=== PATIENT | female | born 1945 | race Caucasian/White ===

== ENCOUNTER 2017-03-13 10:55 | Inpatient (IN) | payer OTHER ==
[~2017-03-13] VITALS: Ht 170.2 cm; Wt 108.5 kg
[2017-03-13] VITALS (16 sets, daily range): BP systolic 90–118; BP diastolic 43–73; PULSE 80–89; TEMP 36.7–37.7; O2SAT 91–98; BMI 40.1
[~2017-03-13 10:55] MED LIST: ALLO300T2 PO; B-COCAP2 PO; EFFSR75 PO; FERR-24 PO; LORA-741 PO; OXYC-57 PO; SENN-65 PO; SIMV20TA2 PO; ZOLP10TA PO
[2017-03-13] MEDS ORDERED: MORP15TA PO (11:25)
[2017-03-13] MEDS ORDERED: TRAZ100T29 PO (11:25)
[2017-03-13] MEDS ORDERED: ATOR-24 PO (11:26)
[2017-03-13] MEDS ORDERED: GABA-113 PO (11:26)
[2017-03-13] MEDS ORDERED: LISI-461 PO (11:26)
[2017-03-13] MEDS ORDERED: GLIP5TAB3 PO (11:26)
[2017-03-13] MEDS ORDERED: GLC/500 PO (11:26)
[2017-03-13] MEDS ORDERED: SODIUM CHLORIDE 0.9% 1000ML 1,000 ML IV STA (12:18)
--- NOTE | 2017-03-13 12:56 | DIAGNOSTIC IMAGING REPORT ---
CHEST ONE VIEW PORTABLE CLINICAL HISTORY: Altered mental status. Weakness. COMPARISON STUDY: Chest radiograph May 13, 2011. FINDINGS: Lung volumes are at the lower limits of normal. This is unchanged. No pneumothorax or pleural effusion is present. Mild cardiomegaly is noted. There is no evidence of pulmonary edema. No consolidation is evident. IMPRESSION: No acute cardiopulmonary findings. Electronically signed by: Jose Manuel Schrader M.D. 03/13/2017 12:55 PM Dictated Date/Time: 03/13/2017 12:54 PM
[2017-03-13 14:02] LABS: BASO % 0.2 %; BASO ABS # 0.02 K/uL (0-0.2); EOS % 0.4 %; EOS ABS # 0.05 K/uL (0-0.5); HEMATOCRIT 28.6 % (37-47); HEMOGLOBIN 9.4 g/dL (12.0-16.0); IG# 0.05 K/uL (0.00-0.02); LYMPH % 17.2 %; LYMPH ABS # 1.93 K/uL (1.2-3.4); MEAN CELL VOLUME 91.7 fL (80-100); MEAN CORPUSCULAR HEMOGLOBIN 30.1 pg (25-34); MEAN CORPUSCULAR HGB CONC 32.9 g/dl (32-36); MEAN PLATELET VOLUME 9.1 fL (7.4-10.4); MONO % 7.8 %; MONO ABS # 0.87 K/uL (0.11-0.59); NEUT ABS # 8.29 K/uL (1.4-6.5); PLATELET COUNT 214 K/uL (130-400); RED CELL DISTRIBUTION WIDTH CV 13.3 % (11.5-14.5); RED CELL DISTRIBUTION WIDTH SD 44.3 fL (36.4-46.3); WHITE BLOOD COUNT 11.21 K/uL (4.8-10.8)
[2017-03-13 14:35] LABS: ALBUMIN 3.1 gm/dl (3.4-5.0); ALKALINE PHOSPHATASE 89 U/L (45-117); ALT/SGPT 19 U/L (12-78); AST/SGOT 22 U/L (15-37); BLOOD UREA NITROGEN 43 mg/dl (7-18); CALCIUM 7.8 mg/dl (8.5-10.1); CARBON DIOXIDE 25 mmol/L (21-32); CKMB 9.7 ng/ml (0.5-3.6); CREATININE 5.91 mg/dl (0.60-1.20); GLUCOSE 119 mg/dl (70-99); LIPASE 42 U/L (73-393); POTASSIUM 5.5 mmol/L (3.5-5.1); SODIUM 136 mmol/L (136-145); TOTAL PROTEIN 6.3 gm/dl (6.4-8.2)
[2017-03-13 14:36] LABS: PTT PATIENT 23.9 SECONDS (21.0-31.0)
[2017-03-13] MEDS ORDERED: CEFTRIAXONE SOD INJ 1 GM ADDVIAL IV STA (14:42)
--- NOTE | 2017-03-13 14:53 | EMERGENCY ROOM VISIT NOTE ---
History Report prepared by Corrine: Munir Guerrero Under the Supervision of: Dr. Irvin Coello D.O. First contact with patient: 12:11 Chief Complaint: VOMITING Stated Complaint: VOMIT/WEAKNESS Nursing Triage Summary: Vomiting yesterday with falling this a.m. Patient states "I have the shakes". No vomiting today and no nausea. History of Present Illness The patient is a 71 year old female who presents to the Emergency Room with complaints of generalized weakness that began earlier today. She has a past medical history of kidney failure that occurred 6 years ago. She states that her symptom yesterday and today were the same symptoms that she had during this episode many years ago. Yesterday, the patient was severely nauseated and experienced about 6 episodes of vomiting. Her later episodes of vomiting were very dark in color. Today, her nausea and vomiting have resolved, but were replaced with her generalized weakness. Secondary to her weakness, she accidentally fell multiple times today. She did not hit her head or lose consciousness. Her daughter notes that she is having involuntary muscle jerks intermittently. She denies any fevers, chest pain, shortness of breath, diarrhea , hematochezia, or melena. She notes that she had a cough yesterday that resolved today. Source of History: patient Onset: earlier today Position: other (Global) Symptom Intensity: moderate Quality: other (Weakness) Timing: constant Associated Symptoms: No LOC, No fevers, No cough, No chest pain, No SOB, No nausea, No vomiting Note: She fell multiple times today but did not hit her head. She is experiencing involuntary muscle jerks. Review of Systems See HPI for pertinent positives & negatives. A total of 10 systems reviewed and were otherwise negative. Past Medical & Surgical Medical Problems: (1) Acute renal insufficiency (2) Fall (3) Urosepsis Family History Omitted secondary to the patient's age. Social History Smoking Status: Never Smoker Alcohol Use: none Drug Use: none Occupation Status: retired Current/Historical Medications Scheduled Atorvastatin (Lipitor), 40 MG PO QPM Gabapentin (Neurontin), 300 MG PO BID Glipizide (Glucotrol), 5 MG PO BID Lisinopril (Lisinopril), 10 MG PO DAILY Metformin Hcl (Glucophage), 1,000 MG PO BID Morphine Sulfate Ir (Morphine Sulfate Ir), 30 MG PO QAM Trazodone Hcl (Trazodone), 100 MG PO HS Allergies Coded Allergies: No Known Allergies (Unverified , 03/13/17) Physical Exam Vital Signs Date Time Temp Pulse Resp B/P (MAP) Pulse Ox O2 Delivery O2 Flow Rate FiO2 03/13/17 14:35 80 18 120/41 98 Nasal Cannula 2.0 03/13/17 14:01 108/53 03/13/17 12:47 87 27 109/52 97 Nasal Cannula 2.0 03/13/17 12:05 88 16 96/56 96 Nasal Cannula 2.0 03/13/17 11:12 98 Nasal Cannula 2.0 03/13/17 11:09 95 Nasal Cannula 2.0 03/13/17 11:05 36.8 96 14 113/51 86 Room Air 03/13/17 11:05 101 Physical Exam CONSTITUTIONAL/VITAL SIGNS: Reviewed / noted above. GENERAL: Non-toxic in appearance. Pale in color. INTEGUMENTARY: Warm, dry, and Bear. HEAD: Normocephalic. EYES: without scleral icterus or trauma. ENT/OROPHARYNX: clear and moist. LYMPHADENOPATHY/NECK: Is supple without lymphadenopathy or meningismus. RESPIRATORY: Lungs clear and equal. CARDIOVASCULAR: Regular rate and rhythm. GI/ABDOMEN: Soft and nontender. No organomegaly or pulsatile mass. No rebound or guarding. Normal bowel sounds. EXTREMITIES: Warm and well perfused. Small amount of abrasions to the bilateral lower extremities. BACK: No CVA tenderness. NEUROLOGICAL: Intact without focal deficits. PSYCHIATRIC: normal affect. MUSCULOSKELETAL: Normally developed with good muscle tone. Medical Decision & Procedures ER Provider Diagnostic Interpretation: Radiology results as stated below per my review and radiologist interpretation: CHEST ONE VIEW PORTABLE CLINICAL HISTORY: Altered mental status. Weakness. COMPARISON STUDY: Chest radiograph May 13, 2011. FINDINGS: Lung volumes are at the lower limits of normal. This is unchanged. No pneumothorax or pleural effusion is present. Mild cardiomegaly is noted. There is no evidence of pulmonary edema. No consolidation is evident. IMPRESSION: No acute cardiopulmonary findings. Electronically signed by: Jose Manuel Schrader M.D. 03/13/2017 12:55 PM Dictated Date/Time: 03/13/2017 12:54 PM Laboratory Results 03/13/17 13:35 Red Blood Count 3.12, Mean Corpuscular Volume 91.7, Mean Corpuscular Hemoglobin 30.1, Mean Corpuscular Hemoglobin Concent 32.9, Mean Platelet Volume 9.1, Neutrophils (%) (Auto) 74.0, Lymphocytes (%) (Auto) 17.2, Monocytes (%) (Auto) 7.8, Eosinophils (%) (Auto) 0.4, Basophils (%) (Auto) 0.2, Neutrophils # (Auto) 8.29, Lymphocytes # (Auto) 1.93, Monocytes # (Auto) 0.87, Eosinophils # (Auto) 0.05, Basophils # (Auto) 0.02 03/13/17 13:35 Test 03/13/17 13:10 03/13/17 13:35 Urine Color YELLOW Urine Appearance CLOUDY (CLEAR) Urine pH 5.0 (4.5-7.5) Urine Specific [place] 1.020 (1.000-1.030) Urine Protein 1+ (NEG) Urine Glucose (UA) 1+ (NEG) Urine Ketones NEG (NEG) Urine Occult Blood NEG (NEG) Urine Nitrite NEG (NEG) Urine Bilirubin NEG (NEG) Urine Urobilinogen NEG (NEG) Urine Leukocyte Esterase LARGE (NEG) Urine WBC (Auto) >30 /hpf (0-5) Urine RBC (Auto) 0-4 /hpf (0-4) Urine Hyaline Casts (Auto) 1-5 /lpf (0-5) Urine Epithelial Cells (Auto) 5-10 /lpf (0-5) Urine Bacteria (Auto) NEG (NEG) Urine Yeast (Auto) (NONE PRSENT) White Blood Count 11.21 K/uL (4.8-10.8) Red Blood Count 3.12 M/uL (4.2-5.4) Hemoglobin 9.4 g/dL (12.0-16.0) Hematocrit 28.6 % (37-47) Mean Corpuscular Volume 91.7 fL (80-100) Mean Corpuscular Hemoglobin 30.1 pg (25-34) Mean Corpuscular Hemoglobin Concent 32.9 g/dl (32-36) Platelet Count 214 K/uL (130-400) Mean Platelet Volume 9.1 fL (7.4-10.4) Neutrophils (%) (Auto) 74.0 % Lymphocytes (%) (Auto) 17.2 % Monocytes (%) (Auto) 7.8 % Eosinophils (%) (Auto) 0.4 % Basophils (%) (Auto) 0.2 % Neutrophils # (Auto) 8.29 K/uL (1.4-6.5) Lymphocytes # (Auto) 1.93 K/uL (1.2-3.4) Monocytes # (Auto) 0.87 K/uL (0.11-0.59) Eosinophils # (Auto) 0.05 K/uL (0-0.5) Basophils # (Auto) 0.02 K/uL (0-0.2) RDW Standard Deviation 44.3 fL (36.4-46.3) RDW Coefficient of Variation 13.3 % (11.5-14.5) Immature Granulocyte % (Auto) 0.4 % Immature Granulocyte # (Auto) 0.05 K/uL (0.00-0.02) Prothrombin Time 10.0 SECONDS (9.0-12.0) Prothromb Time International Ratio 1.0 (0.9-1.1) Activated Partial Thromboplast Time 23.9 SECONDS (21.0-31.0) Partial Thromboplastin Ratio 0.9 Anion Gap 8.0 mmol/L (3-11) Est Creatinine Clear Calc Drug Dose 11.5 ml/min Estimated GFR () 7.7 Estimated GFR (Non- 6.6 BUN/Creatinine Ratio 7.3 (10-20) Calcium Level 7.8 mg/dl (8.5-10.1) Magnesium Level 2.0 mg/dl (1.8-2.4) Total Bilirubin 0.3 mg/dl (0.2-1) Direct Bilirubin < 0.1 mg/dl (0-0.2) Aspartate Amino Transf (AST/SGOT) 22 U/L (15-37) Alanine Aminotransferase (ALT/SGPT) 19 U/L (12-78) Alkaline Phosphatase 89 U/L (45-117) Total Creatine Kinase 365 U/L (26-192) Creatine Kinase MB 9.7 ng/ml (0.5-3.6) Creatine Kinase MB Ratio 2.7 (0-3.0) Troponin I < 0.015 ng/ml (0-0.045) Total Protein 6.3 gm/dl (6.4-8.2) Albumin 3.1 gm/dl (3.4-5.0) Lipase 42 U/L (73-393) Thyroid Stimulating Hormone (TSH) 0.643 uIu/ml (0.300-4.500) Laboratory results as stated above per my review. Medications Administered Medications (Trade) Dose Ordered Sig/Shayan Route Start Time Stop Time Status Last Admin Dose Admin Sodium Chloride 1,000 ml @ 999 mls/hr Q1H1M STAT IV 03/13/17 12:18 03/13/17 13:18 DC 03/13/17 12:18 999 MLS/HR Ceftriaxone Sodium (Rocephin Inj) 1 gm NOW STAT IV 03/13/17 14:42 03/13/17 14:43 DC 03/13/17 14:54 1 GM ECG Indication: vomiting, weakness Rate (beats per minute): 95 Rhythm: normal sinus Findings: no acute ischemic change, no ectopy ED Course 1211: Previous medical records were reviewed. The patient was evaluated in room C10. A complete history and physical examination was performed. 1218: Ordered Sodium Chloride 1000 ml @ 999 mls/hr IV 1442: Ordered Rocephin Inj 1 gm IV 1450: On reevaluation, the patient is resting. I discussed the results and findings with her. She verbalized agreement of the treatment plan. I spoke with Dr. Key Pete of the [facility] Hospitalist Service. The patient will be evaluated for further management and care. Medical Decision Differentials include: Acute coronary syndrome, myocardial infarction, CVA, TIA , anemia, infection, pneumonia, UTI, pyelonephritis, poor nutrition, dehydration , electrolyte disturbance, and hypoglycemia. This is a 71-year-old female who presents to the ED with a chief complaint of weakness and falling. The patient has been vomiting all day yesterday. She has vomited about 6 times. Today she was so weak that she was unable to bear weight and she fell numerous times. She did not hurt herself and did not strike her head. She did have some abrasions to her lower extremities. The patient's physical exam revealed some paleness to the skin but otherwise was unremarkable. She denied vomiting any blood or bloody bowel movements. Her chest x-ray did not show acute disease. Hemoglobin is 9.4. Urine is concerning for infection. White blood cell count was 11.2. Potassium was 5.5. Creatinine is 5.9. BUN is 43. Baseline creatinine is 1.2. The patient was hydrated with IV fluids. She was also given IV Rocephin. She will be seen by the hospitalist for further evaluation and care. Medication Reconcilliation Current Medication List: was personally reviewed by me Blood Pressure Screening Patient's blood pressure: Low blood pressure Consults Time Called: 144 Consulting Physician: Dr. Key Pete - [facility] Returned Call: [phone] Discussed the patient's case. The patient will be evaluated for further treatment and disposition. Impression Primary Impression: ARF (acute renal failure) Additional Impressions: Dehydration Weakness UTI (urinary tract infection) Scribe Attestation The scribe's documentation has been prepared under my direction and personally reviewed by me in its entirety. I confirm that the note above accurately reflects all work, treatment, procedures, and medical decision making performed by me. Departure Information Dispostion Being Evaluated By Hospitalist Referrals Juan R Shah M.D. (PCP) Patient Instructions [facility] Problem Qualifiers
[2017-03-13] MEDS ORDERED: GLUCAGON FOR INJ 1 MG VIAL SQ PRN (15:45)
[2017-03-13] MEDS ORDERED: GLUCOSE 10 TABS/TUBE PO PRN (15:45)
[2017-03-13] MEDS ORDERED: ONDANSETRON INJ 2 MG/ML 2 ML VIAL IV PRN (15:45)
[2017-03-13] MEDS ORDERED: ALUMINUM/MAGNESIUM/SIMETH (MAALOX MAX) 30 ML UDC PO PRN (15:45)
[2017-03-13] MEDS ORDERED: MAGNESIUM HYDROXIDE SUSP 30 ML UDC PO PRN (15:45)
[2017-03-13] MEDS ORDERED: POLYETHYLENE (MIRALAX) 17 GM PACK PO PRN (15:45)
[2017-03-13] MEDS ORDERED: GLUCOSE 40% GEL 15 GM TUBE PO PRN (15:45)
[2017-03-13] MEDS ORDERED: SODIUM CHLORIDE 0.9% 1000ML 1,000 ML IV ONE (16:00)
--- NOTE | 2017-03-13 16:26 | History and Physical ---
History & Physical Date & Time of Service: Mar 13, 2017 at 16:17 Chief Complaint: Vomit/Weakness Primary Care Physician: Ac Lopez M.D. History of Present Illness Source: patient, family Ms. Gresham is a 71 y/o female with PMHx of T2DM with Peripheral Neuropathy, HTN , Previous VISHAL (Required Temporary Hemodialysis) who presents to the ED c/o generalized weakness starting this AM. Patient reports yesterday waking up her normal self. She states she had sudden onset of emesis 6 reporting the emesis being black in color. She states the vomiting came on suddenly but denies precipitating nausea. She states all emesis was black in color. She denies abdominal pain. She states she used Pepto-Bismol approx. a week ago but nothing recent. She denies frequent NSAIDs or iron supplementation. She denies melena/ hematochezia. Emesis resolved yesterday but she states she felt extremely weak this AM. She reports fall x 6 times but only complains of small abrasions to feet and R hip pain. She denies LOC or hitting her head. She states she feels generally weak and denies focal deficits. She noticed the onset of muscle twitching that has been going on since today. The twitching is mostly of her upper extremities. Family notes she starts to say things but then forgets what she is saying but denies slurred speech. She reports approx. 6 years ago after her R BEBE she developed anemia and VISHAL. Previous admission reviewed, due to her Cr and electrolyte abnormalities she required temporary hemodialysis but reports complete resolution of her VISHAL. It was thought that her muscle jerking may have been related to gabapentin. Patient states this was recently changed in January from BID to TID dosing but was also talking about possibly Glipizide being TID now too? Patient and family at bedside state she appears exactly how she did 6 years ago. In the ED, patient was afebrile and with a mild leukocytosis of only 11.2. Her hemoglobin is 9.4 which is lower than previous labs however most labs are from several years ago. Her electrolytes are stable except for mild elevation of K at 5.5. No presence of an anion gap. EKG is NSR without ischemic findings or peaked T waves. Patient is intermittently hypotensive and will continue fluid bolus. Will transfuse 2 units and obtain renal U/S. Past Medical/Surgical History 1. T2DM 2. Diabetic Peripheral Neuropathy 3. HTN 4. Chronic Pain 5. H/O VISHAL - Required temporary dialysis x 6 years ago 6. S/P R BEBE Family History Lung Cancer Social History Smoking Status: Never Smoker Smokeless Tobacco Use: No Alcohol Use: none Drug Use: none Occupational Status: retired Immunizations History of Influenza Vaccine: Unknown History of Tetanus Vaccine?: Unknown History of Pneumococcal: Unknown History of Hepatitis B Vaccine: Unknown Multi-Drug Resistant Organisms History of MDRO: No Allergies Coded Allergies: No Known Allergies (Unverified , 03/13/17) Home Medications Scheduled Atorvastatin (Lipitor), 40 MG PO QPM Gabapentin (Neurontin), 300 MG PO BID Glipizide (Glucotrol), 5 MG PO BID Lisinopril (Lisinopril), 10 MG PO DAILY Metformin Hcl (Glucophage), 1,000 MG PO BID Morphine Sulfate Ir (Morphine Sulfate Ir), 30 MG PO QAM Trazodone Hcl (Trazodone), 100 MG PO HS Review of Systems Constitutional: + weakness (generalized), + fatigue, No fever, No chills ENT: No nasal symptoms, No sore throat, No trouble swallowing Respiratory: No cough, No shortness of breath Abdomen: + vomiting (x 6 epidosed yesterday - reporting black colored), + GI bleeding (possible black emesis - denies melena/hematochezia), No pain, No nausea, No diarrhea, No constipation Genitourinary - Female: No dysuria, No urinary frequency Hematologic / Lymphatic: No abnormal bleeding/bruising Integumentary: No rash Physical Exam Vital Signs Date Time Temp Pulse Resp B/P (MAP) Pulse Ox O2 Delivery O2 Flow Rate FiO2 03/13/17 15:07 74 03/13/17 14:35 80 18 120/41 98 Nasal Cannula 2.0 03/13/17 14:01 108/53 03/13/17 12:47 87 27 109/52 97 Nasal Cannula 2.0 03/13/17 12:05 88 16 96/56 96 Nasal Cannula 2.0 03/13/17 11:12 98 Nasal Cannula 2.0 03/13/17 11:09 95 Nasal Cannula 2.0 03/13/17 11:05 36.8 96 14 113/51 86 Room Air 03/13/17 11:05 101 General Appearance: WD/WN, no apparent distress, + obese Head: normocephalic, atraumatic Eyes: PERRL, EOMI, sclerae normal ENT: hearing grossly normal, pharynx normal, + pertinent finding (minimally dry oral mucosa) Neck: supple, no JVD, trachea midline Respiratory/Chest: lungs clear, normal breath sounds, no respiratory distress, no accessory muscle use Cardiovascular: regular rate, rhythm, no gallop, no murmur Abdomen/GI: normal bowel sounds, non tender (to light and deep palpation), soft Extremities/Musculoskelatal: no calf tenderness, no pedal edema Neurologic/Psych: no motor/sensory deficits, alert, oriented x 3, + pertinent finding (intermittently lethargic; 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, arm flexion/ extension, dorsiflexion/plantarflexion, and hip flexion b/l; Romberg negative; facial features symmetrical and movement equal) Skin: normal color, warm/dry, + pallor, + pertinent finding (multiple superficial skin tears to lower extremities) Diagnostics Laboratory Results Results Past 24 Hours Test 03/13/17 13:10 03/13/17 13:35 03/13/17 15:35 03/13/17 15:36 Range/Units Urine Color YELLOW Urine Appearance CLOUDY CLEAR Urine pH 5.0 4.5-7.5 Urine Specific [place] 1.020 1.000-1.030 Urine Protein 1+ NEG Urine Glucose (UA) 1+ NEG Urine Ketones NEG NEG Urine Occult Blood NEG NEG Urine Nitrite NEG NEG Urine Bilirubin NEG NEG Urine Urobilinogen NEG NEG Urine Leukocyte Esterase LARGE NEG Urine WBC (Auto) >30 0-5 /hpf Urine RBC (Auto) 0-4 0-4 /hpf Urine Hyaline Casts (Auto) 1-5 0-5 /lpf Urine Epithelial Cells (Auto) 5-10 0-5 /lpf Urine Bacteria (Auto) NEG NEG Urine Yeast (Auto) NONE PRSENT White Blood Count 11.21 4.8-10.8 K/uL Red Blood Count 3.12 4.2-5.4 M/uL Hemoglobin 9.4 12.0-16.0 g/dL Hematocrit 28.6 37-47 % Mean Corpuscular Volume 91.7 80-100 fL Mean Corpuscular Hemoglobin 30.1 25-34 pg Mean Corpuscular Hemoglobin Concent 32.9 32-36 g/dl Platelet Count 214 130-400 K/uL Mean Platelet Volume 9.1 7.4-10.4 fL Neutrophils (%) (Auto) 74.0 % Lymphocytes (%) (Auto) 17.2 % Monocytes (%) (Auto) 7.8 % Eosinophils (%) (Auto) 0.4 % Basophils (%) (Auto) 0.2 % Neutrophils # (Auto) 8.29 1.4-6.5 K/uL Lymphocytes # (Auto) 1.93 1.2-3.4 K/uL Monocytes # (Auto) 0.87 0.11-0.59 K/uL Eosinophils # (Auto) 0.05 0-0.5 K/uL Basophils # (Auto) 0.02 0-0.2 K/uL RDW Standard Deviation 44.3 36.4-46.3 fL RDW Coefficient of Variation 13.3 11.5-14.5 % Immature Granulocyte % (Auto) 0.4 % Immature Granulocyte # (Auto) 0.05 0.00-0.02 K/uL Prothrombin Time 10.0 9.0-12.0 SECONDS Prothromb Time International Ratio 1.0 0.9-1.1 Activated Partial Thromboplast Time 23.9 21.0-31.0 SECONDS Partial Thromboplastin Ratio 0.9 Sodium Level 136 136-145 mmol/L Potassium Level 5.5 3.5-5.1 mmol/L Chloride Level 103 98-107 mmol/L Carbon Dioxide Level 25 21-32 mmol/L Anion Gap 8.0 3-11 mmol/L Blood Urea Nitrogen 43 7-18 mg/dl Creatinine 5.91 0.60-1.20 mg/dl Est Creatinine Clear Calc Drug Dose 11.5 ml/min Estimated GFR () 7.7 Estimated GFR (Non- 6.6 BUN/Creatinine Ratio 7.3 10-20 Random Glucose 119 70-99 mg/dl Calcium Level 7.8 8.5-10.1 mg/dl Magnesium Level 2.0 1.8-2.4 mg/dl Total Bilirubin 0.3 0.2-1 mg/dl Direct Bilirubin < 0.1 0-0.2 mg/dl Aspartate Amino Transf (AST/SGOT) 22 15-37 U/L Alanine Aminotransferase (ALT/SGPT) 19 12-78 U/L Alkaline Phosphatase 89 45-117 U/L Total Creatine Kinase 365 26-192 U/L Creatine Kinase MB 9.7 0.5-3.6 ng/ml Creatine Kinase MB Ratio 2.7 0-3.0 Troponin I < 0.015 0-0.045 ng/ml Total Protein 6.3 6.4-8.2 gm/dl Albumin 3.1 3.4-5.0 gm/dl Lipase 42 73-393 U/L Thyroid Stimulating Hormone (TSH) 0.643 0.300-4.500 uIu/ml Microbiology Results 03/13/17 Urine Culture, Received Pending Diagnostic Radiology CHEST ONE VIEW PORTABLE FINDINGS: Lung volumes are at the lower limits of normal. This is unchanged. No pneumothorax or pleural effusion is present. Mild cardiomegaly is noted. There is no evidence of pulmonary edema. No consolidation is evident. IMPRESSION: No acute cardiopulmonary findings. EKG Normal sinus rhythm Normal ECG When compared with ECG of 14-MAY-2011 07:36, No significant change was found Confirmed by ENMANUEL BRONSON ([id number]) on 03/13/2017 1:26:16 PM Impression Assessment and Plan Ms. Gresham is a 71 y/o female with PMHx of T2DM with Peripheral Neuropathy, HTN , Previous VISHAL (Required Temporary Hemodialysis) who presents to the ED c/o generalized weakness starting this AM. Patient reports yesterday waking up her normal self. She states she had sudden onset of emesis 6 reporting the emesis being black in color. Acute Metabolic Encephalopathy: Renal vs Infectious vs Anemia vs Hypotension - She is alert and oriented x 3 but is lethargic - No evidence of anion gap but will draw an ABG for further evaluation - mildly lowered albumin but correction would not significantly change lab reported anion gap - Obtain lactic acid Acute Kidney Injury: - Unsure if VISHAL caused vomiting or vomiting caused an VISHAL - patient has H/O of similar issues in the past but required hemodialysis temporarily due to anion gap with electrolyte abnormalities - 2 L NSS bolus in ED total and will continue run NSS at 100 mL/hr - Continue to monitor kidney function and electrolytes - Hold Gabapentin, Lisinopril, and Metformin - Obtain renal U/S for further evaluation - Transfuse 2 units PRBC - hemoglobin at mid-9s but given mentation and possible hypotensive induced VISHAL will transfuse - Consult nephrology - appreciate assistance - did require dialysis when this occurred x 6 years ago with Cr going into 8s Possible Acute Anemia: Black Emesis - Trend Hgb - will transfuse due to concern of renal compromise limited recent labs but last hgb on record was in 11s and last records from when she had VISHAL x 6 years ago with Hgb around 8-9 Possible UTI: - Cx pending - will cover with Rocephin 1 g IV daily - no urinary symptoms reported Generalized Weakness and Falls x 6: - Possibly related to VISHAL vs anemia Muscle Twitching: - Send Gabapentin reference lab - may be electrolyte related vs Gabapentin induced T2DM with Peripheral Neuropathy: - Hold oral agents and cover with SSI HTN: - Currently hypotensive DVT Prophylaxis: SCDs Code Status: FULL RESUSCITATION Disposition: PT/OT Evaluations 71-year-old female presented to the hospital with acute onset vomiting and epigastric abdominal pain and dehydration. She was found to have acute kidney failure I personally interviewed and examined the patient. I agree with history of present illness and physical exam mentioned above, I also performed my own history taking and examination. Past medical history and review of system has been obtained by myself I reviewed all pertinent labs and studies Reviewed current medications I discussed and formulated of the assessment and plan mentioned above as per discussion with Miss Nion [place] Please refer to the Summary mentioned below. General Appearance: Moderate acute distress Eyes: normal Sclerae, extraocular muscle intact ENT: hearing grossly normal Neck: supple Respiratory/Chest: normal air entry especially bilateral ,no respiratory distress, no accessory muscle use Cardiovascular: regular rate, rhythm, + systolic murmur Abdomen: Mild tender, soft, no masses Extremities: no edema Neurologic/Psychiatric: Awake alert oriented times place and person moves all extremities sensation intact cranial nerves II-12 appear to be intact Skin: normal color, warm/dry, no rash, appears dehydrated Mark Pete MD, [facility] hospitalist group Level of Care Telemetry Resuscitation Status FULL RESUSCITATION VTE Prophylaxis VTE Risk Assessment Done? Y/N: Yes Risk Level: Moderate Given or contraindicated: SCD's
--- NOTE | 2017-03-13 17:05 | DIAGNOSTIC IMAGING REPORT ---
PELVIS/BILATERAL HIP 2 VIEWS CLINICAL HISTORY: Fall x 6 - R Hip Pain with Previous Hip Replacement trauma. Pain. COMPARISON STUDY: None FINDINGS: Findings consistent with a total right hip arthroplasty. Good contact between prosthetic and underlying bone. No evidence for acetabular protrusion. Mild degenerative change left hip. No evidence for acetabular protrusion. Sacral foramina are symmetric. IMPRESSION: 1. Pre-existing total right hip arthroplasty. 2. No acute process of the pelvis or hips. The above report was generated using voice recognition software. It may contain grammatical, syntax or spelling errors. Electronically signed by: Ac Chapin M.D. 03/13/2017 5:04 PM Dictated Date/Time: 03/13/2017 5:03 PM
[2017-03-13] MEDS: SODIUM CHLORIDE 0.9% 1000ML 1,000 ML IV SCH ×3 (17:51→23:00)
[2017-03-13 17:55] LABS: HEMATOCRIT 28.5 % (37-47); HEMOGLOBIN 9.5 g/dL (12.0-16.0)
[2017-03-13 18:37] LABS: ALBUMIN 3.1 gm/dl (3.4-5.0); CALCIUM 7.7 mg/dl (8.5-10.1); CREATININE 6.17 mg/dl (0.60-1.20); POTASSIUM 5.4 mmol/L (3.5-5.1); TOTAL PROTEIN 6.5 gm/dl (6.4-8.2)
[2017-03-13] MEDS: INSULIN ASPART 100 UNITS/ML 3 ML PEN SC SCH (21:00)
--- NOTE | 2017-03-13 21:17 | DIAGNOSTIC IMAGING REPORT ---
(RENAL)RETROPERITON COMP HISTORY: 71 years-old Female Elevated creatinine, Acute renal failure COMPARISON: Renal ultrasound 07/07/2011 TECHNIQUE: Multiple real-time sonographic images of the kidneys and urinary bladder were obtained assessing grayscale appearance and color flow FINDINGS: The right kidney measures 11.0 cm in length and is unremarkable without hydronephrosis, renal calculi or focal mass. Cortical medullary differentiation is preserved. The left kidney measures 11.2 cm in length and is also unremarkable without hydronephrosis, renal calculi or focal mass. Cortical medullary differentiation is preserved. Urinary bladder is decompressed with George catheter noted. IMPRESSION: 1. Unremarkable sonographic appearance of the bilateral kidneys without renal calculi or hydronephrosis. 2. Decompressed urinary bladder with Georeg catheter. The above report was generated using voice recognition software. It may contain grammatical, syntax or spelling errors. Electronically signed by: Carloz Cartagena M.D. 03/13/2017 9:15 PM Dictated Date/Time: 03/13/2017 9:13 PM
[2017-03-13] MEDS ORDERED: PNEUMOCOCCAL POLYSACCHARIDES 25 MCG/0.5 ML VIAL/SYR IM. ONE (21:30)
[2017-03-13] MEDS ORDERED: PNEUMOCOCCAL ADMINISTRATION CHARGE ONE (21:30)
[2017-03-13] MEDS ORDERED: INFLUENZA VIRUS QUAD VACCINE 0.5 ML SYR IM. ONE (21:30)
[2017-03-13] MEDS ORDERED: INFLUENZA ADMINISTRATION CHARGE ONE (21:30)
--- NOTE | 2017-03-13 22:10 | Progress Note ---
Progress Note Date of Service Mar 13, 2017. Progress Note Patient was reevaluated due to BP laboratories revealing worsening kidney function. Upon arrival to patient room, nurse was at bedside reporting worsening AMS. Patient would open her eyes and intermittently respond to questions but was also saying irrelevant things and was no longer oriented. Patient is mostly lethargic laying in bed with her eyes closed. With fluid resuscitation and 1 unit PRBC patient does appear to be mildly fluid overloaded. BP did somewhat improve but intermittently dropping into the 90s systolically. ABG revealed what is likely an uncompensated respiratory acidosis with an underlying metabolic acidosis with a normal anion gap. Discussed the case with Dr. Camargo and Vonda Tolentino PA-C and patient will be transferred to the ICU for further monitoring and intervention. patient slowly deteriorated on the floor and required ICU transfer repeat labs sowed no need for urgent dialysis, but supervisor ride assembly was informed with the case
--- NOTE | 2017-03-13 23:01 | Critical Care Consultation ---
Critical Care Consultation Date of Consultation: Mar 13, 2017. Attending Physician: Mark Pham MD Reason for Consultation: Altered Mental Status secondary to Renal Failure History of Present Illness Steffany Gresham is a 71-year-old female who presented to the emergency room today with complaints of vomiting and generalized weakness that began earlier that day. She complained of "I have the shakes." She did explain to the emergency room physician that this resembles an episode she had approximately 6 years ago that required emergent dialysis for renal failure. She described upwards of half dozen episodes of vomiting some with dark colored vomitus. When this resolved today she felt overall weakness that did cause her to fall multiple times. She denied head trauma or loss of consciousness. She is having involuntary muscle jerks intermittently since that time. Patient did receive 1 g of Rocephin and a 1 L fluid bolus of normal saline. Patient's potassium was 5.5 and a creatinine of 5.9, BUNs of 43. It is believed that her baseline creatinine is around 1.2. Patient did deny vomiting blood or experiencing bloody diarrhea. Hemoglobin was 9.4 in the emergency room. Patient's urine in the emergency room was nitrate and bacteria negative with large amounts of leukocytes Estrace. Patient was admitted to the second floor where she received 1 unit of packed red blood cells. Renal ultrasound was performed that was essentially unremarkable. The hospitalist team contacted myself and Dr. Camargo after the patient experienced acute changes. She became more altered and was requiring additional oxygen. A second unit of packed red blood cells was sent back to blood bank as patient was beginning to appear fluid overloaded. Patient was no longer alert and oriented as she had been prior and was transferred to the ICU for further monitoring and the possible need of emergent dialysis. Review of systems could not be obtained at this time secondary to patient's mental status. Past Medical/Surgical History Medical Problems: Acute renal insufficiency Fall Urosepsis Diabetes Type 2 Peripheral neuropathy Hypertension Chronic pain History of acute renal failure Surgical history: Right total hip arthroplasty Family History Lung Cancer Social History Smoking Status: Never Smoker Smokeless Tobacco Use: No Alcohol Use: none Drug Use: none Occupation Status: retired Allergies Coded Allergies: No Known Allergies (Unverified , 03/13/17) Home Medications Scheduled Atorvastatin (Lipitor), 40 MG PO QPM Gabapentin (Neurontin), 300 MG PO BID Glipizide (Glucotrol), 5 MG PO BID Lisinopril (Lisinopril), 10 MG PO DAILY Metformin Hcl (Glucophage), 1,000 MG PO BID Morphine Sulfate Ir (Morphine Sulfate Ir), 30 MG PO QAM Trazodone Hcl (Trazodone), 100 MG PO HS Current Inpatient Medications Current Inpatient Medications Medications (Trade) Dose Ordered Sig/Shayan Route Start Time Stop Time Status Last Admin Dose Admin Sodium Chloride 1,000 ml @ 100 mls/hr Q10H IV 03/13/17 17:45 04/12/17 17:44 03/13/17 21:03 100 MLS/HR Acetaminophen (Tylenol Tab) 650 mg Q4H PRN PO 03/13/17 15:45 04/12/17 15:44 Al Hydrox/Mg Hydrox/Simethicone (Maalox Max Susp) 15 ml Q4H PRN PO 03/13/17 15:45 04/12/17 15:44 Magnesium Hydroxide (Milk Of Magnesia Susp) 30 ml Q12H PRN PO 03/13/17 15:45 04/12/17 15:44 Ondansetron HCl (Zofran Inj) 4 mg Q6H PRN IV 03/13/17 15:45 04/12/17 15:44 Polyethylene (Miralax Powder Packet) 17 gm DAILY PRN PO 03/13/17 15:45 04/12/17 15:44 Insulin Aspart (novoLOG ASPART) SLIDING SCALE If C... ACHS SC 03/13/17 21:00 04/12/17 20:59 Glucose (Glucose 40% Gel) 15-30 GRAMS 15 GRAMS... UD PRN PO 03/13/17 15:45 04/12/17 15:44 Glucose (Glucose Chew Tab) 4-8 Tablets 4 Tabl... UD PRN PO 03/13/17 15:45 04/12/17 15:44 Dextrose (Dextrose 50% 50ML Syringe) 25-50ML OF 50% DW IV FOR... UD PRN IV 03/13/17 15:45 04/12/17 15:44 Glucagon (Glucagon Inj) 1 mg UD PRN SQ 03/13/17 15:45 04/12/17 15:44 Ceftriaxone Sodium 1 gm/ Dextrose 50 ml @ 100 mls/hr Q24H IV 03/14/17 14:00 03/18/17 13:59 Review of Systems Review of systems could not be obtained at this time secondary to patient's altered mental status. Physical Exam Date Time Temp Pulse Resp B/P (MAP) Pulse Ox O2 Delivery O2 Flow Rate FiO2 03/13/17 21:58 36.9 81 18 115/50 (71) 91 Nasal Cannula 3.0 03/13/17 20:57 37.7 86 12 96/53 94 03/13/17 20:00 92 Nasal Cannula 2.0 03/13/17 19:55 37.2 84 10 97/56 92 03/13/17 19:25 37.2 84 20 112/62 92 03/13/17 19:05 37.0 87 90/47 95 03/13/17 18:44 37.7 80 18 108/57 94 2.0 03/13/17 17:42 36.7 87 20 112/58 94 Nasal Cannula 2.0 03/13/17 16:20 73 18 98/60 93 Room Air 03/13/17 15:07 74 03/13/17 14:35 80 18 120/41 98 Nasal Cannula 2.0 03/13/17 14:01 108/53 03/13/17 12:47 87 27 109/52 97 Nasal Cannula 2.0 03/13/17 12:05 88 16 96/56 96 Nasal Cannula 2.0 03/13/17 11:12 98 Nasal Cannula 2.0 03/13/17 11:09 95 Nasal Cannula 2.0 03/13/17 11:05 36.8 96 14 113/51 86 Room Air 03/13/17 11:05 101 Vital Signs - as noted Laboratory Data - as noted Physical Exam: General - Pt altered, attempts to answer questions but stops mid sentence or answers inappropriately. Intermittent jerking movement noted. Eyes - PERRL, No icterus, gaze conjugate ENT - Mucosa moist, no lesions or candidiasis Neck - Supple, trachea midline, no masses or lymphadenopathy, no JVD or bruits Lungs - No paradoxical chest wall movement, Coarse to auscultation bilaterally, no wheezes, rales, or rhonchi Heart - Reg rate and rhythm, No murmur, rubs, clicks, or gallops appreciated Abdomen - BS present, no bruits noted, tympanic to percussion, soft, nontender, obese abdomen, no organomegaly Extremities - No edema, pedal pulses intact Neuro - Otterbein Coma Score: 10 Strength moves all extremities Reflexes: normal and equal CN:PERRL, no facial asymmetry, uvula/tongue midline Laboratory Results Last 24 Hours Test 03/13/17 13:10 03/13/17 13:35 03/13/17 17:42 03/13/17 20:12 Urine Color YELLOW Urine Appearance CLOUDY Urine pH 5.0 Urine Specific Bronson 1.020 Urine Protein 1+ Urine Glucose (UA) 1+ Urine Ketones NEG Urine Occult Blood NEG Urine Nitrite NEG Urine Bilirubin NEG Urine Urobilinogen NEG Urine Leukocyte Esterase LARGE Urine WBC (Auto) >30 /hpf Urine RBC (Auto) 0-4 /hpf Urine Hyaline Casts (Auto) 1-5 /lpf Urine Epithelial Cells (Auto) 5-10 /lpf Urine Bacteria (Auto) NEG Urine Yeast (Auto) White Blood Count 11.21 K/uL Red Blood Count 3.12 M/uL Hemoglobin 9.4 g/dL 9.5 g/dL Hematocrit 28.6 % 28.5 % Mean Corpuscular Volume 91.7 fL Mean Corpuscular Hemoglobin 30.1 pg Mean Corpuscular Hemoglobin Concent 32.9 g/dl Platelet Count 214 K/uL Mean Platelet Volume 9.1 fL Neutrophils (%) (Auto) 74.0 % Lymphocytes (%) (Auto) 17.2 % Monocytes (%) (Auto) 7.8 % Eosinophils (%) (Auto) 0.4 % Basophils (%) (Auto) 0.2 % Neutrophils # (Auto) 8.29 K/uL Lymphocytes # (Auto) 1.93 K/uL Monocytes # (Auto) 0.87 K/uL Eosinophils # (Auto) 0.05 K/uL Basophils # (Auto) 0.02 K/uL RDW Standard Deviation 44.3 fL RDW Coefficient of Variation 13.3 % Immature Granulocyte % (Auto) 0.4 % Immature Granulocyte # (Auto) 0.05 K/uL Prothrombin Time 10.0 SECONDS Prothromb Time International Ratio 1.0 Activated Partial Thromboplast Time 23.9 SECONDS Partial Thromboplastin Ratio 0.9 Sodium Level 136 mmol/L 135 mmol/L Potassium Level 5.5 mmol/L 5.4 mmol/L Chloride Level 103 mmol/L 103 mmol/L Carbon Dioxide Level 25 mmol/L 25 mmol/L Anion Gap 8.0 mmol/L 7.0 mmol/L Blood Urea Nitrogen 43 mg/dl 44 mg/dl Creatinine 5.91 mg/dl 6.17 mg/dl Est Creatinine Clear Calc Drug Dose 11.5 ml/min 11.0 ml/min Estimated GFR () 7.7 7.3 Estimated GFR (Non- 6.6 6.3 BUN/Creatinine Ratio 7.3 7.2 Random Glucose 119 mg/dl 86 mg/dl Calcium Level 7.8 mg/dl 7.7 mg/dl Phosphorus Level 7.1 mg/dl Magnesium Level 2.0 mg/dl Total Bilirubin 0.3 mg/dl 0.4 mg/dl Direct Bilirubin < 0.1 mg/dl Aspartate Amino Transf (AST/SGOT) 22 U/L 22 U/L Alanine Aminotransferase (ALT/SGPT) 19 U/L 19 U/L Alkaline Phosphatase 89 U/L 93 U/L Total Creatine Kinase 365 U/L Creatine Kinase MB 9.7 ng/ml Creatine Kinase MB Ratio 2.7 Troponin I < 0.015 ng/ml Total Protein 6.3 gm/dl 6.5 gm/dl Albumin 3.1 gm/dl 3.1 gm/dl Lipase 42 U/L Thyroid Stimulating Hormone (TSH) 0.643 uIu/ml Globulin 3.4 gm/dl Albumin/Globulin Ratio 0.9 Bedside Glucose 79 mg/dl Test 03/13/17 20:54 03/13/17 22:11 03/13/17 22:15 03/13/17 22:53 Blood Gas Sample Site R Radial Bedside Blood Gas pH (LAB) 7.22 Bedside Blood Gas pCO2 (LAB) 49 mmHg Bedside Blood Gas pO2 (LAB) 106 mmHg Bedside Blood Gas HCO3 (LAB) 20 meq/L Bedside Blood Gas Total CO2 22 mEq/l Bedside Blood Gas Base Excess (LAB) -8.0 meq/L Bedside Blood Gas O2 Saturation 97.0 % Sukhdev Test Pass Oxygen Delivery Device Cannula Test 03/13/17 23:00 Diagnostic Results CHEST ONE VIEW PORTABLE CLINICAL HISTORY: Altered mental status. Weakness. COMPARISON STUDY: Chest radiograph May 13, 2011. FINDINGS: Lung volumes are at the lower limits of normal. This is unchanged. No pneumothorax or pleural effusion is present. Mild cardiomegaly is noted. There is no evidence of pulmonary edema. No consolidation is evident. IMPRESSION: No acute cardiopulmonary findings. Electronically signed by: Jose Manuel Schrader M.D. 03/13/2017 12:55 PM Dictated Date/Time: 03/13/2017 12:54 PM PELVIS/BILATERAL HIP 2 VIEWS CLINICAL HISTORY: Fall x 6 - R Hip Pain with Previous Hip Replacement trauma. Pain. COMPARISON STUDY: None FINDINGS: Findings consistent with a total right hip arthroplasty. Good contact between prosthetic and underlying bone. No evidence for acetabular protrusion. Mild degenerative change left hip. No evidence for acetabular protrusion. Sacral foramina are symmetric. IMPRESSION: 1. Pre-existing total right hip arthroplasty. 2. No acute process of the pelvis or hips. The above report was generated using voice recognition software. It may contain grammatical, syntax or spelling errors. Electronically signed by: Ac Chapin M.D. 03/13/2017 5:04 PM Dictated Date/Time: 03/13/2017 5:03 PM (RENAL)RETROPERITON COMP HISTORY: 71 years-old Female Elevated creatinine, Acute renal failure COMPARISON: Renal ultrasound 07/07/2011 TECHNIQUE: Multiple real-time sonographic images of the kidneys and urinary bladder were obtained assessing grayscale appearance and color flow FINDINGS: The right kidney measures 11.0 cm in length and is unremarkable without hydronephrosis, renal calculi or focal mass. Cortical medullary differentiation is preserved. The left kidney measures 11.2 cm in length and is also unremarkable without hydronephrosis, renal calculi or focal mass. Cortical medullary differentiation is preserved. Urinary bladder is decompressed with George catheter noted. IMPRESSION: 1. Unremarkable sonographic appearance of the bilateral kidneys without renal calculi or hydronephrosis. 2. Decompressed urinary bladder with George catheter. The above report was generated using voice recognition software. It may contain grammatical, syntax or spelling errors. Electronically signed by: Carloz Cartagena M.D. 03/13/2017 9:15 PM Dictated Date/Time: 03/13/2017 9:13 PM Assessment & Plan (1) Acute urinary tract infection (2) Dehydration (3) Diabetes mellitus type 2 (4) Hypoglycemia (5) Urosepsis (6) Weakness (7) ARF (acute renal failure) PLAN: Fluids/Renal: * Acute Renal Failure * Temporary Dialysis Catheter inserted for possible emergent dialysis on 03/13/17 * Cr baseline 1.2, now 6.46 * Anuric * Dr. Gutierrez consulted, per Conversation with Dr. Norman plan is to hold dialysis tonight if fluid status allows * Fluids currently at 100mL/hr, discontinue if pt begins to desaturate or require increased oxygen demands. * Trend PRP q 6h * Renal U/S unremarkable * UTI * Continue Rocephin * Culture pending * George to gravity Neuro: * Altered Mental Status secondary to uremia * Continue to monitor * Myoclonic movements noted intermittently; unlikely seizure as seen prior to altered mental status during conversation with pt Resp: * Pulmonary edema noted on CXR * B lines on bedside ultrasound * pt initially on 4L Nasal Cannula, titrate as indicated * ABG with continued desaturations * Monitor on telemetry CV: * Troponin negative * Dyslipidemia: Home Atorvastatin held * EKG q6h, Monitor closely for electrolyte imbalances * Monitor on telemetry ID: * Poss UTI. continue Rocephin. First day of administration 03/13/17 * Culture Pending * Afebrile * WBC: 11.21, Lactic Acid 1.1 GI/Nutrition: * NPO * LFTs WNL Heme: * 1uPRBCs received * H&H: 9.12/09; plts: 214 * Coags WNL * Endocrine: * Pt hypoglycemic, rcv'd 1/2amp D50 * Accu-Checks per protocol, started insulin infusion for 2 blood sugars greater than 180 CCT: 55 Minutes; This time is exclusive of all separately billable procedures. Thank you for involving us in the care of this patient. Please refer to Dr. August Camargo's addendum for further recommendations. Patient at risk for volume overload. Upgraded to ICU for worsening mental status and new oxygen requirement. Patient had progressively worsening shortness of breath and increasing oxygen requirements to the point that she required noninvasive ventilation. There was no urine output despite gentle hydration. I discussed the case with Dr. Gutierrez for emergent dialysis for volume control
--- NOTE | 2017-03-13 23:05 | Procedure Note ---
Procedure Note Procedure Date Mar 13, 2017. (Vonda Tolentino PA-C) I was present and assisted during the entire procedure. (August Camargo, D.O.) Central Line Procedure time out: side/site verified, patient ID confirmed, sterile procedure used Consent obtained: written (Daughter Consented) Time of procedure: 22:30 Performed by: physician forensic analyst Indications: poor venous access, central drug admin., other (Dialysis Treatment ) Prep: chlorhexadine prep, sterile drape, sterile procedures used Anesthesia: lidocaine 1% without epi Volume anesthetic (ml's): 10 Central line lumen: triple Central line location: internal jugular (R) Additional details: percutaneous placement, ultrasound guidance, Selinger technique used, line sutured, good blood return CXR: appropriate position, no pneumothorax Complications: none Patient tolerated procedure: well Post-procedure vital signs: reviewed and stable Comments: Critical Care Medicine Point of Care Bedside Ultrasound Procedure: Procedural Ultrasound Procedure Date: 03/13/2017 Indication: Renal Failure Attending: Opal Camargo DO Resident/Physician Assembly Line Supervisor: Vonda Tolentino PA-C If for central venous access Artery AND Vein visualized: Y Compressible Vein: Y Guidewire or Short Catheter seen in vein prior to dilation: Y Line confirmed in Vein with ultrasound: Y If no lung sliding or not obtained has CXR been ordered: Y Impression: Renal Failure Plan: Consult Nephrology for possible need for emergent dialysis Images obtained are saved for permanent record (Vonda Tolentino PA-C)
[2017-03-13 23:10] LABS: HEMOGLOBIN 9.9 g/dL (12.0-16.0)
[2017-03-13 23:19] LABS: INFLUENZA A PCR Neg for Influ A (NEG); INFLUENZA B PCR Neg for Influ B (NEG)
[2017-03-13 23:39] LABS: ALKALINE PHOSPHATASE 87 U/L (45-117); ALT/SGPT 17 U/L (12-78); AST/SGOT 21 U/L (15-37); BLOOD UREA NITROGEN 44 mg/dl (7-18); CALCIUM 7.5 mg/dl (8.5-10.1); CARBON DIOXIDE 24 mmol/L (21-32); CREATININE 6.46 mg/dl (0.60-1.20); GLUCOSE 63 mg/dl (70-99); POTASSIUM 5.7 mmol/L (3.5-5.1); SODIUM 135 mmol/L (136-145); TOTAL PROTEIN 6.4 gm/dl (6.4-8.2)
[2017-03-13] MEDS: DEXTROSE 50% 50 ML SYR IV PRN (23:44)
[2017-03-14] VITALS (43 sets, daily range): BP systolic 85–129; BP diastolic 35–76; PULSE 62–97; TEMP 36.1–37.4; O2SAT 90–100
--- NOTE | 2017-03-14 04:59 | Nephrology Consultation ---
Nephrology Consultation Date & Providers Date of Consultation: Mar 14, 2017. Primary Care Provider: Ac Lopez M.D. Referring Provider: Reason for Consultation VISHAL History of Present Illness Mrs. Gresham is a 71 year old white female who is seen at the request of Dr. Camargo for evaluation of VISHAL and to provide emergency HD. Mrs. Gresham is being seen & evaluated in the ICU this morning. Her daughter Ruben is at bedside and provides permission to perform HD if necessary. The ICU team has already placed a R IJ temporary dialysis catheter. 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 Her degree of glycemic control is unknown but the patient suffers from peripheral neuropathy and requires Gabapentin therapy. Mrs. Gresham medical history is also significant for HTN managed w/ Lisinopril therapy. Mrs. Gresham daughter reports that she had previously been well without fever or recent ill contact. There had been no significant change to her diet. On Mrs. Gresham had sudden onset of recurrent emesis / hematemesis. She was still able to take her oral medications but became weak and suffered several falls. ED evaluation revealed VISHAL. Mrs. Gresham was clinically volume contracted. She had mild hyperkalemia but ECG did not reveal bradycardia, NC / QRS prolongation or peaked T-waves. Serum bicarbonate was normal. CXR was clear and patient was saturating 95% on 2 L O2 NC. Discussion was held w/ the hospitalist team. It was recommended that ANJELICA inhibitor, Gabapentin and Metformin be discontinued, Urine for urinalysis w/ microscopy and renal US were ordered. 0.9 NS for hydration was provided and patient was transfused 1 unit PRBC due to relative anemia and recent hematemesis. Over night Mrs. Gresham has remained essentially anuric. Her respiratory status has quickly deteriorated. She required transfer to the ICU for NIPPV. CXR shows progressive pulmonary edema and laboratory studies show worsening hyperkalemia. Dialysis has been requested for ultrafiltration and correction of electrolyte and acid/base balance. Past Medical/Surgical History Medical: # VISHAL 2011 following [facility]. Patient required one dialysis treatment and subsequently recovered. She has not maintained outpatient Nephrology follow up (last visit 2012) # AODM # HTN # Peripheral neuropathy # Hyperlipidemia Surgical: # [facility] Allergies Coded Allergies: No Known Allergies (Unverified , 03/13/17) Inpatient Medications Current Inpatient Medications Medications (Trade) Dose Ordered Sig/Shayan Route Start Time Stop Time Status Last Admin Dose Admin Sodium Chloride 1,000 ml @ 100 mls/hr Q10H IV 03/13/17 17:45 04/12/17 17:44 03/13/17 23:00 100 MLS/HR Acetaminophen (Tylenol Tab) 650 mg Q4H PRN PO 03/13/17 15:45 04/12/17 15:44 Al Hydrox/Mg Hydrox/Simethicone (Maalox Max Susp) 15 ml Q4H PRN PO 03/13/17 15:45 04/12/17 15:44 Magnesium Hydroxide (Milk Of Magnesia Susp) 30 ml Q12H PRN PO 03/13/17 15:45 04/12/17 15:44 Ondansetron HCl (Zofran Inj) 4 mg Q6H PRN IV 03/13/17 15:45 04/12/17 15:44 Polyethylene (Miralax Powder Packet) 17 gm DAILY PRN PO 03/13/17 15:45 04/12/17 15:44 Insulin Aspart (novoLOG ASPART) SLIDING SCALE If C... ACHS SC 03/13/17 21:00 04/12/17 20:59 Glucose (Glucose 40% Gel) 15-30 GRAMS 15 GRAMS... UD PRN PO 03/13/17 15:45 04/12/17 15:44 Glucose (Glucose Chew Tab) 4-8 Tablets 4 Tabl... UD PRN PO 03/13/17 15:45 04/12/17 15:44 Dextrose (Dextrose 50% 50ML Syringe) 25-50ML OF 50% DW IV FOR... UD PRN IV 03/13/17 15:45 04/12/17 15:44 03/13/17 23:44 25 ML Glucagon (Glucagon Inj) 1 mg UD PRN SQ 03/13/17 15:45 04/12/17 15:44 Ceftriaxone Sodium 1 gm/ Dextrose 50 ml @ 100 mls/hr Q24H IV 03/14/17 14:00 03/18/17 13:59 Family History Lung Cancer Negative for CKD / ESRD Social History Smoking Status: Never Smoker Smokeless Tobacco Use: No Alcohol Use: none Drug Use: none Occupation: retired , retired, never a smoker. Review of Systems Patient unable to cooperate - on NIPPV Physical Exam Date Time Temp Pulse Resp B/P (MAP) Pulse Ox O2 Delivery O2 Flow Rate FiO2 03/14/17 03:15 93 20 91 03/14/17 03:01 94 23 113/60 (83) 91 03/14/17 02:55 95 90 15.0 03/14/17 02:45 92 16 92 03/14/17 02:30 84 18 91 03/14/17 02:15 90 20 90 03/14/17 02:01 84 22 98/45 (49) 93 03/14/17 01:45 82 13 94 03/14/17 01:30 83 16 95 03/14/17 01:15 82 18 93 03/14/17 01:01 85 16 106/41 (69) 95 03/14/17 00:45 82 18 97 03/14/17 00:30 82 18 95 03/14/17 00:15 85 22 96 03/14/17 00:05 37.4 85 16 98/46 (60) 96 03/13/17 23:59 Nasal Cannula 4.0 03/13/17 23:30 85 23 96 03/13/17 23:15 89 13 96 03/13/17 23:01 89 19 106/73 (78) 96 03/13/17 22:46 89 16 90/43 (81) 98 03/13/17 22:31 86 14 118/44 (68) 96 03/13/17 22:16 82 26 106/53 (80) 93 03/13/17 22:01 81 21 115/50 (69) 93 03/13/17 22:00 36.7 80 19 92 03/13/17 21:58 36.9 81 18 115/50 (71) 91 Nasal Cannula 3.0 03/13/17 20:57 37.7 86 12 96/53 94 03/13/17 20:00 92 Nasal Cannula 2.0 03/13/17 19:55 37.2 84 10 97/56 92 03/13/17 19:25 37.2 84 20 112/62 92 03/13/17 19:05 37.0 87 90/47 95 03/13/17 18:44 37.7 80 18 108/57 94 2.0 03/13/17 17:42 36.7 87 20 112/58 94 Nasal Cannula 2.0 03/13/17 16:20 73 18 98/60 93 Room Air 03/13/17 15:07 74 03/13/17 14:35 80 18 120/41 98 Nasal Cannula 2.0 03/13/17 14:01 108/53 03/13/17 12:47 87 27 109/52 97 Nasal Cannula 2.0 03/13/17 12:05 88 16 96/56 96 Nasal Cannula 2.0 03/13/17 11:12 98 Nasal Cannula 2.0 03/13/17 11:09 95 Nasal Cannula 2.0 03/13/17 11:05 36.8 96 14 113/51 86 Room Air 03/13/17 11:05 101 Head: normocephalic, atraumatic Eyes: PERRL Respiratory/Chest: + pertinent finding (bilateral rales anteriorly) Cardiovascular: regular rate, rhythm Abdomen/GI: normal bowel sounds, non tender, soft Extremities/Musculoskelatal: no pedal edema Neurologic/Psych: + pertinent finding (lethargic, + myoclonic jerking) Skin: warm/dry Laboratory Results Last 24 Hours Test 03/13/17 13:10 03/13/17 13:35 03/13/17 17:42 03/13/17 20:12 Urine Color YELLOW Urine Appearance CLOUDY Urine pH 5.0 Urine Specific [place] 1.020 Urine Protein 1+ Urine Glucose (UA) 1+ Urine Ketones NEG Urine Occult Blood NEG Urine Nitrite NEG Urine Bilirubin NEG Urine Urobilinogen NEG Urine Leukocyte Esterase LARGE Urine WBC (Auto) >30 /hpf Urine RBC (Auto) 0-4 /hpf Urine Hyaline Casts (Auto) 1-5 /lpf Urine Epithelial Cells (Auto) 5-10 /lpf Urine Bacteria (Auto) NEG Urine Yeast (Auto) White Blood Count 11.21 K/uL Red Blood Count 3.12 M/uL Hemoglobin 9.4 g/dL 9.5 g/dL Hematocrit 28.6 % 28.5 % Mean Corpuscular Volume 91.7 fL Mean Corpuscular Hemoglobin 30.1 pg Mean Corpuscular Hemoglobin Concent 32.9 g/dl Platelet Count 214 K/uL Mean Platelet Volume 9.1 fL Neutrophils (%) (Auto) 74.0 % Lymphocytes (%) (Auto) 17.2 % Monocytes (%) (Auto) 7.8 % Eosinophils (%) (Auto) 0.4 % Basophils (%) (Auto) 0.2 % Neutrophils # (Auto) 8.29 K/uL Lymphocytes # (Auto) 1.93 K/uL Monocytes # (Auto) 0.87 K/uL Eosinophils # (Auto) 0.05 K/uL Basophils # (Auto) 0.02 K/uL RDW Standard Deviation 44.3 fL RDW Coefficient of Variation 13.3 % Immature Granulocyte % (Auto) 0.4 % Immature Granulocyte # (Auto) 0.05 K/uL Prothrombin Time 10.0 SECONDS Prothromb Time International Ratio 1.0 Activated Partial Thromboplast Time 23.9 SECONDS Partial Thromboplastin Ratio 0.9 Sodium Level 136 mmol/L 135 mmol/L Potassium Level 5.5 mmol/L 5.4 mmol/L Chloride Level 103 mmol/L 103 mmol/L Carbon Dioxide Level 25 mmol/L 25 mmol/L Anion Gap 8.0 mmol/L 7.0 mmol/L Blood Urea Nitrogen 43 mg/dl 44 mg/dl Creatinine 5.91 mg/dl 6.17 mg/dl Est Creatinine Clear Calc Drug Dose 11.5 ml/min 11.0 ml/min Estimated GFR () 7.7 7.3 Estimated GFR (Non- 6.6 6.3 BUN/Creatinine Ratio 7.3 7.2 Random Glucose 119 mg/dl 86 mg/dl Calcium Level 7.8 mg/dl 7.7 mg/dl Phosphorus Level 7.1 mg/dl Magnesium Level 2.0 mg/dl Total Bilirubin 0.3 mg/dl 0.4 mg/dl Direct Bilirubin < 0.1 mg/dl Aspartate Amino Transf (AST/SGOT) 22 U/L 22 U/L Alanine Aminotransferase (ALT/SGPT) 19 U/L 19 U/L Alkaline Phosphatase 89 U/L 93 U/L Total Creatine Kinase 365 U/L Creatine Kinase MB 9.7 ng/ml Creatine Kinase MB Ratio 2.7 Troponin I < 0.015 ng/ml Total Protein 6.3 gm/dl 6.5 gm/dl Albumin 3.1 gm/dl 3.1 gm/dl Lipase 42 U/L Thyroid Stimulating Hormone (TSH) 0.643 uIu/ml Globulin 3.4 gm/dl Albumin/Globulin Ratio 0.9 Bedside Glucose 79 mg/dl Test 03/13/17 22:11 03/13/17 22:15 03/13/17 23:00 03/13/17 23:40 Blood Gas Sample Site R Radial Bedside Blood Gas pH (LAB) 7.22 Bedside Blood Gas pCO2 (LAB) 49 mmHg Bedside Blood Gas pO2 (LAB) 106 mmHg Bedside Blood Gas HCO3 (LAB) 20 meq/L Bedside Blood Gas Total CO2 22 mEq/l Bedside Blood Gas Base Excess (LAB) -8.0 meq/L Bedside Blood Gas O2 Saturation 97.0 % Sukhdev Test Pass Oxygen Delivery Device Cannula Influenza Type A (RT-PCR) Neg for Influ A Influenza Type B (RT-PCR) Neg for Influ B Hemoglobin 9.9 g/dL Hematocrit 30.0 % Sodium Level 135 mmol/L Potassium Level 5.7 mmol/L Chloride Level 104 mmol/L Carbon Dioxide Level 24 mmol/L Anion Gap 7.0 mmol/L Blood Urea Nitrogen 44 mg/dl Creatinine 6.46 mg/dl Est Creatinine Clear Calc Drug Dose 10.5 ml/min Estimated GFR () 6.9 Estimated GFR (Non- 5.9 BUN/Creatinine Ratio 6.9 Random Glucose 63 mg/dl Lactic Acid Level 1.1 mmol/L Calcium Level 7.5 mg/dl Total Bilirubin 0.3 mg/dl Aspartate Amino Transf (AST/SGOT) 21 U/L Alanine Aminotransferase (ALT/SGPT) 17 U/L Alkaline Phosphatase 87 U/L Troponin I < 0.015 ng/ml Total Protein 6.4 gm/dl Albumin 3.0 gm/dl Globulin 3.4 gm/dl Albumin/Globulin Ratio 0.9 Random Cortisol 18.50 mcg/dl Bedside Glucose 65 mg/dl Test 03/13/17 23:59 03/14/17 02:55 Bedside Glucose 106 mg/dl Blood Gas Sample Site R Radial Bedside Blood Gas pH (LAB) 7.13 Bedside Blood Gas pCO2 (LAB) 63 mmHg Bedside Blood Gas pO2 (LAB) 79 mmHg Bedside Blood Gas HCO3 (LAB) 21 meq/L Bedside Blood Gas Total CO2 22 mEq/l Bedside Blood Gas Base Excess (LAB) -9.0 meq/L Bedside Blood Gas O2 Saturation 89.0 % Sukhdev Test Pass Oxygen Delivery Device Other Bedside FiO2 0 % Impression (1) Acute renal insufficiency (2) Dehydration (3) Diabetes mellitus type 2 (4) Peripheral neuropathy Recommendations ACUTE KIDNEY INJURY: -- Stop Lisinopril, Gabapentin and Metformin -- Hold IVF at this time as patient is developing pulmonary edema -- Renal US report reviewed this am: No calculi, mass or hydronephrosis -- Urinalysis w/ 1+ protein, 1+ glucose. Urine microscopy w/ hyaline casts and pyuria. George catheter has been placed and urine for culture obtained -- CXR film reviewed this am: pulmonary edema present. R IJ HD catheter w/ tip near the caval-atrial junction. No pneumothorax -- Case discussed w/ Dr. Camargo. Will provide emergency HD this am for ultrafiltration and correction of electrolytes/acid-base balance. HD orders entered into EMR and HD RN donor services technician notified by telephone -- Will postpone AM labs until after HD completed ANEMIA: -- Patient transfused one unit PRBC since admission -- No active bleeding at this time. Patient has not required NGT placement -- Given h/o hematemesis, anemia and need for ICU care recommend PPI therapy. Will order Protonix 40 mg IV daily -- Monitor serial H&H ID: -- Patient has pyuria. Agree w/ empiric Ceftriaxone therapy. Await urine culture results 90 minutes critical care time provided to the patient today. This was necessary to review her medical records, perform physical exam, review imaging studies, discuss case w/ ICU team and coordinate care with donor services technician HD RN.
--- NOTE | 2017-03-14 05:37 | Dialysis Progress Note ---
Hemodialysis Note Date of Service Mar 14, 2017. Chief Complaint VISHAL Subjective ACUTE INPATIENT HEMODIALYSIS NOTE Vital Signs Last 8 Hrs Date Time Temp Pulse Resp B/P (MAP) Pulse Ox O2 Delivery O2 Flow Rate FiO2 03/14/17 04:00 37.2 97 16 117/59 (78) 95 BiPAP 15.0 03/14/17 04:00 95 BiPAP 15.0 03/14/17 03:15 93 20 91 03/14/17 03:01 94 23 113/60 (83) 91 03/14/17 02:55 95 90 15.0 03/14/17 02:45 92 16 92 03/14/17 02:30 84 18 91 03/14/17 02:15 90 20 90 03/14/17 02:01 84 22 98/45 (49) 93 03/14/17 01:45 82 13 94 03/14/17 01:30 83 16 95 03/14/17 01:15 82 18 93 03/14/17 01:01 85 16 106/41 (69) 95 03/14/17 00:45 82 18 97 03/14/17 00:30 82 18 95 03/14/17 00:15 85 22 96 03/14/17 00:05 37.4 85 16 98/46 (60) 96 03/13/17 23:59 Nasal Cannula 4.0 03/13/17 23:30 85 23 96 03/13/17 23:15 89 13 96 03/13/17 23:01 89 19 106/73 (78) 96 03/13/17 22:46 89 16 90/43 (81) 98 03/13/17 22:31 86 14 118/44 (68) 96 03/13/17 22:16 82 26 106/53 (80) 93 03/13/17 22:01 81 21 115/50 (69) 93 03/13/17 22:00 36.7 80 19 92 03/13/17 21:58 36.9 81 18 115/50 (71) 91 Nasal Cannula 3.0 Last Recorded Weight Weight (Kilograms): 116.000 Family History Negative for CKD / ESRD Social History Smoking Status: Unknown if ever smoked Smokeless Tobacco Use: No Alcohol Use: none Drug Use: none Occupation: retired , retired, never a smoker. Laboratory Results Past 24 Hours 03/13/17 13:35 Red Blood Count 3.12, Mean Corpuscular Volume 91.7, Mean Corpuscular Hemoglobin 30.1, Mean Corpuscular Hemoglobin Concent 32.9, Mean Platelet Volume 9.1, Neutrophils (%) (Auto) 74.0, Lymphocytes (%) (Auto) 17.2, Monocytes (%) (Auto) 7.8, Eosinophils (%) (Auto) 0.4, Basophils (%) (Auto) 0.2, Neutrophils # (Auto) 8.29, Lymphocytes # (Auto) 1.93, Monocytes # (Auto) 0.87, Eosinophils # (Auto) 0.05, Basophils # (Auto) 0.02 03/13/17 17:42 03/13/17 23:00 03/13/17 13:35 03/13/17 17:42 03/13/17 23:00 Test 03/13/17 13:10 03/13/17 13:35 03/13/17 17:42 03/13/17 20:12 Urine Color YELLOW Urine Appearance CLOUDY (CLEAR) Urine pH 5.0 (4.5-7.5) Urine Specific [place] 1.020 (1.000-1.030) Urine Protein 1+ (NEG) Urine Glucose (UA) 1+ (NEG) Urine Ketones NEG (NEG) Urine Occult Blood NEG (NEG) Urine Nitrite NEG (NEG) Urine Bilirubin NEG (NEG) Urine Urobilinogen NEG (NEG) Urine Leukocyte Esterase LARGE (NEG) Urine WBC (Auto) >30 /hpf (0-5) Urine RBC (Auto) 0-4 /hpf (0-4) Urine Hyaline Casts (Auto) 1-5 /lpf (0-5) Urine Epithelial Cells (Auto) 5-10 /lpf (0-5) Urine Bacteria (Auto) NEG (NEG) Urine Yeast (Auto) (NONE PRSENT) White Blood Count 11.21 K/uL (4.8-10.8) Red Blood Count 3.12 M/uL (4.2-5.4) Hemoglobin 9.4 g/dL (12.0-16.0) Hematocrit 28.6 % (37-47) Mean Corpuscular Volume 91.7 fL (80-100) Mean Corpuscular Hemoglobin 30.1 pg (25-34) Mean Corpuscular Hemoglobin Concent 32.9 g/dl (32-36) Platelet Count 214 K/uL (130-400) Mean Platelet Volume 9.1 fL (7.4-10.4) Neutrophils (%) (Auto) 74.0 % Lymphocytes (%) (Auto) 17.2 % Monocytes (%) (Auto) 7.8 % Eosinophils (%) (Auto) 0.4 % Basophils (%) (Auto) 0.2 % Neutrophils # (Auto) 8.29 K/uL (1.4-6.5) Lymphocytes # (Auto) 1.93 K/uL (1.2-3.4) Monocytes # (Auto) 0.87 K/uL (0.11-0.59) Eosinophils # (Auto) 0.05 K/uL (0-0.5) Basophils # (Auto) 0.02 K/uL (0-0.2) RDW Standard Deviation 44.3 fL (36.4-46.3) RDW Coefficient of Variation 13.3 % (11.5-14.5) Immature Granulocyte % (Auto) 0.4 % Immature Granulocyte # (Auto) 0.05 K/uL (0.00-0.02) Prothrombin Time 10.0 SECONDS (9.0-12.0) Prothromb Time International Ratio 1.0 (0.9-1.1) Activated Partial Thromboplast Time 23.9 SECONDS (21.0-31.0) Partial Thromboplastin Ratio 0.9 Anion Gap 8.0 mmol/L (3-11) 7.0 mmol/L (3-11) Est Creatinine Clear Calc Drug Dose 11.5 ml/min 11.0 ml/min Estimated GFR () 7.7 7.3 Estimated GFR (Non- 6.6 6.3 BUN/Creatinine Ratio 7.3 (10-20) 7.2 (10-20) Calcium Level 7.8 mg/dl (8.5-10.1) 7.7 mg/dl (8.5-10.1) Phosphorus Level 7.1 mg/dl (2.5-4.9) Magnesium Level 2.0 mg/dl (1.8-2.4) Total Bilirubin 0.3 mg/dl (0.2-1) 0.4 mg/dl (0.2-1) Direct Bilirubin < 0.1 mg/dl (0-0.2) Aspartate Amino Transf (AST/SGOT) 22 U/L (15-37) 22 U/L (15-37) Alanine Aminotransferase (ALT/SGPT) 19 U/L (12-78) 19 U/L (12-78) Alkaline Phosphatase 89 U/L (45-117) 93 U/L (45-117) Total Creatine Kinase 365 U/L (26-192) Creatine Kinase MB 9.7 ng/ml (0.5-3.6) Creatine Kinase MB Ratio 2.7 (0-3.0) Troponin I < 0.015 ng/ml (0-0.045) Total Protein 6.3 gm/dl (6.4-8.2) 6.5 gm/dl (6.4-8.2) Albumin 3.1 gm/dl (3.4-5.0) 3.1 gm/dl (3.4-5.0) Lipase 42 U/L (73-393) Thyroid Stimulating Hormone (TSH) 0.643 uIu/ml (0.300-4.500) Globulin 3.4 gm/dl (2.5-4.0) Albumin/Globulin Ratio 0.9 (0.9-2) Bedside Glucose 79 mg/dl (70-90) Test 03/13/17 22:11 03/13/17 22:15 03/13/17 23:00 03/13/17 23:40 Blood Gas Sample Site R Radial Bedside Blood Gas pH (LAB) 7.22 (7.35-7.45) Bedside Blood Gas pCO2 (LAB) 49 mmHg (35-46) Bedside Blood Gas pO2 (LAB) 106 mmHg (80-95) Bedside Blood Gas HCO3 (LAB) 20 meq/L (19-24) Bedside Blood Gas Total CO2 22 mEq/l (24-31) Bedside Blood Gas Base Excess (LAB) -8.0 meq/L (-9-1.8) Bedside Blood Gas O2 Saturation 97.0 % (90-95) Sukhdev Test Pass Oxygen Delivery Device Cannula Influenza Type A (RT-PCR) Neg for Influ A (NEG) Influenza Type B (RT-PCR) Neg for Influ B (NEG) Anion Gap 7.0 mmol/L (3-11) Est Creatinine Clear Calc Drug Dose 10.5 ml/min Estimated GFR () 6.9 Estimated GFR (Non- 5.9 BUN/Creatinine Ratio 6.9 (10-20) Lactic Acid Level 1.1 mmol/L (0.4-2.0) Calcium Level 7.5 mg/dl (8.5-10.1) Total Bilirubin 0.3 mg/dl (0.2-1) Aspartate Amino Transf (AST/SGOT) 21 U/L (15-37) Alanine Aminotransferase (ALT/SGPT) 17 U/L (12-78) Alkaline Phosphatase 87 U/L (45-117) Troponin I < 0.015 ng/ml (0-0.045) Total Protein 6.4 gm/dl (6.4-8.2) Albumin 3.0 gm/dl (3.4-5.0) Globulin 3.4 gm/dl (2.5-4.0) Albumin/Globulin Ratio 0.9 (0.9-2) Random Cortisol 18.50 mcg/dl Bedside Glucose 65 mg/dl (70-90) Test 03/13/17 23:59 03/14/17 02:55 03/14/17 04:22 03/14/17 04:48 Bedside Glucose 106 mg/dl (70-90) 83 mg/dl (70-90) Blood Gas Sample Site R Radial Bedside Blood Gas pH (LAB) 7.13 (7.35-7.45) Bedside Blood Gas pCO2 (LAB) 63 mmHg (35-46) Bedside Blood Gas pO2 (LAB) 79 mmHg (80-95) Bedside Blood Gas HCO3 (LAB) 21 meq/L (19-24) Bedside Blood Gas Total CO2 22 mEq/l (24-31) Bedside Blood Gas Base Excess (LAB) -9.0 meq/L (-9-1.8) Bedside Blood Gas O2 Saturation 89.0 % (90-95) Sukhdev Test Pass Oxygen Delivery Device Other Bedside FiO2 0 % Date/Time Source Procedure Growth Status 03/13/17 22:15 Nasal MRSA DNA Surveillance Screen - Final Specimen Negative for MRSA by DNA Probe Complete Allergies Coded Allergies: No Known Allergies (Unverified , 03/13/17) Medications Current Inpatient Medications Medications (Trade) Dose Ordered Sig/Shayan Route Start Time Stop Time Status Last Admin Dose Admin Sodium Chloride 1,000 ml @ 100 mls/hr Q10H IV 03/13/17 17:45 04/12/17 17:44 03/13/17 23:00 100 MLS/HR Acetaminophen (Tylenol Tab) 650 mg Q4H PRN PO 03/13/17 15:45 04/12/17 15:44 Al Hydrox/Mg Hydrox/Simethicone (Maalox Max Susp) 15 ml Q4H PRN PO 03/13/17 15:45 04/12/17 15:44 Magnesium Hydroxide (Milk Of Magnesia Susp) 30 ml Q12H PRN PO 03/13/17 15:45 04/12/17 15:44 Ondansetron HCl (Zofran Inj) 4 mg Q6H PRN IV 03/13/17 15:45 04/12/17 15:44 Polyethylene (Miralax Powder Packet) 17 gm DAILY PRN PO 03/13/17 15:45 04/12/17 15:44 Insulin Aspart (novoLOG ASPART) SLIDING SCALE If C... ACHS SC 03/13/17 21:00 04/12/17 20:59 Glucose (Glucose 40% Gel) 15-30 GRAMS 15 GRAMS... UD PRN PO 03/13/17 15:45 04/12/17 15:44 Glucose (Glucose Chew Tab) 4-8 Tablets 4 Tabl... UD PRN PO 03/13/17 15:45 04/12/17 15:44 Dextrose (Dextrose 50% 50ML Syringe) 25-50ML OF 50% DW IV FOR... UD PRN IV 03/13/17 15:45 04/12/17 15:44 03/13/17 23:44 25 ML Glucagon (Glucagon Inj) 1 mg UD PRN SQ 03/13/17 15:45 04/12/17 15:44 Ceftriaxone Sodium 1 gm/ Dextrose 50 ml @ 100 mls/hr Q24H IV 03/14/17 14:00 03/18/17 13:59 Impression (1) Acute renal insufficiency (2) Dehydration (3) Diabetes mellitus type 2 (4) Peripheral neuropathy Recommendations Patient was seen & examined while on HD this am. R IJ THC is positional. Catheter is being run A --> V and Qb reduced to 250 cc/min due to frequent low pressure arterial alarms. 2K 2Ca bath w/ F-180 dialyzer utilized. Patient remains hemodynamically stable on NIPPV at this time.
[2017-03-14] MEDS: INSULIN ASPART 100 UNITS/ML 3 ML PEN SC SCH ×3 (06:20→18:00)
[2017-03-14 06:27] LABS: PHOSPHORUS 8.4 mg/dl (2.5-4.9)
--- NOTE | 2017-03-14 06:37 | DIAGNOSTIC IMAGING REPORT ---
CHEST ONE VIEW PORTABLE CLINICAL HISTORY: Right Temp Dialysis Catheter tube position COMPARISON STUDY: 03/13/2017 FINDINGS: Right Central catheter placement in the superior vena cava. No evidence pneumothorax. Prominent pulmonary vasculature combine with diminished inspiratory volumes. IMPRESSION: Central catheter placed in the superior vena cava. No evidence for pneumothorax. The above report was generated using voice recognition software. It may contain grammatical, syntax or spelling errors. Electronically signed by: Ac Chapin M.D. 03/14/2017 6:35 AM Dictated Date/Time: 03/14/2017 6:35 AM
[2017-03-14] MEDS ORDERED: NURSING VERBAL MED ORDER ONE (07:45)
--- NOTE | 2017-03-14 08:51 | Medical Student: [facility] ---
Med Student Progress Note Date of Service Mar 14, 2017. Subjective Pt evaluation today including: conversation w/ family, physical exam Voiding: resendiz catheter in place (no urine output via resendiz) 71 y/o female with hx of previous VISHAL requiring temporary hemodialysis 6 years ago presented to the ED c/o generalized weakness. Found to be anemic with a hemoglobin of 9 following black emesis. Hx of DM, HTN, anemia 6 years ago during VISHAL with hgb between 8-9. Per daughter, patient ambulates and has normal mental status at baseline. Patient became unresponsive at 2AM this morning and began twitching. At 8:30AM twitching increased 3 hours into her 4 hour dialysis treatment, and ICU nurse made aware. Overnight her oxygen needs increased and she has been on bipap which has stabilized her sats. No urine output from resendiz since 6PM yesterday. Unable to perform ROS secondary to patient being unresponsive. Objective Vital Signs Date Time Temp Pulse Resp B/P (MAP) Pulse Ox O2 Delivery O2 Flow Rate FiO2 03/14/17 06:00 90 20 122/50 (74) 94 BiPAP 15.0 03/14/17 05:20 95 92 15.0 03/14/17 04:00 37.2 97 16 117/59 (78) 95 BiPAP 15.0 03/14/17 04:00 95 BiPAP 15.0 03/14/17 03:15 93 20 91 03/14/17 03:01 94 23 113/60 (83) 91 03/14/17 02:55 95 90 15.0 03/14/17 02:45 92 16 92 03/14/17 02:30 84 18 91 03/14/17 02:15 90 20 90 03/14/17 02:01 84 22 98/45 (49) 93 03/14/17 01:45 82 13 94 03/14/17 01:30 83 16 95 03/14/17 01:15 82 18 93 03/14/17 01:01 85 16 106/41 (69) 95 03/14/17 00:45 82 18 97 03/14/17 00:30 82 18 95 03/14/17 00:15 85 22 96 03/14/17 00:05 37.4 85 16 98/46 (60) 96 03/13/17 23:59 Nasal Cannula 4.0 03/13/17 23:30 85 23 96 1/2/18 23:15 89 13 96 03/13/17 23:01 89 19 106/73 (78) 96 03/13/17 22:46 89 16 90/43 (81) 98 03/13/17 22:31 86 14 118/44 (68) 96 03/13/17 22:16 82 26 106/53 (80) 93 03/13/17 22:01 81 21 115/50 (69) 93 03/13/17 22:00 36.7 80 19 92 03/13/17 21:58 36.9 81 18 115/50 (71) 91 Nasal Cannula 3.0 03/13/17 20:57 37.7 86 12 96/53 94 03/13/17 20:00 92 Nasal Cannula 2.0 03/13/17 19:55 37.2 84 10 97/56 92 03/13/17 19:25 37.2 84 20 112/62 92 03/13/17 19:05 37.0 87 90/47 95 03/13/17 18:44 37.7 80 18 108/57 94 2.0 03/13/17 17:42 36.7 87 20 112/58 94 Nasal Cannula 2.0 03/13/17 16:20 73 18 98/60 93 Room Air 03/13/17 15:07 74 03/13/17 14:35 80 18 120/41 98 Nasal Cannula 2.0 03/13/17 14:01 108/53 03/13/17 12:47 87 27 109/52 97 Nasal Cannula 2.0 03/13/17 12:05 88 16 96/56 96 Nasal Cannula 2.0 03/13/17 11:12 98 Nasal Cannula 2.0 03/13/17 11:09 95 Nasal Cannula 2.0 03/13/17 11:05 36.8 96 14 113/51 86 Room Air 03/13/17 11:05 101 Physical Exam General Appearance: + pertinent finding (unresponsive, twitching, blinking randomly) Eyes: bilateral eyes pertinent finding (1mm and fixed) Neck: supple, no adenopathy Respiratory/Chest: + crackles, + pertinent finding (bipap ) Cardiovascular: regular rate, rhythm Abdomen: normal bowel sounds Extremities: no pedal edema Neurologic/Psychiatric: + pertinent finding (unresponsive, does not response to painful stimuli ) Skin: warm/dry, no rash Lymphatic: no adenopathy Comments: GCS (eye opening, verbal response, motor response) - 6 Laboratory Results Last 24 Hours Test 03/13/17 13:10 03/13/17 13:35 03/13/17 17:42 03/13/17 20:12 Urine Color YELLOW Urine Appearance CLOUDY Urine pH 5.0 Urine Specific [place] 1.020 Urine Protein 1+ Urine Glucose (UA) 1+ Urine Ketones NEG Urine Occult Blood NEG Urine Nitrite NEG Urine Bilirubin NEG Urine Urobilinogen NEG Urine Leukocyte Esterase LARGE Urine WBC (Auto) >30 /hpf Urine RBC (Auto) 0-4 /hpf Urine Hyaline Casts (Auto) 1-5 /lpf Urine Epithelial Cells (Auto) 5-10 /lpf Urine Bacteria (Auto) NEG Urine Yeast (Auto) White Blood Count 11.21 K/uL Red Blood Count 3.12 M/uL Hemoglobin 9.4 g/dL 9.5 g/dL Hematocrit 28.6 % 28.5 % Mean Corpuscular Volume 91.7 fL Mean Corpuscular Hemoglobin 30.1 pg Mean Corpuscular Hemoglobin Concent 32.9 g/dl Platelet Count 214 K/uL Mean Platelet Volume 9.1 fL Neutrophils (%) (Auto) 74.0 % Lymphocytes (%) (Auto) 17.2 % Monocytes (%) (Auto) 7.8 % Eosinophils (%) (Auto) 0.4 % Basophils (%) (Auto) 0.2 % Neutrophils # (Auto) 8.29 K/uL Lymphocytes # (Auto) 1.93 K/uL Monocytes # (Auto) 0.87 K/uL Eosinophils # (Auto) 0.05 K/uL Basophils # (Auto) 0.02 K/uL RDW Standard Deviation 44.3 fL RDW Coefficient of Variation 13.3 % Immature Granulocyte % (Auto) 0.4 % Immature Granulocyte # (Auto) 0.05 K/uL Prothrombin Time 10.0 SECONDS Prothromb Time International Ratio 1.0 Activated Partial Thromboplast Time 23.9 SECONDS Partial Thromboplastin Ratio 0.9 Sodium Level 136 mmol/L 135 mmol/L Potassium Level 5.5 mmol/L 5.4 mmol/L Chloride Level 103 mmol/L 103 mmol/L Carbon Dioxide Level 25 mmol/L 25 mmol/L Anion Gap 8.0 mmol/L 7.0 mmol/L Blood Urea Nitrogen 43 mg/dl 44 mg/dl Creatinine 5.91 mg/dl 6.17 mg/dl Est Creatinine Clear Calc Drug Dose 11.5 ml/min 11.0 ml/min Estimated GFR () 7.7 7.3 Estimated GFR (Non- 6.6 6.3 BUN/Creatinine Ratio 7.3 7.2 Random Glucose 119 mg/dl 86 mg/dl Calcium Level 7.8 mg/dl 7.7 mg/dl Phosphorus Level 7.1 mg/dl Magnesium Level 2.0 mg/dl Total Bilirubin 0.3 mg/dl 0.4 mg/dl Direct Bilirubin < 0.1 mg/dl Aspartate Amino Transf (AST/SGOT) 22 U/L 22 U/L Alanine Aminotransferase (ALT/SGPT) 19 U/L 19 U/L Alkaline Phosphatase 89 U/L 93 U/L Total Creatine Kinase 365 U/L Creatine Kinase MB 9.7 ng/ml Creatine Kinase MB Ratio 2.7 Troponin I < 0.015 ng/ml Total Protein 6.3 gm/dl 6.5 gm/dl Albumin 3.1 gm/dl 3.1 gm/dl Lipase 42 U/L Thyroid Stimulating Hormone (TSH) 0.643 uIu/ml Globulin 3.4 gm/dl Albumin/Globulin Ratio 0.9 Bedside Glucose 79 mg/dl Test 03/13/17 22:11 03/13/17 22:15 03/13/17 23:00 03/13/17 23:40 Blood Gas Sample Site R Radial Bedside Blood Gas pH (LAB) 7.22 Bedside Blood Gas pCO2 (LAB) 49 mmHg Bedside Blood Gas pO2 (LAB) 106 mmHg Bedside Blood Gas HCO3 (LAB) 20 meq/L Bedside Blood Gas Total CO2 22 mEq/l Bedside Blood Gas Base Excess (LAB) -8.0 meq/L Bedside Blood Gas O2 Saturation 97.0 % Sukhdev Test Pass Oxygen Delivery Device Cannula Influenza Type A (RT-PCR) Neg for Influ A Influenza Type B (RT-PCR) Neg for Influ B Hemoglobin 9.9 g/dL Hematocrit 30.0 % Sodium Level 135 mmol/L Potassium Level 5.7 mmol/L Chloride Level 104 mmol/L Carbon Dioxide Level 24 mmol/L Anion Gap 7.0 mmol/L Blood Urea Nitrogen 44 mg/dl Creatinine 6.46 mg/dl Est Creatinine Clear Calc Drug Dose 10.5 ml/min Estimated GFR () 6.9 Estimated GFR (Non- 5.9 BUN/Creatinine Ratio 6.9 Random Glucose 63 mg/dl Lactic Acid Level 1.1 mmol/L Calcium Level 7.5 mg/dl Total Bilirubin 0.3 mg/dl Aspartate Amino Transf (AST/SGOT) 21 U/L Alanine Aminotransferase (ALT/SGPT) 17 U/L Alkaline Phosphatase 87 U/L Troponin I < 0.015 ng/ml Total Protein 6.4 gm/dl Albumin 3.0 gm/dl Globulin 3.4 gm/dl Albumin/Globulin Ratio 0.9 Random Cortisol 18.50 mcg/dl Bedside Glucose 65 mg/dl Test 03/13/17 23:59 03/14/17 02:55 03/14/17 04:22 03/14/17 04:48 Bedside Glucose 106 mg/dl 83 mg/dl Blood Gas Sample Site R Radial Bedside Blood Gas pH (LAB) 7.13 Bedside Blood Gas pCO2 (LAB) 63 mmHg Bedside Blood Gas pO2 (LAB) 79 mmHg Bedside Blood Gas HCO3 (LAB) 21 meq/L Bedside Blood Gas Total CO2 22 mEq/l Bedside Blood Gas Base Excess (LAB) -9.0 meq/L Bedside Blood Gas O2 Saturation 89.0 % Sukhdev Test Pass Oxygen Delivery Device Other Bedside FiO2 0 % Phosphorus Level 8.4 mg/dl Magnesium Level 2.0 mg/dl Hepatitis B Surface Antigen NEG Hepatitis B Surface Antibody NEG Test 03/14/17 08:22 Assessment and Plan Assessment and Plan: 71 y/o female with VISHAL following 6 episodes of black emesis, now unresponsive: 1. VISHAL -Possibly pre-renal due to dehydration/emesis -IVFs -Dialyze due to hyperkalemia, met acidosis, possible encephalopathy hemodialysis -See nephrology consult for periodicity 2. Incidental bacturia -May be contributing to mental status changes -Maintain abx ceftriaxone for possible UTI 3. Pain management -Diabetic peripheral neuropathy pain managed with morphine at home -Withdrawal may be contributing to mental status changes -Check status of RX from PCP and give morphine 3. Diabetes -Continue insulin 4. DVT ppx -heparin 5. Code status is currently full resuscitation. Ask daughter/POA and relatives to clarify code status.
--- NOTE | 2017-03-14 09:02 | Family Medicine Progress Note ---
Progress Note Date of Service Mar 14, 2017. Subjective Pt evaluation today including: conversation w/ patient, physical exam, chart review, lab review Pain: Pt unresponse PO Intake: NPO Voiding: resendiz catheter in place This AM pt was unresponsive and unable to communicate. Daughter reported pt had decreased urinary frequency but did not complain of any cp, sob, EDGAR/dizziness. Per daughter legs and arms gave away and pt had multiple falls and multiple episodes of dark emesis. Constitutional: No fever, No chills Respiratory: No shortness of breath Cardiovascular: No chest pain Abdomen: No pain Female : + problem reported (decreased urinary frequency), No dysuria Neurologic: + weakness (arms and legs) Medications Current Inpatient Medications Medications (Trade) Dose Ordered Sig/Shayan Route Start Time Stop Time Status Last Admin Dose Admin Acetaminophen (Tylenol Tab) 650 mg Q4H PRN PO 03/13/17 15:45 04/12/17 15:44 Al Hydrox/Mg Hydrox/Simethicone (Maalox Max Susp) 15 ml Q4H PRN PO 03/13/17 15:45 04/12/17 15:44 Magnesium Hydroxide (Milk Of Magnesia Susp) 30 ml Q12H PRN PO 03/13/17 15:45 04/12/17 15:44 Ondansetron HCl (Zofran Inj) 4 mg Q6H PRN IV 03/13/17 15:45 04/12/17 15:44 Polyethylene (Miralax Powder Packet) 17 gm DAILY PRN PO 03/13/17 15:45 04/12/17 15:44 Glucose (Glucose 40% Gel) 15-30 GRAMS 15 GRAMS... UD PRN PO 03/13/17 15:45 04/12/17 15:44 Glucose (Glucose Chew Tab) 4-8 Tablets 4 Tabl... UD PRN PO 03/13/17 15:45 04/12/17 15:44 Dextrose (Dextrose 50% 50ML Syringe) 25-50ML OF 50% DW IV FOR... UD PRN IV 03/13/17 15:45 04/12/17 15:44 03/13/17 23:44 25 ML Glucagon (Glucagon Inj) 1 mg UD PRN SQ 03/13/17 15:45 04/12/17 15:44 Ceftriaxone Sodium 1 gm/ Dextrose 50 ml @ 100 mls/hr Q24H IV 03/14/17 14:00 03/18/17 13:59 Insulin Aspart (novoLOG ASPART) SLIDING SCALE If C... Q6 SC 03/14/17 12:00 04/13/17 11:59 Objective Vital Signs Date Time Temp Pulse Resp B/P (MAP) Pulse Ox O2 Delivery O2 Flow Rate FiO2 03/14/17 06:00 90 20 122/50 (74) 94 BiPAP 15.0 03/14/17 05:20 95 92 15.0 03/14/17 04:00 37.2 97 16 117/59 (78) 95 BiPAP 15.0 03/14/17 04:00 95 BiPAP 15.0 03/14/17 03:15 93 20 91 03/14/17 03:01 94 23 113/60 (83) 91 03/14/17 02:55 95 90 15.0 03/14/17 02:45 92 16 92 03/14/17 02:30 84 18 91 03/14/17 02:15 90 20 90 03/14/17 02:01 84 22 98/45 (49) 93 03/14/17 01:45 82 13 94 03/14/17 01:30 83 16 95 03/14/17 01:15 82 18 93 03/14/17 01:01 85 16 106/41 (69) 95 03/14/17 00:45 82 18 97 03/14/17 00:30 82 18 95 03/14/17 00:15 85 22 96 03/14/17 00:05 37.4 85 16 98/46 (60) 96 03/13/17 23:59 Nasal Cannula 4.0 03/13/17 23:30 85 23 96 03/13/17 23:15 89 13 96 03/13/17 23:01 89 19 106/73 (78) 96 03/13/17 22:46 89 16 90/43 (81) 98 03/13/17 22:31 86 14 118/44 (68) 96 03/13/17 22:16 82 26 106/53 (80) 93 03/13/17 22:01 81 21 115/50 (69) 93 03/13/17 22:00 36.7 80 19 92 03/13/17 21:58 36.9 81 18 115/50 (71) 91 Nasal Cannula 3.0 03/13/17 20:57 37.7 86 12 96/53 94 03/13/17 20:00 92 Nasal Cannula 2.0 03/13/17 19:55 37.2 84 10 97/56 92 03/13/17 19:25 37.2 84 20 112/62 92 03/13/17 19:05 37.0 87 90/47 95 03/13/17 18:44 37.7 80 18 108/57 94 2.0 03/13/17 17:42 36.7 87 20 112/58 94 Nasal Cannula 2.0 03/13/17 16:20 73 18 98/60 93 Room Air 03/13/17 15:07 74 03/13/17 14:35 80 18 120/41 98 Nasal Cannula 2.0 03/13/17 14:01 108/53 03/13/17 12:47 87 27 109/52 97 Nasal Cannula 2.0 03/13/17 12:05 88 16 96/56 96 Nasal Cannula 2.0 03/13/17 11:12 98 Nasal Cannula 2.0 03/13/17 11:09 95 Nasal Cannula 2.0 03/13/17 11:05 36.8 96 14 113/51 86 Room Air 03/13/17 11:05 101 Physical Exam General Appearance: + pertinent finding (twiching of body and face noted) Eyes: + pertinent finding (unable to visualize) Respiratory/Chest: lungs clear, normal breath sounds, + pertinent finding ( only listened to anterior lung pablo) Cardiovascular: regular rate, rhythm, no murmur Abdomen: normal bowel sounds, soft Extremities: no pedal edema Neurologic/Psychiatric: + pertinent finding (unarousable via vocal and tactile stimulus) Laboratory Results Test 03/13/17 13:10 03/13/17 13:35 03/13/17 17:42 03/13/17 22:15 Urine Color YELLOW Urine Appearance CLOUDY (CLEAR) Urine pH 5.0 (4.5-7.5) Urine Specific [place] 1.020 (1.000-1.030) Urine Protein 1+ (NEG) Urine Glucose (UA) 1+ (NEG) Urine Ketones NEG (NEG) Urine Occult Blood NEG (NEG) Urine Nitrite NEG (NEG) Urine Bilirubin NEG (NEG) Urine Urobilinogen NEG (NEG) Urine Leukocyte Esterase LARGE (NEG) Urine WBC (Auto) >30 /hpf (0-5) Urine RBC (Auto) 0-4 /hpf (0-4) Urine Hyaline Casts (Auto) 1-5 /lpf (0-5) Urine Epithelial Cells (Auto) 5-10 /lpf (0-5) Urine Bacteria (Auto) NEG (NEG) Urine Yeast (Auto) (NONE PRSENT) RDW Standard Deviation 44.3 fL (36.4-46.3) RDW Coefficient of Variation 13.3 % (11.5-14.5) White Blood Count 11.21 K/uL (4.8-10.8) Red Blood Count 3.12 M/uL (4.2-5.4) Hemoglobin 9.4 g/dL (12.0-16.0) Hematocrit 28.6 % (37-47) Mean Corpuscular Volume 91.7 fL (80-100) Mean Corpuscular Hemoglobin 30.1 pg (25-34) Mean Corpuscular Hemoglobin Concent 32.9 g/dl (32-36) Platelet Count 214 K/uL (130-400) Mean Platelet Volume 9.1 fL (7.4-10.4) Neutrophils (%) (Auto) 74.0 % Lymphocytes (%) (Auto) 17.2 % Monocytes (%) (Auto) 7.8 % Eosinophils (%) (Auto) 0.4 % Basophils (%) (Auto) 0.2 % Neutrophils # (Auto) 8.29 K/uL (1.4-6.5) Lymphocytes # (Auto) 1.93 K/uL (1.2-3.4) Monocytes # (Auto) 0.87 K/uL (0.11-0.59) Eosinophils # (Auto) 0.05 K/uL (0-0.5) Basophils # (Auto) 0.02 K/uL (0-0.2) Immature Granulocyte % (Auto) 0.4 % Immature Granulocyte # (Auto) 0.05 K/uL (0.00-0.02) Prothrombin Time 10.0 SECONDS (9.0-12.0) Prothromb Time International Ratio 1.0 (0.9-1.1) Activated Partial Thromboplast Time 23.9 SECONDS (21.0-31.0) Partial Thromboplastin Ratio 0.9 Direct Bilirubin < 0.1 mg/dl (0-0.2) Total Creatine Kinase 365 U/L (26-192) Creatine Kinase MB 9.7 ng/ml (0.5-3.6) Creatine Kinase MB Ratio 2.7 (0-3.0) Lipase 42 U/L (73-393) Thyroid Stimulating Hormone (TSH) 0.643 uIu/ml (0.300-4.500) Influenza Type A (RT-PCR) Neg for Influ A (NEG) Influenza Type B (RT-PCR) Neg for Influ B (NEG) Test 03/13/17 23:00 03/14/17 02:55 03/14/17 04:48 03/14/17 08:27 Est Creatinine Clear Calc Drug Dose 10.5 ml/min Lactic Acid Level 1.1 mmol/L (0.4-2.0) Total Bilirubin 0.3 mg/dl (0.2-1) Aspartate Amino Transf (AST/SGOT) 21 U/L (15-37) Alanine Aminotransferase (ALT/SGPT) 17 U/L (12-78) Alkaline Phosphatase 87 U/L (45-117) Troponin I < 0.015 ng/ml (0-0.045) Total Protein 6.4 gm/dl (6.4-8.2) Albumin 3.0 gm/dl (3.4-5.0) Globulin 3.4 gm/dl (2.5-4.0) Albumin/Globulin Ratio 0.9 (0.9-2) Random Cortisol 18.50 mcg/dl Blood Gas Sample Site R Radial Bedside Blood Gas pH (LAB) 7.13 (7.35-7.45) Bedside Blood Gas pCO2 (LAB) 63 mmHg (35-46) Bedside Blood Gas pO2 (LAB) 79 mmHg (80-95) Bedside Blood Gas HCO3 (LAB) 21 meq/L (19-24) Bedside Blood Gas Total CO2 22 mEq/l (24-31) Bedside Blood Gas Base Excess (LAB) -9.0 meq/L (-9-1.8) Bedside Blood Gas O2 Saturation 89.0 % (90-95) Sukhdev Test Pass Oxygen Delivery Device Other Bedside FiO2 0 % Phosphorus Level 8.4 mg/dl (2.5-4.9) Magnesium Level 2.0 mg/dl (1.8-2.4) Hepatitis B Surface Antigen NEG (NEG) Hepatitis B Surface Antibody NEG Bedside Glucose 85 mg/dl (70-90) Test 03/14/17 08:54 Date/Time Source Procedure Growth Status 03/13/17 22:15 Nasal MRSA DNA Surveillance Screen - Final Specimen Negative for MRSA by DNA Probe Complete Assessment and Plan Ms. Gresham is a 71 y/o female with PMHx of T2DM with Peripheral Neuropathy, HTN , Previous VISHAL (Required Temporary Hemodialysis) who presents to the ED c/o generalized weakness yesterday, sudden onset of emesis 6 (black in color). Patient reported waking up her normal self the day before. Acute Metabolic Encephalopathy: Renal vs Infectious vs Anemia vs Hypotension - She is unarousable today - Anion gap 8 - ABG - PH 7.13; PCO2 63; PO2 79 - Lactic acid nl 1.1 - Ammonia pending Acute Kidney Injury - Unsure if VISHAL caused vomiting or vomiting caused an VISHAL - patient has H/O of similar issues in the past but required hemodialysis temporarily due to anion gap with electrolyte abnormalities - 2 L NSS bolus in ED and NSS at 100 mL/hr - Held due to pulmonary edema development - Continue to monitor kidney function and electrolytes - Hold Gabapentin, Lisinopril, and Metformin per nephro - renal U/S - No calculi, mass or hydronephrosis - Transfuse 2 units PRBC - hemoglobin at mid-9s but given mentation and possible hypotensive induced VISHAL transfused - Consult nephrology - HD this AM: for ultrafiltration and correction of electrolytes/acid-base balance Possible Acute Anemia: Black Emesis - Trend Hgb - last Hgb reported around 11 - transfused due to concern of renal compromise - No active bleeding at this time. Not required NGT placement - PPI - Protonix 40 mg IV daily Possible UTI - UA - leuk esterase and >30 WBC - Cx pending - Rocephin 1 g IV daily Generalized Weakness and Falls x 6 - Possibly related to VISHAL vs anemia Muscle Twitching - electrolyte related vs Gabapentin induced - Gabapentin level pending T2DM with Peripheral Neuropathy - Hold oral agents and cover with SSI HTN - Currently improving hypotension DVT Prophylaxis: SCDs Code Status: FULL RESUSCITATION Disposition: PT/OT Evaluations - Resident Involvement: Resident Care Provided Care Provided: Adult Hospital Medicine History Resident Physician Supervision Note: I was present with Dr. Dueñas during the history and exam. I discussed the case with the resident and agree with the findings and plan as documented in the note. Any exceptions or clarifications are listed here. Pt is more oriented and responsive than on earlier examination, but still AAOx1 (self), POA at bedside reports improved but still not at baseline. Reports no pain at present. Persistent muscle twitching throughout which is not concerning to patient or discomfeiting during interview. General Appearance: no apparent distress, obese Eye Exam: bilateral eye PERRL, bilateral eye EOMI Respiratory: chest non-tender, lungs clear, normal breath sounds, no respiratory distress Cardiovascular: normal peripheral pulses, regular rate, rhythm, no murmur Gastrointestinal: normal bowel sounds, non tender, soft, no organomegaly Neurologic/Psychiatric: no motor/sensory deficits, alert, normal mood/affect Assessment/Plan 71 y/o female h/o DMII w/ peripheral neuropathy, HTN p/w generalized weakness Acute metabolic encephalopathy - uremia v. UTI v. other organic process - improving s/p HD Acute renal failure - renal US unremarkable - on HD, nephrology recommendations appreciated - monitor I/O, trend BMP Anemia in the setting of ?coffee ground emesis (resolved) - s/p 1 uPRBC - monitor CBC Urinary tract infection - continue Rocephin, f/u cultures Pulmonary edema - s/p transfusion - HD GI PPX - on famotidine BID
[2017-03-14 09:05] LABS: HEMATOCRIT 31.1 % (37-47); HEMOGLOBIN 10.2 g/dL (12.0-16.0); MEAN CELL VOLUME 93.1 fL (80-100); MEAN CORPUSCULAR HEMOGLOBIN 30.5 pg (25-34); MEAN CORPUSCULAR HGB CONC 32.8 g/dl (32-36); MEAN PLATELET VOLUME 9.3 fL (7.4-10.4); PLATELET COUNT 161 K/uL (130-400); RED CELL DISTRIBUTION WIDTH CV 13.5 % (11.5-14.5); RED CELL DISTRIBUTION WIDTH SD 45.7 fL (36.4-46.3); WHITE BLOOD COUNT 9.31 K/uL (4.8-10.8)
[2017-03-14 09:54] LABS: CALCIUM 7.4 mg/dl (8.5-10.1); CREATININE 4.78 mg/dl (0.60-1.20); POTASSIUM 4.7 mmol/L (3.5-5.1)
--- NOTE | 2017-03-14 09:54 | Dialysis Progress Note ---
Hemodialysis Note Date of Service Mar 14, 2017. Chief Complaint Hemodialysis Subjective Steffany was seen and evaluated during hemodialysis. The patient's daughter was at the bedside. Stfefany was minimall responsive. Opens eyes to voice and touch. No purposeful movement. Myoclonic movements of arms and legs noted. BP soft but MAP >65. Poor Qb via RIJ catheter (~220). HD filter with clot. Patient completed ~3.5 hours of treatment with low blood flow. Net UF ~2.5 L. Review of Systems A complete review of systems was performed. Pertinent positives are noted above. All other systems are negative. Vital Signs Last 8 Hrs Date Time Temp Pulse Resp B/P (MAP) Pulse Ox O2 Delivery O2 Flow Rate FiO2 03/14/17 06:00 90 20 122/50 (74) 94 BiPAP 15.0 03/14/17 05:20 95 92 15.0 03/14/17 04:00 37.2 97 16 117/59 (78) 95 BiPAP 15.0 03/14/17 04:00 95 BiPAP 15.0 03/14/17 03:15 93 20 91 03/14/17 03:01 94 23 113/60 (83) 91 03/14/17 02:55 95 90 15.0 03/14/17 02:45 92 16 92 03/14/17 02:30 84 18 91 03/14/17 02:15 90 20 90 03/14/17 02:01 84 22 98/45 (49) 93 Last Recorded Weight Weight (Kilograms): 117.700 Physical Exam General Appearance: + obese, + pertinent finding (obtunded) Head: normocephalic, atraumatic Eyes: normal inspection, sclerae normal ENT: + pertinent finding (NIPPV) Neck: + pertinent finding (Thick, supple, unable to appreciate JVP) Respiratory/Chest: + decreased breath sounds Cardiovascular: regular rate, rhythm Abdomen/GI: soft, + distended Genitourinary - Female: + pertinent finding (George with minimal UOP) Neurologic/Psych: + pertinent finding (minimally responsive, myoclonic movements of arms and legs) Family History Negative for CKD / ESRD Social History Smoking Status: Unknown if ever smoked Smokeless Tobacco Use: No Alcohol Use: none Drug Use: none Occupation: retired , retired, never a smoker. Laboratory Results Past 24 Hours 03/13/17 13:35 Red Blood Count 3.12, Mean Corpuscular Volume 91.7, Mean Corpuscular Hemoglobin 30.1, Mean Corpuscular Hemoglobin Concent 32.9, Mean Platelet Volume 9.1, Neutrophils (%) (Auto) 74.0, Lymphocytes (%) (Auto) 17.2, Monocytes (%) (Auto) 7.8, Eosinophils (%) (Auto) 0.4, Basophils (%) (Auto) 0.2, Neutrophils # (Auto) 8.29, Lymphocytes # (Auto) 1.93, Monocytes # (Auto) 0.87, Eosinophils # (Auto) 0.05, Basophils # (Auto) 0.02 03/13/17 17:42 03/13/17 23:00 03/14/17 08:54 03/13/17 13:35 03/13/17 17:42 03/13/17 23:00 Test 03/13/17 13:10 03/13/17 13:35 03/13/17 17:42 03/13/17 20:12 Urine Color YELLOW Urine Appearance CLOUDY (CLEAR) Urine pH 5.0 (4.5-7.5) Urine Specific [place] 1.020 (1.000-1.030) Urine Protein 1+ (NEG) Urine Glucose (UA) 1+ (NEG) Urine Ketones NEG (NEG) Urine Occult Blood NEG (NEG) Urine Nitrite NEG (NEG) Urine Bilirubin NEG (NEG) Urine Urobilinogen NEG (NEG) Urine Leukocyte Esterase LARGE (NEG) Urine WBC (Auto) >30 /hpf (0-5) Urine RBC (Auto) 0-4 /hpf (0-4) Urine Hyaline Casts (Auto) 1-5 /lpf (0-5) Urine Epithelial Cells (Auto) 5-10 /lpf (0-5) Urine Bacteria (Auto) NEG (NEG) Urine Yeast (Auto) (NONE PRSENT) White Blood Count 11.21 K/uL (4.8-10.8) Red Blood Count 3.12 M/uL (4.2-5.4) Hemoglobin 9.4 g/dL (12.0-16.0) Hematocrit 28.6 % (37-47) Mean Corpuscular Volume 91.7 fL (80-100) Mean Corpuscular Hemoglobin 30.1 pg (25-34) Mean Corpuscular Hemoglobin Concent 32.9 g/dl (32-36) Platelet Count 214 K/uL (130-400) Mean Platelet Volume 9.1 fL (7.4-10.4) Neutrophils (%) (Auto) 74.0 % Lymphocytes (%) (Auto) 17.2 % Monocytes (%) (Auto) 7.8 % Eosinophils (%) (Auto) 0.4 % Basophils (%) (Auto) 0.2 % Neutrophils # (Auto) 8.29 K/uL (1.4-6.5) Lymphocytes # (Auto) 1.93 K/uL (1.2-3.4) Monocytes # (Auto) 0.87 K/uL (0.11-0.59) Eosinophils # (Auto) 0.05 K/uL (0-0.5) Basophils # (Auto) 0.02 K/uL (0-0.2) RDW Standard Deviation 44.3 fL (36.4-46.3) RDW Coefficient of Variation 13.3 % (11.5-14.5) Immature Granulocyte % (Auto) 0.4 % Immature Granulocyte # (Auto) 0.05 K/uL (0.00-0.02) Prothrombin Time 10.0 SECONDS (9.0-12.0) Prothromb Time International Ratio 1.0 (0.9-1.1) Activated Partial Thromboplast Time 23.9 SECONDS (21.0-31.0) Partial Thromboplastin Ratio 0.9 Anion Gap 8.0 mmol/L (3-11) 7.0 mmol/L (3-11) Est Creatinine Clear Calc Drug Dose 11.5 ml/min 11.0 ml/min Estimated GFR () 7.7 7.3 Estimated GFR (Non- 6.6 6.3 BUN/Creatinine Ratio 7.3 (10-20) 7.2 (10-20) Calcium Level 7.8 mg/dl (8.5-10.1) 7.7 mg/dl (8.5-10.1) Phosphorus Level 7.1 mg/dl (2.5-4.9) Magnesium Level 2.0 mg/dl (1.8-2.4) Total Bilirubin 0.3 mg/dl (0.2-1) 0.4 mg/dl (0.2-1) Direct Bilirubin < 0.1 mg/dl (0-0.2) Aspartate Amino Transf (AST/SGOT) 22 U/L (15-37) 22 U/L (15-37) Alanine Aminotransferase (ALT/SGPT) 19 U/L (12-78) 19 U/L (12-78) Alkaline Phosphatase 89 U/L (45-117) 93 U/L (45-117) Total Creatine Kinase 365 U/L (26-192) Creatine Kinase MB 9.7 ng/ml (0.5-3.6) Creatine Kinase MB Ratio 2.7 (0-3.0) Troponin I < 0.015 ng/ml (0-0.045) Total Protein 6.3 gm/dl (6.4-8.2) 6.5 gm/dl (6.4-8.2) Albumin 3.1 gm/dl (3.4-5.0) 3.1 gm/dl (3.4-5.0) Lipase 42 U/L (73-393) Thyroid Stimulating Hormone (TSH) 0.643 uIu/ml (0.300-4.500) Globulin 3.4 gm/dl (2.5-4.0) Albumin/Globulin Ratio 0.9 (0.9-2) Bedside Glucose 79 mg/dl (70-90) Test 03/13/17 22:11 03/13/17 22:15 03/13/17 23:00 03/13/17 23:40 Blood Gas Sample Site R Radial Bedside Blood Gas pH (LAB) 7.22 (7.35-7.45) Bedside Blood Gas pCO2 (LAB) 49 mmHg (35-46) Bedside Blood Gas pO2 (LAB) 106 mmHg (80-95) Bedside Blood Gas HCO3 (LAB) 20 meq/L (19-24) Bedside Blood Gas Total CO2 22 mEq/l (24-31) Bedside Blood Gas Base Excess (LAB) -8.0 meq/L (-9-1.8) Bedside Blood Gas O2 Saturation 97.0 % (90-95) Sukhdev Test Pass Oxygen Delivery Device Cannula Influenza Type A (RT-PCR) Neg for Influ A (NEG) Influenza Type B (RT-PCR) Neg for Influ B (NEG) Anion Gap 7.0 mmol/L (3-11) Est Creatinine Clear Calc Drug Dose 10.5 ml/min Estimated GFR () 6.9 Estimated GFR (Non- 5.9 BUN/Creatinine Ratio 6.9 (10-20) Lactic Acid Level 1.1 mmol/L (0.4-2.0) Calcium Level 7.5 mg/dl (8.5-10.1) Total Bilirubin 0.3 mg/dl (0.2-1) Aspartate Amino Transf (AST/SGOT) 21 U/L (15-37) Alanine Aminotransferase (ALT/SGPT) 17 U/L (12-78) Alkaline Phosphatase 87 U/L (45-117) Troponin I < 0.015 ng/ml (0-0.045) Total Protein 6.4 gm/dl (6.4-8.2) Albumin 3.0 gm/dl (3.4-5.0) Globulin 3.4 gm/dl (2.5-4.0) Albumin/Globulin Ratio 0.9 (0.9-2) Random Cortisol 18.50 mcg/dl Bedside Glucose 65 mg/dl (70-90) Test 03/13/17 23:59 03/14/17 02:55 03/14/17 04:22 03/14/17 04:48 Bedside Glucose 106 mg/dl (70-90) 83 mg/dl (70-90) Blood Gas Sample Site R Radial Bedside Blood Gas pH (LAB) 7.13 (7.35-7.45) Bedside Blood Gas pCO2 (LAB) 63 mmHg (35-46) Bedside Blood Gas pO2 (LAB) 79 mmHg (80-95) Bedside Blood Gas HCO3 (LAB) 21 meq/L (19-24) Bedside Blood Gas Total CO2 22 mEq/l (24-31) Bedside Blood Gas Base Excess (LAB) -9.0 meq/L (-9-1.8) Bedside Blood Gas O2 Saturation 89.0 % (90-95) Sukhdev Test Pass Oxygen Delivery Device Other Bedside FiO2 0 % Phosphorus Level 8.4 mg/dl (2.5-4.9) Magnesium Level 2.0 mg/dl (1.8-2.4) Hepatitis B Surface Antigen NEG (NEG) Hepatitis B Surface Antibody NEG Test 03/14/17 08:27 03/14/17 08:54 03/14/17 09:07 03/14/17 09:44 Bedside Glucose 85 mg/dl (70-90) Red Blood Count 3.34 M/uL (4.2-5.4) Mean Corpuscular Volume 93.1 fL (80-100) Mean Corpuscular Hemoglobin 30.5 pg (25-34) Mean Corpuscular Hemoglobin Concent 32.8 g/dl (32-36) RDW Standard Deviation 45.7 fL (36.4-46.3) RDW Coefficient of Variation 13.5 % (11.5-14.5) Mean Platelet Volume 9.3 fL (7.4-10.4) Ammonia 17.0 umol/L (11-32) Date/Time Source Procedure Growth Status 03/13/17 22:15 Nasal MRSA DNA Surveillance Screen - Final Specimen Negative for MRSA by DNA Probe Complete Allergies Coded Allergies: No Known Allergies (Unverified , 03/13/17) Medications Current Inpatient Medications Medications (Trade) Dose Ordered Sig/Shayan Route Start Time Stop Time Status Last Admin Dose Admin Acetaminophen (Tylenol Tab) 650 mg Q4H PRN PO 03/13/17 15:45 04/12/17 15:44 Al Hydrox/Mg Hydrox/Simethicone (Maalox Max Susp) 15 ml Q4H PRN PO 03/13/17 15:45 04/12/17 15:44 Magnesium Hydroxide (Milk Of Magnesia Susp) 30 ml Q12H PRN PO 03/13/17 15:45 04/12/17 15:44 Ondansetron HCl (Zofran Inj) 4 mg Q6H PRN IV 03/13/17 15:45 04/12/17 15:44 Polyethylene (Miralax Powder Packet) 17 gm DAILY PRN PO 03/13/17 15:45 04/12/17 15:44 Glucose (Glucose 40% Gel) 15-30 GRAMS 15 GRAMS... UD PRN PO 03/13/17 15:45 04/12/17 15:44 Glucose (Glucose Chew Tab) 4-8 Tablets 4 Tabl... UD PRN PO 03/13/17 15:45 04/12/17 15:44 Dextrose (Dextrose 50% 50ML Syringe) 25-50ML OF 50% DW IV FOR... UD PRN IV 03/13/17 15:45 04/12/17 15:44 03/13/17 23:44 25 ML Glucagon (Glucagon Inj) 1 mg UD PRN SQ 03/13/17 15:45 04/12/17 15:44 Ceftriaxone Sodium 1 gm/ Dextrose 50 ml @ 100 mls/hr Q24H IV 03/14/17 14:00 03/18/17 13:59 Insulin Aspart (novoLOG ASPART) SLIDING SCALE If C... Q6 SC 03/14/17 12:00 04/13/17 11:59 Heparin Sodium (Porcine) (Heparin Sq 5000 Unit/0.5ml) 5,000 unit Q8 SC 03/14/17 14:00 04/13/17 13:59 Impression (1) Acute renal insufficiency (2) Dehydration (3) Diabetes mellitus type 2 (4) Peripheral neuropathy Recommendations Patient was seen & examined while on HD this am. R IJ THC is positional. Clooting and low Qb. Catheter run A --> V and Qb reduced to 250 cc/min due to frequent low pressure arterial alarms. 2K 2Ca bath w/ F-180 dialyzer utilized.
[2017-03-14] MEDS ORDERED: FAMOTIDINE IV INJ 20 MG in DEXTROSE 5% 100ML 100 ML IV SCH (10:00)
[2017-03-14] MEDS ORDERED: FAMOTIDINE IV INJ 20 MG in SYRINGE 3 ML IV SCH (10:00)
--- NOTE | 2017-03-14 10:06 | DIAGNOSTIC IMAGING REPORT ---
CT HEAD WITHOUT CONTRAST (CT) CLINICAL HISTORY: Acute change in mental status COMPARISON STUDY: May 12, 2011 TECHNIQUE: Axial CT of the brain is performed from the vertex to the skull base. IV contrast was not administered for this examination. A dose lowering technique was utilized adhering to the principles of ALARA. CT DOSE: 788.63 mGycm FINDINGS: No intra or extra-axial mass lesions are visualized. There is no CT evidence of acute cortical infarction. There is no evidence of midline shift. There is no acute hemorrhage. No calvarial fractures are visualized. Small parafalcine lipomas remain stable. There is no evidence of pathologic ventricular dilatation. There is no evidence of acute sinusitis IMPRESSION: No acute intracranial findings Electronically signed by: Damon Ramos M.D. 03/14/2017 10:05 AM Dictated Date/Time: 03/14/2017 10:03 AM
--- NOTE | 2017-03-14 10:31 | DIAGNOSTIC IMAGING REPORT ---
CHEST ONE VIEW PORTABLE CLINICAL HISTORY: SOB, hypotension COMPARISON STUDY: March 13, 2017 FINDINGS: The cardiac and mediastinal contours remain stable. A right internal jugular central venous catheter is again visualized. There is resolving pulmonary vascular congestion. There is no focal pulmonary consolidation.[ No pleural effusions are visualized. IMPRESSION: 1. Resolving pulmonary vascular congestion 2. No evidence of focal pulmonary consolidation Electronically signed by: Damon Ramos M.D. 03/14/2017 10:30 AM Dictated Date/Time: 03/14/2017 10:29 AM
--- NOTE | 2017-03-14 10:55 | Clinical Documentation Query ---
QUERY 1 OF [address] WINN, In your clinical opinion is this patient being managed for: ( x ) Acute pulmonary edema ( ) Not Agree ( ) Other explanation of clinical findings (Please Explain) ( ) Unable to determine (Please Define) ( ) Need to Discuss The medical record reflects the following clinical findings, treatment, and risk factors. Clinical Indicators: Documentation in the clinical record indicates pt with pulmonary edema development Treatment: discontinue IV fluids, transfer to ICU, HD planned, nephrology consult Risk Factors: IV fluids with boluses, worsening VISHAL Multiple codes exist for pulmonary edema. Coders cannot assume that "developing pulmonary edema" is acute pulmonary edema. QUERY 2 OF 2 In your clinical opinion is this patient being managed for: ( ) Acute kidney failure with acute tubular necrosis ( ) Not Agree ( ) Other explanation of clinical findings (Please Explain) ( ) Unable to determine (Please Define) ( ) Need to Discuss The medical record reflects the following clinical findings, treatment, and risk factors. Clinical Indicators: Pt noted to have a baseline Cr of 1.2. Presented with Cr 5.91 which has trended up to 6.46 despite treatment Treatment: IV fluid boluses, HD catheter placement and HD Risk Factors: VISHAL, hx of VISHAL necessitating dialysis tx, DM, UTI ATN: What is it? ATN is a condition which results from the of the tubular cells within the kidney What are the risk factors? blood transfusion reactions, exposure to nephrotoxins (contrast media), rhabdomyolysis, conditions which result in extended (usually 30 minutes or more) hypotension such as septic shock What are the clinical indicators? Some or all of the following: nausea/vomiting, lethargy, delirium, coma, decreased urine output or oliguria (does not always occur), generalized edema How is it diagnosed? The gold standard is a poor response to a fluid repletion within 24-72 hours. Diagnosis may be made by FeNA (fractional excretion of sodium) >2-3 and the presence of muddy brown granular and epithelial casts in the urinalysis. Urine sodium may be high (>250 meq/l/day). How is it treated? In many patients, ATN is reversible. The goal of treatment is supportive and to prevent life threatening complications Treatment may include: *identification and treatment of the underlying cause, *restricting fluid intake to a volume equal to the volume of urine produced *restricting substances normally filtered by the kidneys (protein, sodium, potassium), *dialysis in severe cases Please clarify and document your clinical opinion in the progress notes and discharge summary. Terms such as "probable", "suspected", "likely", "questionable", "possible", or "still to be ruled out" are acceptable. IF IN AGREEMENT, YOU MUST DOCUMENT ABOVE DIAGNOSTIC STATEMENT IN DAILY PROGRESS NOTES AND DISCHARGE SUMMARY. This document is not part of the patient's record. Thank You, Zarina Kaye RN [phone]
--- NOTE | 2017-03-14 10:57 | Clinical Documentation Query ---
QUERY 1 OF [address] SLAUGHTER, In your clinical opinion is this patient being managed for: ( X ) Acute pulmonary edema ( ) Not Agree ( ) Other explanation of clinical findings (Please Explain) ( ) Unable to determine (Please Define) ( ) Need to Discuss The medical record reflects the following clinical findings, treatment, and risk factors. Clinical Indicators: Documentation in the clinical record indicates pt with pulmonary edema development Treatment: discontinue IV fluids, transfer to ICU, HD planned, nephrology consult Risk Factors: IV fluids with boluses, worsening VISHAL Multiple codes exist for pulmonary edema. Coders cannot assume that "developing pulmonary edema" is acute pulmonary edema. QUERY 2 OF 2 In your clinical opinion is this patient being managed for: ( ) Acute kidney failure with acute tubular necrosis ( ) Not Agree ( ) Other explanation of clinical findings (Please Explain) (X ) Unable to determine (Please Define) - working on diagnosis at present. ( ) Need to Discuss The medical record reflects the following clinical findings, treatment, and risk factors. Clinical Indicators: Pt noted to have a baseline Cr of 1.2. Presented with Cr 5.91 which has trended up to 6.46 despite treatment Treatment: IV fluid boluses, HD catheter placement and HD Risk Factors: VISHAL, hx of VISHAL necessitating dialysis tx, DM, UTI ATN: What is it? ATN is a condition which results from the of the tubular cells within the kidney What are the risk factors? blood transfusion reactions, exposure to nephrotoxins (contrast media), rhabdomyolysis, conditions which result in extended (usually 30 minutes or more) hypotension such as septic shock What are the clinical indicators? Some or all of the following: nausea/vomiting, lethargy, delirium, coma, decreased urine output or oliguria (does not always occur), generalized edema How is it diagnosed? The gold standard is a poor response to a fluid repletion within 24-72 hours. Diagnosis may be made by FeNA (fractional excretion of sodium) >2-3 and the presence of muddy brown granular and epithelial casts in the urinalysis. Urine sodium may be high (>250 meq/l/day). How is it treated? In many patients, ATN is reversible. The goal of treatment is supportive and to prevent life threatening complications Treatment may include: *identification and treatment of the underlying cause, *restricting fluid intake to a volume equal to the volume of urine produced *restricting substances normally filtered by the kidneys (protein, sodium, potassium), *dialysis in severe cases Please clarify and document your clinical opinion in the progress notes and discharge summary. Terms such as "probable", "suspected", "likely", "questionable", "possible", or "still to be ruled out" are acceptable. IF IN AGREEMENT, YOU MUST DOCUMENT ABOVE DIAGNOSTIC STATEMENT IN DAILY PROGRESS NOTES AND DISCHARGE SUMMARY. This document is not part of the patient's record. Thank You, Zarina Kaye RN [phone]
--- NOTE | 2017-03-14 12:48 | Critical Care Progress Note ---
Critical Care Progress Note Date of Service Mar 14, 2017. ICU Day ICU Day Number: [address] Mary Jo Pérez This is a 71-year-old female that was admitted yesterday for generalized weakness and twitching. The patient was admitted to telemetry. Throughout the course of the day the daughter reports that she had waxing and waning mental status which seemed to worsen as the day went on. The patient was anemic and was given packed red blood cells but after the first unit became fluid overloaded in the setting of's help. Patient did have intermittent periods of hypotension with spontaneous resolution without fluid boluses. Last evening at about 2 AM the patient became completely unresponsive and was brought to the intensive care unit where a temporary dialysis catheter was placed in the right IJ. Patient received dialysis this morning and upon completion began to have improved mental status. 2.7 L of fluid was taken and hemodialysis was completed about 30 minutes early secondary to hypotensive pressure of 60 with an IBP. Patient then spontaneously improved to an SBP of 99 without any intervention. The patient is awake and alert at this time and denies any chest pain, shortness of breath, fever. She is not have any recollection of events between 2 AM and 10 AM. Her daughter is present and states that she is much improved from yesterday but continues with the twitching consistent with her previous episode of AK I requiring dialysis. The daughter reports that on her last occasion mental status completely resolved and twitching completely stopped after second dialysis treatment. Objective GENERAL : No acute distress. Still with flat affect and generalized twitching EYES: No icterus, gaze conjugate. Pupils are 2 mm and sluggish. NOSE: No evidence of epistaxis. MOUTH: No lesions or candidiasis. Tongue is midline. There is no facial droop NECK: Supple. No stridor or carotid bruits. Triple-lumen Muharkar dialysis line in right IJ with no blood on dressing LUNGS: CTA B/L, no wheezes, rales or rhonchi. Minimal effort by patient HEART: Regular, rate controlled. No appreciation of murmurs gallops or rubs ABDOMEN: Soft, NT, ND, BS Present. No guarding or rebound tenderness with deep palpation EXTREMITIES: No LE edema, pedal pulses intact NEURO: Awake and alert but is unable to give me her date of and is unclear where she is. Generalized twitching. Patient follows simple commands Current SOFA Score SOFA Score Response (Comments) Value Platelets (x10) > 150 0 Bilirubin (mg/dL) < 1.2 0 [place] Coma Score 10 - 12 2 Level of Hypotension No Hypotension 0 Creatinine (mg/dL) 3.5 - 4.9 3 Total 5 Assessment & Plan (1) Sepsis due to urinary tract infection (2) ARF (acute renal failure) (3) Acute urinary tract infection (4) Dehydration (5) Diabetes mellitus type 2 (6) Hypoglycemia (7) Weakness Fluids/Renal: * Acute Renal Failure * Hemo Dialysis this morning with 2.7 liters removed. * Cr baseline 1.2, now 4.78 down from 6.46 * Continues with low urine volume. Continue strict I&Os * Dr. Gutierrez consulted - appreciate his input. Patient seen by Dr. Barreto this morning * Discontinue IVFs * Follow serial labs * Renal U/S unremarkable * UTI * Day # 2 Rocephin * Cultures pending * Continue George to gravity per nursing protocol for strict I&os Neuro: * Altered Mental Status secondary to uremia * Improved significantly status post hemodialysis * Continues with Myoclonic -like activity; doubt seizures as patient is responsive * Check CT head. If no improvement in CT head negative and consider neurology consult with EEG * NH3 is 17 Resp: * Pulmonary edema noted on CXR with fluid overload status post first unit of packed red blood cells * 2.7 L removed with hemodialysis this morning * Titrate supplemental O2 to maintain SaO2 greater than 90% * No cough or phlegm/sputum * No complaints of acute shortness of breath per patient CV: * Troponin negative * Dyslipidemia: Home Atorvastatin held * EKG with PACs and tachycardic with a rate of 92 bpm * QTc 437 * No complaints of chest pain ID: * History of UTI. * Continue Rocephin pending culture. Day #2 * Afebrile * WBC: 9.31 * Lactic Acid 1.1 GI/Nutrition: * NPO secondary to change of mental status * Start famotidine twice a day Heme: * 1uPRBCs received - second unit held secondary to pulmonary edema/fluid overload * H&H: 10..1 * Plts: 161 down from 214 on admission Endocrine: * History of diabetes mellitus type 2 * Home glipizide and metformin held * Hypoglycemic overnight and this morning * Check a hemoglobin A1c * Accu-Checks per protocol * No history of hypothyroidism * TSH 0.643 DVT prophylaxis: * Heparin 5000 units q8h SC * TEDs/SCDs CCT: 40 Minutes; This time is exclusive of all separately billable procedures. Thank you for involving us in the care of this patient. Please refer to Dr. Camargo's addendum for further recommendations. I have personally evaluated and examined this patient. I agree with assessment and plan of Moon Gay PA-C. CT results reviewed. Patient A/O x 3, suspect that acute encephalopathy was acute uremia. Will send peripheral smear to exclude micro-angiopathic vasculitis/HUS, no evidence of DIC fibrinogen level high at 416; doubt hemolytic anemia. Consults & Procedures Consultants: Nephrology - Appreciate Dr. Gutierrez and Dr. Barreto input Procedures: Right IJ temporary dialysis catheter Infusion of IV antibiotics and IV fluid Emergent Hemodialysis Data Medications: Current Inpatient Medications Medications (Trade) Dose Ordered Sig/Shayan Route Start Time Stop Time Status Last Admin Dose Admin Acetaminophen (Tylenol Tab) 650 mg Q4H PRN PO 03/13/17 15:45 04/12/17 15:44 Al Hydrox/Mg Hydrox/Simethicone (Maalox Max Susp) 15 ml Q4H PRN PO 03/13/17 15:45 04/12/17 15:44 Magnesium Hydroxide (Milk Of Magnesia Susp) 30 ml Q12H PRN PO 03/13/17 15:45 04/12/17 15:44 Ondansetron HCl (Zofran Inj) 4 mg Q6H PRN IV 03/13/17 15:45 04/12/17 15:44 Polyethylene (Miralax Powder Packet) 17 gm DAILY PRN PO 03/13/17 15:45 04/12/17 15:44 Glucose (Glucose 40% Gel) 15-30 GRAMS 15 GRAMS... UD PRN PO 03/13/17 15:45 04/12/17 15:44 Glucose (Glucose Chew Tab) 4-8 Tablets 4 Tabl... UD PRN PO 03/13/17 15:45 04/12/17 15:44 Dextrose (Dextrose 50% 50ML Syringe) 25-50ML OF 50% DW IV FOR... UD PRN IV 03/13/17 15:45 04/12/17 15:44 03/13/17 23:44 25 ML Glucagon (Glucagon Inj) 1 mg UD PRN SQ 03/13/17 15:45 04/12/17 15:44 Ceftriaxone Sodium 1 gm/ Dextrose 50 ml @ 100 mls/hr Q24H IV 03/14/17 14:00 03/17/17 23:59 Insulin Aspart (novoLOG ASPART) SLIDING SCALE If C... Q6 SC 03/14/17 12:00 04/13/17 11:59 Heparin Sodium (Porcine) (Heparin Sq 5000 Unit/0.5ml) 5,000 unit Q8 SC 03/14/17 14:00 04/13/17 13:59 Famotidine 20 mg/ Syringe 5 ml @ 2.5 mls/min DAILY@1000 IV 03/14/17 10:00 04/13/17 09:59 Vital Signs: Date Time Temp Pulse Resp B/P (MAP) Pulse Ox O2 Delivery O2 Flow Rate FiO2 03/14/17 06:00 90 20 122/50 (74) 94 BiPAP 15.0 03/14/17 05:20 95 92 15.0 03/14/17 04:00 37.2 97 16 117/59 (78) 95 BiPAP 15.0 03/14/17 04:00 95 BiPAP 15.0 03/14/17 03:15 93 20 91 03/14/17 03:01 94 23 113/60 (83) 91 03/14/17 02:55 95 90 15.0 03/14/17 02:45 92 16 92 03/14/17 02:30 84 18 91 03/14/17 02:15 90 20 90 03/14/17 02:01 84 22 98/45 (49) 93 03/14/17 01:45 82 13 94 03/14/17 01:30 83 16 95 03/14/17 01:15 82 18 93 03/14/17 01:01 85 16 106/41 (69) 95 03/14/17 00:45 82 18 97 03/14/17 00:30 82 18 95 03/14/17 00:15 85 22 96 03/14/17 00:05 37.4 85 16 98/46 (60) 96 03/13/17 23:59 Nasal Cannula 4.0 03/13/17 23:30 85 23 96 03/13/17 23:15 89 13 96 1/2/18 23:01 89 19 106/73 (78) 96 03/13/17 22:46 89 16 90/43 (81) 98 03/13/17 22:31 86 14 118/44 (68) 96 03/13/17 22:16 82 26 106/53 (80) 93 03/13/17 22:01 81 21 115/50 (69) 93 03/13/17 22:00 36.7 80 19 92 03/13/17 21:58 36.9 81 18 115/50 (71) 91 Nasal Cannula 3.0 03/13/17 20:57 37.7 86 12 96/53 94 03/13/17 20:00 92 Nasal Cannula 2.0 03/13/17 19:55 37.2 84 10 97/56 92 03/13/17 19:25 37.2 84 20 112/62 92 03/13/17 19:05 37.0 87 90/47 95 03/13/17 18:44 37.7 80 18 108/57 94 2.0 03/13/17 17:42 36.7 87 20 112/58 94 Nasal Cannula 2.0 03/13/17 16:20 73 18 98/60 93 Room Air 03/13/17 15:07 74 03/13/17 14:35 80 18 120/41 98 Nasal Cannula 2.0 03/13/17 14:01 108/53 03/13/17 12:47 87 27 109/52 97 Nasal Cannula 2.0 03/13/17 12:05 88 16 96/56 96 Nasal Cannula 2.0 Laboratory Results: Last 24 Hours Test 03/13/17 13:10 03/13/17 13:35 03/13/17 17:42 03/13/17 20:12 Urine Color YELLOW Urine Appearance CLOUDY Urine pH 5.0 Urine Specific [place] 1.020 Urine Protein 1+ Urine Glucose (UA) 1+ Urine Ketones NEG Urine Occult Blood NEG Urine Nitrite NEG Urine Bilirubin NEG Urine Urobilinogen NEG Urine Leukocyte Esterase LARGE Urine WBC (Auto) >30 /hpf Urine RBC (Auto) 0-4 /hpf Urine Hyaline Casts (Auto) 1-5 /lpf Urine Epithelial Cells (Auto) 5-10 /lpf Urine Bacteria (Auto) NEG Urine Yeast (Auto) White Blood Count 11.21 K/uL Red Blood Count 3.12 M/uL Hemoglobin 9.4 g/dL 9.5 g/dL Hematocrit 28.6 % 28.5 % Mean Corpuscular Volume 91.7 fL Mean Corpuscular Hemoglobin 30.1 pg Mean Corpuscular Hemoglobin Concent 32.9 g/dl Platelet Count 214 K/uL Mean Platelet Volume 9.1 fL Neutrophils (%) (Auto) 74.0 % Lymphocytes (%) (Auto) 17.2 % Monocytes (%) (Auto) 7.8 % Eosinophils (%) (Auto) 0.4 % Basophils (%) (Auto) 0.2 % Neutrophils # (Auto) 8.29 K/uL Lymphocytes # (Auto) 1.93 K/uL Monocytes # (Auto) 0.87 K/uL Eosinophils # (Auto) 0.05 K/uL Basophils # (Auto) 0.02 K/uL RDW Standard Deviation 44.3 fL RDW Coefficient of Variation 13.3 % Immature Granulocyte % (Auto) 0.4 % Immature Granulocyte # (Auto) 0.05 K/uL Prothrombin Time 10.0 SECONDS Prothromb Time International Ratio 1.0 Activated Partial Thromboplast Time 23.9 SECONDS Partial Thromboplastin Ratio 0.9 Sodium Level 136 mmol/L 135 mmol/L Potassium Level 5.5 mmol/L 5.4 mmol/L Chloride Level 103 mmol/L 103 mmol/L Carbon Dioxide Level 25 mmol/L 25 mmol/L Anion Gap 8.0 mmol/L 7.0 mmol/L Blood Urea Nitrogen 43 mg/dl 44 mg/dl Creatinine 5.91 mg/dl 6.17 mg/dl Est Creatinine Clear Calc Drug Dose 11.5 ml/min 11.0 ml/min Estimated GFR () 7.7 7.3 Estimated GFR (Non- 6.6 6.3 BUN/Creatinine Ratio 7.3 7.2 Random Glucose 119 mg/dl 86 mg/dl Calcium Level 7.8 mg/dl 7.7 mg/dl Phosphorus Level 7.1 mg/dl Magnesium Level 2.0 mg/dl Total Bilirubin 0.3 mg/dl 0.4 mg/dl Direct Bilirubin < 0.1 mg/dl Aspartate Amino Transf (AST/SGOT) 22 U/L 22 U/L Alanine Aminotransferase (ALT/SGPT) 19 U/L 19 U/L Alkaline Phosphatase 89 U/L 93 U/L Total Creatine Kinase 365 U/L Creatine Kinase MB 9.7 ng/ml Creatine Kinase MB Ratio 2.7 Troponin I < 0.015 ng/ml Total Protein 6.3 gm/dl 6.5 gm/dl Albumin 3.1 gm/dl 3.1 gm/dl Lipase 42 U/L Thyroid Stimulating Hormone (TSH) 0.643 uIu/ml Globulin 3.4 gm/dl Albumin/Globulin Ratio 0.9 Bedside Glucose 79 mg/dl Test 03/13/17 22:11 03/13/17 22:15 03/13/17 23:00 03/13/17 23:40 Blood Gas Sample Site R Radial Bedside Blood Gas pH (LAB) 7.22 Bedside Blood Gas pCO2 (LAB) 49 mmHg Bedside Blood Gas pO2 (LAB) 106 mmHg Bedside Blood Gas HCO3 (LAB) 20 meq/L Bedside Blood Gas Total CO2 22 mEq/l Bedside Blood Gas Base Excess (LAB) -8.0 meq/L Bedside Blood Gas O2 Saturation 97.0 % Sukhdev Test Pass Oxygen Delivery Device Cannula Influenza Type A (RT-PCR) Neg for Influ A Influenza Type B (RT-PCR) Neg for Influ B Hemoglobin 9.9 g/dL Hematocrit 30.0 % Sodium Level 135 mmol/L Potassium Level 5.7 mmol/L Chloride Level 104 mmol/L Carbon Dioxide Level 24 mmol/L Anion Gap 7.0 mmol/L Blood Urea Nitrogen 44 mg/dl Creatinine 6.46 mg/dl Est Creatinine Clear Calc Drug Dose 10.5 ml/min Estimated GFR () 6.9 Estimated GFR (Non- 5.9 BUN/Creatinine Ratio 6.9 Random Glucose 63 mg/dl Lactic Acid Level 1.1 mmol/L Calcium Level 7.5 mg/dl Total Bilirubin 0.3 mg/dl Aspartate Amino Transf (AST/SGOT) 21 U/L Alanine Aminotransferase (ALT/SGPT) 17 U/L Alkaline Phosphatase 87 U/L Troponin I < 0.015 ng/ml Total Protein 6.4 gm/dl Albumin 3.0 gm/dl Globulin 3.4 gm/dl Albumin/Globulin Ratio 0.9 Random Cortisol 18.50 mcg/dl Bedside Glucose 65 mg/dl Test 03/13/17 23:59 03/14/17 02:55 03/14/17 04:22 03/14/17 04:48 Bedside Glucose 106 mg/dl 83 mg/dl Blood Gas Sample Site R Radial Bedside Blood Gas pH (LAB) 7.13 Bedside Blood Gas pCO2 (LAB) 63 mmHg Bedside Blood Gas pO2 (LAB) 79 mmHg Bedside Blood Gas HCO3 (LAB) 21 meq/L Bedside Blood Gas Total CO2 22 mEq/l Bedside Blood Gas Base Excess (LAB) -9.0 meq/L Bedside Blood Gas O2 Saturation 89.0 % Sukhdev Test Pass Oxygen Delivery Device Other Bedside FiO2 0 % Phosphorus Level 8.4 mg/dl Magnesium Level 2.0 mg/dl Hepatitis B Surface Antigen NEG Hepatitis B Surface Antibody NEG Test 03/14/17 08:27 03/14/17 08:54 03/14/17 09:44 03/14/17 10:13 Bedside Glucose 85 mg/dl 98 mg/dl White Blood Count 9.31 K/uL Red Blood Count 3.34 M/uL Hemoglobin 10.2 g/dL Hematocrit 31.1 % Mean Corpuscular Volume 93.1 fL Mean Corpuscular Hemoglobin 30.5 pg Mean Corpuscular Hemoglobin Concent 32.8 g/dl RDW Standard Deviation 45.7 fL RDW Coefficient of Variation 13.5 % Platelet Count 161 K/uL Mean Platelet Volume 9.3 fL Nucleated RBC Absolute Count (auto) 0.00 K/uL Nucleated Red Blood Cells % 0.0 % Sodium Level 134 mmol/L Potassium Level 4.7 mmol/L Chloride Level 103 mmol/L Carbon Dioxide Level 22 mmol/L Anion Gap 9.0 mmol/L Blood Urea Nitrogen 29 mg/dl Creatinine 4.78 mg/dl Est Creatinine Clear Calc Drug Dose 14.3 ml/min Estimated GFR () 9.9 Estimated GFR (Non- 8.5 BUN/Creatinine Ratio 6.1 Random Glucose 96 mg/dl Calcium Level 7.4 mg/dl Ammonia 17.0 umol/L Fibrinogen 416 mg/dl
--- NOTE | 2017-03-14 13:06 | ECHOCARDIOGRAM REPORT ---
*NOTICE TO RECEIVING LIBERTARIAN AGENCY This information is strictly Confidential and protected under [place] law. [place] law prohibits you from making any further disclosure of this information unless further disclosure is expressly permitted by the written consent of the person to whom it pertains or is authorized by law. A general authorization for the release of medical or other information is not sufficient for this purpose. Hospital accepts no responsibility if the information is made available to any other person, INCLUDING THE PATIENT. Interpretation Summary * Name: MARCELLUS MAXWELL Study Date: 03/14/2017 10:35 AM BP: 122/50 mmHg * [facility] HR: 88 * : 1945 (M/d/yyy) Gender: Female Height: 67 in * Age: 71 yrs Ethnicity: CA Weight: 260 lb * Ordering Physician: Govind Gay * Referring Physician: Self, Referred * Performed By: Yessi Irvin RCS * * Reason For Study: HYPOTENSION * BSA: 2.3 m2 * -- Conclusions -- * Left ventricular systolic function is normal. * Grade I diastolic dysfunction, (abnormal relaxation pattern). * Right ventricular systolic pressure is elevated at 30-40mmHg. * Compared to an echocardiogram from 10/10/2010, there is no definite change Procedure Details * A complete two-dimensional transthoracic echocardiogram was performed (2D, M-mode, Doppler and color flow Doppler). * The study was technically difficult. * There were technical limitations due to patient'sbody habitus * A contrast injection of Definity was performed to improve assessment of LV function. * Contrast was injected into an intravenous site in the left arm. * One vial of Definity ultrasound contrast was diluted in normal saline to a total volume of 10 ml. A total of '2' ml of solution was administered during imaging. * Lot # [id number] of Definity utilized for procedure. * Expiration date APR 30. * The attending nurse who injected the contrast agent was TULIO FU RN. Left Ventricle * The left ventricle is normal in size. * There is normal left ventricular wall thickness. * Left ventricular systolic function is normal. * Ejection Fraction = 55-60%. * Grade I diastolic dysfunction, (abnormal relaxation pattern). * The left ventricular wall motion is normal. Right Ventricle * The right ventricle is normal in size and function. Atria * The left atrial size is normal. * Right atrial size is normal. * The atrial septum is aneurysmal. Mitral Valve * The mitral valve is grossly normal. * Significant mitral regurgitation is absent. Tricuspid Valve * The tricuspid valve is not well visualized, but is grossly normal. * There is mild tricuspid regurgitation. * Right ventricular systolic pressure is elevated at 30-40mmHg. Aortic Valve * The aortic valve is normal in structure and function. * The aortic valve is trileaflet. * No hemodynamically significant valvular aortic stenosis. * There is no significant aortic regurgitation. Pulmonic Valve * The pulmonic valve is not well visualized. Great Vessels * The aortic root is normal size. Pericardium/Pleural * There is no pericardial effusion. Great Vessels * Normal inferior vena cava diameter and respiratory variation suggests normal central venous pressure. MMode 2D Measurements and Calculations IVSd 1.2 cm IVSs 1.9 cm LVIDd 4.3 cm LVIDs 2.6 cm LVPWd 1.1 cm LVPWs 1.5 cm IVS/LVPW 1.1 FS 39.4 % EDV(Teich) 84.7 ml ESV(Teich) 25.2 ml EF(Teich) 70.2 % EDV(cubed) 81.5 ml ESV(cubed) 18.1 ml EF(cubed) 77.8 % % IVS thick 54.5 % % LVPW thick 38.8 % LV mass(C)d 176.2 grams LV mass(C)dI 78.0 grams/m\S\2 LV mass(C)s 166.4 grams LV mass(C)sI 73.6 grams/m\S\2 SV(Teich) 59.5 ml SI(Teich) 26.3 ml/m\S\2 SV(cubed) 63.4 ml SI(cubed) 28.0 ml/m\S\2 Ao root diam 3.1 cm Ao root area 7.5 cm\S\2 LA dimension 3.6 cm LA/Ao 1.2 LVOT diam 2.0 cm LVOT area 3.2 cm\S\2 Doppler Measurements and Calculations MV E max walter 99.2 cm/sec MV A max walter 107.8 cm/sec MV E/A 0.92 MV P1/2t max walter 116.5 cm/sec MV P1/2t 73.8 msec MVA(P1/2t) 3.0 cm\S\2 MV dec slope 462.4 cm/sec\S\2 MV dec time 0.28 sec PA V2 max 113.9 cm/sec PA max PG 5.2 mmHg PI max walter 172.6 cm/sec PI max PG 11.9 mmHg PI dec slope 186.4 cm/sec\S\2 PI P1/2t 271.2 msec TR max walter 268.3 cm/sec
[2017-03-14 14:14] LABS: BASO % 0.2 %; BASO ABS # 0.02 K/uL (0-0.2); EOS % 0.5 %; EOS ABS # 0.05 K/uL (0-0.5); HEMATOCRIT 28.5 % (37-47); HEMOGLOBIN 9.3 g/dL (12.0-16.0); IG# 0.03 K/uL (0.00-0.02); LYMPH % 18.4 %; LYMPH ABS # 1.72 K/uL (1.2-3.4); MEAN CELL VOLUME 92.8 fL (80-100); MEAN CORPUSCULAR HEMOGLOBIN 30.3 pg (25-34); MEAN PLATELET VOLUME 8.8 fL (7.4-10.4); MONO % 10.2 %; MONO ABS # 0.95 K/uL (0.11-0.59); NEUT % 70.4 %; NEUT ABS # 6.56 K/uL (1.4-6.5); PLATELET COUNT 156 K/uL (130-400); RED CELL DISTRIBUTION WIDTH CV 13.5 % (11.5-14.5); RED CELL DISTRIBUTION WIDTH SD 45.7 fL (36.4-46.3); WHITE BLOOD COUNT 9.33 K/uL (4.8-10.8)
[2017-03-14 14:21] LABS: MEAN CORPUSCULAR HGB CONC 32.6 g/dl (32-36)
[2017-03-14 14:27] LABS: HEMOGLOBIN A1C 7.5 % (4.5-5.6)
[2017-03-14] MEDS: CEFTRIAXONE SOD INJ 1 GM in DEXTROSE 5% ADD-VANTAGE 50ML 50 ML IV SCH (14:29)
[2017-03-14] MEDS: HEPARIN SOD 5000 UNIT/0.5 ML CARP SC SCH ×2 (14:29→22:06)
--- NOTE | 2017-03-14 17:47 | Critical Care Progress Note ---
Critical Care Progress Note Date of Service Mar 14, 2017. Critical Care Progress Note Patient still experiencing waxing and waning of mental status. Patient was previously alert and oriented following dialysis. CT scan of the head was reviewed, no evidence of acute CVA nor intracranial hemorrhage. Peripheral smear reviewed no evidence of schistocytes: Hemolytic uremic syndrome unlikely This equilibrium syndrome also unlikely, if this was securing supportive measures are advocated, no evidence to support mannitol or hyper tonic saline Again daughter reports that this is similar to her prior episode of an acute kidney injury with waxing and waning mental status Was notified in the drop in the patient's hemoglobin, she has not had a bowel movement which I would anticipate for severe blood loss of the lower gastrointestinal tract. Further was able to complete an NG lavage with 250 mils of sterile water, findings which were no evidence of gastric bleeding.
[2017-03-14] MEDS: DEXTROSE 50% 50 ML SYR IV PRN (18:13)
[2017-03-14] MEDS ORDERED: HYDROCORTISONE IV 100 MG in SYRINGE 0 ML IV ONE (19:45)
[2017-03-15] VITALS (33 sets, daily range): BP systolic 96–158; BP diastolic 39–82; PULSE 70–89; TEMP 36.4–36.8; O2SAT 85–99; BMI 40.1
[2017-03-15] MEDS: DEXTROSE 50% 50 ML SYR IV PRN ×2 (04:11→07:43)
[2017-03-15 05:33] LABS: BASO % 0.1 %; BASO ABS # 0.01 K/uL (0-0.2); EOS % 0.1 %; EOS ABS # 0.01 K/uL (0-0.5); HEMATOCRIT 28.7 % (37-47); HEMOGLOBIN 9.3 g/dL (12.0-16.0); IG# 0.03 K/uL (0.00-0.02); LYMPH % 24.1 %; LYMPH ABS # 2.17 K/uL (1.2-3.4); MEAN CELL VOLUME 92.9 fL (80-100); MEAN CORPUSCULAR HEMOGLOBIN 30.1 pg (25-34); MEAN CORPUSCULAR HGB CONC 32.4 g/dl (32-36); MEAN PLATELET VOLUME 9.4 fL (7.4-10.4); MONO % 7.3 %; MONO ABS # 0.66 K/uL (0.11-0.59); NEUT % 68.1 %; NEUT ABS # 6.14 K/uL (1.4-6.5); PLATELET COUNT 172 K/uL (130-400); RED CELL DISTRIBUTION WIDTH CV 13.2 % (11.5-14.5); RED CELL DISTRIBUTION WIDTH SD 44.6 fL (36.4-46.3); WHITE BLOOD COUNT 9.02 K/uL (4.8-10.8)
[2017-03-15 05:59] LABS: CALCIUM 7.7 mg/dl (8.5-10.1); CREATININE 6.55 mg/dl (0.60-1.20); POTASSIUM 5.3 mmol/L (3.5-5.1)
[2017-03-15] MEDS: HEPARIN SOD 5000 UNIT/0.5 ML CARP SC SCH ×3 (05:59→22:30)
[2017-03-15] MEDS: INSULIN ASPART 100 UNITS/ML 3 ML PEN SC SCH ×5 (06:00→21:00)
[2017-03-15] MEDS ORDERED: KETOROLAC TROMETHAMINE 15 MG/ML VIAL IV. ONE ×2 (09:00→12:30)
[2017-03-15] MEDS: GABAPENTIN 100 MG CAP PO SCH (09:00)
--- NOTE | 2017-03-15 09:33 | Family Medicine Progress Note ---
Progress Note Date of Service Mar 15, 2017. Subjective Pt evaluation today including: conversation w/ patient, conversation w/ family , physical exam, chart review, lab review Pain: denies any discomfort today PO Intake: tolerating Voiding: resendiz catheter in place This AM pt reports feeling much better and being more alert and awake. Denies any discomfort. Constitutional: No fever, No chills Respiratory: No shortness of breath Cardiovascular: No chest pain Abdomen: No pain, No nausea, No vomiting Female : + problem reported (anuric) Neurologic: + problem reported (twiching generalized) Medications Current Inpatient Medications Medications (Trade) Dose Ordered Sig/Shayan Route Start Time Stop Time Status Last Admin Dose Admin Acetaminophen (Tylenol Tab) 650 mg Q4H PRN PO 03/13/17 15:45 04/12/17 15:44 Al Hydrox/Mg Hydrox/Simethicone (Maalox Max Susp) 15 ml Q4H PRN PO 03/13/17 15:45 04/12/17 15:44 Magnesium Hydroxide (Milk Of Magnesia Susp) 30 ml Q12H PRN PO 03/13/17 15:45 04/12/17 15:44 Ondansetron HCl (Zofran Inj) 4 mg Q6H PRN IV 03/13/17 15:45 04/12/17 15:44 Polyethylene (Miralax Powder Packet) 17 gm DAILY PRN PO 03/13/17 15:45 04/12/17 15:44 Glucose (Glucose 40% Gel) 15-30 GRAMS 15 GRAMS... UD PRN PO 03/13/17 15:45 04/12/17 15:44 Glucose (Glucose Chew Tab) 4-8 Tablets 4 Tabl... UD PRN PO 03/13/17 15:45 04/12/17 15:44 Dextrose (Dextrose 50% 50ML Syringe) 25-50ML OF 50% DW IV FOR... UD PRN IV 03/13/17 15:45 04/12/17 15:44 03/15/17 07:43 50 ML Glucagon (Glucagon Inj) 1 mg UD PRN SQ 03/13/17 15:45 04/12/17 15:44 Ceftriaxone Sodium 1 gm/ Dextrose 50 ml @ 100 mls/hr Q24H IV 03/14/17 14:00 03/17/17 23:59 03/14/17 14:29 100 MLS/HR Insulin Aspart (novoLOG ASPART) SLIDING SCALE If C... Q6 SC 03/14/17 12:00 04/13/17 11:59 Heparin Sodium (Porcine) (Heparin Sq 5000 Unit/0.5ml) 5,000 unit Q8 SC 03/14/17 14:00 04/13/17 13:59 03/15/17 05:59 5,000 UNIT Gabapentin (Neurontin Cap) 200 mg QAM PO 03/15/17 09:00 04/14/17 08:59 Gabapentin (Neurontin Cap) GIVE 200MG AFTER HEMODIALY... DAILY@1400 PO 03/15/17 14:00 04/14/17 13:59 Objective Vital Signs Date Time Temp Pulse Resp B/P (MAP) Pulse Ox O2 Delivery O2 Flow Rate FiO2 03/15/17 08:00 36.5 87 15 108/45 (66) 98 Nasal Cannula 2.0 03/15/17 06:01 77 18 109/40 (63) 99 Nasal Cannula 2.0 03/15/17 05:01 78 14 115/53 (73) 97 Nasal Cannula 2.0 03/15/17 04:01 36.8 76 16 120/58 (78) 98 Nasal Cannula 2.0 03/15/17 04:00 Nasal Cannula 2.0 03/15/17 03:01 83 20 113/57 (75) 98 Nasal Cannula 2.0 03/15/17 02:01 81 24 126/52 (76) 99 Nasal Cannula 2.0 03/15/17 01:01 86 17 107/50 (69) 97 Nasal Cannula 2.0 03/15/17 00:01 36.7 83 16 96/63 (74) 98 Nasal Cannula 2.0 03/15/17 00:00 Nasal Cannula 2.0 03/14/17 23:01 76 18 110/49 (69) 94 Nasal Cannula 2.0 03/14/17 22:01 81 14 95/48 (64) 94 Nasal Cannula 2.0 03/14/17 21:01 81 14 91/56 (68) 92 Nasal Cannula 2.0 03/14/17 20:01 36.4 75 19 108/49 (68) 95 Nasal Cannula 2.0 03/14/17 20:00 Nasal Cannula 2.0 03/14/17 18:00 86 20 86/38 (54) 94 Oxymask 2.0 03/14/17 16:00 93 Oxymask 2.0 03/14/17 16:00 36.6 90 15 85/42 (56) 92 Oxymask 2.0 03/14/17 14:00 83 17 95/41 (59) 96 Nasal Cannula 2.0 03/14/17 12:00 94 Oxymask 2.0 03/14/17 12:00 36.5 84 16 99/35 (56) 95 Oxymask 2.0 03/14/17 10:00 91 25 115/55 (75) 95 Oxymask 2.0 Physical Exam General Appearance: no apparent distress Eyes: normal inspection, sclerae normal Neck: supple Respiratory/Chest: lungs clear, normal breath sounds Cardiovascular: regular rate, rhythm, no murmur Abdomen: normal bowel sounds, non tender, soft Extremities: non-tender, no pedal edema, + pertinent finding (abrasions on bilateral feet and L knee) Neurologic/Psychiatric: alert, + pertinent finding (wake and oriented to person , place and time this AM ) Skin: warm/dry Laboratory Results 03/15/17 05:20 Red Blood Count 3.09, Mean Corpuscular Volume 92.9, Mean Corpuscular Hemoglobin 30.1, Mean Corpuscular Hemoglobin Concent 32.4, Mean Platelet Volume 9.4, Neutrophils (%) (Auto) 68.1, Lymphocytes (%) (Auto) 24.1, Monocytes (%) (Auto) 7.3, Eosinophils (%) (Auto) 0.1, Basophils (%) (Auto) 0.1, Neutrophils # (Auto) 6.14, Lymphocytes # (Auto) 2.17, Monocytes # (Auto) 0.66, Eosinophils # (Auto) 0.01, Basophils # (Auto) 0.01 03/15/17 05:20 Test 03/14/17 09:44 03/14/17 14:00 03/15/17 05:20 03/15/17 09:01 Fibrinogen 416 mg/dl (184-400) Estimated Average Glucose 169 mg/dl Hemoglobin A1c 7.5 % (4.5-5.6) White Blood Count 9.02 K/uL (4.8-10.8) Red Blood Count 3.09 M/uL (4.2-5.4) Hemoglobin 9.3 g/dL (12.0-16.0) Hematocrit 28.7 % (37-47) Mean Corpuscular Volume 92.9 fL (80-100) Mean Corpuscular Hemoglobin 30.1 pg (25-34) Mean Corpuscular Hemoglobin Concent 32.4 g/dl (32-36) Platelet Count 172 K/uL (130-400) Mean Platelet Volume 9.4 fL (7.4-10.4) Neutrophils (%) (Auto) 68.1 % Lymphocytes (%) (Auto) 24.1 % Monocytes (%) (Auto) 7.3 % Eosinophils (%) (Auto) 0.1 % Basophils (%) (Auto) 0.1 % Neutrophils # (Auto) 6.14 K/uL (1.4-6.5) Lymphocytes # (Auto) 2.17 K/uL (1.2-3.4) Monocytes # (Auto) 0.66 K/uL (0.11-0.59) Eosinophils # (Auto) 0.01 K/uL (0-0.5) Basophils # (Auto) 0.01 K/uL (0-0.2) RDW Standard Deviation 44.6 fL (36.4-46.3) RDW Coefficient of Variation 13.2 % (11.5-14.5) Immature Granulocyte % (Auto) 0.3 % Immature Granulocyte # (Auto) 0.03 K/uL (0.00-0.02) Anion Gap 8.0 mmol/L (3-11) Est Creatinine Clear Calc Drug Dose 10.5 ml/min Estimated GFR () 6.8 Estimated GFR (Non- 5.8 BUN/Creatinine Ratio 6.4 (10-20) Lactic Acid Level 0.8 mmol/L (0.4-2.0) Calcium Level 7.7 mg/dl (8.5-10.1) Phosphorus Level 8.0 mg/dl (2.5-4.9) Magnesium Level 2.1 mg/dl (1.8-2.4) Bedside Glucose 100 mg/dl (70-90) Assessment and Plan Ms. Gresham is a 71 y/o female with PMHx of T2DM with Peripheral Neuropathy, HTN , Previous VISHAL (Required Temporary Hemodialysis) who presents to the ED c/o generalized weakness, sudden onset of emesis 6 (black in color). Patient reported waking up her normal self the day before. Now remains anuric on HD with improving acute metabolic encephalopathy Acute Metabolic Encephalopathy 2/2 uremia vs. seizure - Alert and oriented x 3 this AM with persistent twitching movement - Anion gap 8 - ABG 1/3 - PH 7.13; PCO2 63; PO2 79 - Lactic acid 0.8 this AM - Ammonia 17 - CT head no acute IC pathology Acute Kidney Injury - remains anuric - Unsure if VISHAL caused vomiting or vomiting caused an VISHAL - patient has H/O of similar issues in the past but required hemodialysis temporarily due to anion gap with electrolyte abnormalities - 2 L NSS bolus in ED and NSS at 100 mL/hr - Held due to pulmonary edema development - renal U/S - No calculi, mass or hydronephrosis - Transfused 1 units PRBC - hemoglobin at mid-9s but given mentation and possible hypotensive induced VISHAL transfused - Cr 6.55 today - Hold Gabapentin, Lisinopril, and Metformin per nephro - Consult nephrology - HD this AM as pt remains anuric with elevated K of 5.3 - Vascular consult for permacath placement - Continue to monitor kidney function and electrolytes Hypoxia requiring O2 2 L NC - Developed pulm edema s/p transfusion - Repeat CXR improved pulm vasc congestion, no consolidation Acute Anemia:Black Emesis - last Hgb reported around 11 - transfused 1 unit pRBC - Hgb stable at 9.3 this AM - No active bleeding at this time - NG lavage 250cc neg - Trend Hgb UTI - UA - leuk esterase and >30 WBC - Cx - -gram neg bacilli - Continue Rocephin 1 g IV daily Muscle Twitching - persistent - electrolyte related vs Gabapentin induced - Gabapentin level pending T2DM with Peripheral Neuropathy - hypoglycemic episodes - HgbA1c - 7.5 - Q1H glucose checks and treated hypoglycemic episodes with dextrose - Hold oral agents and cover with SSI HTN - Currently improving hypotension DVT Prophylaxis: Heparin Code Status: FULL RESUSCITATION Disposition: PT/OT Evaluations Resident Involvement: Resident Care Provided Care Provided: Adult Hospital Medicine History Resident Physician Supervision Note: I was present with Dr. Dueñas during the history and exam. I discussed the case with the resident and agree with the findings and plan as documented in the note. Any exceptions or clarifications are listed here. Pt reports gradual improvement in both muscle twitching and level of consciousness, which is corroborated by family at bedside. Reports no EDGAR, chest pain, SOB, abd pain, n/v. AAOx2 (Self, place) General Appearance: no apparent distress, obese Eye Exam: bilateral eye PERRL, bilateral eye EOMI Respiratory: chest non-tender, lungs clear, normal breath sounds, no respiratory distress Cardiovascular: normal peripheral pulses, regular rate, rhythm, no murmur, other (2+ pitting edema of the upper and lower extremities) Gastrointestinal: normal bowel sounds, non tender, soft Assessment/Plan 71 y/o female h/o DMII w/ peripheral neuropathy, HTN p/w generalized weakness Acute metabolic encephalopathy - uremia v. UTI v. other organic process - continues to improve w/ HD Acute renal failure - renal US unremarkable - on HD, nephrology recommendations appreciated - monitor I/O, trend BMP Anemia in the setting of ?coffee ground emesis - s/p 1 uPRBC - stable, monitor CBC Urinary tract infection - continue Rocephin, f/u cultures Pulmonary edema - s/p transfusion - HD GI PPX - on famotidine BID
[2017-03-15] MEDS ORDERED: NURSING VERBAL MED ORDER ONE (09:45)
--- NOTE | 2017-03-15 10:36 | Nephrology Progress Note ---
Nephrology Progress Note Date of Service Mar 15, 2017. Chief Complaint Hemodialysis Subjective Steffany was seen and evaluated this morning during start of dialysis. The plan of care was discussed with the ICU team. I also spoke to the patient's daughter and sister. Steffany is more awake this morning. She has been hemodynamically stable. She continues to have periodic myoclonic twitching or the upper and lower extremities. She has persistent hypoglycemia. Diet has been advanced. Steffany is breathing comfortably. She has chronic pain but is currently overall comfortable. She has minimal memory of the past 24-48 hours. No fevers or chills. She remains anuric. Review of Systems A complete review of systems was performed. Pertinent positives are noted above. All other systems are negative. Vital Signs Last 8 Hrs Date Time Temp Pulse Resp B/P (MAP) Pulse Ox O2 Delivery O2 Flow Rate FiO2 03/15/17 09:45 77 128/48 03/15/17 09:30 78 127/60 03/15/17 09:09 36.4 86 121/61 (81) 03/15/17 08:00 36.5 87 15 108/45 (66) 98 Nasal Cannula 2.0 03/15/17 08:00 Nasal Cannula 2.0 03/15/17 06:01 77 18 109/40 (63) 99 Nasal Cannula 2.0 03/15/17 05:01 78 14 115/53 (73) 97 Nasal Cannula 2.0 03/15/17 04:01 36.8 76 16 120/58 (78) 98 Nasal Cannula 2.0 03/15/17 04:00 Nasal Cannula 2.0 03/15/17 03:01 83 20 113/57 (75) 98 Nasal Cannula 2.0 Last Recorded Weight Weight (Kilograms): 116.100 Physical Exam General Appearance: no apparent distress, + obese Head: normocephalic, atraumatic Eyes: normal inspection, sclerae normal ENT: normal ENT inspection, pharynx normal, + pertinent finding (oral mucosa dry) Neck: supple, + pertinent finding (RIJ shiley catheter) Respiratory/Chest: no respiratory distress, no accessory muscle use, + decreased breath sounds, + crackles Cardiovascular: regular rate, rhythm, no gallop, no murmur Abdomen/GI: non tender, soft Extremities/Musculoskelatal: normal inspection, no pedal edema Neurologic/Psych: alert, normal mood/affect Family History Lung Cancer Negative for CKD / ESRD Social History Smoking Status: Unknown if ever smoked Smokeless Tobacco Use: No Alcohol Use: none Drug Use: none Occupation: retired , retired, never a smoker. Laboratory Results Past 24 Hours 03/14/17 14:00 Red Blood Count 3.07, Mean Corpuscular Volume 92.8, Mean Corpuscular Hemoglobin 30.3, Mean Corpuscular Hemoglobin Concent 32.6, Mean Platelet Volume 8.8, Neutrophils (%) (Auto) 70.4, Lymphocytes (%) (Auto) 18.4, Monocytes (%) (Auto) 10.2, Eosinophils (%) (Auto) 0.5, Basophils (%) (Auto) 0.2, Neutrophils # (Auto ) 6.56, Lymphocytes # (Auto) 1.72, Monocytes # (Auto) 0.95, Eosinophils # (Auto ) 0.05, Basophils # (Auto) 0.02 03/15/17 05:20 Red Blood Count 3.09, Mean Corpuscular Volume 92.9, Mean Corpuscular Hemoglobin 30.1, Mean Corpuscular Hemoglobin Concent 32.4, Mean Platelet Volume 9.4, Neutrophils (%) (Auto) 68.1, Lymphocytes (%) (Auto) 24.1, Monocytes (%) (Auto) 7.3, Eosinophils (%) (Auto) 0.1, Basophils (%) (Auto) 0.1, Neutrophils # (Auto) 6.14, Lymphocytes # (Auto) 2.17, Monocytes # (Auto) 0.66, Eosinophils # (Auto) 0.01, Basophils # (Auto) 0.01 03/15/17 05:20 Test 03/14/17 10:13 03/14/17 12:18 03/14/17 13:26 03/14/17 14:00 Bedside Glucose 98 mg/dl (70-90) 93 mg/dl (70-90) 89 mg/dl (70-90) White Blood Count 9.33 K/uL (4.8-10.8) Red Blood Count 3.07 M/uL (4.2-5.4) Hemoglobin 9.3 g/dL (12.0-16.0) Hematocrit 28.5 % (37-47) Mean Corpuscular Volume 92.8 fL (80-100) Mean Corpuscular Hemoglobin 30.3 pg (25-34) Mean Corpuscular Hemoglobin Concent 32.6 g/dl (32-36) Platelet Count 156 K/uL (130-400) Mean Platelet Volume 8.8 fL (7.4-10.4) Neutrophils (%) (Auto) 70.4 % Lymphocytes (%) (Auto) 18.4 % Monocytes (%) (Auto) 10.2 % Eosinophils (%) (Auto) 0.5 % Basophils (%) (Auto) 0.2 % Neutrophils # (Auto) 6.56 K/uL (1.4-6.5) Lymphocytes # (Auto) 1.72 K/uL (1.2-3.4) Monocytes # (Auto) 0.95 K/uL (0.11-0.59) Eosinophils # (Auto) 0.05 K/uL (0-0.5) Basophils # (Auto) 0.02 K/uL (0-0.2) RDW Standard Deviation 45.7 fL (36.4-46.3) RDW Coefficient of Variation 13.5 % (11.5-14.5) Immature Granulocyte % (Auto) 0.3 % Immature Granulocyte # (Auto) 0.03 K/uL (0.00-0.02) Estimated Average Glucose 169 mg/dl Hemoglobin A1c 7.5 % (4.5-5.6) Test 03/14/17 18:04 03/14/17 18:40 03/14/17 19:34 03/14/17 19:52 Bedside Glucose 61 mg/dl (70-90) 88 mg/dl (70-90) 82 mg/dl (70-90) Lactic Acid Level 0.8 mmol/L (0.4-2.0) Test 03/14/17 21:09 03/14/17 22:09 03/14/17 23:04 03/15/17 00:01 Bedside Glucose 73 mg/dl (70-90) 80 mg/dl (70-90) 74 mg/dl (70-90) 81 mg/dl (70-90) Test 03/15/17 01:10 03/15/17 02:03 03/15/17 04:07 03/15/17 04:27 Bedside Glucose 83 mg/dl (70-90) 72 mg/dl (70-90) 60 mg/dl (70-90) 95 mg/dl (70-90) Test 03/15/17 05:20 03/15/17 05:23 03/15/17 06:02 03/15/17 07:27 White Blood Count 9.02 K/uL (4.8-10.8) Red Blood Count 3.09 M/uL (4.2-5.4) Hemoglobin 9.3 g/dL (12.0-16.0) Hematocrit 28.7 % (37-47) Mean Corpuscular Volume 92.9 fL (80-100) Mean Corpuscular Hemoglobin 30.1 pg (25-34) Mean Corpuscular Hemoglobin Concent 32.4 g/dl (32-36) Platelet Count 172 K/uL (130-400) Mean Platelet Volume 9.4 fL (7.4-10.4) Neutrophils (%) (Auto) 68.1 % Lymphocytes (%) (Auto) 24.1 % Monocytes (%) (Auto) 7.3 % Eosinophils (%) (Auto) 0.1 % Basophils (%) (Auto) 0.1 % Neutrophils # (Auto) 6.14 K/uL (1.4-6.5) Lymphocytes # (Auto) 2.17 K/uL (1.2-3.4) Monocytes # (Auto) 0.66 K/uL (0.11-0.59) Eosinophils # (Auto) 0.01 K/uL (0-0.5) Basophils # (Auto) 0.01 K/uL (0-0.2) RDW Standard Deviation 44.6 fL (36.4-46.3) RDW Coefficient of Variation 13.2 % (11.5-14.5) Immature Granulocyte % (Auto) 0.3 % Immature Granulocyte # (Auto) 0.03 K/uL (0.00-0.02) Anion Gap 8.0 mmol/L (3-11) Est Creatinine Clear Calc Drug Dose 10.5 ml/min Estimated GFR () 6.8 Estimated GFR (Non- 5.8 BUN/Creatinine Ratio 6.4 (10-20) Lactic Acid Level 0.8 mmol/L (0.4-2.0) Calcium Level 7.7 mg/dl (8.5-10.1) Phosphorus Level 8.0 mg/dl (2.5-4.9) Magnesium Level 2.1 mg/dl (1.8-2.4) Bedside Glucose 88 mg/dl (70-90) 74 mg/dl (70-90) 54 mg/dl (70-90) Test 03/15/17 07:30 03/15/17 09:01 03/15/17 09:56 Bedside Glucose 57 mg/dl (70-90) 100 mg/dl (70-90) 124 mg/dl (70-90) Allergies Coded Allergies: No Known Allergies (Unverified , 03/13/17) Medications Current Inpatient Medications Medications (Trade) Dose Ordered Sig/Shayan Route Start Time Stop Time Status Last Admin Dose Admin Acetaminophen (Tylenol Tab) 650 mg Q4H PRN PO 03/13/17 15:45 04/12/17 15:44 Al Hydrox/Mg Hydrox/Simethicone (Maalox Max Susp) 15 ml Q4H PRN PO 03/13/17 15:45 04/12/17 15:44 Magnesium Hydroxide (Milk Of Magnesia Susp) 30 ml Q12H PRN PO 03/13/17 15:45 04/12/17 15:44 Ondansetron HCl (Zofran Inj) 4 mg Q6H PRN IV 03/13/17 15:45 04/12/17 15:44 Polyethylene (Miralax Powder Packet) 17 gm DAILY PRN PO 03/13/17 15:45 04/12/17 15:44 Glucose (Glucose 40% Gel) 15-30 GRAMS 15 GRAMS... UD PRN PO 03/13/17 15:45 04/12/17 15:44 Glucose (Glucose Chew Tab) 4-8 Tablets 4 Tabl... UD PRN PO 03/13/17 15:45 04/12/17 15:44 Dextrose (Dextrose 50% 50ML Syringe) 25-50ML OF 50% DW IV FOR... UD PRN IV 03/13/17 15:45 04/12/17 15:44 03/15/17 07:43 50 ML Glucagon (Glucagon Inj) 1 mg UD PRN SQ 03/13/17 15:45 04/12/17 15:44 Ceftriaxone Sodium 1 gm/ Dextrose 50 ml @ 100 mls/hr Q24H IV 03/14/17 14:00 03/17/17 14:29 03/14/17 14:29 100 MLS/HR Heparin Sodium (Porcine) (Heparin Sq 5000 Unit/0.5ml) 5,000 unit Q8 SC 03/14/17 14:00 04/13/17 13:59 03/15/17 05:59 5,000 UNIT Gabapentin (Neurontin Cap) 200 mg QAM PO 03/15/17 09:00 04/14/17 08:59 Gabapentin (Neurontin Cap) GIVE EXTRA 200MG AFTER HEMODIALY... DAILY@1400 PO 03/15/17 14:00 04/14/17 13:59 Insulin Aspart (novoLOG ASPART) SLIDING SCALE If C... ACHS SC 03/15/17 11:00 04/13/17 11:59 Impression (1) Acute renal insufficiency (2) Dehydration (3) Diabetes mellitus type 2 (4) Peripheral neuropathy Mrs. Walter Gresham is an obese 71-year-old female with DMII, hypertension, peripheral neuropathy and CKD. Steffany suffered and episode of VISHAL in 2011 following BEBE. VISHAL was attributed to ATN. Patient required one dialysis treatment and subsequently recovered. She has not maintained outpatient Nephrology follow up (last visit 2012). Creatinine appears to have improved to 1.3 mg/dL. Steffany presented to [facility] on March 13 with mental status changes. She continues to have delirium. She has anuric VISHAL requiring [employer]. Her first hemodialysis treatment was completed yesterday. The treatment was complicated by intradialytic hypotension and poor Qb via RIJ catheter. She will receive her second treatment today. Hemodynamics have been stable since admission. VISHAL attributed to ATN at this time in the setting of UTI, hypotension and ACEi use. 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 Random cortisol was 18. She is hyperkalemic due to VISHAL. Stigmata of CKD include hyperphosphatemia as well as renal cortical atrophy. TTE was reviewed this morning documenting normal LV size and systolic function with grade 1 diastolic dysfunction and normal IVC. There was no significant valvular heart disease. Renal US report reviewed this am: No calculi, mass or hydronephrosis. Urinalysis w/ 1+ protein, 1+ glucose. Urine microscopy w/ hyaline casts and pyuria. Glucosuria in the setting of a blood glucose of 119 is an interesting finding. The patient was not taking medications to explain this finding. She did not have other evidence of RTA. I will however check SPEP/UPEP. Recommendations ACUTE KIDNEY INJURY: -- HD today. UF 2-3 L as tolerated. -- Document I/O's and monitor metabolic profile daily. -- Will trial HD as tolerated via RIJ catheter. If adequate blood flow cannot be obtained, dialysis will be held pending placement of a new catheter. -- Vascular surgery consulted for THC placement. I discussed with ANGELIKA Bae yesterday. -- Will obtain renal artery duplex when clinically appropriate -- Check SPEP/immunofixation with next set of labs. -- Avoid ANJELICA/ARB and continue to hold metformin as well as glipizide ANEMIA: -- Patient transfused one unit PRBC since admission -- No active bleeding at this time. NG lavage without signs of UGIB -- Monitor serial H&H Citrobacter UTI: -- Ceftriaxone day #2
[2017-03-15] MEDS: CEFTRIAXONE SOD INJ 1 GM in DEXTROSE 5% ADD-VANTAGE 50ML 50 ML IV SCH (13:08)
--- NOTE | 2017-03-15 13:18 | Medical Student: [facility] ---
Med Student Progress Note Date of Service Mar 15, 2017. Subjective Pt evaluation today including: conversation w/ patient, conversation w/ family , physical exam, lab review Pain: none Voiding: resendiz catheter in place (no urine output) 71 y/o female with T2DM, peripheral neuropathy, previous episode of VISHAL 6 years [employer] with new VISHAL and waxing/waning mental status following emesis 2 days ago. Overnight she continued to have uncontrolled jerking. Hypoglycemic episodes into the 60s improved with dextrose administration. She feels "better" today and is conversing with friends. But continues to be confused, per family. Review of Systems Constitutional: No fever Respiratory: No cough, No shortness of breath Cardiac: No chest pain Abdomen: No pain, No nausea, No vomiting, No diarrhea Female : + problem reported (anuria ) Neurologic: + weakness, + problem reported (confusion) Skin: No rash Objective Vital Signs Date Time Temp Pulse Resp B/P (MAP) Pulse Ox O2 Delivery O2 Flow Rate FiO2 03/15/17 12:15 72 114/59 03/15/17 12:00 78 130/51 03/15/17 11:45 75 114/53 03/15/17 11:30 71 114/49 03/15/17 11:15 71 140/82 03/15/17 11:00 79 111/61 03/15/17 10:45 70 116/52 03/15/17 10:30 76 113/51 03/15/17 10:15 77 115/66 03/15/17 10:00 75 103/59 03/15/17 10:00 76 18 103/58 (73) 98 Nasal Cannula 2.0 03/15/17 09:45 77 128/48 03/15/17 09:30 78 127/60 03/15/17 09:09 36.4 86 121/61 (81) 03/15/17 08:00 36.5 87 15 108/45 (66) 98 Nasal Cannula 2.0 03/15/17 08:00 Nasal Cannula 2.0 03/15/17 06:01 77 18 109/40 (63) 99 Nasal Cannula 2.0 03/15/17 05:01 78 14 115/53 (73) 97 Nasal Cannula 2.0 03/15/17 04:01 36.8 76 16 120/58 (78) 98 Nasal Cannula 2.0 03/15/17 04:00 Nasal Cannula 2.0 03/15/17 03:01 83 20 113/57 (75) 98 Nasal Cannula 2.0 03/15/17 02:01 81 24 126/52 (76) 99 Nasal Cannula 2.0 03/15/17 01:01 86 17 107/50 (69) 97 Nasal Cannula 2.0 03/15/17 00:01 36.7 83 16 96/63 (74) 98 Nasal Cannula 2.0 03/15/17 00:00 Nasal Cannula 2.0 03/14/17 23:01 76 18 110/49 (69) 94 Nasal Cannula 2.0 03/14/17 22:01 81 14 95/48 (64) 94 Nasal Cannula 2.0 03/14/17 21:01 81 14 91/56 (68) 92 Nasal Cannula 2.0 03/14/17 20:01 36.4 75 19 108/49 (68) 95 Nasal Cannula 2.0 03/14/17 20:00 Nasal Cannula 2.0 03/14/17 18:00 86 20 86/38 (54) 94 Oxymask 2.0 03/14/17 16:00 93 Oxymask 2.0 03/14/17 16:00 36.6 90 15 85/42 (56) 92 Oxymask 2.0 03/14/17 14:00 83 17 95/41 (59) 96 Nasal Cannula 2.0 Physical Exam General Appearance: no apparent distress Eyes: bilateral eyes pertinent finding (pupils 1mm but react to light stimulus ) ENT: hearing grossly normal Neck: no adenopathy Respiratory/Chest: lungs clear, normal breath sounds, no respiratory distress, no accessory muscle use Cardiovascular: regular rate, rhythm, + systolic murmur Abdomen: normal bowel sounds, non tender, soft Neurologic/Psychiatric: [employer] educational [employer] II-XII nml as tested, no motor/sensory deficits, + pertinent finding (alert to person and place only ) Skin: normal color, warm/dry, no rash Laboratory Results Last 24 Hours Test 03/14/17 13:26 03/14/17 14:00 03/14/17 18:04 03/14/17 18:40 Bedside Glucose 89 mg/dl 61 mg/dl 88 mg/dl White Blood Count 9.33 K/uL Red Blood Count 3.07 M/uL Hemoglobin 9.3 g/dL Hematocrit 28.5 % Mean Corpuscular Volume 92.8 fL Mean Corpuscular Hemoglobin 30.3 pg Mean Corpuscular Hemoglobin Concent 32.6 g/dl Platelet Count 156 K/uL Mean Platelet Volume 8.8 fL Neutrophils (%) (Auto) 70.4 % Lymphocytes (%) (Auto) 18.4 % Monocytes (%) (Auto) 10.2 % Eosinophils (%) (Auto) 0.5 % Basophils (%) (Auto) 0.2 % Neutrophils # (Auto) 6.56 K/uL Lymphocytes # (Auto) 1.72 K/uL Monocytes # (Auto) 0.95 K/uL Eosinophils # (Auto) 0.05 K/uL Basophils # (Auto) 0.02 K/uL RDW Standard Deviation 45.7 fL RDW Coefficient of Variation 13.5 % Immature Granulocyte % (Auto) 0.3 % Immature Granulocyte # (Auto) 0.03 K/uL Estimated Average Glucose 169 mg/dl Hemoglobin A1c 7.5 % Test 03/14/17 19:34 03/14/17 19:52 03/14/17 21:09 03/14/17 22:09 Lactic Acid Level 0.8 mmol/L Bedside Glucose 82 mg/dl 73 mg/dl 80 mg/dl Test 03/14/17 23:04 03/15/17 00:01 03/15/17 01:10 03/15/17 02:03 Bedside Glucose 74 mg/dl 81 mg/dl 83 mg/dl 72 mg/dl Test 03/15/17 04:07 03/15/17 04:27 03/15/17 05:20 03/15/17 05:23 Bedside Glucose 60 mg/dl 95 mg/dl 88 mg/dl White Blood Count 9.02 K/uL Red Blood Count 3.09 M/uL Hemoglobin 9.3 g/dL Hematocrit 28.7 % Mean Corpuscular Volume 92.9 fL Mean Corpuscular Hemoglobin 30.1 pg Mean Corpuscular Hemoglobin Concent 32.4 g/dl Platelet Count 172 K/uL Mean Platelet Volume 9.4 fL Neutrophils (%) (Auto) 68.1 % Lymphocytes (%) (Auto) 24.1 % Monocytes (%) (Auto) 7.3 % Eosinophils (%) (Auto) 0.1 % Basophils (%) (Auto) 0.1 % Neutrophils # (Auto) 6.14 K/uL Lymphocytes # (Auto) 2.17 K/uL Monocytes # (Auto) 0.66 K/uL Eosinophils # (Auto) 0.01 K/uL Basophils # (Auto) 0.01 K/uL RDW Standard Deviation 44.6 fL RDW Coefficient of Variation 13.2 % Immature Granulocyte % (Auto) 0.3 % Immature Granulocyte # (Auto) 0.03 K/uL Sodium Level 135 mmol/L Potassium Level 5.3 mmol/L Chloride Level 105 mmol/L Carbon Dioxide Level 22 mmol/L Anion Gap 8.0 mmol/L Blood Urea Nitrogen 42 mg/dl Creatinine 6.55 mg/dl Est Creatinine Clear Calc Drug Dose 10.5 ml/min Estimated GFR () 6.8 Estimated GFR (Non- 5.8 BUN/Creatinine Ratio 6.4 Random Glucose 82 mg/dl Lactic Acid Level 0.8 mmol/L Calcium Level 7.7 mg/dl Phosphorus Level 8.0 mg/dl Magnesium Level 2.1 mg/dl Test 03/15/17 06:02 03/15/17 07:27 03/15/17 07:30 03/15/17 09:01 Bedside Glucose 74 mg/dl 54 mg/dl 57 mg/dl 100 mg/dl Test 03/15/17 09:56 03/15/17 11:03 Bedside Glucose 124 mg/dl 110 mg/dl Medications Current Inpatient Medications Medications (Trade) Dose Ordered Sig/Shayan Route Start Time Stop Time Status Last Admin Dose Admin Acetaminophen (Tylenol Tab) 650 mg Q4H PRN PO 03/13/17 15:45 04/12/17 15:44 Al Hydrox/Mg Hydrox/Simethicone (Maalox Max Susp) 15 ml Q4H PRN PO 03/13/17 15:45 04/12/17 15:44 Magnesium Hydroxide (Milk Of Magnesia Susp) 30 ml Q12H PRN PO 03/13/17 15:45 04/12/17 15:44 Ondansetron HCl (Zofran Inj) 4 mg Q6H PRN IV 03/13/17 15:45 04/12/17 15:44 Polyethylene (Miralax Powder Packet) 17 gm DAILY PRN PO 03/13/17 15:45 04/12/17 15:44 Glucose (Glucose 40% Gel) 15-30 GRAMS 15 GRAMS... UD PRN PO 03/13/17 15:45 04/12/17 15:44 Glucose (Glucose Chew Tab) 4-8 Tablets 4 Tabl... UD PRN PO 03/13/17 15:45 04/12/17 15:44 Dextrose (Dextrose 50% 50ML Syringe) 25-50ML OF 50% DW IV FOR... UD PRN IV 03/13/17 15:45 04/12/17 15:44 03/15/17 07:43 50 ML Glucagon (Glucagon Inj) 1 mg UD PRN SQ 03/13/17 15:45 04/12/17 15:44 Ceftriaxone Sodium 1 gm/ Dextrose 50 ml @ 100 mls/hr Q24H IV 03/14/17 14:00 03/17/17 14:29 03/14/17 14:29 100 MLS/HR Heparin Sodium (Porcine) (Heparin Sq 5000 Unit/0.5ml) 5,000 unit Q8 SC 03/14/17 14:00 04/13/17 13:59 03/15/17 05:59 5,000 UNIT Gabapentin (Neurontin Cap) 200 mg QAM PO 03/15/17 09:00 04/14/17 08:59 Gabapentin (Neurontin Cap) GIVE EXTRA 200MG AFTER HEMODIALY... DAILY@1400 PO 03/15/17 14:00 04/14/17 13:59 Insulin Aspart (novoLOG ASPART) SLIDING SCALE If C... ACHS SC 03/15/17 11:00 04/13/17 11:59 Assessment and Plan Assessment and Plan: 71 y/o F with T2DM, peripheral neuropathy here for VISHAL and waxing/waning mental status, anemia, pyuria 1. VISHAL -likely renal etiology as she is not producing urine and u/s did not reveal post -renal cause -HD this morning for continued electrolyte abnormalities and acid-base status -Cr baseline is 1.2. Today is 6.5 up from yesterday's 4.8. Continues to have no urine output from resendiz. Hold IVFs because of pulmonary congestion/edema. -Continue to withhold lisinopril, gabapentin, and metformin. Gebapentin levels still pending. 2. AMS -Improving and may be due to uremia. -Continue to monitor. Her mental status changes were seen 6 years ago during her first episode of VISHAL. -head ct showed no acute findings. 3. Anemia -hgb 9.3 today down from 10.2 yesterday. Transfuse if she drops between 7-9 and/ or symptomatic. -NG lavage showed no signs of blood. Recommend stool guaiac to assess for GI bleeding. -Monitor H&H daily. -Continue protonix at 40 mg IV daily. 4. Pyuria -discontinue ceftriaxone therapy as her urine culture showed citrobacter koseri which only causes UTIs in immunocompromised people. Her WBC is normal and she remains afebrile. No CVA tenderness on exam. 5. T2DM -Continue sliding scale insulin -Dextrose if she becomes hypoglycemic 6. HTN -continue to withhold htn meds because HD is causing hypotension 7. DVT ppx -SCDs and heparin 8. Full code status Continued [facility] stay due to: other (hemodialysis and AMS)
[2017-03-15] MEDS ORDERED: GABAPENTIN 100 MG CAP PO SCH (14:00)
--- NOTE | 2017-03-15 14:17 | Surgery Consultation ---
Consultation Date of Service Mar 15, 2017. Chief Complaint Acute renal failure History of Present Illness The patient is a 71 year old female who was started on dialysis via a temporary line. Consulted for placement of a permcath. Vitals Vital Signs Past 12 Hours Date Time Temp Pulse Resp B/P (MAP) Pulse Ox O2 Delivery O2 Flow Rate FiO2 03/15/17 12:45 36.6 87 124/57 (79) 03/15/17 12:30 87 125/57 03/15/17 12:15 72 114/59 03/15/17 12:00 Nasal Cannula 2.0 03/15/17 12:00 36.6 89 16 141/53 (82) 93 Nasal Cannula 2.0 03/15/17 12:00 78 130/51 03/15/17 11:45 75 114/53 03/15/17 11:30 71 114/49 03/15/17 11:15 71 140/82 03/15/17 11:00 79 111/61 03/15/17 10:45 70 116/52 03/15/17 10:30 76 113/51 03/15/17 10:15 77 115/66 03/15/17 10:00 75 103/59 03/15/17 10:00 76 18 103/58 (73) 98 Nasal Cannula 2.0 03/15/17 09:45 77 128/48 03/15/17 09:30 78 127/60 03/15/17 09:09 36.4 86 121/61 (81) 03/15/17 08:00 36.5 87 15 108/45 (66) 98 Nasal Cannula 2.0 03/15/17 08:00 Nasal Cannula 2.0 03/15/17 06:01 77 18 109/40 (63) 99 Nasal Cannula 2.0 03/15/17 05:01 78 14 115/53 (73) 97 Nasal Cannula 2.0 03/15/17 04:01 36.8 76 16 120/58 (78) 98 Nasal Cannula 2.0 03/15/17 04:00 Nasal Cannula 2.0 03/15/17 03:01 83 20 113/57 (75) 98 Nasal Cannula 2.0 Allergies Coded Allergies: No Known Allergies (Unverified , 03/13/17) Home Medications Scheduled Atorvastatin (Lipitor), 40 MG PO QPM Gabapentin (Neurontin), 300 MG PO BID Glipizide (Glucotrol), 5 MG PO BID Lisinopril (Lisinopril), 10 MG PO DAILY Metformin Hcl (Glucophage), 1,000 MG PO BID Morphine Sulfate Ir (Morphine Sulfate Ir), 30 MG PO QAM Trazodone Hcl (Trazodone), 100 MG PO HS Problem List Medical Problems: (1) Acute renal insufficiency (2) Fall (3) Pelger-Huet anomaly (4) Peripheral neuropathy Surgical / Medical History Hx Cardiac Surgery: No Hx Abdominal Surgery: No Hx Cancer Surgery: No Hx Thoracic Surgery: No Hx Orthopedic: Yes (right hip replacement 2011) Hx Urinary Tract Surgery: No Past Medical/Surgical History: Diabetes, High Cholesterol, Hypertension, Kidney Disease, Other (peripheral neuropathy) Family History Lung Cancer Social History Smoking Status: Never Smoker Hx Tobacco Use In Past Year?: No Hx Alcohol Use - Type & Amnt: No Hx Substance Use -Type & Amnt: No Review of Systems Respiratory: No cough, No cyanosis, No GARCIA, No hemoptysis, No orthopnea, No PND , No short of breath, No sputum production, No stridor, No wheezing, No dyspnea , No problem reported Cardiovascular: No chest pain, No chest tightness, No chest pressure, No palpitations, No syncope, No diaphoresis, No edema, No intermittent claudication , No orthopnea, No cyanosis, No mumur, No lightheadedness, No paroxysmal nocturnal dyspnea, No problem reported Gastrointestinal: No abdominal pain, No constipation, No diarrhea, No nausea, No vomiting, No anorexia, No appetite changes, No belching, No flatulence, No food intolerance, No hematemesis, No hemorrhoids, No hematochezia, No stool changes, No heartburn, No indigestion, No dysphagia, No rectal bleeding, No problem reported Genitourinary - Female: + problem reported (acute renal failure) Musculoskeletal: No back pain, No gout, No joint pain, No joint swelling, No muscle pain, No muscle stiffness, No muscle weakness, No neck pain, No problem reported Neurologic: No dizziness, No weakness, No headache, No lethargy, No numbness, No paresthesia, No pre-existing deficit, No seizures, No tics, No tingling, No tremors, No vertigo, No memory loss, No LOC, No problem reported Physical Exam Constitutional: General Apperance: heathly-appearing, well-nourished, well-developed Level of Distress: NAD Ambulation: ambulating normally Psychiatric: Mental Status: active & alert, normal mood, normal affect Orientation: oriented except where noted, to time, to place, to person Memory: recent memory normal, remote memory normal Lungs: Auscultation: breath sounds normal Cardiovascular: Heart Auscultation: RRR Peripheral Pulses: Radial Pulse: normal on the left, normal on the right Femoral Pulse: normal on the left, normal on the right Abdomen: Inspection & Palpation: soft Musculoskeletal: normal, normal strength (5/5 throughout), normal tone Extremities: Upper Right: no cyanosis, no edema, no varicosities, no palpable cord, no clubbing, no ulcers, no mottling Upper Left: no cyanosis, no edema, no palpable cord, no clubbing, no ulcers , no mottling Lower Right: no cyanosis, no edema, no varicosities, no palpable cord, no clubbing, no ulcers, no mottling Lower Left: no cyanosis, no edema, no varicosities, no palpable cord, no clubbing, no ulcers, no mottling Neurologic: Cranial Nerves: grossly intact Sensation: grossly intact Assessment and Plan Imp: Acute renal failure Plan: Would place permcath tomorrow. I have discussed the risks options and benefits of the procedure with the patient. The patient understands the risks options and benefits and agrees to the procedure.
--- NOTE | 2017-03-15 17:22 | Critical Care Progress Note ---
Critical Care Progress Note Date of Service Mar 15, 2017. ICU Day ICU Day Number: [address] Mary Jo Pérez This is a 71-year-old female patient that was brought to the intensive care unit three days ago for generalized weakness and twitching and change of mental status. She received a temporary dialysis catheter and had hemodialysis yesterday and had improvement to her mental status as well as her twitching. She received hemodialysis again today and further improvement of twitching and orientation. She is able to follow commands today and answer simple questions. She does have short-term memory deficiencies but this may be baseline for dementia. She denies any nausea or vomiting. She has no chest pain or tightness. She has no shortness of breath. She denies any fever. She is fatigued consistent with dialysis. She has no lower extremity pain but does still twitch her lower extremities more than her upper extremities this time. She has good sensation and no burning or tingling to any of the extremities. She has no acute complaints at this time. She is tolerating a diet without evidence of aspiration. Objective GENERAL : No acute distress. Affect is more animated today. EYES: No icterus, gaze conjugate. Pupils equal and reactive NOSE: No evidence of epistaxis. MOUTH: No lesions or candidiasis. Tongue is midline. There is no facial droop NECK: Supple. No stridor or carotid bruits. Triple-lumen Muharkar dialysis line in right IJ with no blood on dressing LUNGS: CTA B/L, no wheezes, rales or rhonchi. Improved effort by patient HEART: Regular, rate controlled. ABDOMEN: Soft, NT, ND, BS Present. No guarding or rebound tenderness with deep palpation EXTREMITIES: No LE edema, pedal pulses intact NEURO: Awake and able to give me name and date of . She knows that she is in the hospital. She can give me the names of the family members in the room and identifies her granddaughter has a granddaughter. She has much less twitching and no evidence of myoclonic activity. Gait and Romberg were deferred. Patient has not been out of bed. Current SOFA Score SOFA Score Response (Comments) Value Platelets (x10) > 150 0 Bilirubin (mg/dL) < 1.2 0 [place] Coma Score 10 - 12 2 Level of Hypotension No Hypotension 0 Creatinine (mg/dL) 3.5 - 4.9 3 Total 5 Assessment & Plan (1) Sepsis due to urinary tract infection (2) ARF (acute renal failure) (3) Acute urinary tract infection (4) Dehydration (5) Diabetes mellitus type 2 (6) Hypoglycemia (7) Weakness Fluids/Renal: * Acute Renal Failure * Hemo Dialysis yesterday and today * Cr baseline 1.2, - control per nephrology/dialysis * Continues with urine output output. George catheter discontinued * Nephrology consulted - Dr. Barreto following * Fluid management with dialysis * Follow serial labs * Renal U/S unremarkable * UTI * Day # 3 Rocephin * Cultures pending * Discontinue George catheter as patient is anuric Neuro: * Altered Mental Status secondary to uremia * Improved significantly status post hemodialysis 2 * Myoclonic activity almost completely resolved * CT head negative for acute findings. No indication for EEG as patient is responsive and improved with dialysis * NH3 is 17 Resp: * Pulmonary edema noted on CXR with fluid overload status post first unit of packed red blood cells * Fluid management with hemodialysis * Titrate supplemental O2 to maintain SaO2 greater than 90% * No cough or phlegm/sputum * No complaints of acute shortness of breath per patient CV: * Troponin negative * Dyslipidemia: Home Atorvastatin held * EKG with PACs and tachycardic with a rate of 92 bpm * QTc 437 * No complaints of chest pain * Follow on telemetry ID: * History of UTI. * Urine culture with Citrobacter koseri which is pansensitive * Continue Rocephin. Day #3 * Afebrile * WBC: 9.02 * Lactic Acid 1.1 GI/Nutrition: * Mental status improved. Tolerating by mouth diet * Stop famotidine * No indication for PPI or H2 rene Heme: * 1uPRBCs received - second unit held secondary to pulmonary edema/fluid overload * H&H: Stable 9.3/28.7 * Plts: 172 from 161 yesterday Endocrine: * History of diabetes mellitus type 2 * Home glipizide and metformin held * Hypoglycemic overnight and this morning * Hemoglobin A1c is 7.5 * Accu-Checks per protocol - below 130 * No history of hypothyroidism * TSH 0.643 Venous access: * Temporary dialysis cath in place * Okay to remove IJ catheter per vascular surgery * Plan on permacath placement with Dr. Murphy tomorrow DVT prophylaxis: * Heparin 5000 units q8h SC * TEDs/SCDs CCT: 35 Minutes Thank you for involving us in the care of this patient. Please refer to Dr. Camargo's addendum for further recommendations. I have personally evaluated and examined this patient. I agree with assessment and plan of Moon Gay PA-C. Patient's mental status improved to the point that she could now have a renal diet. Her hypoglycemia is continuing to improve with nutrition. Attended plan is to obtain a permacath tomorrow. Consults & Procedures Consultants: Nephrology - Appreciate Dr. Gutierrez and Dr. Barreto input Procedures: Right IJ temporary dialysis catheter Emergent Hemodialysis Data Medications: Current Inpatient Medications Medications (Trade) Dose Ordered Sig/Shayan Route Start Time Stop Time Status Last Admin Dose Admin Acetaminophen (Tylenol Tab) 650 mg Q4H PRN PO 03/13/17 15:45 04/12/17 15:44 Al Hydrox/Mg Hydrox/Simethicone (Maalox Max Susp) 15 ml Q4H PRN PO 03/13/17 15:45 04/12/17 15:44 Magnesium Hydroxide (Milk Of Magnesia Susp) 30 ml Q12H PRN PO 03/13/17 15:45 04/12/17 15:44 Ondansetron HCl (Zofran Inj) 4 mg Q6H PRN IV 03/13/17 15:45 04/12/17 15:44 Polyethylene (Miralax Powder Packet) 17 gm DAILY PRN PO 03/13/17 15:45 04/12/17 15:44 Glucose (Glucose 40% Gel) 15-30 GRAMS 15 GRAMS... UD PRN PO 03/13/17 15:45 04/12/17 15:44 Glucose (Glucose Chew Tab) 4-8 Tablets 4 Tabl... UD PRN PO 03/13/17 15:45 04/12/17 15:44 Dextrose (Dextrose 50% 50ML Syringe) 25-50ML OF 50% DW IV FOR... UD PRN IV 03/13/17 15:45 04/12/17 15:44 03/15/17 07:43 50 ML Glucagon (Glucagon Inj) 1 mg UD PRN SQ 03/13/17 15:45 04/12/17 15:44 Ceftriaxone Sodium 1 gm/ Dextrose 50 ml @ 100 mls/hr Q24H IV 03/14/17 14:00 03/17/17 14:29 03/15/17 13:08 100 MLS/HR Heparin Sodium (Porcine) (Heparin Sq 5000 Unit/0.5ml) 5,000 unit Q8 SC 03/14/17 14:00 04/13/17 13:59 03/15/17 13:08 5,000 UNIT Gabapentin (Neurontin Cap) 200 mg QAM PO 03/15/17 09:00 04/14/17 08:59 Insulin Aspart (novoLOG ASPART) SLIDING SCALE If C... ACHS SC 03/15/17 11:00 04/13/17 11:59 Gabapentin (Neurontin Cap) Give extra 200mg after complet... DAILY@1400 PO 03/16/17 14:00 04/14/17 13:59 I & O: 24-Hour Column 03/16/17 07:59 Output Total 1700 ml Balance -1700 ml Vital Signs: Date Time Temp Pulse Resp B/P (MAP) Pulse Ox O2 Delivery O2 Flow Rate FiO2 03/15/17 12:45 36.6 87 124/57 (79) 03/15/17 12:30 87 125/57 03/15/17 12:15 72 114/59 03/15/17 12:00 Nasal Cannula 2.0 03/15/17 12:00 36.6 89 16 141/53 (82) 93 Nasal Cannula 2.0 03/15/17 12:00 78 130/51 03/15/17 11:45 75 114/53 03/15/17 11:30 71 114/49 03/15/17 11:15 71 140/82 03/15/17 11:00 79 111/61 03/15/17 10:45 70 116/52 03/15/17 10:30 76 113/51 03/15/17 10:15 77 115/66 03/15/17 10:00 75 103/59 03/15/17 10:00 76 18 103/58 (73) 98 Nasal Cannula 2.0 03/15/17 09:45 77 128/48 03/15/17 09:30 78 127/60 03/15/17 09:09 36.4 86 121/61 (81) 03/15/17 08:00 36.5 87 15 108/45 (66) 98 Nasal Cannula 2.0 03/15/17 08:00 Nasal Cannula 2.0 03/15/17 06:01 77 18 109/40 (63) 99 Nasal Cannula 2.0 03/15/17 05:01 78 14 115/53 (73) 97 Nasal Cannula 2.0 03/15/17 04:01 36.8 76 16 120/58 (78) 98 Nasal Cannula 2.0 03/15/17 04:00 Nasal Cannula 2.0 03/15/17 03:01 83 20 113/57 (75) 98 Nasal Cannula 2.0 03/15/17 02:01 81 24 126/52 (76) 99 Nasal Cannula 2.0 03/15/17 01:01 86 17 107/50 (69) 97 Nasal Cannula 2.0 03/15/17 00:01 36.7 83 16 96/63 (74) 98 Nasal Cannula 2.0 03/15/17 00:00 Nasal Cannula 2.0 03/14/17 23:01 76 18 110/49 (69) 94 Nasal Cannula 2.0 03/14/17 22:01 81 14 95/48 (64) 94 Nasal Cannula 2.0 03/14/17 21:01 81 14 91/56 (68) 92 Nasal Cannula 2.0 03/14/17 20:01 36.4 75 19 108/49 (68) 95 Nasal Cannula 2.0 03/14/17 20:00 Nasal Cannula 2.0 03/14/17 18:00 86 20 86/38 (54) 94 Oxymask 2.0 Laboratory Results: Last 24 Hours Test 03/14/17 18:04 03/14/17 18:40 03/14/17 19:34 03/14/17 19:52 Bedside Glucose 61 mg/dl 88 mg/dl 82 mg/dl Lactic Acid Level 0.8 mmol/L Test 03/14/17 21:09 03/14/17 22:09 03/14/17 23:04 03/15/17 00:01 Bedside Glucose 73 mg/dl 80 mg/dl 74 mg/dl 81 mg/dl Test 03/15/17 01:10 03/15/17 02:03 03/15/17 04:07 03/15/17 04:27 Bedside Glucose 83 mg/dl 72 mg/dl 60 mg/dl 95 mg/dl Test 03/15/17 05:20 03/15/17 05:23 03/15/17 06:02 03/15/17 07:30 White Blood Count 9.02 K/uL Red Blood Count 3.09 M/uL Hemoglobin 9.3 g/dL Hematocrit 28.7 % Mean Corpuscular Volume 92.9 fL Mean Corpuscular Hemoglobin 30.1 pg Mean Corpuscular Hemoglobin Concent 32.4 g/dl Platelet Count 172 K/uL Mean Platelet Volume 9.4 fL Neutrophils (%) (Auto) 68.1 % Lymphocytes (%) (Auto) 24.1 % Monocytes (%) (Auto) 7.3 % Eosinophils (%) (Auto) 0.1 % Basophils (%) (Auto) 0.1 % Neutrophils # (Auto) 6.14 K/uL Lymphocytes # (Auto) 2.17 K/uL Monocytes # (Auto) 0.66 K/uL Eosinophils # (Auto) 0.01 K/uL Basophils # (Auto) 0.01 K/uL RDW Standard Deviation 44.6 fL RDW Coefficient of Variation 13.2 % Immature Granulocyte % (Auto) 0.3 % Immature Granulocyte # (Auto) 0.03 K/uL Sodium Level 135 mmol/L Potassium Level 5.3 mmol/L Chloride Level 105 mmol/L Carbon Dioxide Level 22 mmol/L Anion Gap 8.0 mmol/L Blood Urea Nitrogen 42 mg/dl Creatinine 6.55 mg/dl Est Creatinine Clear Calc Drug Dose 10.5 ml/min Estimated GFR () 6.8 Estimated GFR (Non- 5.8 BUN/Creatinine Ratio 6.4 Random Glucose 82 mg/dl Lactic Acid Level 0.8 mmol/L Calcium Level 7.7 mg/dl Phosphorus Level 8.0 mg/dl Magnesium Level 2.1 mg/dl Bedside Glucose 88 mg/dl 74 mg/dl 57 mg/dl Test 03/15/17 09:01 03/15/17 09:56 03/15/17 11:03 03/15/17 13:18 Bedside Glucose 100 mg/dl 124 mg/dl 110 mg/dl 78 mg/dl
[2017-03-15] MEDS: ACETAMINOPHEN 325 MG TAB PO PRN (21:29)
[2017-03-16] VITALS (21 sets, daily range): BP systolic 97–183; BP diastolic 48–94; PULSE 65–99; TEMP 36.6–37; O2SAT 84–100
[2017-03-16] MEDS ORDERED: LORAZEPAM 2 MG/ML 1 ML VIAL IV STA (04:05)
[2017-03-16] MEDS: HEPARIN SOD 5000 UNIT/0.5 ML CARP SC SCH ×3 (06:00→21:59)
[2017-03-16 06:33] LABS: BASO % 0.5 %; BASO ABS # 0.03 K/uL (0-0.2); EOS % 2.7 %; EOS ABS # 0.17 K/uL (0-0.5); HEMATOCRIT 25.8 % (37-47); HEMOGLOBIN 8.6 g/dL (12.0-16.0); IG# 0.03 K/uL (0.00-0.02); LYMPH % 21.2 %; LYMPH ABS # 1.35 K/uL (1.2-3.4); MEAN CELL VOLUME 91.5 fL (80-100); MEAN CORPUSCULAR HEMOGLOBIN 30.5 pg (25-34); MEAN CORPUSCULAR HGB CONC 33.3 g/dl (32-36); MONO % 11.6 %; MONO ABS # 0.74 K/uL (0.11-0.59); NEUT % 63.5 %; NEUT ABS # 4.04 K/uL (1.4-6.5); PLATELET COUNT 164 K/uL (130-400); RED CELL DISTRIBUTION WIDTH CV 12.6 % (11.5-14.5); RED CELL DISTRIBUTION WIDTH SD 42.2 fL (36.4-46.3); WHITE BLOOD COUNT 6.36 K/uL (4.8-10.8)
[2017-03-16] MEDS: INSULIN ASPART 100 UNITS/ML 3 ML PEN SC SCH ×4 (06:45→21:00)
[2017-03-16 07:13] LABS: CALCIUM 7.6 mg/dl (8.5-10.1); CREATININE 5.49 mg/dl (0.60-1.20); PHOSPHORUS 6.1 mg/dl (2.5-4.9); POTASSIUM 4.9 mmol/L (3.5-5.1)
--- NOTE | 2017-03-16 07:42 | Medical Student: [facility] ---
Med Student Progress Note Date of Service Mar 16, 2017. Subjective Pt evaluation today including: conversation w/ patient, physical exam, lab review 71 y/o with VISHAL. Sleeping comfortably this morning. Was confused/delirious last PM and given ativan in ICU. Rising BP. Going for PermCath today by Dr. Fox/vascular surgery. No HD this morning. Review of Systems Constitutional: No fever ENT: No sore throat Respiratory: No shortness of breath Cardiac: No chest pain Abdomen: No pain Endo: + fatigue Skin: No rash Notes: Difficult arousing, shaking head yes or no to questions Objective Vital Signs Date Time Temp Pulse Resp B/P (MAP) Pulse Ox O2 Delivery O2 Flow Rate FiO2 03/16/17 05:01 83 18 149/94 (112) 93 Nasal Cannula 3.0 03/16/17 04:01 36.8 98 17 183/62 (102) 84 03/16/17 04:00 91 Nasal Cannula 3.0 03/16/17 03:01 99 29 132/64 (86) 90 Nasal Cannula 3.0 03/16/17 02:01 74 15 154/64 (94) 94 Nasal Cannula 3.0 03/16/17 01:01 71 17 97/76 (83) 95 Nasal Cannula 3.0 03/16/17 00:01 37.0 71 10 149/57 (87) 93 Nasal Cannula 3.0 03/15/17 23:59 91 Nasal Cannula 3.0 03/15/17 23:01 75 16 138/61 (86) 93 Nasal Cannula 3.0 03/15/17 22:00 76 26 125/76 (92) 92 Nasal Cannula 2.0 03/15/17 21:01 76 13 150/72 (98) 85 Nasal Cannula 2.0 03/15/17 20:01 36.8 73 11 158/61 (93) 93 Nasal Cannula 2.0 03/15/17 20:00 93 Nasal Cannula 2.0 03/15/17 19:01 75 18 129/68 (88) 99 Nasal Cannula 2.0 03/15/17 18:00 74 21 144/66 (92) 97 Nasal Cannula 2.0 03/15/17 16:00 36.8 75 21 154/77 (102) 97 Nasal Cannula 2.0 03/15/17 16:00 Nasal Cannula 2.0 03/15/17 14:00 83 15 117/39 (65) 96 Nasal Cannula 2.0 03/15/17 12:45 36.6 87 124/57 (79) 03/15/17 12:30 87 125/57 03/15/17 12:15 72 114/59 03/15/17 12:00 Nasal Cannula 2.0 03/15/17 12:00 36.6 89 16 141/53 (82) 93 Nasal Cannula 2.0 03/15/17 12:00 78 130/51 03/15/17 11:45 75 114/53 03/15/17 11:30 71 114/49 03/15/17 11:15 71 140/82 03/15/17 11:00 79 111/61 03/15/17 10:45 70 116/52 03/15/17 10:30 76 113/51 03/15/17 10:15 77 115/66 03/15/17 10:00 75 103/59 03/15/17 10:00 76 18 103/58 (73) 98 Nasal Cannula 2.0 03/15/17 09:45 77 128/48 03/15/17 09:30 78 127/60 03/15/17 09:09 36.4 86 121/61 (81) 03/15/17 08:00 36.5 87 15 108/45 (66) 98 Nasal Cannula 2.0 03/15/17 08:00 Nasal Cannula 2.0 Physical Exam General Appearance: no apparent distress Eyes: bilateral eyes pertinent finding (1 mm bilater pupils, react to light ) ENT: hearing grossly normal Neck: no adenopathy Respiratory/Chest: lungs clear, no respiratory distress Cardiovascular: regular rate, rhythm, no edema, + systolic murmur Abdomen: normal bowel sounds, non tender, soft Extremities: + pertinent finding (trace edema in feet) Neurologic/Psychiatric: alert, normal mood/affect, + pertinent finding (not oriented to place or time) Skin: warm/dry, no rash Comments: difficult to arouse, confused but responsive Laboratory Results Last 24 Hours Test 03/15/17 08:00 03/15/17 09:01 03/15/17 09:56 03/15/17 11:03 Bedside Glucose 143 mg/dl 100 mg/dl 124 mg/dl 110 mg/dl Test 03/15/17 13:18 03/15/17 16:03 03/15/17 20:31 03/16/17 06:19 Bedside Glucose 78 mg/dl 140 mg/dl 126 mg/dl White Blood Count 6.36 K/uL Red Blood Count 2.82 M/uL Hemoglobin 8.6 g/dL Hematocrit 25.8 % Mean Corpuscular Volume 91.5 fL Mean Corpuscular Hemoglobin 30.5 pg Mean Corpuscular Hemoglobin Concent 33.3 g/dl Platelet Count 164 K/uL Mean Platelet Volume 9.0 fL Neutrophils (%) (Auto) 63.5 % Lymphocytes (%) (Auto) 21.2 % Monocytes (%) (Auto) 11.6 % Eosinophils (%) (Auto) 2.7 % Basophils (%) (Auto) 0.5 % Neutrophils # (Auto) 4.04 K/uL Lymphocytes # (Auto) 1.35 K/uL Monocytes # (Auto) 0.74 K/uL Eosinophils # (Auto) 0.17 K/uL Basophils # (Auto) 0.03 K/uL RDW Standard Deviation 42.2 fL RDW Coefficient of Variation 12.6 % Immature Granulocyte % (Auto) 0.5 % Immature Granulocyte # (Auto) 0.03 K/uL Red Blood Cell Morphology Unremarkable Sodium Level 133 mmol/L Potassium Level 4.9 mmol/L Chloride Level 102 mmol/L Carbon Dioxide Level 23 mmol/L Anion Gap 8.0 mmol/L Blood Urea Nitrogen 30 mg/dl Creatinine 5.49 mg/dl Est Creatinine Clear Calc Drug Dose 12.4 ml/min Estimated GFR () 8.4 Estimated GFR (Non- 7.2 BUN/Creatinine Ratio 5.4 Random Glucose 90 mg/dl Calcium Level 7.6 mg/dl Phosphorus Level 6.1 mg/dl Magnesium Level 2.0 mg/dl Medications Current Inpatient Medications Medications (Trade) Dose Ordered Sig/Shayan Route Start Time Stop Time Status Last Admin Dose Admin Acetaminophen (Tylenol Tab) 650 mg Q4H PRN PO 03/13/17 15:45 04/12/17 15:44 03/15/17 21:29 650 MG Al Hydrox/Mg Hydrox/Simethicone (Maalox Max Susp) 15 ml Q4H PRN PO 03/13/17 15:45 04/12/17 15:44 Magnesium Hydroxide (Milk Of Magnesia Susp) 30 ml Q12H PRN PO 03/13/17 15:45 04/12/17 15:44 Ondansetron HCl (Zofran Inj) 4 mg Q6H PRN IV 03/13/17 15:45 04/12/17 15:44 Polyethylene (Miralax Powder Packet) 17 gm DAILY PRN PO 03/13/17 15:45 04/12/17 15:44 Glucose (Glucose 40% Gel) 15-30 GRAMS 15 GRAMS... UD PRN PO 03/13/17 15:45 04/12/17 15:44 Glucose (Glucose Chew Tab) 4-8 Tablets 4 Tabl... UD PRN PO 03/13/17 15:45 04/12/17 15:44 Dextrose (Dextrose 50% 50ML Syringe) 25-50ML OF 50% DW IV FOR... UD PRN IV 03/13/17 15:45 04/12/17 15:44 03/15/17 07:43 50 ML Glucagon (Glucagon Inj) 1 mg UD PRN SQ 03/13/17 15:45 04/12/17 15:44 Ceftriaxone Sodium 1 gm/ Dextrose 50 ml @ 100 mls/hr Q24H IV 03/14/17 14:00 03/17/17 14:29 03/15/17 13:08 100 MLS/HR Heparin Sodium (Porcine) (Heparin Sq 5000 Unit/0.5ml) 5,000 unit Q8 SC 03/14/17 14:00 04/13/17 13:59 03/15/17 22:30 5,000 UNIT Gabapentin (Neurontin Cap) 200 mg QAM PO 03/15/17 09:00 04/14/17 08:59 Insulin Aspart (novoLOG ASPART) SLIDING SCALE If C... ACHS SC 03/15/17 11:00 04/13/17 11:59 Gabapentin (Neurontin Cap) Give extra 200mg after complet... DAILY@1400 PO 03/16/17 14:00 04/14/17 13:59 Assessment and Plan Assessment and Plan: 71 y/o F with T2DM, peripheral neuropathy here for VISHAL and waxing/waning mental status, anemia, pyuria 1. VISHAL -likely renal etiology as she is not producing urine and u/s did not reveal post -renal cause -HD yesterday morning for continued electrolyte abnormalities and acid-base status -Cr baseline is 1.2. Today is 5.5 down from 6.5 yesterday. George was removed as she is anuric. Hold IVFs because of pulmonary congestion/edema. -Continue to withhold lisinopril, gabapentin, and metformin. Gebapentin levels still pending. 2. AMS -Continues to wax/wane. Delirious last night and required ativan. -Continue to monitor. Her mental status changes were seen 6 years ago during her first episode of VISHAL. -head ct showed no acute findings. 3. Anemia -hgb 8.6 today down from 9.3 yesterday and 10.2 2 days ago. Transfuse if she drops between 7-9 and/or symptomatic. -NG lavage showed no signs of blood. Recommend stool guaiac to assess for GI bleeding. -Monitor H&H daily. -Continue protonix at 40 mg IV daily. 4. Pyuria - ceftriaxone therapy as her urine culture showed citrobacter koseri which is capable of causing UTI. Her WBC is normal and she remains afebrile. No CVA tenderness on exam. 5. T2DM -Continue sliding scale insulin -Dextrose if she becomes hypoglycemic 6. HTN -No longer hypotensive -HTN may require addition medical management, but hold off until HD resumes 7. DVT ppx -SCDs and heparin\ 8. Disposition -ICU Full code status Continued [facility] stay due to: other (hemodialysis and AMS)
--- NOTE | 2017-03-16 08:13 | Family Medicine Progress Note ---
Progress Note Date of Service Mar 16, 2017. Subjective Pt evaluation today including: conversation w/ patient, physical exam, chart review, lab review Pain: no discomfort this AM PO Intake: tolerating Voiding: no voiding problems This AM pt was sleepy and difficult to arouse but responding via head shakes Denied any discomfort, cp, sob or abdominal pain Constitutional: No fever, No chills Respiratory: No shortness of breath Cardiovascular: No chest pain Abdomen: No pain Medications Current Inpatient Medications Medications (Trade) Dose Ordered Sig/Shayan Route Start Time Stop Time Status Last Admin Dose Admin Acetaminophen (Tylenol Tab) 650 mg Q4H PRN PO 03/13/17 15:45 04/12/17 15:44 03/15/17 21:29 650 MG Al Hydrox/Mg Hydrox/Simethicone (Maalox Max Susp) 15 ml Q4H PRN PO 03/13/17 15:45 04/12/17 15:44 Magnesium Hydroxide (Milk Of Magnesia Susp) 30 ml Q12H PRN PO 03/13/17 15:45 04/12/17 15:44 Ondansetron HCl (Zofran Inj) 4 mg Q6H PRN IV 03/13/17 15:45 04/12/17 15:44 Polyethylene (Miralax Powder Packet) 17 gm DAILY PRN PO 03/13/17 15:45 04/12/17 15:44 Glucose (Glucose 40% Gel) 15-30 GRAMS 15 GRAMS... UD PRN PO 03/13/17 15:45 04/12/17 15:44 Glucose (Glucose Chew Tab) 4-8 Tablets 4 Tabl... UD PRN PO 03/13/17 15:45 04/12/17 15:44 Dextrose (Dextrose 50% 50ML Syringe) 25-50ML OF 50% DW IV FOR... UD PRN IV 03/13/17 15:45 04/12/17 15:44 03/15/17 07:43 50 ML Glucagon (Glucagon Inj) 1 mg UD PRN SQ 03/13/17 15:45 04/12/17 15:44 Ceftriaxone Sodium 1 gm/ Dextrose 50 ml @ 100 mls/hr Q24H IV 03/14/17 14:00 03/17/17 14:29 03/15/17 13:08 100 MLS/HR Heparin Sodium (Porcine) (Heparin Sq 5000 Unit/0.5ml) 5,000 unit Q8 SC 03/14/17 14:00 04/13/17 13:59 03/15/17 22:30 5,000 UNIT Gabapentin (Neurontin Cap) 200 mg QAM PO 03/15/17 09:00 04/14/17 08:59 Insulin Aspart (novoLOG ASPART) SLIDING SCALE If C... ACHS SC 03/15/17 11:00 04/13/17 11:59 Gabapentin (Neurontin Cap) Give extra 200mg after complet... DAILY@1400 PO 03/16/17 14:00 04/14/17 13:59 Objective Vital Signs Date Time Temp Pulse Resp B/P (MAP) Pulse Ox O2 Delivery O2 Flow Rate FiO2 03/16/17 05:01 83 18 149/94 (112) 93 Nasal Cannula 3.0 03/16/17 04:01 36.8 98 17 183/62 (102) 84 03/16/17 04:00 91 Nasal Cannula 3.0 03/16/17 03:01 99 29 132/64 (86) 90 Nasal Cannula 3.0 03/16/17 02:01 74 15 154/64 (94) 94 Nasal Cannula 3.0 03/16/17 01:01 71 17 97/76 (83) 95 Nasal Cannula 3.0 03/16/17 00:01 37.0 71 10 149/57 (87) 93 Nasal Cannula 3.0 03/15/17 23:59 91 Nasal Cannula 3.0 03/15/17 23:01 75 16 138/61 (86) 93 Nasal Cannula 3.0 03/15/17 22:00 76 26 125/76 (92) 92 Nasal Cannula 2.0 03/15/17 21:01 76 13 150/72 (98) 85 Nasal Cannula 2.0 03/15/17 20:01 36.8 73 11 158/61 (93) 93 Nasal Cannula 2.0 03/15/17 20:00 93 Nasal Cannula 2.0 03/15/17 19:01 75 18 129/68 (88) 99 Nasal Cannula 2.0 03/15/17 18:00 74 21 144/66 (92) 97 Nasal Cannula 2.0 03/15/17 16:00 36.8 75 21 154/77 (102) 97 Nasal Cannula 2.0 03/15/17 16:00 Nasal Cannula 2.0 03/15/17 14:00 83 15 117/39 (65) 96 Nasal Cannula 2.0 03/15/17 12:45 36.6 87 124/57 (79) 03/15/17 12:30 87 125/57 03/15/17 12:15 72 114/59 03/15/17 12:00 Nasal Cannula 2.0 03/15/17 12:00 36.6 89 16 141/53 (82) 93 Nasal Cannula 2.0 03/15/17 12:00 78 130/51 03/15/17 11:45 75 114/53 03/15/17 11:30 71 114/49 03/15/17 11:15 71 140/82 03/15/17 11:00 79 111/61 03/15/17 10:45 70 116/52 03/15/17 10:30 76 113/51 03/15/17 10:15 77 115/66 03/15/17 10:00 75 103/59 03/15/17 10:00 76 18 103/58 (73) 98 Nasal Cannula 2.0 03/15/17 09:45 77 128/48 03/15/17 09:30 78 127/60 03/15/17 09:09 36.4 86 121/61 (81) Physical Exam General Appearance: + pertinent finding (sleeping/difficult to complete arouse) Eyes: normal inspection, sclerae normal Neck: supple Respiratory/Chest: lungs clear, normal breath sounds Cardiovascular: regular rate, rhythm, no murmur Abdomen: normal bowel sounds, non tender, soft Extremities: non-tender, + pedal edema (trace bilateral), + pertinent finding ( trace edema bilateral hands) Neurologic/Psychiatric: + pertinent finding (arousable but sleepy) Skin: warm/dry Laboratory Results 03/16/17 06:19 Red Blood Count 2.82, Mean Corpuscular Volume 91.5, Mean Corpuscular Hemoglobin 30.5, Mean Corpuscular Hemoglobin Concent 33.3, Mean Platelet Volume 9.0, Neutrophils (%) (Auto) 63.5, Lymphocytes (%) (Auto) 21.2, Monocytes (%) (Auto) 11.6, Eosinophils (%) (Auto) 2.7, Basophils (%) (Auto) 0.5, Neutrophils # (Auto ) 4.04, Lymphocytes # (Auto) 1.35, Monocytes # (Auto) 0.74, Eosinophils # (Auto ) 0.17, Basophils # (Auto) 0.03 03/16/17 06:19 Test 03/16/17 06:19 White Blood Count 6.36 K/uL (4.8-10.8) Red Blood Count 2.82 M/uL (4.2-5.4) Hemoglobin 8.6 g/dL (12.0-16.0) Hematocrit 25.8 % (37-47) Mean Corpuscular Volume 91.5 fL (80-100) Mean Corpuscular Hemoglobin 30.5 pg (25-34) Mean Corpuscular Hemoglobin Concent 33.3 g/dl (32-36) Platelet Count 164 K/uL (130-400) Mean Platelet Volume 9.0 fL (7.4-10.4) Neutrophils (%) (Auto) 63.5 % Lymphocytes (%) (Auto) 21.2 % Monocytes (%) (Auto) 11.6 % Eosinophils (%) (Auto) 2.7 % Basophils (%) (Auto) 0.5 % Neutrophils # (Auto) 4.04 K/uL (1.4-6.5) Lymphocytes # (Auto) 1.35 K/uL (1.2-3.4) Monocytes # (Auto) 0.74 K/uL (0.11-0.59) Eosinophils # (Auto) 0.17 K/uL (0-0.5) Basophils # (Auto) 0.03 K/uL (0-0.2) RDW Standard Deviation 42.2 fL (36.4-46.3) RDW Coefficient of Variation 12.6 % (11.5-14.5) Immature Granulocyte % (Auto) 0.5 % Immature Granulocyte # (Auto) 0.03 K/uL (0.00-0.02) Red Blood Cell Morphology Unremarkable Anion Gap 8.0 mmol/L (3-11) Est Creatinine Clear Calc Drug Dose 12.4 ml/min Estimated GFR () 8.4 Estimated GFR (Non- 7.2 BUN/Creatinine Ratio 5.4 (10-20) Bedside Glucose 90 mg/dl (70-90) Calcium Level 7.6 mg/dl (8.5-10.1) Phosphorus Level 6.1 mg/dl (2.5-4.9) Magnesium Level 2.0 mg/dl (1.8-2.4) Assessment and Plan Ms. Gresham is a 71 y/o female with PMHx of T2DM with Peripheral Neuropathy, HTN , Previous VISHAL (Required Temporary Hemodialysis) who presents to the ED c/o generalized weakness, sudden onset of emesis 6 (black in color). Patient reported waking up her normal self the day before. Now with improving acute metabolic encephalopathy, off resendiz with 10ml urine production, last HD yesterday, scheduled for permacath placement today Acute Metabolic Encephalopathy 2/2 uremia vs. seizure - improving - improved myoclonic jerking movement - episode of confusion/agitation last night - Received ativan 1mg at 4am - this AM sleepy but arousable - ABG 1/3 - PH 7.13; PCO2 63; PO2 79 - Lactic acid 0.8 - Ammonia 17 - CT head no acute IC pathology Acute Kidney Injury - remains anuric - Unsure if VISHAL caused vomiting or vomiting caused an VISHAL - patient has H/O of similar issues in the past but required hemodialysis temporarily due to anion gap with electrolyte abnormalities - 2 L NSS bolus in ED and NSS at 100 mL/hr - Held due to pulmonary edema development - renal U/S - No calculi, mass or hydronephrosis - Transfused 1 units PRBC - hemoglobin at mid-9s but given mentation and possible hypotensive induced VISHAL transfused - Cr 5.49 today - Hold Gabapentin, Lisinopril, and Metformin per nephro - Consult nephrology - HD yesterday AM - Vascular consult for permacath placement - Continue to monitor kidney function and electrolytes Hypoxia requiring O2 3 L NC - Developed pulm edema s/p transfusion - Repeat CXR improved pulm vasc congestion, no consolidation Acute Anemia:Black Emesis - last Hgb reported around 11 - transfused 1 unit pRBC - Hgb decreased to 8.6 from 9.3 yesterday - No active bleeding at this time - NG lavage 250cc neg - Trend Hgb UTI - UA - leuk esterase and >30 WBC - Cx - -gram neg bacilli/citrobacter koseri - Continue Rocephin 1 g IV daily Muscle Twitching - persistent - electrolyte related vs Gabapentin induced - Gabapentin level pending T2DM with Peripheral Neuropathy - hypoglycemic episodes - HgbA1c - 7.5 - Q1H glucose checks and treated hypoglycemic episodes with dextrose - Hold oral agents and cover with SSI HTN - went from hypotension to hypertensive now DVT Prophylaxis: Heparin Code Status: FULL RESUSCITATION Disposition: PT/OT Evaluations Resident Involvement: Resident Care Provided Care Provided: Adult Hospital Medicine History Resident Physician Supervision Note: I was present with Dr. Dueñas during the history and exam. I discussed the case with the resident and agree with the findings and plan as documented in the note. Any exceptions or clarifications are listed here. Pt seen and examined s/p permacath in bed. Significantly increased activity and delirium today but denies chest pain, SOB, palpitations, sensory changes, nausea /vomiting, diarrhea/constipation, abd pain. General Appearance: obese, other (delirious) Eye Exam: bilateral eye PERRL, bilateral eye EOMI Neck: non-tender, full range of motion, supple Respiratory: chest non-tender, lungs clear, normal breath sounds, no respiratory distress Cardiovascular: normal peripheral pulses, regular rate, rhythm, no edema, no murmur Gastrointestinal: normal bowel sounds, non tender, soft, no organomegaly Assessment/Plan 71 y/o female h/o DMII w/ peripheral neuropathy, HTN p/w generalized weakness Acute metabolic encephalopathy - uremia v. UTI v. other organic process - waxing and waning. Next HD tomorrow w/ permacath. Zyprexa PO x 1 tonight and monitor. Acute renal failure - renal US unremarkable - on HD, nephrology recommendations appreciated - monitor I/O, trend BMP, HD next Sat Anemia in the setting of ?coffee ground emesis - s/p 1 uPRBC - stable, monitor CBC Urinary tract infection - continue Rocephin Pulmonary edema - s/p transfusion - HD GI PPX - on famotidine BID
[2017-03-16] MEDS: GABAPENTIN 100 MG CAP PO SCH ×2 (09:00→14:00)
[2017-03-16] MEDS ORDERED: MIDAZOLAM HCL 1 MG/ML 2ML VIAL ONE (09:42)
[2017-03-16] MEDS ORDERED: FENTANYL CITRATE INJ 50 MCG/1 ML 2 ML VIAL ONE (09:42)
--- NOTE | 2017-03-16 09:48 | Nephrology Progress Note ---
Nephrology Progress Note Date of Service Mar 16, 2017. Chief Complaint Hemodialysis Subjective Steffany has been very confused and agitated. Her daughter remains at the bedside. The patient is pulling at lines and tubes. She requires frequent reorientation. Steffany does not endorse pain. She denies dyspnea. She is tearful at times and admits to being very confused. Review of Systems A complete review of systems was performed. Pertinent positives are noted above. All other systems are negative. Vital Signs Last 8 Hrs Date Time Temp Pulse Resp B/P (MAP) Pulse Ox O2 Delivery O2 Flow Rate FiO2 03/16/17 05:01 83 18 149/94 (112) 93 Nasal Cannula 3.0 03/16/17 04:01 36.8 98 17 183/62 (102) 84 03/16/17 04:00 91 Nasal Cannula 3.0 03/16/17 03:01 99 29 132/64 (86) 90 Nasal Cannula 3.0 03/16/17 02:01 74 15 154/64 (94) 94 Nasal Cannula 3.0 Last Recorded Weight Weight (Kilograms): 116.100 Physical Exam General Appearance: no apparent distress, + obese Head: normocephalic, atraumatic Eyes: normal inspection, sclerae normal ENT: normal ENT inspection, pharynx normal Neck: supple, no JVD Respiratory/Chest: lungs clear, no respiratory distress, no accessory muscle use Cardiovascular: regular rate, rhythm, no gallop, no murmur Abdomen/GI: non tender, soft Extremities/Musculoskelatal: normal inspection, no pedal edema Neurologic/Psych: alert, + disoriented Family History Lung Cancer Negative for CKD / ESRD Social History Smoking Status: Unknown if ever smoked Smokeless Tobacco Use: No Alcohol Use: none Drug Use: none Occupation: retired , retired, never a smoker. Laboratory Results Past 24 Hours 03/16/17 06:19 Red Blood Count 2.82, Mean Corpuscular Volume 91.5, Mean Corpuscular Hemoglobin 30.5, Mean Corpuscular Hemoglobin Concent 33.3, Mean Platelet Volume 9.0, Neutrophils (%) (Auto) 63.5, Lymphocytes (%) (Auto) 21.2, Monocytes (%) (Auto) 11.6, Eosinophils (%) (Auto) 2.7, Basophils (%) (Auto) 0.5, Neutrophils # (Auto ) 4.04, Lymphocytes # (Auto) 1.35, Monocytes # (Auto) 0.74, Eosinophils # (Auto ) 0.17, Basophils # (Auto) 0.03 03/16/17 06:19 Test 03/15/17 09:56 03/15/17 11:03 03/15/17 13:18 03/15/17 16:03 Bedside Glucose 124 mg/dl (70-90) 110 mg/dl (70-90) 78 mg/dl (70-90) 140 mg/dl (70-90) Test 03/15/17 20:31 03/16/17 06:19 Bedside Glucose 126 mg/dl (70-90) 90 mg/dl (70-90) White Blood Count 6.36 K/uL (4.8-10.8) Red Blood Count 2.82 M/uL (4.2-5.4) Hemoglobin 8.6 g/dL (12.0-16.0) Hematocrit 25.8 % (37-47) Mean Corpuscular Volume 91.5 fL (80-100) Mean Corpuscular Hemoglobin 30.5 pg (25-34) Mean Corpuscular Hemoglobin Concent 33.3 g/dl (32-36) Platelet Count 164 K/uL (130-400) Mean Platelet Volume 9.0 fL (7.4-10.4) Neutrophils (%) (Auto) 63.5 % Lymphocytes (%) (Auto) 21.2 % Monocytes (%) (Auto) 11.6 % Eosinophils (%) (Auto) 2.7 % Basophils (%) (Auto) 0.5 % Neutrophils # (Auto) 4.04 K/uL (1.4-6.5) Lymphocytes # (Auto) 1.35 K/uL (1.2-3.4) Monocytes # (Auto) 0.74 K/uL (0.11-0.59) Eosinophils # (Auto) 0.17 K/uL (0-0.5) Basophils # (Auto) 0.03 K/uL (0-0.2) RDW Standard Deviation 42.2 fL (36.4-46.3) RDW Coefficient of Variation 12.6 % (11.5-14.5) Immature Granulocyte % (Auto) 0.5 % Immature Granulocyte # (Auto) 0.03 K/uL (0.00-0.02) Red Blood Cell Morphology Unremarkable Anion Gap 8.0 mmol/L (3-11) Est Creatinine Clear Calc Drug Dose 12.4 ml/min Estimated GFR () 8.4 Estimated GFR (Non- 7.2 BUN/Creatinine Ratio 5.4 (10-20) Calcium Level 7.6 mg/dl (8.5-10.1) Phosphorus Level 6.1 mg/dl (2.5-4.9) Magnesium Level 2.0 mg/dl (1.8-2.4) Allergies Coded Allergies: No Known Allergies (Unverified , 03/13/17) Medications Current Inpatient Medications Medications (Trade) Dose Ordered Sig/Shayan Route Start Time Stop Time Status Last Admin Dose Admin Acetaminophen (Tylenol Tab) 650 mg Q4H PRN PO 03/13/17 15:45 04/12/17 15:44 03/15/17 21:29 650 MG Al Hydrox/Mg Hydrox/Simethicone (Maalox Max Susp) 15 ml Q4H PRN PO 03/13/17 15:45 04/12/17 15:44 Magnesium Hydroxide (Milk Of Magnesia Susp) 30 ml Q12H PRN PO 03/13/17 15:45 04/12/17 15:44 Ondansetron HCl (Zofran Inj) 4 mg Q6H PRN IV 03/13/17 15:45 04/12/17 15:44 Polyethylene (Miralax Powder Packet) 17 gm DAILY PRN PO 03/13/17 15:45 04/12/17 15:44 Glucose (Glucose 40% Gel) 15-30 GRAMS 15 GRAMS... UD PRN PO 03/13/17 15:45 04/12/17 15:44 Glucose (Glucose Chew Tab) 4-8 Tablets 4 Tabl... UD PRN PO 03/13/17 15:45 04/12/17 15:44 Dextrose (Dextrose 50% 50ML Syringe) 25-50ML OF 50% DW IV FOR... UD PRN IV 03/13/17 15:45 04/12/17 15:44 03/15/17 07:43 50 ML Glucagon (Glucagon Inj) 1 mg UD PRN SQ 03/13/17 15:45 04/12/17 15:44 Ceftriaxone Sodium 1 gm/ Dextrose 50 ml @ 100 mls/hr Q24H IV 03/14/17 14:00 03/17/17 14:29 03/15/17 13:08 100 MLS/HR Heparin Sodium (Porcine) (Heparin Sq 5000 Unit/0.5ml) 5,000 unit Q8 SC 03/14/17 14:00 04/13/17 13:59 03/15/17 22:30 5,000 UNIT Gabapentin (Neurontin Cap) 200 mg QAM PO 03/15/17 09:00 04/14/17 08:59 Insulin Aspart (novoLOG ASPART) SLIDING SCALE If C... ACHS SC 03/15/17 11:00 04/13/17 11:59 Gabapentin (Neurontin Cap) Give extra 200mg after complet... DAILY@1400 PO 03/16/17 14:00 04/14/17 13:59 Impression (1) Acute renal insufficiency (2) Dehydration (3) Diabetes mellitus type 2 (4) Peripheral neuropathy Mrs. Walter Gresham is an obese 71-year-old female with DMII, hypertension, peripheral neuropathy and CKD. Steffany suffered and episode of VISHAL in 2011 following BEBE. VISHAL was attributed to ATN. Patient required one dialysis treatment and subsequently recovered. She has not maintained outpatient Nephrology follow up (last visit 2012). Creatinine appears to have improved to 1.3 mg/dL. Steffany presented to [facility] on March 13 with mental status changes. She continues to have delirium. She is oligoanuric with VISHAL requiring CLINICAL RESEARCH SPECIALIST. Her first hemodialysis treatment was completed on 03/14/16. The treatment was complicated by intradialytic hypotension and poor Qb via RIJ catheter. Second treatment was completed yesterday with improved Qb and no complications. VISHAL attributed to ATN at this time in the setting of UTI, hypotension and ACEi use. 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 Random cortisol was 18. She was hyperkalemic due to VISHAL. Stigmata of CKD include hyperphosphatemia as well as renal cortical atrophy. TTE was reviewed this morning documenting normal LV size and systolic function with grade 1 diastolic dysfunction and normal IVC. There was no significant valvular heart disease. Renal US did not reveal any post renal etiology to VISHAL such as calculi, mass or hydronephrosis. Urinalysis w/ 1+ protein, 1+ glucose. Urine microscopy w/ hyaline casts and pyuria. Glucosuria in the setting of a blood glucose of 119 is an interesting finding. The patient was not taking medications to explain this finding. She did not have other evidence of RTA. SPEP/immunofixation pending. Recommendations ACUTE KIDNEY INJURY: -- Patient scheduled for TDC placement. -- Electrolytes and volume status acceptable -- will hold HD today. Plan for dialysis tomorrow. -- Document I/O's and monitor metabolic profile daily. -- Bladder scan Q shift for no void and straight cath PRN. -- Will obtain renal artery duplex when clinically appropriate. -- SPEP/immunofixation pending; clinical presentation atypical for monoclonal process. -- Avoid ANJELICA/ARB and continue to hold metformin as well as glipizide. -- Medications appropriately dosed for renal function. -- Gabapentin level pending. ANEMIA: -- Patient transfused one unit PRBC since admission -- No active bleeding at this time. NG lavage without signs of UGIB -- Monitor serial H&H Citrobacter UTI: -- Ceftriaxone day #3
--- NOTE | 2017-03-16 10:00 | Progress Note ---
Progress Note Date of Service Mar 16, 2017. Progress Note Patient for permcath today. I have discussed the risks options and benefits of the procedure with the patient. The patient understands the risks options and benefits and agrees to the procedure. I have examined the patient, reviewed the History & Physical and in the interval since the performance of the History & Physical I have noted the following changes of clinical significance: No changes noted other than slightly confused .
[2017-03-16] MEDS ORDERED: HEPARIN SOD (PORCINE) 5000 UNIT/ML 1 ML VIAL ONE (10:09)
[2017-03-16] MEDS ORDERED: LIDOCAINE HCL 1% 20 ML VIAL SQ ONE (10:50)
[2017-03-16] MEDS ORDERED: HEPARIN SOD (PORCINE) 5000 UNIT/ML 1 ML VIAL IV ONE (10:53)
[2017-03-16] MEDS ORDERED: LIDOCAINE HCL 2% 2 ML VIAL (20MG/ML) ONE (10:57)
[2017-03-16] MEDS ORDERED: PROPOFOL IV EMULSION 10 MG/ML 20 ML VIAL IV ONE (10:57)
--- NOTE | 2017-03-16 11:02 | [facility] Operative Report ---
Operative Report Operative Date Mar 16, 2017. Pre-Operative Diagnosis Acute Kidney Injury Post-Operative Diagnosis Same Procedure(s) Performed Insertion of Perm Catheter, Right Internal Jugular Approach, Ultrasound Localization of Right Internal Jugular Vein, Fluoroscopy for positioning. Surgeon Dr. Murphy Youth Specialist Surgeon(s) None Estimated Blood Loss 5 Findings TIP IN PROXIMAL SVC Specimens None Anesthesia MAC Complication(s) None Disposition Surgical ICU Indications This is a 71-year-old female who had a temporary catheter in for dialysis for acute kidney injury which was removed yesterday. It was now recommended that we place a PermCath for longer access. I have discussed the risks options and benefits of the procedure with the patient. The patient understands the risks options and benefits and agrees to the procedure. Description of Procedure Patient was takent to the angio suite and placed in the supine position. The right side of the neck and chest wall were prepped and draped in a sterile manner. Local anesthesia was then administered to the appropriate areas of the neck and chest wall. Ultrasound was then used to locate the right internal jugular vein. The vein compressed easily, had no filing defects, and was patent. The vein was then punctured under direct ultrasound imaging. A guidewire was then passed centrally under fluoroscopic imaging. A stab wound was then made in the anterior chest wall and a 19 cm permcath was passed from the stab wound on the chest wall to the puncture site on the neck. The puncture site was then dilated till the 14Fr peel away sheath was inserted. The permcath was then inserted through the sheath to a central position in the distal superior vena cava. The peel away sheath was then removed. The catheter was then sutured in place using nylon sutures. The puncture was then closed using a 4-0 Vicryl subcuticular suture. Dermabond was used for a dressing on the puncture site. Both ports aspirated and flushed easily and were then packed with heparin. A sterile dressing was applied to the catheter. The patient left the angio suite in good condition and tolerated the procedure well. I attest to the content of the Intraoperative Record and any orders documented therein. Any exceptions are noted below.
[2017-03-16] MEDS ORDERED: EpHEDrine SULFATE INJ 50 MG/ML AMP IV PRN (11:45)
[2017-03-16] MEDS ORDERED: ATROPINE SULFATE 0.1 MG/ML 5ML SYR IV PRN (11:45)
[2017-03-16] MEDS: CEFTRIAXONE SOD INJ 1 GM in DEXTROSE 5% ADD-VANTAGE 50ML 50 ML IV SCH (14:21)
[2017-03-16] MEDS: DEXTROSE 50% 50 ML SYR IV PRN ×2 (16:18→23:20)
--- NOTE | 2017-03-16 16:20 | Anesthesiology Progress Note ---
Anesthesia Post Op Note Date & Time Mar 16, 2017 at 16:19 Vital Signs Pain Intensity: 0.0 Vital Signs Past 12 Hours Date Time Temp Pulse Resp B/P (MAP) Pulse Ox O2 Delivery O2 Flow Rate FiO2 03/16/17 14:01 72 15 113/53 (73) 99 Nasal Cannula 3.0 03/16/17 13:31 71 13 129/55 (79) 100 Nasal Cannula 3.0 03/16/17 13:01 74 13 137/53 (81) 100 Nasal Cannula 3.0 03/16/17 12:31 36.6 80 23 120/56 (77) 99 Nasal Cannula 3.0 03/16/17 12:01 73 17 125/56 (79) 100 Nasal Cannula 3.0 03/16/17 12:00 Nasal Cannula 3.0 03/16/17 11:31 74 18 121/65 (83) 100 Nasal Cannula 3.0 03/16/17 11:16 36.8 80 11 119/64 (82) 96 Nasal Cannula 3.0 03/16/17 08:01 36.7 65 18 106/52 (70) 96 Nasal Cannula 3.0 03/16/17 08:00 Nasal Cannula 4.0 03/16/17 05:01 83 18 149/94 (112) 93 Nasal Cannula 3.0 Notes Mental Status: alert / awake / arousable, participated in evaluation Pt Amnestic to Procedure: Yes Nausea / Vomiting: adequately controlled Pain: adequately controlled Airway Patency, RR, SpO2: stable & adequate BP & HR: stable & adequate Hydration State: stable & adequate Anesthetic Complications: no major complications apparent
[2017-03-16] MEDS ORDERED: LORAZEPAM 2 MG/ML 1 ML VIAL IV ONE (17:05)
[2017-03-16] MEDS ORDERED: LORAZEPAM 2 MG/ML 1 ML VIAL IV PRN (17:15)
[2017-03-16] MEDS ORDERED: OLANZAPINE 2.5 MG TAB PO STA (17:21)
[2017-03-16] MEDS ORDERED: OLANZAPINE ZYDIS 5 MG ORALLY DIS. TAB PO ONE (17:30)
--- NOTE | 2017-03-16 20:52 | Critical Care Progress Note ---
Critical Care Progress Note Date of Service Mar 16, 2017. ICU Day ICU Day Number: [address] Camargo Subjective Patient is balloon conversation, however appears to be delirious Objective GENERAL : No acute distress. EYES: No icterus, gaze conjugate. Pupils equal and reactive NECK: Supple. Permacath placed, prior temp her hemodialysis catheter removed dressing intact LUNGS: CTA B/L, no wheezes, rales or rhonchi HEART: Regular, rate controlled. ABDOMEN: Soft, NT, ND, BS Present. No guarding or rebound tenderness with deep palpation NEURO: Able to give me name and date of . She knows that she is in the hospital. Redirectable Current SOFA Score SOFA Score Response (Comments) Value Platelets (x10) > 150 0 Bilirubin (mg/dL) < 1.2 0 Pillow Coma Score 10 - 12 2 Level of Hypotension No Hypotension 0 Creatinine (mg/dL) 3.5 - 4.9 3 Total 5 Assessment & Plan (1) Sepsis due to urinary tract infection (2) ARF (acute renal failure) (3) Acute urinary tract infection (4) Dehydration (5) Diabetes mellitus type 2 (6) Hypoglycemia (7) Weakness Fluids/Renal: * Acute Renal Failure * Cr baseline 1.2, - control per nephrology/dialysis * George catheter discontinued * Nephrology consulted - Dr. Barreto following * Follow serial labs * Renal U/S unremarkable * UTI * Day # 4 Rocephin * Cultures pending * Discontinue George catheter as patient is anuric Neuro: * Altered Mental Status secondary to uremia * Improved significantly status post hemodialysis 2 * Myoclonic activity almost completely resolved * CT head negative for acute findings. No indication for EEG as patient is responsive and improved with dialysis Resp: * Pulmonary edema noted on CXR with fluid overload status post first unit of packed red blood cells * Fluid management with hemodialysis * Titrate supplemental O2 to maintain SaO2 greater than 90% * No cough or phlegm/sputum * No complaints of acute shortness of breath per patient CV: * Dyslipidemia: Home Atorvastatin held * EKG with PACs and tachycardic with a rate of 92 bpm * No complaints of chest pain * Follow on telemetry ID: * History of UTI. * Urine culture with Citrobacter koseri which is pansensitive * Continue Rocephin. Day #4: * Afebrile GI/Nutrition: * Mental status improved. Tolerating by mouth diet * Stop famotidine * No indication for PPI or H2 rene Heme: * Heparin prophylaxis * Endocrine: * History of diabetes mellitus type 2 * Home glipizide and metformin held * Continued episodes of relative hypoglycemia * Hemoglobin A1c is 7.5 * Accu-Checks per protocol * No history of hypothyroidism Venous access: * Permacath placement today DVT prophylaxis: * Heparin 5000 units q8h SC * TEDs/SCDs Stable for downgrade from ICU Consults & Procedures Consultants: Nephrology - Appreciate Dr. Gutierrez and Dr. Barreto input Procedures: Right IJ temporary dialysis catheter Emergent Hemodialysis Data Medications: Current Inpatient Medications Medications (Trade) Dose Ordered Sig/Shayan Route Start Time Stop Time Status Last Admin Dose Admin Acetaminophen (Tylenol Tab) 650 mg Q4H PRN PO 03/13/17 15:45 04/12/17 15:44 03/15/17 21:29 650 MG Al Hydrox/Mg Hydrox/Simethicone (Maalox Max Susp) 15 ml Q4H PRN PO 03/13/17 15:45 04/12/17 15:44 Magnesium Hydroxide (Milk Of Magnesia Susp) 30 ml Q12H PRN PO 03/13/17 15:45 04/12/17 15:44 Ondansetron HCl (Zofran Inj) 4 mg Q6H PRN IV 03/13/17 15:45 04/12/17 15:44 Polyethylene (Miralax Powder Packet) 17 gm DAILY PRN PO 03/13/17 15:45 04/12/17 15:44 Glucose (Glucose 40% Gel) 15-30 GRAMS 15 GRAMS... UD PRN PO 03/13/17 15:45 04/12/17 15:44 Glucose (Glucose Chew Tab) 4-8 Tablets 4 Tabl... UD PRN PO 03/13/17 15:45 04/12/17 15:44 Dextrose (Dextrose 50% 50ML Syringe) 25-50ML OF 50% DW IV FOR... UD PRN IV 03/13/17 15:45 04/12/17 15:44 03/16/17 16:18 25 ML Glucagon (Glucagon Inj) 1 mg UD PRN SQ 03/13/17 15:45 04/12/17 15:44 Ceftriaxone Sodium 1 gm/ Dextrose 50 ml @ 100 mls/hr Q24H IV 03/14/17 14:00 03/17/17 14:29 03/16/17 14:21 100 MLS/HR Heparin Sodium (Porcine) (Heparin Sq 5000 Unit/0.5ml) 5,000 unit Q8 SC 03/14/17 14:00 04/13/17 13:59 03/16/17 14:24 5,000 UNIT Gabapentin (Neurontin Cap) 200 mg QAM PO 03/15/17 09:00 04/14/17 08:59 Insulin Aspart (novoLOG ASPART) SLIDING SCALE If C... ACHS SC 03/15/17 11:00 04/13/17 11:59 Gabapentin (Neurontin Cap) Give extra 200mg after complet... DAILY@1400 PO 03/16/17 14:00 04/14/17 13:59 Heparin Sodium (Porcine) (Heparin Iv Bolus) 2,000 unit TODAY@0800 IV 03/17/17 08:00 03/17/17 08:01 Lorazepam (Ativan Inj) 1 mg Q4H PRN IV 03/16/17 17:15 04/15/17 17:14 I & O: 24-Hour Column 03/17/17 08:00 Intake Total 60 ml Output Total 0 ml Balance 60 ml Vital Signs: Date Time Temp Pulse Resp B/P (MAP) Pulse Ox O2 Delivery O2 Flow Rate FiO2 03/16/17 16:01 36.6 67 14 117/52 (73) 93 Room Air 03/16/17 16:00 Nasal Cannula 3.0 03/16/17 15:01 67 15 107/48 (67) 91 Room Air 03/16/17 14:01 72 15 113/53 (73) 99 Nasal Cannula 3.0 03/16/17 13:31 71 13 129/55 (79) 100 Nasal Cannula 3.0 03/16/17 13:01 74 13 137/53 (81) 100 Nasal Cannula 3.0 03/16/17 12:31 36.6 80 23 120/56 (77) 99 Nasal Cannula 3.0 03/16/17 12:01 73 17 125/56 (79) 100 Nasal Cannula 3.0 03/16/17 12:00 Nasal Cannula 3.0 03/16/17 11:31 74 18 121/65 (83) 100 Nasal Cannula 3.0 03/16/17 11:16 36.8 80 11 119/64 (82) 96 Nasal Cannula 3.0 03/16/17 08:01 36.7 65 18 106/52 (70) 96 Nasal Cannula 3.0 03/16/17 08:00 Nasal Cannula 4.0 03/16/17 05:01 83 18 149/94 (112) 93 Nasal Cannula 3.0 03/16/17 04:01 36.8 98 17 183/62 (102) 84 03/16/17 04:00 91 Nasal Cannula 3.0 03/16/17 03:01 99 29 132/64 (86) 90 Nasal Cannula 3.0 03/16/17 02:01 74 15 154/64 (94) 94 Nasal Cannula 3.0 03/16/17 01:01 71 17 97/76 (83) 95 Nasal Cannula 3.0 03/16/17 00:01 37.0 71 10 149/57 (87) 93 Nasal Cannula 3.0 03/15/17 23:59 91 Nasal Cannula 3.0 03/15/17 23:01 75 16 138/61 (86) 93 Nasal Cannula 3.0 03/15/17 22:00 76 26 125/76 (92) 92 Nasal Cannula 2.0 03/15/17 21:01 76 13 150/72 (98) 85 Nasal Cannula 2.0 Laboratory Results: Last 24 Hours Test 03/16/17 06:19 03/16/17 11:21 03/16/17 11:22 03/16/17 16:08 White Blood Count 6.36 K/uL Red Blood Count 2.82 M/uL Hemoglobin 8.6 g/dL Hematocrit 25.8 % Mean Corpuscular Volume 91.5 fL Mean Corpuscular Hemoglobin 30.5 pg Mean Corpuscular Hemoglobin Concent 33.3 g/dl Platelet Count 164 K/uL Mean Platelet Volume 9.0 fL Neutrophils (%) (Auto) 63.5 % Lymphocytes (%) (Auto) 21.2 % Monocytes (%) (Auto) 11.6 % Eosinophils (%) (Auto) 2.7 % Basophils (%) (Auto) 0.5 % Neutrophils # (Auto) 4.04 K/uL Lymphocytes # (Auto) 1.35 K/uL Monocytes # (Auto) 0.74 K/uL Eosinophils # (Auto) 0.17 K/uL Basophils # (Auto) 0.03 K/uL RDW Standard Deviation 42.2 fL RDW Coefficient of Variation 12.6 % Immature Granulocyte % (Auto) 0.5 % Immature Granulocyte # (Auto) 0.03 K/uL Red Blood Cell Morphology Unremarkable Sodium Level 133 mmol/L Potassium Level 4.9 mmol/L Chloride Level 102 mmol/L Carbon Dioxide Level 23 mmol/L Anion Gap 8.0 mmol/L Blood Urea Nitrogen 30 mg/dl Creatinine 5.49 mg/dl Est Creatinine Clear Calc Drug Dose 12.4 ml/min Estimated GFR () 8.4 Estimated GFR (Non- 7.2 BUN/Creatinine Ratio 5.4 Bedside Glucose 90 mg/dl 66 mg/dl 71 mg/dl 67 mg/dl Random Glucose 90 mg/dl Calcium Level 7.6 mg/dl Phosphorus Level 6.1 mg/dl Magnesium Level 2.0 mg/dl Test 03/16/17 16:09 03/16/17 16:44 03/16/17 19:22 Bedside Glucose 65 mg/dl 91 mg/dl 74 mg/dl
[2017-03-17] VITALS (20 sets, daily range): BP systolic 109–168; BP diastolic 55–81; PULSE 61–70; TEMP 36.1–36.9; O2SAT 94–98; Ht 170.2 cm; Wt 108.5 kg
[2017-03-17] MEDS: HEPARIN SOD 5000 UNIT/0.5 ML CARP SC SCH ×3 (05:50→21:32)
[2017-03-17] MEDS: DEXTROSE 50% 50 ML SYR IV PRN (06:12)
[2017-03-17] MEDS: INSULIN ASPART 100 UNITS/ML 3 ML PEN SC SCH ×4 (06:45→21:31)
[2017-03-17] MEDS ORDERED: HEPARIN SOD (PORCINE) 1000 UNIT/ML 10 ML VIAL IV SCH (08:00)
[2017-03-17] MEDS: GABAPENTIN 100 MG CAP PO SCH ×2 (09:00→14:10)
--- NOTE | 2017-03-17 10:00 | Nephrology Progress Note ---
Nephrology Progress Note Date of Service Mar 17, 2017. Chief Complaint Acute renal insufficiency Subjective Steffany was seen and evaluated during hemodialysis this morning. She tolerated the treatment well. Good Qb via TCD. BP normal. UF 2 L. Steffany is less agitated this morning. She is resting comfortably in bed and answers questions appropriately. Review of Systems A complete review of systems was performed. Pertinent positives are noted above. All other systems are negative. Vital Signs Last 8 Hrs Date Time Temp Pulse Resp B/P (MAP) Pulse Ox O2 Delivery O2 Flow Rate FiO2 03/17/17 09:19 36.5 69 152/67 (95) 03/17/17 09:00 61 140/61 03/17/17 08:45 63 149/56 03/17/17 08:30 61 147/60 03/17/17 08:15 61 150/68 03/17/17 08:00 62 152/74 03/17/17 07:45 62 142/62 03/17/17 07:30 Room Air 03/17/17 07:30 36.4 63 16 152/74 (100) 98 Room Air 3.0 03/17/17 07:30 67 144/76 03/17/17 07:15 62 144/66 03/17/17 07:00 63 142/65 03/17/17 06:45 63 148/66 03/17/17 06:30 62 142/67 03/17/17 06:15 62 137/71 03/17/17 06:00 61 147/61 03/17/17 05:45 36.1 64 154/74 (100) 03/17/17 04:00 96 Room Air 03/17/17 03:52 36.4 64 16 109/55 (73) 96 I & O 24-Hour Column 03/18/17 08:00 Output Total 2000 ml Balance -2000 ml Last Recorded Weight Weight (Kilograms): 117.600 Physical Exam General Appearance: no apparent distress, + obese Head: normocephalic, atraumatic Eyes: normal inspection, sclerae normal ENT: normal ENT inspection, pharynx normal Neck: supple, no JVD, + pertinent finding (TDC) Respiratory/Chest: lungs clear, no respiratory distress, no accessory muscle use Cardiovascular: regular rate, rhythm, no gallop Abdomen/GI: non tender, soft Extremities/Musculoskelatal: normal inspection, no pedal edema Neurologic/Psych: alert, oriented x 3 Family History Lung Cancer Negative for CKD / ESRD Social History Smoking Status: Unknown if ever smoked Smokeless Tobacco Use: No Alcohol Use: none Drug Use: none Occupation: retired , retired, never a smoker. Laboratory Results Past 24 Hours Test 03/16/17 11:21 03/16/17 11:22 03/16/17 16:08 03/16/17 16:09 Bedside Glucose 66 mg/dl (70-90) 71 mg/dl (70-90) 67 mg/dl (70-90) 65 mg/dl (70-90) Test 03/16/17 16:44 03/16/17 19:22 03/16/17 21:07 03/16/17 22:46 Bedside Glucose 91 mg/dl (70-90) 74 mg/dl (70-90) 70 mg/dl (70-90) 56 mg/dl (70-90) Test 03/16/17 22:48 03/16/17 23:08 03/16/17 23:30 03/16/17 23:58 Bedside Glucose 65 mg/dl (70-90) 64 mg/dl (70-90) 99 mg/dl (70-90) 98 mg/dl (70-90) Test 03/17/17 00:56 03/17/17 01:56 03/17/17 02:55 03/17/17 03:51 Bedside Glucose 98 mg/dl (70-90) 84 mg/dl (70-90) 78 mg/dl (70-90) 71 mg/dl (70-90) Test 03/17/17 04:41 03/17/17 04:44 03/17/17 05:33 03/17/17 08:02 Bedside Glucose 71 mg/dl (70-90) 74 mg/dl (70-90) 105 mg/dl (70-90) Allergies Coded Allergies: No Known Allergies (Unverified , 03/13/17) Medications Current Inpatient Medications Medications (Trade) Dose Ordered Sig/Shayan Route Start Time Stop Time Status Last Admin Dose Admin Acetaminophen (Tylenol Tab) 650 mg Q4H PRN PO 03/13/17 15:45 04/12/17 15:44 03/15/17 21:29 650 MG Al Hydrox/Mg Hydrox/Simethicone (Maalox Max Susp) 15 ml Q4H PRN PO 03/13/17 15:45 04/12/17 15:44 Magnesium Hydroxide (Milk Of Magnesia Susp) 30 ml Q12H PRN PO 03/13/17 15:45 04/12/17 15:44 Ondansetron HCl (Zofran Inj) 4 mg Q6H PRN IV 03/13/17 15:45 04/12/17 15:44 Polyethylene (Miralax Powder Packet) 17 gm DAILY PRN PO 03/13/17 15:45 04/12/17 15:44 Glucose (Glucose 40% Gel) 15-30 GRAMS 15 GRAMS... UD PRN PO 03/13/17 15:45 04/12/17 15:44 Glucose (Glucose Chew Tab) 4-8 Tablets 4 Tabl... UD PRN PO 03/13/17 15:45 04/12/17 15:44 Dextrose (Dextrose 50% 50ML Syringe) 25-50ML OF 50% DW IV FOR... UD PRN IV 03/13/17 15:45 04/12/17 15:44 03/17/17 06:12 50 ML Glucagon (Glucagon Inj) 1 mg UD PRN SQ 03/13/17 15:45 04/12/17 15:44 Ceftriaxone Sodium 1 gm/ Dextrose 50 ml @ 100 mls/hr Q24H IV 03/14/17 14:00 03/17/17 14:29 03/16/17 14:21 100 MLS/HR Heparin Sodium (Porcine) (Heparin Sq 5000 Unit/0.5ml) 5,000 unit Q8 SC 03/14/17 14:00 04/13/17 13:59 03/17/17 05:50 5,000 UNIT Gabapentin (Neurontin Cap) 200 mg QAM PO 03/15/17 09:00 04/14/17 08:59 03/17/17 09:00 200 MG Insulin Aspart (novoLOG ASPART) SLIDING SCALE If C... ACHS SC 03/15/17 11:00 04/13/17 11:59 Gabapentin (Neurontin Cap) Give extra 200mg after complet... DAILY@1400 PO 03/16/17 14:00 04/14/17 13:59 Lorazepam (Ativan Inj) 1 mg Q4H PRN IV 03/16/17 17:15 04/15/17 17:14 Impression (1) Acute renal insufficiency (2) Dehydration (3) Diabetes mellitus type 2 (4) Peripheral neuropathy Mrs. Walter Gresham is an obese 71-year-old female with DMII, hypertension, peripheral neuropathy and CKD. Steffany suffered and episode of VISHAL in 2011 following BEBE. VISHAL was attributed to ATN. Patient required one dialysis treatment and subsequently recovered. She has not maintained outpatient Nephrology follow up (last visit 2012). Creatinine appears to have improved to 1.3 mg/dL. Steffany presented to [facility] on March 13 with mental status changes. She continues to have delirium. She is oligoanuric with VISHAL requiring HYDROPULPER. Her first hemodialysis treatment was completed on 03/14/16. The treatment was complicated by intradialytic hypotension and poor Qb via RIJ catheter. Second treatment was completed yesterday with improved Qb and no complications. VISHAL attributed to ATN at this time in the setting of UTI, hypotension and ACEi use. 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 Random cortisol was 18. She was hyperkalemic due to VISHAL. Stigmata of CKD include hyperphosphatemia as well as renal cortical atrophy. TTE was reviewed this morning documenting normal LV size and systolic function with grade 1 diastolic dysfunction and normal IVC. There was no significant valvular heart disease. Renal US did not reveal any post renal etiology to VISHAL such as calculi, mass or hydronephrosis. Urinalysis w/ 1+ protein, 1+ glucose. Urine microscopy w/ hyaline casts and pyuria. SPEP/immunofixation pending. Recommendations ACUTE KIDNEY INJURY: -- Remains oligoanuric -- HD completed without complications with AM -- TDC placed 03/16/16 -- Volume status acceptable -- Document I/O's and monitor metabolic profile daily -- Bladder scan Q shift for no void and straight cath PRN -- Check renal artery duplex -- SPEP/immunofixation pending -- Avoid ANJELICA/ARB and continue to hold metformin as well as glipizide -- Medications appropriately dosed for renal function ANEMIA: -- Patient transfused one unit PRBC since admission -- No active bleeding at this time. NG lavage without signs of UGIB -- Monitor serial H&H Citrobacter UTI: -- Ceftriaxone day #4
[2017-03-17 10:55] LABS: BASO % 0.3 %; BASO ABS # 0.02 K/uL (0-0.2); EOS % 4.4 %; EOS ABS # 0.33 K/uL (0-0.5); HEMATOCRIT 31.1 % (37-47); HEMOGLOBIN 10.6 g/dL (12.0-16.0); IG# 0.05 K/uL (0.00-0.02); LYMPH % 34.5 %; LYMPH ABS # 2.56 K/uL (1.2-3.4); MEAN CELL VOLUME 90.4 fL (80-100); MEAN CORPUSCULAR HEMOGLOBIN 30.8 pg (25-34); MEAN CORPUSCULAR HGB CONC 34.1 g/dl (32-36); MEAN PLATELET VOLUME 9.2 fL (7.4-10.4); MONO % 13.3 %; MONO ABS # 0.99 K/uL (0.11-0.59); NEUT % 46.8 %; NEUT ABS # 3.47 K/uL (1.4-6.5); PLATELET COUNT 206 K/uL (130-400); RED CELL DISTRIBUTION WIDTH CV 12.7 % (11.5-14.5); RED CELL DISTRIBUTION WIDTH SD 41.6 fL (36.4-46.3); WHITE BLOOD COUNT 7.42 K/uL (4.8-10.8)
--- NOTE | 2017-03-17 11:15 | Neurology Consultation ---
Neurology Consultation Date of Consultation: Mar 17, 2017. Attending Physician: Juan Reddy MD Primary Care Physician: Ac Lopez M.D. Reason for Consultation: Acute encephalopathy History of Present Illness Source: patient, spouse, hospital records This is a 71-year-old female who presented with acute kidney injury and altered mental status March 13. Hemodialysis was started March 14. Patient was also noted to be hyperkalemic and have myoclonus. Both patient and report that her mental status is been much improved the last couple of days. Patient also reports that myoclonic tremors have also significantly improved and may be gone this morning. She denies any new numbness or weakness. Denies any visual changes. Denies any trouble getting her words out or swallowing. No history of strokelike symptoms. Nothing concerning for seizure-like activity. CT of the head report and images were reviewed and unremarkable TSH and ammonia level were within normal limits Past Medical/Surgical History Medical Problems: (1) ARF (acute renal failure) Status: Acute (2) Dehydration Status: Acute (3) Sepsis due to urinary tract infection Status: Acute (4) UTI (urinary tract infection) Status: Acute (5) Weakness Status: Acute Diabetes type 2 with peripheral neuropathy, hypertension, CKD with a history of acute kidney injury and dialysis in the past, Family History Family history of cancer Social History Patient is normally independent in her activities of daily living. No tobacco use. Smoking Status: Unknown if ever smoked Smokeless Tobacco Use: No Alcohol Use: none Drug Use: none Occupation Status: retired Allergies Coded Allergies: No Known Allergies (Unverified , 03/13/17) Current Inpatient Medications Current Inpatient Medications Medications (Trade) Dose Ordered Sig/Shayan Route Start Time Stop Time Status Last Admin Dose Admin Acetaminophen (Tylenol Tab) 650 mg Q4H PRN PO 03/13/17 15:45 04/12/17 15:44 03/15/17 21:29 650 MG Al Hydrox/Mg Hydrox/Simethicone (Maalox Max Susp) 15 ml Q4H PRN PO 03/13/17 15:45 04/12/17 15:44 Magnesium Hydroxide (Milk Of Magnesia Susp) 30 ml Q12H PRN PO 03/13/17 15:45 04/12/17 15:44 Ondansetron HCl (Zofran Inj) 4 mg Q6H PRN IV 03/13/17 15:45 04/12/17 15:44 Polyethylene (Miralax Powder Packet) 17 gm DAILY PRN PO 03/13/17 15:45 04/12/17 15:44 Glucose (Glucose 40% Gel) 15-30 GRAMS 15 GRAMS... UD PRN PO 03/13/17 15:45 04/12/17 15:44 Glucose (Glucose Chew Tab) 4-8 Tablets 4 Tabl... UD PRN PO 03/13/17 15:45 04/12/17 15:44 Dextrose (Dextrose 50% 50ML Syringe) 25-50ML OF 50% DW IV FOR... UD PRN IV 03/13/17 15:45 04/12/17 15:44 03/17/17 06:12 50 ML Glucagon (Glucagon Inj) 1 mg UD PRN SQ 03/13/17 15:45 04/12/17 15:44 Ceftriaxone Sodium 1 gm/ Dextrose 50 ml @ 100 mls/hr Q24H IV 03/14/17 14:00 03/17/17 14:29 03/16/17 14:21 100 MLS/HR Heparin Sodium (Porcine) (Heparin Sq 5000 Unit/0.5ml) 5,000 unit Q8 SC 03/14/17 14:00 04/13/17 13:59 03/17/17 05:50 5,000 UNIT Gabapentin (Neurontin Cap) 200 mg QAM PO 03/15/17 09:00 04/14/17 08:59 03/17/17 09:00 200 MG Insulin Aspart (novoLOG ASPART) SLIDING SCALE If C... ACHS SC 03/15/17 11:00 04/13/17 11:59 Gabapentin (Neurontin Cap) Give extra 200mg after complet... DAILY@1400 PO 03/16/17 14:00 04/14/17 13:59 Lorazepam (Ativan Inj) 1 mg Q4H PRN IV 03/16/17 17:15 04/15/17 17:14 Review of Systems Complete review of systems otherwise negative except for the above-noted history of present illness. Physical Exam Vital Signs (Past 24 Hrs): Date Time Temp Pulse Resp B/P (MAP) Pulse Ox O2 Delivery O2 Flow Rate FiO2 03/17/17 10:59 36.9 66 16 168/81 (110) 97 Room Air 03/17/17 09:19 36.5 69 152/67 (95) 03/17/17 09:00 61 140/61 03/17/17 08:45 63 149/56 03/17/17 08:30 61 147/60 03/17/17 08:15 61 150/68 03/17/17 08:00 62 152/74 03/17/17 07:45 62 142/62 03/17/17 07:30 Room Air 03/17/17 07:30 36.4 63 16 152/74 (100) 98 Room Air 3.0 03/17/17 07:30 67 144/76 03/17/17 07:15 62 144/66 03/17/17 07:00 63 142/65 03/17/17 06:45 63 148/66 03/17/17 06:30 62 142/67 03/17/17 06:15 62 137/71 03/17/17 06:00 61 147/61 03/17/17 05:45 36.1 64 154/74 (100) 03/17/17 04:00 96 Room Air 03/17/17 03:52 36.4 64 16 109/55 (73) 96 03/16/17 23:59 37.0 67 13 156/65 (95) 95 03/16/17 23:59 96 Room Air 03/16/17 22:00 68 18 98 03/16/17 20:07 37.0 67 13 129/56 (80) 95 03/16/17 20:00 68 13 94 03/16/17 20:00 95 Room Air 03/16/17 16:01 36.6 67 14 117/52 (73) 93 Room Air 03/16/17 16:00 Nasal Cannula 3.0 03/16/17 15:01 67 15 107/48 (67) 91 Room Air 03/16/17 14:01 72 15 113/53 (73) 99 Nasal Cannula 3.0 03/16/17 13:31 71 13 129/55 (79) 100 Nasal Cannula 3.0 03/16/17 13:01 74 13 137/53 (81) 100 Nasal Cannula 3.0 03/16/17 12:31 36.6 80 23 120/56 (77) 99 Nasal Cannula 3.0 03/16/17 12:01 73 17 125/56 (79) 100 Nasal Cannula 3.0 03/16/17 12:00 Nasal Cannula 3.0 03/16/17 11:31 74 18 121/65 (83) 100 Nasal Cannula 3.0 03/16/17 11:16 36.8 80 11 119/64 (82) 96 Nasal Cannula 3.0 Gen.: Patient is alert and sitting in bed, in no acute distress. HEENT: Normocephalic /atraumatic, no scleral icterus Heart: Regular rate and rhythm Extremities: No gross deformities or rashes noted Neurological examination: Mental status: Patient is alert and oriented x3. Correctly stated place, people in the room, year, and current president. Attention and concentration normal for the situation. fair fund of knowledge. Remote and recent memory mostly intact. Speech is fluent without any dysarthria or aphasia noted Cranial nerve: Funduscopic examination was unremarkable. No papilledema. Pupils equally round and reactive to light. Extraocular muscles intact without nystagmus. No facial asymmetry noted. Facial sensation intact. Tongue is midline. Good palatal elevation. Good shoulder shrug bilaterally. Hearing grossly intact to voice. Strength: 5/5 both proximal and distally in all extremities. There is no arm drift. Tone is normal. No abnormal movements, tremors, or myoclonus. Sensation: Grossly intact to light touch in all extremities. Deep tendon reflexes: +1 in bilateral biceps, brachioradialis and patellar. Coordination: Patient had good finger to nose without dysmetria Station within the bed was normal Laboratory Results Past 24 Hours: 03/17/17 10:11 Red Blood Count 3.44, Mean Corpuscular Volume 90.4, Mean Corpuscular Hemoglobin 30.8, Mean Corpuscular Hemoglobin Concent 34.1, Mean Platelet Volume 9.2, Neutrophils (%) (Auto) 46.8, Lymphocytes (%) (Auto) 34.5, Monocytes (%) (Auto) 13.3, Eosinophils (%) (Auto) 4.4, Basophils (%) (Auto) 0.3, Neutrophils # (Auto ) 3.47, Lymphocytes # (Auto) 2.56, Monocytes # (Auto) 0.99, Eosinophils # (Auto ) 0.33, Basophils # (Auto) 0.02 Test 03/17/17 08:02 03/17/17 10:11 Bedside Glucose 105 mg/dl (70-90) White Blood Count 7.42 K/uL (4.8-10.8) Red Blood Count 3.44 M/uL (4.2-5.4) Hemoglobin 10.6 g/dL (12.0-16.0) Hematocrit 31.1 % (37-47) Mean Corpuscular Volume 90.4 fL (80-100) Mean Corpuscular Hemoglobin 30.8 pg (25-34) Mean Corpuscular Hemoglobin Concent 34.1 g/dl (32-36) Platelet Count 206 K/uL (130-400) Mean Platelet Volume 9.2 fL (7.4-10.4) Neutrophils (%) (Auto) 46.8 % Lymphocytes (%) (Auto) 34.5 % Monocytes (%) (Auto) 13.3 % Eosinophils (%) (Auto) 4.4 % Basophils (%) (Auto) 0.3 % Neutrophils # (Auto) 3.47 K/uL (1.4-6.5) Lymphocytes # (Auto) 2.56 K/uL (1.2-3.4) Monocytes # (Auto) 0.99 K/uL (0.11-0.59) Eosinophils # (Auto) 0.33 K/uL (0-0.5) Basophils # (Auto) 0.02 K/uL (0-0.2) RDW Standard Deviation 41.6 fL (36.4-46.3) RDW Coefficient of Variation 12.7 % (11.5-14.5) Immature Granulocyte % (Auto) 0.7 % Immature Granulocyte # (Auto) 0.05 K/uL (0.00-0.02) Imaging As noted above in history of present illness Impression This is a 71-year-old female with metabolic encephalopathy likely secondary to acute kidney injury. Patient appears to be recovering appropriately with hemodialysis. Myoclonus can also be seen with metabolic derangement such as in the setting of acute kidney injury and also appears to have resolved appropriately. Plan No additional neurological recommendations at this time. Discussed that it could take weeks for her mental status to return to baseline completely. If there is concerns in the future for the patient's mental status is not recovering appropriately or not back to baseline, could consider additional investigation such as B12 level, thiamine level, tox screen, EEG, and MRI of the brain. If there is any questions or concerns, feel free to call/page me.
[2017-03-17 11:19] LABS: CALCIUM 8.4 mg/dl (8.5-10.1); CREATININE 4.44 mg/dl (0.60-1.20); POTASSIUM 4.3 mmol/L (3.5-5.1)
[2017-03-17] MEDS: ACETAMINOPHEN 325 MG TAB PO PRN ×2 (11:32→17:55)
--- NOTE | 2017-03-17 11:56 | DIAGNOSTIC IMAGING REPORT ---
DUPLEX RENAL ARTERY CLINICAL HISTORY: Acute renal insufficiency COMPARISON STUDY: No previous studies for comparison. FINDINGS: The examination was difficult due to the patient's large body habitus. The peak systolic velocity within the aorta was 76 cm/s. The peak velocity within the right renal artery was 73 cm/s. The peak systolic velocity within the left renal artery was 88 cm/s. IMPRESSION: No evidence of renal artery stenosis by velocity criteria. Electronically signed by: Damon Ramos M.D. 03/17/2017 11:55 AM Dictated Date/Time: 03/17/2017 11:53 AM
[2017-03-17] MEDS: CEFTRIAXONE SOD INJ 1 GM in DEXTROSE 5% ADD-VANTAGE 50ML 50 ML IV SCH (14:11)
--- NOTE | 2017-03-17 16:27 | Family Medicine Progress Note ---
Progress Note Date of Service Mar 17, 2017. Subjective Pt evaluation today including: conversation w/ patient, physical exam, chart review, lab review, review of inpatient medication list Pain: Headache PO Intake: Tolerating PO intake Voiding: voiding difficulty Ms. Gresham reports she feels well today. She denies chest pain, shortness of breath, abdominal pain, n/v, but states that she has a slight headache over the frontal region. She denies other neurological symptoms such as vision changes or weakness. She was alert and fully oriented. Constitutional: No fever, No chills Respiratory: No cough, No sputum, No wheezing Cardiovascular: No chest pain Abdomen: No pain, No nausea, No vomiting All Other Systems: Reviewed and Negative Medications Current Inpatient Medications Medications (Trade) Dose Ordered Sig/Shayan Route Start Time Stop Time Status Last Admin Dose Admin Acetaminophen (Tylenol Tab) 650 mg Q4H PRN PO 03/13/17 15:45 04/12/17 15:44 03/17/17 11:32 650 MG Al Hydrox/Mg Hydrox/Simethicone (Maalox Max Susp) 15 ml Q4H PRN PO 03/13/17 15:45 04/12/17 15:44 Magnesium Hydroxide (Milk Of Magnesia Susp) 30 ml Q12H PRN PO 03/13/17 15:45 04/12/17 15:44 Ondansetron HCl (Zofran Inj) 4 mg Q6H PRN IV 03/13/17 15:45 04/12/17 15:44 Polyethylene (Miralax Powder Packet) 17 gm DAILY PRN PO 03/13/17 15:45 04/12/17 15:44 Glucose (Glucose 40% Gel) 15-30 GRAMS 15 GRAMS... UD PRN PO 03/13/17 15:45 04/12/17 15:44 Glucose (Glucose Chew Tab) 4-8 Tablets 4 Tabl... UD PRN PO 03/13/17 15:45 04/12/17 15:44 Dextrose (Dextrose 50% 50ML Syringe) 25-50ML OF 50% DW IV FOR... UD PRN IV 03/13/17 15:45 04/12/17 15:44 03/17/17 06:12 50 ML Glucagon (Glucagon Inj) 1 mg UD PRN SQ 03/13/17 15:45 04/12/17 15:44 Ceftriaxone Sodium 1 gm/ Dextrose 50 ml @ 100 mls/hr Q24H IV 03/14/17 14:00 03/17/17 14:29 03/16/17 14:21 100 MLS/HR Heparin Sodium (Porcine) (Heparin Sq 5000 Unit/0.5ml) 5,000 unit Q8 SC 03/14/17 14:00 04/13/17 13:59 03/17/17 05:50 5,000 UNIT Gabapentin (Neurontin Cap) 200 mg QAM PO 03/15/17 09:00 04/14/17 08:59 03/17/17 09:00 200 MG Insulin Aspart (novoLOG ASPART) SLIDING SCALE If C... ACHS SC 03/15/17 11:00 04/13/17 11:59 Gabapentin (Neurontin Cap) Give extra 200mg after complet... DAILY@1400 PO 03/16/17 14:00 04/14/17 13:59 Lorazepam (Ativan Inj) 1 mg Q4H PRN IV 03/16/17 17:15 04/15/17 17:14 Objective Vital Signs Date Time Temp Pulse Resp B/P (MAP) Pulse Ox O2 Delivery O2 Flow Rate FiO2 03/17/17 11:11 Room Air 03/17/17 10:59 36.9 66 16 168/81 (110) 97 Room Air 03/17/17 09:19 36.5 69 152/67 (95) 03/17/17 09:00 61 140/61 03/17/17 08:45 63 149/56 03/17/17 08:30 61 147/60 03/17/17 08:15 61 150/68 03/17/17 08:00 62 152/74 03/17/17 07:45 62 142/62 03/17/17 07:30 Room Air 03/17/17 07:30 36.4 63 16 152/74 (100) 98 Room Air 3.0 03/17/17 07:30 67 144/76 03/17/17 07:15 62 144/66 03/17/17 07:00 63 142/65 03/17/17 06:45 63 148/66 03/17/17 06:30 62 142/67 03/17/17 06:15 62 137/71 03/17/17 06:00 61 147/61 03/17/17 05:45 36.1 64 154/74 (100) 03/17/17 04:00 96 Room Air 03/17/17 03:52 36.4 64 16 109/55 (73) 96 03/16/17 23:59 37.0 67 13 156/65 (95) 95 03/16/17 23:59 96 Room Air 03/16/17 22:00 68 18 98 03/16/17 20:07 37.0 67 13 129/56 (80) 95 03/16/17 20:00 68 13 94 03/16/17 20:00 95 Room Air 03/16/17 16:01 36.6 67 14 117/52 (73) 93 Room Air 03/16/17 16:00 Nasal Cannula 3.0 03/16/17 15:01 67 15 107/48 (67) 91 Room Air 03/16/17 14:01 72 15 113/53 (73) 99 Nasal Cannula 3.0 03/16/17 13:31 71 13 129/55 (79) 100 Nasal Cannula 3.0 Physical Exam General Appearance: WD/WN, no apparent distress Respiratory/Chest: chest non-tender, no respiratory distress, no accessory muscle use, + decreased breath sounds Cardiovascular: regular rate, rhythm, no gallop, no JVD, no murmur Abdomen: normal bowel sounds, non tender, soft, no organomegaly, no pulsatile mass Neurologic/Psychiatric: alert, normal mood/affect, oriented x 3 Laboratory Results Last 24 Hours Test 03/16/17 16:08 03/16/17 16:09 03/16/17 16:44 03/16/17 19:22 Bedside Glucose 67 mg/dl 65 mg/dl 91 mg/dl 74 mg/dl Test 03/16/17 21:07 03/16/17 22:46 03/16/17 22:48 03/16/17 23:08 Bedside Glucose 70 mg/dl 56 mg/dl 65 mg/dl 64 mg/dl Test 03/16/17 23:30 03/16/17 23:58 03/17/17 00:56 03/17/17 01:56 Bedside Glucose 99 mg/dl 98 mg/dl 98 mg/dl 84 mg/dl Test 03/17/17 02:55 03/17/17 03:51 03/17/17 04:41 1/6/18 05:33 Bedside Glucose 78 mg/dl 71 mg/dl 71 mg/dl 74 mg/dl Test 03/17/17 08:02 03/17/17 10:11 03/17/17 10:54 03/17/17 12:18 Bedside Glucose 105 mg/dl 72 mg/dl 102 mg/dl White Blood Count 7.42 K/uL Red Blood Count 3.44 M/uL Hemoglobin 10.6 g/dL Hematocrit 31.1 % Mean Corpuscular Volume 90.4 fL Mean Corpuscular Hemoglobin 30.8 pg Mean Corpuscular Hemoglobin Concent 34.1 g/dl Platelet Count 206 K/uL Mean Platelet Volume 9.2 fL Neutrophils (%) (Auto) 46.8 % Lymphocytes (%) (Auto) 34.5 % Monocytes (%) (Auto) 13.3 % Eosinophils (%) (Auto) 4.4 % Basophils (%) (Auto) 0.3 % Neutrophils # (Auto) 3.47 K/uL Lymphocytes # (Auto) 2.56 K/uL Monocytes # (Auto) 0.99 K/uL Eosinophils # (Auto) 0.33 K/uL Basophils # (Auto) 0.02 K/uL RDW Standard Deviation 41.6 fL RDW Coefficient of Variation 12.7 % Immature Granulocyte % (Auto) 0.7 % Immature Granulocyte # (Auto) 0.05 K/uL Sodium Level 134 mmol/L Potassium Level 4.3 mmol/L Chloride Level 100 mmol/L Carbon Dioxide Level 26 mmol/L Anion Gap 8.0 mmol/L Blood Urea Nitrogen 25 mg/dl Creatinine 4.44 mg/dl Est Creatinine Clear Calc Drug Dose 15.4 ml/min Estimated GFR () 10.8 Estimated GFR (Non- 9.3 BUN/Creatinine Ratio 5.6 Random Glucose 85 mg/dl Calcium Level 8.4 mg/dl Phosphorus Level 5.0 mg/dl Magnesium Level 2.1 mg/dl Assessment and Plan Ms. Gresham is a 71 y/o female with PMHx of T2DM with Peripheral Neuropathy, HTN , Previous VISHAL (Required Temporary Hemodialysis) who presents to the ED c/o generalized weakness, sudden onset of emesis 6 (black in color). Acute Metabolic Encephalopathy likely secondary to uremia - resolved myoclonic jerking movement - Received olanzapine last night - this AM - fully alert and oriented - CT head no acute IC pathology - thank you to neurology for consult - no additional recommendations at this time - AMS and myoclonus likely secondary to VISHAL - future concerns for AMS - could consider B12, thiamine levels, tox screen , EEG, and MRI of the brain. Acute Kidney Injury - remains anuric - thank you to nephrology for consult - HD today, 2L removed - Document I/O's and monitor BMP daily - Bladder scan Q shift for no void and straight cath PRN - renal U/S - No calculi, mass or hydronephrosis - no evidence of renal artery stenosis on Doppler US - continue to hold gabapentin, lisinopril and metformin - Cr 4.44, improved from 5.49 - TDC placed 03/16/16 Hypoxia requiring O2 3 L NC - resolved - Developed pulm edema s/p transfusion - Repeat CXR improved pulm vasc congestion, no consolidation - 97% on room air Acute Anemia: Black Emesis - Hgb stable at 10.6, continue to monitor - transfused 1 unit pRBC on 03/13/17 UTI - culture - citrobacter koseri - Continue Rocephin 1 g IV daily (day 4) T2DM with Peripheral Neuropathy - hypoglycemic episodes - HgbA1c - 7.5 - glucose checks and treated hypoglycemic episodes with dextrose - Hold oral agents and cover with SSI - was hypoglycemic overnight, with glucose level at 56. Resolved with d50 administration DVT Prophylaxis: Heparin Code Status: Full Disposition: transferred to telemetry Resident Tracking Resident Involvement: Resident Care Provided Care Provided: Adult Hospital Medicine History Resident Physician Supervision Note: I was present with Dr. Epstein during the history and exam. I discussed the case with the resident and agree with the findings and plan as documented in the note. Any exceptions or clarifications are listed here. Pt resting in bed appearing considerably more lucid than previous evaluation. Presently oriented x 3, alert and apologetic. Reports mild b/l frontal headache. Reports no vision/hearing changes, nausea, CP/SOB, palpitation, sensory changes. General Appearance: no apparent distress, obese Eye Exam: bilateral eye PERRL, bilateral eye EOMI Respiratory: chest non-tender, lungs clear, normal breath sounds, no respiratory distress Cardiovascular: normal peripheral pulses, regular rate, rhythm, no murmur Gastrointestinal: normal bowel sounds, non tender, soft, no organomegaly Assessment/Plan 71 y/o female h/o DMII w/ peripheral neuropathy, HTN p/w generalized weakness Acute metabolic encephalopathy - uremia v. UTI v. other organic process - waxing and waning. Neurology evaluation pending. Responds well to SL zyprexa Acute renal failure - renal US unremarkable - on HD w/ permacath in place, nephrology recommendations appreciated - monitor I/O, trend BMP, HD next Tues Anemia in the setting of ?coffee ground emesis - s/p 1 uPRBC - stable, monitor CBC Urinary tract infection - continue Rocephin Pulmonary edema - s/p transfusion - HD GI PPX - on famotidine BID
[2017-03-18 03:56] VITALS: BP 127/61; PULSE 60; TEMP 36.9
[2017-03-18 05:30] LABS: BASO % 0.6 %; BASO ABS # 0.04 K/uL (0-0.2); EOS % 5.5 %; EOS ABS # 0.39 K/uL (0-0.5); HEMATOCRIT 27.4 % (37-47); HEMOGLOBIN 9.3 g/dL (12.0-16.0); IG# 0.08 K/uL (0.00-0.02); LYMPH % 43.3 %; LYMPH ABS # 3.09 K/uL (1.2-3.4); MEAN CELL VOLUME 89.5 fL (80-100); MEAN CORPUSCULAR HEMOGLOBIN 30.4 pg (25-34); MEAN CORPUSCULAR HGB CONC 33.9 g/dl (32-36); MEAN PLATELET VOLUME 8.8 fL (7.4-10.4); MONO % 12.5 %; MONO ABS # 0.89 K/uL (0.11-0.59); NEUT ABS # 2.64 K/uL (1.4-6.5); PLATELET COUNT 184 K/uL (130-400); RED CELL DISTRIBUTION WIDTH CV 12.5 % (11.5-14.5); RED CELL DISTRIBUTION WIDTH SD 40.5 fL (36.4-46.3); WHITE BLOOD COUNT 7.13 K/uL (4.8-10.8)
[2017-03-18] MEDS: HEPARIN SOD 5000 UNIT/0.5 ML CARP SC SCH ×3 (06:04→21:03)
[2017-03-18 06:13] LABS: CALCIUM 8.5 mg/dl (8.5-10.1); CREATININE 6.08 mg/dl (0.60-1.20); PHOSPHORUS 7.6 mg/dl (2.5-4.9); POTASSIUM 4.8 mmol/L (3.5-5.1)
[2017-03-18 07:50] VITALS: BP 146/95; PULSE 64; TEMP 36.7; O2SAT 94
[2017-03-18] MEDS: GABAPENTIN 100 MG CAP PO SCH ×2 (08:33→13:51)
[2017-03-18] MEDS: INSULIN ASPART 100 UNITS/ML 3 ML PEN SC SCH ×4 (08:34→20:59)
--- NOTE | 2017-03-18 09:54 | Family Medicine Progress Note ---
Progress Note Date of Service Mar 18, 2017. Subjective Pt evaluation today including: conversation w/ patient, physical exam, chart review, lab review, review of inpatient medication list Pain: No pain reported PO Intake: Tolerating PO intake Ms. Gresham reports she feels well today. She states she feels as though she came out of a fog. She denies chest pain, n/v, abdominal pain. She states she has not had a bowel movement in a few days but has not been eating much due to poor appetite. She feels her appetite is returning. She is also now able to void small amounts. Constitutional: No fever, No chills Respiratory: No cough, No sputum, No wheezing, No shortness of breath Cardiovascular: No chest pain Abdomen: No pain, No nausea, No vomiting, No diarrhea Female : No dysuria, No urinary frequency, No hematuria All Other Systems: Reviewed and Negative Medications Current Inpatient Medications Medications (Trade) Dose Ordered Sig/Shayan Route Start Time Stop Time Status Last Admin Dose Admin Acetaminophen (Tylenol Tab) 650 mg Q4H PRN PO 03/13/17 15:45 04/12/17 15:44 03/17/17 17:55 650 MG Al Hydrox/Mg Hydrox/Simethicone (Maalox Max Susp) 15 ml Q4H PRN PO 03/13/17 15:45 04/12/17 15:44 Magnesium Hydroxide (Milk Of Magnesia Susp) 30 ml Q12H PRN PO 03/13/17 15:45 04/12/17 15:44 Ondansetron HCl (Zofran Inj) 4 mg Q6H PRN IV 03/13/17 15:45 04/12/17 15:44 03/17/17 16:04 4 MG Polyethylene (Miralax Powder Packet) 17 gm DAILY PRN PO 03/13/17 15:45 04/12/17 15:44 Glucose (Glucose 40% Gel) 15-30 GRAMS 15 GRAMS... UD PRN PO 03/13/17 15:45 04/12/17 15:44 Glucose (Glucose Chew Tab) 4-8 Tablets 4 Tabl... UD PRN PO 03/13/17 15:45 04/12/17 15:44 Dextrose (Dextrose 50% 50ML Syringe) 25-50ML OF 50% DW IV FOR... UD PRN IV 03/13/17 15:45 2/1/18 15:44 03/17/17 06:12 50 ML Glucagon (Glucagon Inj) 1 mg UD PRN SQ 03/13/17 15:45 04/12/17 15:44 Heparin Sodium (Porcine) (Heparin Sq 5000 Unit/0.5ml) 5,000 unit Q8 SC 03/14/17 14:00 04/13/17 13:59 03/18/17 06:04 5,000 UNIT Gabapentin (Neurontin Cap) 200 mg QAM PO 03/15/17 09:00 04/14/17 08:59 03/18/17 08:33 200 MG Insulin Aspart (novoLOG ASPART) SLIDING SCALE If C... ACHS SC 03/15/17 11:00 04/13/17 11:59 03/18/17 08:34 5 UNITS Gabapentin (Neurontin Cap) Give extra 200mg after complet... DAILY@1400 PO 03/16/17 14:00 04/14/17 13:59 03/17/17 14:10 100 MG Lorazepam (Ativan Inj) 1 mg Q4H PRN IV 03/16/17 17:15 04/15/17 17:14 Objective Vital Signs Date Time Temp Pulse Resp B/P (MAP) Pulse Ox O2 Delivery O2 Flow Rate FiO2 03/18/17 07:50 36.7 64 16 146/95 (112) 94 Room Air 03/18/17 07:50 Room Air 03/18/17 04:00 Room Air 03/18/17 03:56 36.9 60 15 127/61 (83) 03/17/17 23:59 Room Air 03/17/17 23:16 36.7 62 16 134/63 (86) 94 Room Air 03/17/17 20:00 Room Air 03/17/17 15:30 Room Air 03/17/17 15:30 36.9 70 16 139/76 (97) 97 Room Air 03/17/17 11:11 Room Air 03/17/17 10:59 36.9 66 16 168/81 (110) 97 Room Air Physical Exam General Appearance: WD/WN, no apparent distress Respiratory/Chest: chest non-tender, lungs clear, normal breath sounds, no respiratory distress, no accessory muscle use Cardiovascular: regular rate, rhythm, no gallop, no JVD, no murmur Abdomen: normal bowel sounds, non tender, soft, no organomegaly, no pulsatile mass Neurologic/Psychiatric: alert, normal mood/affect, oriented x 3 Skin: normal color, warm/dry, no rash Laboratory Results Last 24 Hours Test 03/17/17 10:11 03/17/17 10:54 03/17/17 12:18 03/17/17 16:09 White Blood Count 7.42 K/uL Red Blood Count 3.44 M/uL Hemoglobin 10.6 g/dL Hematocrit 31.1 % Mean Corpuscular Volume 90.4 fL Mean Corpuscular Hemoglobin 30.8 pg Mean Corpuscular Hemoglobin Concent 34.1 g/dl Platelet Count 206 K/uL Mean Platelet Volume 9.2 fL Neutrophils (%) (Auto) 46.8 % Lymphocytes (%) (Auto) 34.5 % Monocytes (%) (Auto) 13.3 % Eosinophils (%) (Auto) 4.4 % Basophils (%) (Auto) 0.3 % Neutrophils # (Auto) 3.47 K/uL Lymphocytes # (Auto) 2.56 K/uL Monocytes # (Auto) 0.99 K/uL Eosinophils # (Auto) 0.33 K/uL Basophils # (Auto) 0.02 K/uL RDW Standard Deviation 41.6 fL RDW Coefficient of Variation 12.7 % Immature Granulocyte % (Auto) 0.7 % Immature Granulocyte # (Auto) 0.05 K/uL Sodium Level 134 mmol/L Potassium Level 4.3 mmol/L Chloride Level 100 mmol/L Carbon Dioxide Level 26 mmol/L Anion Gap 8.0 mmol/L Blood Urea Nitrogen 25 mg/dl Creatinine 4.44 mg/dl Est Creatinine Clear Calc Drug Dose 15.4 ml/min Estimated GFR () 10.8 Estimated GFR (Non- 9.3 BUN/Creatinine Ratio 5.6 Random Glucose 85 mg/dl Calcium Level 8.4 mg/dl Phosphorus Level 5.0 mg/dl Magnesium Level 2.1 mg/dl Bedside Glucose 72 mg/dl 102 mg/dl 104 mg/dl Test 03/17/17 19:51 03/18/17 05:10 Bedside Glucose 188 mg/dl White Blood Count 7.13 K/uL Red Blood Count 3.06 M/uL Hemoglobin 9.3 g/dL Hematocrit 27.4 % Mean Corpuscular Volume 89.5 fL Mean Corpuscular Hemoglobin 30.4 pg Mean Corpuscular Hemoglobin Concent 33.9 g/dl Platelet Count 184 K/uL Mean Platelet Volume 8.8 fL Neutrophils (%) (Auto) 37.0 % Lymphocytes (%) (Auto) 43.3 % Monocytes (%) (Auto) 12.5 % Eosinophils (%) (Auto) 5.5 % Basophils (%) (Auto) 0.6 % Neutrophils # (Auto) 2.64 K/uL Lymphocytes # (Auto) 3.09 K/uL Monocytes # (Auto) 0.89 K/uL Eosinophils # (Auto) 0.39 K/uL Basophils # (Auto) 0.04 K/uL RDW Standard Deviation 40.5 fL RDW Coefficient of Variation 12.5 % Immature Granulocyte % (Auto) 1.1 % Immature Granulocyte # (Auto) 0.08 K/uL Sodium Level 134 mmol/L Potassium Level 4.8 mmol/L Chloride Level 101 mmol/L Carbon Dioxide Level 27 mmol/L Anion Gap 6.0 mmol/L Blood Urea Nitrogen 36 mg/dl Creatinine 6.08 mg/dl Est Creatinine Clear Calc Drug Dose 11.0 ml/min Estimated GFR () 7.4 Estimated GFR (Non- 6.4 BUN/Creatinine Ratio 5.9 Random Glucose 85 mg/dl Calcium Level 8.5 mg/dl Phosphorus Level 7.6 mg/dl Magnesium Level 2.2 mg/dl Assessment and Plan Ms. Gresham is a 71 y/o female with PMHx of T2DM with Peripheral Neuropathy, HTN , Previous VISHAL (Required Temporary Hemodialysis) who presents to the ED c/o generalized weakness, sudden onset of emesis 6 (black in color). Acute Metabolic Encephalopathy likely secondary to uremia - resolved myoclonic jerking movement - this AM - fully alert and oriented - CT head no acute IC pathology - thank you to neurology for consult - no additional recommendations at this time - AMS and myoclonus likely secondary to VISHAL - now resolved - future concerns for AMS - could consider B12, thiamine levels, tox screen , EEG, and MRI of the brain. Acute Kidney Injury - thank you to nephrology for consult - HD yesterday, 2L removed, HD scheduled again for tomorrow - continue to monitor BMP and I/Os - renal U/S - No calculi, mass or hydronephrosis - no evidence of renal artery stenosis on Doppler US - continue to hold gabapentin, lisinopril and metformin - SPEP/immunofixation pending - Cr worsened from 4.44 to 6.08 - produced 150cc of urine this AM and 75cc yesterday - improving urinary output - TDC placed 03/16/16 Increased phosphate - phosphate level 7.6 today, increased from 5.0 yesterday - will continue to monitor Hypoxia requiring O2 3 L NC - resolved - Developed pulm edema s/p transfusion - Repeat CXR improved pulm vasc congestion, no consolidation - 97% on room air Acute Anemia: Black Emesis - Hgb stable at 9.3, continue to monitor, fluctuates around 9-10 - transfused 1 unit pRBC on 03/13/17 UTI - culture - citrobacter koseri - Continue Rocephin 1 g IV daily (day 5) T2DM with Peripheral Neuropathy - hypoglycemic episodes - HgbA1c - 7.5 - previously was having hypoglycemic episodes - appetite has returned and her sugar levels have increased to 85-146 today - Hold home metformin and cover with SSI DVT Prophylaxis: Heparin Code Status: Full Disposition: remains on telemetry Resident Tracking Resident Involvement: Resident Care Provided Care Provided: Adult Hospital Medicine History Resident Physician Supervision Note: I was present with Dr. Epstein during the history and exam. I discussed the case with the resident and agree with the findings and plan as documented in the note. Any exceptions or clarifications are listed here. Pt resting in bed and feeling like 'she's coming out of a fog'. She reports no bowel movements and an increase in urine output this AM. General Appearance: no apparent distress, obese Respiratory: chest non-tender, lungs clear, normal breath sounds, no respiratory distress Cardiovascular: normal peripheral pulses, regular rate, rhythm, no murmur, other (1+ pitting of the b/l UE) Gastrointestinal: normal bowel sounds, non tender, soft, no organomegaly Neurologic/Psychiatric: inside sales person II-XII nml as tested, alert, normal mood/affect, oriented x 3 Assessment/Plan 71 y/o female h/o DMII w/ peripheral neuropathy, HTN p/w generalized weakness Acute renal failure - renal US unremarkable - on HD w/ permacath in place, nephrology recommendations appreciated - monitor I/O, trend BMP, HD next Tues Acute metabolic encephalopathy - uremia v. UTI v. other organic process - waning. Neurology evaluation rec's no further evaluation. Responds well to SL zyprexa if needed Urinary tract infection - continue Rocephin Anemia in the setting of ?coffee ground emesis - s/p 1 uPRBC - stable, monitor CBC Pulmonary edema - s/p transfusion - on HD - resolved GI PPX - on famotidine BID FULL CODE
[2017-03-18 11:30] VITALS: BP 158/73; PULSE 74; TEMP 36.7; O2SAT 97
--- NOTE | 2017-03-18 11:35 | Nephrology Progress Note ---
Nephrology Progress Note Date of Service Mar 18, 2017. Chief Complaint Acute renal insufficiency Subjective No acute events overnight. Steffany is sitting comfortably in bed this morning. She feels well. Appetite is good. She has started to void more urine. She denies any pain. She denies dyspnea. She tolerated hemodialysis well yesterday. Review of Systems A complete review of systems was performed. Pertinent positives are noted above. All other systems are negative. Vital Signs Last 8 Hrs Date Time Temp Pulse Resp B/P (MAP) Pulse Ox O2 Delivery O2 Flow Rate FiO2 03/18/17 07:50 36.7 64 16 146/95 (112) 94 Room Air 03/18/17 07:50 Room Air 03/18/17 04:00 Room Air 03/18/17 03:56 36.9 60 15 127/61 (83) Last Recorded Weight Weight (Kilograms): 112.400 Physical Exam General Appearance: WD/WN, no apparent distress Head: normocephalic, atraumatic Eyes: normal inspection, sclerae normal ENT: normal ENT inspection, pharynx normal Neck: supple, no carotid bruits, + pertinent finding (THC) Respiratory/Chest: lungs clear, no respiratory distress, no accessory muscle use Cardiovascular: regular rate, rhythm, no gallop Abdomen/GI: non tender, soft Extremities/Musculoskelatal: normal inspection, no pedal edema Neurologic/Psych: alert, normal mood/affect Family History Lung Cancer Negative for CKD / ESRD Social History Smoking Status: Unknown if ever smoked Smokeless Tobacco Use: No Alcohol Use: none Drug Use: none Occupation: retired , retired, never a smoker. Laboratory Results Past 24 Hours 03/18/17 05:10 Red Blood Count 3.06, Mean Corpuscular Volume 89.5, Mean Corpuscular Hemoglobin 30.4, Mean Corpuscular Hemoglobin Concent 33.9, Mean Platelet Volume 8.8, Neutrophils (%) (Auto) 37.0, Lymphocytes (%) (Auto) 43.3, Monocytes (%) (Auto) 12.5, Eosinophils (%) (Auto) 5.5, Basophils (%) (Auto) 0.6, Neutrophils # (Auto ) 2.64, Lymphocytes # (Auto) 3.09, Monocytes # (Auto) 0.89, Eosinophils # (Auto ) 0.39, Basophils # (Auto) 0.04 03/18/17 05:10 Test 03/17/17 12:18 03/17/17 16:09 03/17/17 19:51 03/18/17 05:10 Bedside Glucose 102 mg/dl (70-90) 104 mg/dl (70-90) 188 mg/dl (70-90) White Blood Count 7.13 K/uL (4.8-10.8) Red Blood Count 3.06 M/uL (4.2-5.4) Hemoglobin 9.3 g/dL (12.0-16.0) Hematocrit 27.4 % (37-47) Mean Corpuscular Volume 89.5 fL (80-100) Mean Corpuscular Hemoglobin 30.4 pg (25-34) Mean Corpuscular Hemoglobin Concent 33.9 g/dl (32-36) Platelet Count 184 K/uL (130-400) Mean Platelet Volume 8.8 fL (7.4-10.4) Neutrophils (%) (Auto) 37.0 % Lymphocytes (%) (Auto) 43.3 % Monocytes (%) (Auto) 12.5 % Eosinophils (%) (Auto) 5.5 % Basophils (%) (Auto) 0.6 % Neutrophils # (Auto) 2.64 K/uL (1.4-6.5) Lymphocytes # (Auto) 3.09 K/uL (1.2-3.4) Monocytes # (Auto) 0.89 K/uL (0.11-0.59) Eosinophils # (Auto) 0.39 K/uL (0-0.5) Basophils # (Auto) 0.04 K/uL (0-0.2) RDW Standard Deviation 40.5 fL (36.4-46.3) RDW Coefficient of Variation 12.5 % (11.5-14.5) Immature Granulocyte % (Auto) 1.1 % Immature Granulocyte # (Auto) 0.08 K/uL (0.00-0.02) Anion Gap 6.0 mmol/L (3-11) Est Creatinine Clear Calc Drug Dose 11.0 ml/min Estimated GFR () 7.4 Estimated GFR (Non- 6.4 BUN/Creatinine Ratio 5.9 (10-20) Calcium Level 8.5 mg/dl (8.5-10.1) Phosphorus Level 7.6 mg/dl (2.5-4.9) Magnesium Level 2.2 mg/dl (1.8-2.4) Allergies Coded Allergies: No Known Allergies (Unverified , 03/13/17) Medications Current Inpatient Medications Medications (Trade) Dose Ordered Sig/Shayan Route Start Time Stop Time Status Last Admin Dose Admin Acetaminophen (Tylenol Tab) 650 mg Q4H PRN PO 03/13/17 15:45 04/12/17 15:44 03/17/17 17:55 650 MG Al Hydrox/Mg Hydrox/Simethicone (Maalox Max Susp) 15 ml Q4H PRN PO 03/13/17 15:45 04/12/17 15:44 Magnesium Hydroxide (Milk Of Magnesia Susp) 30 ml Q12H PRN PO 03/13/17 15:45 04/12/17 15:44 Ondansetron HCl (Zofran Inj) 4 mg Q6H PRN IV 03/13/17 15:45 04/12/17 15:44 03/17/17 16:04 4 MG Polyethylene (Miralax Powder Packet) 17 gm DAILY PRN PO 03/13/17 15:45 04/12/17 15:44 Glucose (Glucose 40% Gel) 15-30 GRAMS 15 GRAMS... UD PRN PO 03/13/17 15:45 04/12/17 15:44 Glucose (Glucose Chew Tab) 4-8 Tablets 4 Tabl... UD PRN PO 03/13/17 15:45 04/12/17 15:44 Dextrose (Dextrose 50% 50ML Syringe) 25-50ML OF 50% DW IV FOR... UD PRN IV 03/13/17 15:45 04/12/17 15:44 03/17/17 06:12 50 ML Glucagon (Glucagon Inj) 1 mg UD PRN SQ 03/13/17 15:45 04/12/17 15:44 Heparin Sodium (Porcine) (Heparin Sq 5000 Unit/0.5ml) 5,000 unit Q8 SC 03/14/17 14:00 04/13/17 13:59 03/18/17 06:04 5,000 UNIT Gabapentin (Neurontin Cap) 200 mg QAM PO 03/15/17 09:00 04/14/17 08:59 03/18/17 08:33 200 MG Insulin Aspart (novoLOG ASPART) SLIDING SCALE If C... ACHS SC 03/15/17 11:00 04/13/17 11:59 03/18/17 08:34 5 UNITS Gabapentin (Neurontin Cap) Give extra 200mg after complet... DAILY@1400 PO 03/16/17 14:00 04/14/17 13:59 03/17/17 14:10 100 MG Lorazepam (Ativan Inj) 1 mg Q4H PRN IV 03/16/17 17:15 04/15/17 17:14 Impression (1) Acute renal insufficiency (2) Dehydration (3) Diabetes mellitus type 2 (4) Peripheral neuropathy Mrs. Walter Gresham is an obese 71-year-old female with DMII, hypertension, peripheral neuropathy and CKD. Steffany suffered and episode of VISHAL in 2011 following BEBE. VISHAL was attributed to ATN. Patient required one dialysis treatment and subsequently recovered. She has not maintained outpatient Nephrology follow up (last visit 2012). Creatinine improved to a baseline of approximately 1.3 mg/dL. Steffany presented to [facility] on March 13 with mental status changes as well as oligoanuric VISHAL requiring [employer]. Her first hemodialysis treatment was completed on 03/14/16. The treatment was complicated by intradialytic hypotension and poor Qb via RIJ catheter. Second treatment was completed 03/15/16 with improved Qb and no complications. HD permcath was placed by Dr. Murphy on 03/16/16. A third hemodialysis treatment was completed yesterday. VISHAL attributed to ATN at this time in the setting of UTI, hypotension and ACEi use. Steffany had persistent hypoglycemia related to sulfonylurea toxicity. Random cortisol was 18. She was hyperkalemic due to VISHAL. Stigmata of CKD include hyperphosphatemia as well as renal cortical atrophy on imaging. TTE demonstrated normal LV size and systolic function with grade 1 diastolic dysfunction and normal IVC. There was no significant valvular heart disease. Renal US did not reveal any post renal etiology to VISHAL such as calculi, mass or hydronephrosis. Renal arterial duplex was suboptimal but documented acceptable flow bilaterally. Urinalysis w/ 1+ protein, 1+ glucose. Urine microscopy w/ hyaline casts and pyuria. SPEP/immunofixation pending. Recommendations ACUTE KIDNEY INJURY: -- Volume status acceptable -- Metabolic profile within normal limits -- Limited evidence of renal recovery -- Plan next HD treatment for tomorrow -- Document I/O's and monitor metabolic profile daily -- Bladder scan Q shift for no void and straight cath PRN -- SPEP/immunofixation pending -- Avoid ANJELICA/ARB and continue to hold metformin as well as glipizide -- Medications appropriately dosed for renal function Anemia: -- Patient transfused one unit PRBC since admission -- No signs of active bleeding. NG lavage without signs of UGIB -- Continue to monitor H/H Citrobacter UTI: -- Ceftriaxone day #5 Mental status changes: -- Neurology consult reviewed this morning -- Suspected metabolic and no other concerning features at this time
[2017-03-18 14:02] LABS: SODIUM RANDOM URINE 41 mEq/L
[2017-03-18 14:07] LABS: OSMOLALITY,URINE 202 mOms/kg (500-800)
[2017-03-18 15:34] VITALS: BP 151/75; PULSE 60; TEMP 36.8; O2SAT 93
[2017-03-18 19:10] VITALS: BP 137/69; PULSE 66; TEMP 36.7; O2SAT 93
[2017-03-18 23:55] VITALS: BP 152/78; PULSE 65; TEMP 36.7; O2SAT 96
[2017-03-19] VITALS (7 sets, daily range): BP systolic 137–176; BP diastolic 68–89; PULSE 60–66; TEMP 36.5–36.8; O2SAT 92–98
[2017-03-19] MEDS: HEPARIN SOD 5000 UNIT/0.5 ML CARP SC SCH ×3 (05:22→22:44)
[2017-03-19 07:01] LABS: HEMATOCRIT 27.5 % (37-47); HEMOGLOBIN 9.2 g/dL (12.0-16.0); MEAN CELL VOLUME 88.7 fL (80-100); MEAN CORPUSCULAR HEMOGLOBIN 29.7 pg (25-34); MEAN CORPUSCULAR HGB CONC 33.5 g/dl (32-36); MEAN PLATELET VOLUME 8.9 fL (7.4-10.4); PLATELET COUNT 231 K/uL (130-400); RED CELL DISTRIBUTION WIDTH CV 12.5 % (11.5-14.5); RED CELL DISTRIBUTION WIDTH SD 40.3 fL (36.4-46.3); WHITE BLOOD COUNT 8.61 K/uL (4.8-10.8)
[2017-03-19 07:35] LABS: CALCIUM 8.4 mg/dl (8.5-10.1); CREATININE 7.61 mg/dl (0.60-1.20); POTASSIUM 4.6 mmol/L (3.5-5.1)
--- NOTE | 2017-03-19 07:35 | Anesthesiology Progress Note ---
Anesthesia Post Op Note Date & Time Mar 19, 2017 at 07:35 Vital Signs Vital Signs Past 12 Hours Date Time Temp Pulse Resp B/P (MAP) Pulse Ox O2 Delivery O2 Flow Rate FiO2 03/19/17 04:23 Room Air 03/19/17 04:18 36.6 63 18 163/82 (109) 92 Room Air 03/19/17 00:05 Room Air 03/18/17 23:55 36.7 65 19 152/78 (102) 96 Room Air 03/18/17 20:00 Room Air Notes Mental Status: alert / awake / arousable, participated in evaluation Pt Amnestic to Procedure: Yes Nausea / Vomiting: adequately controlled Pain: adequately controlled Airway Patency, RR, SpO2: stable & adequate BP & HR: stable & adequate Hydration State: stable & adequate Anesthetic Complications: no major complications apparent
[2017-03-19 07:55] LABS: PHOSPHORUS 8.3 mg/dl (2.5-4.9)
[2017-03-19] MEDS: GABAPENTIN 100 MG CAP PO SCH ×2 (09:15→15:03)
[2017-03-19] MEDS: INSULIN ASPART 100 UNITS/ML 3 ML PEN SC SCH ×4 (09:18→21:00)
[2017-03-19] MEDS ORDERED: EPOETIN ALFA 10,000 UNITS/ML VIAL IV SCH (10:00)
--- NOTE | 2017-03-19 11:58 | Nephrology Progress Note ---
Nephrology Progress Note Date of Service Mar 19, 2017. Chief Complaint F/U for Dialysis requiring VISHAL Subjective Steffany was seen and examined this morning with and daughter At bedside. She is overall feeling well, denies any symptoms. Had dialysis on Sunday however creatinine continues to rise rapidly over last 2 days. She started to make urine and may need more than 400 mL overnight. Electrolyte remain acceptable at this time. Blood pressure stable. Review of Systems A complete review of systems was performed. Pertinent positives are noted above. All other systems are negative. Vital Signs Last 8 Hrs Date Time Temp Pulse Resp B/P (MAP) Pulse Ox O2 Delivery O2 Flow Rate FiO2 03/19/17 10:11 66 94 03/19/17 08:00 Room Air 03/19/17 07:52 36.5 60 18 155/72 (99) 98 Room Air 03/19/17 04:23 Room Air 03/19/17 04:18 36.6 63 18 163/82 (109) 92 Room Air Last Recorded Weight Weight (Kilograms): 110.300 Physical Exam GENERAL: Elderly female , AAA x 3, pleasant, healthy-appearing, not in any distress. NECK: Supple, no JVD. RESPIRATORY: Normal breathing efforts, no accessory muscle use, crackles b/l at bases, no wheezes. CARDIOVASCULAR: S1, S2 normal, rate rhythm regular. EXTREMITY: No lower extremity edema NEURO: speech fluent. PSYCHIATRY: Normal mood and judgment Family History Lung Cancer Negative for CKD / ESRD Social History Smoking Status: Unknown if ever smoked Smokeless Tobacco Use: No Alcohol Use: none Drug Use: none Occupation: retired , retired, never a smoker. Laboratory Results Past 24 Hours 03/19/17 06:28 03/19/17 06:28 Test 03/18/17 13:30 03/18/17 16:23 03/18/17 20:30 03/19/17 06:28 Urine Osmolality 202 mOms/kg (500-800) Urine Random Sodium 41 mEq/L Bedside Glucose 84 mg/dl (70-90) 172 mg/dl (70-90) Red Blood Count 3.10 M/uL (4.2-5.4) Mean Corpuscular Volume 88.7 fL (80-100) Mean Corpuscular Hemoglobin 29.7 pg (25-34) Mean Corpuscular Hemoglobin Concent 33.5 g/dl (32-36) RDW Standard Deviation 40.3 fL (36.4-46.3) RDW Coefficient of Variation 12.5 % (11.5-14.5) Mean Platelet Volume 8.9 fL (7.4-10.4) Anion Gap 12.0 mmol/L (3-11) Est Creatinine Clear Calc Drug Dose 8.7 ml/min Estimated GFR () 5.6 Estimated GFR (Non- 4.9 BUN/Creatinine Ratio 6.6 (10-20) Calcium Level 8.4 mg/dl (8.5-10.1) Phosphorus Level 8.3 mg/dl (2.5-4.9) Magnesium Level 2.3 mg/dl (1.8-2.4) Iron Level 83 mcg/dl (35-150) Total Iron Binding Capacity 260 mcg/dl (250-450) Transferrin 196 mg/dl (200-360) Transferrin % Saturation 30 % (15-50) Ferritin 114.6 ng/ml (8.0-388.0) Test 03/19/17 06:45 Bedside Glucose 99 mg/dl (70-90) Allergies Coded Allergies: No Known Allergies (Unverified , 03/13/17) Medications Current Inpatient Medications Medications (Trade) Dose Ordered Sig/Shayan Route Start Time Stop Time Status Last Admin Dose Admin Acetaminophen (Tylenol Tab) 650 mg Q4H PRN PO 03/13/17 15:45 04/12/17 15:44 03/17/17 17:55 650 MG Al Hydrox/Mg Hydrox/Simethicone (Maalox Max Susp) 15 ml Q4H PRN PO 03/13/17 15:45 04/12/17 15:44 Magnesium Hydroxide (Milk Of Magnesia Susp) 30 ml Q12H PRN PO 03/13/17 15:45 04/12/17 15:44 Ondansetron HCl (Zofran Inj) 4 mg Q6H PRN IV 03/13/17 15:45 04/12/17 15:44 03/17/17 16:04 4 MG Polyethylene (Miralax Powder Packet) 17 gm DAILY PRN PO 03/13/17 15:45 04/12/17 15:44 Glucose (Glucose 40% Gel) 15-30 GRAMS 15 GRAMS... UD PRN PO 03/13/17 15:45 04/12/17 15:44 Glucose (Glucose Chew Tab) 4-8 Tablets 4 Tabl... UD PRN PO 03/13/17 15:45 04/12/17 15:44 Dextrose (Dextrose 50% 50ML Syringe) 25-50ML OF 50% DW IV FOR... UD PRN IV 03/13/17 15:45 04/12/17 15:44 03/17/17 06:12 50 ML Glucagon (Glucagon Inj) 1 mg UD PRN SQ 03/13/17 15:45 04/12/17 15:44 Heparin Sodium (Porcine) (Heparin Sq 5000 Unit/0.5ml) 5,000 unit Q8 SC 03/14/17 14:00 04/13/17 13:59 03/19/17 05:22 5,000 UNIT Gabapentin (Neurontin Cap) 200 mg QAM PO 03/15/17 09:00 04/14/17 08:59 03/19/17 09:15 200 MG Insulin Aspart (novoLOG ASPART) SLIDING SCALE If C... ACHS SC 03/15/17 11:00 04/13/17 11:59 03/19/17 09:18 1 UNITS Gabapentin (Neurontin Cap) Give extra 200mg after complet... DAILY@1400 PO 03/16/17 14:00 04/14/17 13:59 03/17/17 14:10 100 MG Lorazepam (Ativan Inj) 1 mg Q4H PRN IV 03/16/17 17:15 04/15/17 17:14 Calcium Acetate (Phoslo Cap) 667 mg TIDM PO 03/19/17 11:30 04/18/17 11:29 Vitamin B Complex/ Vit C/Folic Acid (Nephrocaps) 1 cap QAM PO 03/20/17 09:00 04/19/17 08:59 Epoetin Tee (Procrit Inj) 10,000 units TODAY@1000 IV 03/19/17 10:00 03/19/17 14:00 Impression (1) Acute renal insufficiency (2) Dehydration (3) Diabetes mellitus type 2 (4) Peripheral neuropathy Mrs. Walter Gresham is an obese 71-year-old female with DMII, hypertension, peripheral neuropathy and CKD. Steffany suffered and episode of VISHAL in 2011 following BEBE. VISHAL was attributed to ATN. Patient required one dialysis treatment and subsequently recovered. She has not maintained outpatient Nephrology follow up (last visit 2012). Creatinine improved to a baseline of approximately 1.3 mg/dL. Steffany presented to [facility] on March 13 with mental status changes as well as oligoanuric VISHAL requiring [employer] DEVEL[employer]. Her first hemodialysis treatment was completed on 03/14/16. The treatment was complicated by intradialytic hypotension and poor Qb via RIJ catheter. Second treatment was completed 03/15/16 with improved Qb and no complications. HD permcath was placed by Dr. Murphy on 03/16/16. A third hemodialysis treatment was completed yesterday. VISHAL attributed to ATN at this time in the setting of UTI, hypotension and ACEi use. Steffany had persistent hypoglycemia related to sulfonylurea toxicity. Random cortisol was 18. She was hyperkalemic due to VISHAL. Stigmata of CKD include hyperphosphatemia as well as renal cortical atrophy on imaging. TTE demonstrated normal LV size and systolic function with grade 1 diastolic dysfunction and normal IVC. There was no significant valvular heart disease. Renal US did not reveal any post renal etiology to VISHAL such as calculi, mass or hydronephrosis. Renal arterial duplex was suboptimal but documented acceptable flow bilaterally. Urinalysis w/ 1+ protein, 1+ glucose. Urine microscopy w/ hyaline casts and pyuria. SPEP/immunofixation pending. Recommendations --Overall otherwise doing well, electrolyte profile acceptable however creatinine continues to rise post dialysis, although started to make urine more but no clear sign of renal recovery yet. --will refer for outpatient dialysis at [facility] while continue to monitor for renal recovery. -- Plan next HD treatment for tomorrow via tunnel dialysis catheter. If no sign of renal renal recovery in next 1-2 weeks, considering dense ATN we may have to conclude that patient is end-stage renal disease and in that case will refer for AV fistula placement. -- Document I/O's and monitor metabolic profile daily -- Avoid ANJELICA/ARB and continue to hold metformin as well as glipizide -- Medications appropriately dosed for renal function --start on PhosLo 1 tablet 3 times with each meal --Nephrocaps daily --check iron study, give Epogen [id number] units x1 dose today --discussed the plan in detail with patient, her and daughter at bedside who verbalized understanding and agreed to the above plan.
[2017-03-19] MEDS: CALCIUM ACETATE 667MG GELCAP PO SCH ×2 (12:28→16:45)
--- NOTE | 2017-03-19 22:26 | Family Medicine Progress Note ---
Progress Note Date of Service Mar 19, 2017. Subjective Pt evaluation today including: conversation w/ patient, physical exam, chart review, lab review, review of inpatient medication list Pain: Patient declines pain today PO Intake: Tolerating PO diet well Voiding: no voiding problems Patient is feeling well today, and is eager to go home Constitutional: No fever, No chills, No sweats, No weight loss, No weakness , No fatigue, No problem reported Respiratory: + dyspnea on exertion Cardiovascular: No chest pain, No orthopnea, No PND, No edema, No claudication, No palpitations, No problem reported Abdomen: No pain, No nausea, No vomiting, No diarrhea, No constipation, No GI bleeding, No problem reported Musculoskeletal: + joint pain All Other Systems: Reviewed and Negative Medications Current Inpatient Medications Medications (Trade) Dose Ordered Sig/Shayan Route Start Time Stop Time Status Last Admin Dose Admin Acetaminophen (Tylenol Tab) 650 mg Q4H PRN PO 03/13/17 15:45 04/12/17 15:44 03/17/17 17:55 650 MG Al Hydrox/Mg Hydrox/Simethicone (Maalox Max Susp) 15 ml Q4H PRN PO 03/13/17 15:45 04/12/17 15:44 Magnesium Hydroxide (Milk Of Magnesia Susp) 30 ml Q12H PRN PO 03/13/17 15:45 04/12/17 15:44 Ondansetron HCl (Zofran Inj) 4 mg Q6H PRN IV 03/13/17 15:45 04/12/17 15:44 03/17/17 16:04 4 MG Polyethylene (Miralax Powder Packet) 17 gm DAILY PRN PO 03/13/17 15:45 04/12/17 15:44 Glucose (Glucose 40% Gel) 15-30 GRAMS 15 GRAMS... UD PRN PO 03/13/17 15:45 04/12/17 15:44 Glucose (Glucose Chew Tab) 4-8 Tablets 4 Tabl... UD PRN PO 03/13/17 15:45 04/12/17 15:44 Dextrose (Dextrose 50% 50ML Syringe) 25-50ML OF 50% DW IV FOR... UD PRN IV 03/13/17 15:45 04/12/17 15:44 03/17/17 06:12 50 ML Glucagon (Glucagon Inj) 1 mg UD PRN SQ 03/13/17 15:45 04/12/17 15:44 Heparin Sodium (Porcine) (Heparin Sq 5000 Unit/0.5ml) 5,000 unit Q8 SC 03/14/17 14:00 04/13/17 13:59 03/19/17 15:05 5,000 UNIT Gabapentin (Neurontin Cap) 200 mg QAM PO 03/15/17 09:00 04/14/17 08:59 03/19/17 09:15 200 MG Insulin Aspart (novoLOG ASPART) SLIDING SCALE If C... ACHS SC 03/15/17 11:00 04/13/17 11:59 03/19/17 17:10 3 UNITS Gabapentin (Neurontin Cap) Give extra 200mg after complet... DAILY@1400 PO 03/16/17 14:00 04/14/17 13:59 03/19/17 15:03 200 MG Lorazepam (Ativan Inj) 1 mg Q4H PRN IV 03/16/17 17:15 04/15/17 17:14 Calcium Acetate (Phoslo Cap) 667 mg TIDM PO 03/19/17 11:30 04/18/17 11:29 03/19/17 12:28 667 MG Vitamin B Complex/ Vit C/Folic Acid (Nephrocaps) 1 cap QAM PO 03/20/17 09:00 04/19/17 08:59 Objective Vital Signs Date Time Temp Pulse Resp B/P (MAP) Pulse Ox O2 Delivery O2 Flow Rate FiO2 03/19/17 19:12 36.8 64 18 176/82 (113) 93 Room Air 03/19/17 16:00 Room Air 03/19/17 15:20 36.6 64 18 144/68 (93) 95 Room Air 03/19/17 12:00 Room Air 03/19/17 11:56 36.6 61 18 156/89 (111) 95 03/19/17 10:11 66 94 03/19/17 08:00 Room Air 03/19/17 07:52 36.5 60 18 155/72 (99) 98 Room Air 03/19/17 04:23 Room Air 03/19/17 04:18 36.6 63 18 163/82 (109) 92 Room Air 03/19/17 00:05 Room Air 03/18/17 23:55 36.7 65 19 152/78 (102) 96 Room Air Physical Exam General Appearance: WD/WN, no apparent distress Eyes: normal inspection, PERRL, EOMI, sclerae normal ENT: normal ENT inspection, hearing grossly normal, pharynx normal Neck: supple, no JVD, no carotid bruits, trachea midline Respiratory/Chest: chest non-tender, no respiratory distress, no accessory muscle use, + crackles (LL bilat) Cardiovascular: no edema, + systolic murmur Abdomen: normal bowel sounds, non tender, soft Extremities: non-tender, normal inspection, no pedal edema Neurologic/Psychiatric: care coordination manager II-XII nml as tested, no motor/sensory deficits, alert, normal mood/affect, oriented x 3 Skin: normal color, warm/dry Laboratory Results Last Resulted 03/19/17 06:28 Last Resulted 03/19/17 06:28 Assessment and Plan Ms. Gresham is a 71 y/o female with PMHx of T2DM with Peripheral Neuropathy, HTN , Previous VISHAL (Required Temporary Hemodialysis) who presents to the ED c/o generalized weakness and LE weakness after sudden fall, sudden onset of emesis 6 (black in color). Acute Kidney Injury 2/2 Acute Tubular Necrosis - Improving urine output - 700ml today but No improvement in renal function. - Cr worsened from 6.08 to 7.61 - Nephrology following - HD scheduled again for tomorrow - continue to monitor BMP and I/Os - renal U/S - No calculi, mass or hydronephrosis, no evidence of renal artery stenosis on Doppler US - continue to hold gabapentin, lisinopril and metformin - SPEP/immunofixation not indicative of monoclonal gammopathy - TDC placed 03/16/16 - Baseline Cr 1.3; per nephro this may be her progression further into CKD: Stigmata of CKD include hyperphosphatemia as well as renal cortical atrophy on imaging. - VISHAL attributed to ATN at this time in the setting of UTI, hypotension and ACEi use. - Patient had persistent hypoglycemia related to sulfonylurea toxicity. Random cortisol was 18. Acute Metabolic Encephalopathy likely secondary to uremia - resolved myoclonic jerking movement - this AM - fully alert and oriented - CT head no acute IC pathology - thank you to neurology for consult - AMS and myoclonus likely secondary to VISHAL - now resolved - future concerns for AMS - could consider B12, thiamine levels, tox screen , EEG, and MRI of the brain. Increased phosphate - phosphate level 8.3 today, increased from 7.6 yesterday - on phoslo - will continue to monitor Hypoxia requiring O2 3 L NC - resolved - Developed pulm edema s/p transfusion - Repeat CXR improved pulm vasc congestion, no consolidation - 97% on room air Acute Anemia: Black Emesis - Hgb stable at 9.3, continue to monitor, fluctuates around 9-10 - transfused 1 unit pRBC on 03/13/17 UTI - culture - citrobacter koseri - Finished course of rocephin T2DM with Peripheral Neuropathy - hypoglycemic episodes - HgbA1c - 7.5 - previously was having hypoglycemic episodes - appetite has returned and her sugar levels have increased to 85-146 today - Hold home metformin and cover with SSI DVT Prophylaxis: Heparin Code Status: Full Disposition: remains on telemetry Resident Tracking Resident Involvement: Resident Care Provided Care Provided: Adult Hospital Medicine Reviewed: Pt Seen/Exam by Me History denies any concerns Constitutional: denies: fever Respiratory: negative: short of breath Cardiovascular: denies chest pain General Appearance: no apparent distress (comfortable in bed) Respiratory: lungs clear, no respiratory distress Cardiovascular: regular rate, rhythm Neurologic/Psychiatric: alert, oriented x 3 Skin Characteristics: warm/dry Assessment/Plan Resident Physician Supervision Note: I independently interviewed and examined the patient and verified the hanley history and physical, reviewed labs and image studies, discussed the case with the resident Dr. Robles and agree with the findings and care plan.
[2017-03-20] VITALS (21 sets, daily range): BP systolic 129–162; BP diastolic 61–86; PULSE 55–86; TEMP 36.1–36.9; O2SAT 96–99
[2017-03-20] MEDS: HEPARIN SOD 5000 UNIT/0.5 ML CARP SC SCH ×3 (06:32→22:20)
[2017-03-20] MEDS: CALCIUM ACETATE 667MG GELCAP PO SCH ×5 (08:02→20:40)
[2017-03-20] MEDS: INSULIN ASPART 100 UNITS/ML 3 ML PEN SC SCH ×4 (08:16→20:44)
[2017-03-20] MEDS: NEPHROCAPS PO SCH (08:16)
[2017-03-20] MEDS: GABAPENTIN 100 MG CAP PO SCH ×2 (08:16→20:20)
[2017-03-20 09:19] LABS: CREATININE 8.89 mg/dl (0.60-1.20); POTASSIUM 4.6 mmol/L (3.5-5.1)
--- NOTE | 2017-03-20 10:54 | Nephrology Progress Note ---
Nephrology Progress Note Date of Service Mar 20, 2017. Chief Complaint F/U for Dialysis requiring VISHAL Subjective Steffany was seen and examined this morning. She is overall feeling well, denies any symptoms. Had dialysis on Sunday however creatinine continues to rise rapidly over last 3 days. Urine output improve significantly and maid more than 1 L overnight. Electrolyte remain acceptable at this time. Blood pressure stable. Review of Systems A complete review of systems was performed. Pertinent positives are noted above. All other systems are negative. Vital Signs Last 8 Hrs Date Time Temp Pulse Resp B/P (MAP) Pulse Ox O2 Delivery O2 Flow Rate FiO2 03/20/17 08:00 Room Air 03/20/17 07:58 36.9 86 16 138/69 (92) 99 03/20/17 04:00 Room Air 03/20/17 03:40 36.4 55 20 129/67 (87) 96 Room Air Last Recorded Weight Weight (Kilograms): 109.400 Physical Exam GENERAL: Elderly female, AAA x 3, pleasant, healthy-appearing, not in any distress. NECK: Supple, no JVD. RESPIRATORY: Normal breathing efforts, no accessory muscle use, clear to auscultation bilaterally, no wheezes or rales. CARDIOVASCULAR: S1, S2 normal, rate rhythm regular. EXTREMITY: No lower extremity edema NEURO: speech fluent. PSYCHIATRY: Normal mood and judgment Family History Lung Cancer Negative for CKD / ESRD Social History Smoking Status: Unknown if ever smoked Smokeless Tobacco Use: No Alcohol Use: none Drug Use: none Occupation: retired , retired, never a smoker. Laboratory Results Past 24 Hours 03/20/17 08:24 Test 03/19/17 11:29 03/19/17 16:23 03/19/17 20:18 03/20/17 06:48 Bedside Glucose 162 mg/dl (70-90) 109 mg/dl (70-90) 153 mg/dl (70-90) 133 mg/dl (70-90) Test 03/20/17 08:24 Anion Gap 12.0 mmol/L (3-11) Est Creatinine Clear Calc Drug Dose 7.4 ml/min Estimated GFR () 4.7 Estimated GFR (Non- 4.0 BUN/Creatinine Ratio 6.9 (10-20) Calcium Level 9.0 mg/dl (8.5-10.1) Allergies Coded Allergies: No Known Allergies (Unverified , 03/13/17) Medications Current Inpatient Medications Medications (Trade) Dose Ordered Sig/Shayan Route Start Time Stop Time Status Last Admin Dose Admin Acetaminophen (Tylenol Tab) 650 mg Q4H PRN PO 03/13/17 15:45 04/12/17 15:44 03/17/17 17:55 650 MG Al Hydrox/Mg Hydrox/Simethicone (Maalox Max Susp) 15 ml Q4H PRN PO 03/13/17 15:45 04/12/17 15:44 Magnesium Hydroxide (Milk Of Magnesia Susp) 30 ml Q12H PRN PO 03/13/17 15:45 04/12/17 15:44 Ondansetron HCl (Zofran Inj) 4 mg Q6H PRN IV 03/13/17 15:45 04/12/17 15:44 03/17/17 16:04 4 MG Polyethylene (Miralax Powder Packet) 17 gm DAILY PRN PO 03/13/17 15:45 04/12/17 15:44 Glucose (Glucose 40% Gel) 15-30 GRAMS 15 GRAMS... UD PRN PO 03/13/17 15:45 04/12/17 15:44 Glucose (Glucose Chew Tab) 4-8 Tablets 4 Tabl... UD PRN PO 03/13/17 15:45 04/12/17 15:44 Dextrose (Dextrose 50% 50ML Syringe) 25-50ML OF 50% DW IV FOR... UD PRN IV 03/13/17 15:45 04/12/17 15:44 03/17/17 06:12 50 ML Glucagon (Glucagon Inj) 1 mg UD PRN SQ 03/13/17 15:45 04/12/17 15:44 Heparin Sodium (Porcine) (Heparin Sq 5000 Unit/0.5ml) 5,000 unit Q8 SC 03/14/17 14:00 04/13/17 13:59 03/20/17 06:32 5,000 UNIT Gabapentin (Neurontin Cap) 200 mg QAM PO 03/15/17 09:00 04/14/17 08:59 03/20/17 08:16 200 MG Insulin Aspart (novoLOG ASPART) SLIDING SCALE If C... ACHS SC 03/15/17 11:00 04/13/17 11:59 03/20/17 08:16 3 UNITS Gabapentin (Neurontin Cap) Give extra 200mg after complet... DAILY@1400 PO 03/16/17 14:00 04/14/17 13:59 03/19/17 15:03 200 MG Lorazepam (Ativan Inj) 1 mg Q4H PRN IV 03/16/17 17:15 04/15/17 17:14 Calcium Acetate (Phoslo Cap) 667 mg TIDM PO 03/19/17 11:30 04/18/17 11:29 03/20/17 08:02 667 MG Vitamin B Complex/ Vit C/Folic Acid (Nephrocaps) 1 cap QAM PO 03/20/17 09:00 04/19/17 08:59 03/20/17 08:16 1 CAP Impression (1) Acute renal insufficiency (2) Dehydration (3) Diabetes mellitus type 2 (4) Peripheral neuropathy Mrs. Walter Gresham is an obese 71-year-old female with DMII, hypertension, peripheral neuropathy and CKD. Steffany suffered and episode of VISHAL in 2011 following BEBE. VISHAL was attributed to ATN. Patient required one dialysis treatment and subsequently recovered. She has not maintained outpatient Nephrology follow up (last visit 2012). Creatinine improved to a baseline of approximately 1.3 mg/dL. 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 Her first hemodialysis treatment was completed on 03/14/16. The treatment was complicated by intradialytic hypotension and poor Qb via RIJ catheter. Second treatment was completed 03/15/16 with improved Qb and no complications. HD permcath was placed by Dr. Murphy on 03/16/16. A third hemodialysis treatment was completed yesterday. VISHAL attributed to ATN at this time in the setting of UTI, hypotension and ACEi use. Steffany had persistent hypoglycemia related to sulfonylurea toxicity. Random cortisol was 18. She was hyperkalemic due to VISHAL. Stigmata of CKD include hyperphosphatemia as well as renal cortical atrophy on imaging. TTE demonstrated normal LV size and systolic function with grade 1 diastolic dysfunction and normal IVC. There was no significant valvular heart disease. Renal US did not reveal any post renal etiology to VISHAL such as calculi, mass or hydronephrosis. Renal arterial duplex was suboptimal but documented acceptable flow bilaterally. Urinalysis w/ 1+ protein, 1+ glucose. Urine microscopy w/ hyaline casts and pyuria. SPEP/immunofixation pending. Recommendations --Plan for 4 hours dialysis today as creatinine continues to rise off of dialysis although urine output has been improving. --referral made for outpatient dialysis at [facility] while continue to monitor for renal recovery. -- Document I/O's and monitor metabolic profile daily -- Avoid ANJELICA/ARB and continue to hold metformin as well as glipizide -- Medications appropriately dosed for renal function --on PhosLo 1 tablet 3 times with each meal --Nephrocaps daily -- Epogen 57232 units x1 dose Given on 03/19/2017, has adequate iron store --can be discharged once patient has outpatient dialysis spot setup
--- NOTE | 2017-03-20 21:40 | Family Medicine Progress Note ---
Progress Note Date of Service Mar 20, 2017. Subjective Pt evaluation today including: conversation w/ patient, physical exam, chart review, lab review, review of inpatient medication list Pain: Declines pain today PO Intake: tolerating well Voiding: no voiding problems Patient reports increased urine output, she is eager to leave hospital Constitutional: No fever, No chills, No sweats, No weight loss, No weakness , No fatigue, No problem reported Respiratory: + dyspnea on exertion, No cough, No sputum, No wheezing, No shortness of breath, No dyspnea at rest, No hemoptysis, No problem reported Musculoskeletal: + joint pain Female : No dysuria, No urinary frequency, No hematuria, No incontinence, No abnormal vaginal bleeding, No vaginal discharge, No problem reported Neurologic: No memory loss, No paralysis, No weakness, No numbness/tingling , No vertigo, No balance problems, No problem reported Skin: No rash, No itch, No new/changing skin lesions, No color change, No bleeding, No problem reported All Other Systems: Reviewed and Negative Medications Current Inpatient Medications Medications (Trade) Dose Ordered Sig/Shayan Route Start Time Stop Time Status Last Admin Dose Admin Acetaminophen (Tylenol Tab) 650 mg Q4H PRN PO 03/13/17 15:45 04/12/17 15:44 03/17/17 17:55 650 MG Al Hydrox/Mg Hydrox/Simethicone (Maalox Max Susp) 15 ml Q4H PRN PO 03/13/17 15:45 04/12/17 15:44 Magnesium Hydroxide (Milk Of Magnesia Susp) 30 ml Q12H PRN PO 03/13/17 15:45 04/12/17 15:44 Ondansetron HCl (Zofran Inj) 4 mg Q6H PRN IV 03/13/17 15:45 04/12/17 15:44 03/17/17 16:04 4 MG Polyethylene (Miralax Powder Packet) 17 gm DAILY PRN PO 03/13/17 15:45 04/12/17 15:44 Glucose (Glucose 40% Gel) 15-30 GRAMS 15 GRAMS... UD PRN PO 03/13/17 15:45 04/12/17 15:44 Glucose (Glucose Chew Tab) 4-8 Tablets 4 Tabl... UD PRN PO 03/13/17 15:45 04/12/17 15:44 Dextrose (Dextrose 50% 50ML Syringe) 25-50ML OF 50% DW IV FOR... UD PRN IV 03/13/17 15:45 04/12/17 15:44 03/17/17 06:12 50 ML Glucagon (Glucagon Inj) 1 mg UD PRN SQ 03/13/17 15:45 04/12/17 15:44 Heparin Sodium (Porcine) (Heparin Sq 5000 Unit/0.5ml) 5,000 unit Q8 SC 03/14/17 14:00 04/13/17 13:59 03/20/17 14:55 5,000 UNIT Gabapentin (Neurontin Cap) 200 mg QAM PO 03/15/17 09:00 04/14/17 08:59 03/20/17 08:16 200 MG Insulin Aspart (novoLOG ASPART) SLIDING SCALE If C... ACHS SC 03/15/17 11:00 04/13/17 11:59 03/20/17 20:44 4 UNITS Gabapentin (Neurontin Cap) Give extra 200mg after complet... DAILY@1400 PO 03/16/17 14:00 04/14/17 13:59 03/20/17 20:20 200 MG Lorazepam (Ativan Inj) 1 mg Q4H PRN IV 03/16/17 17:15 04/15/17 17:14 Calcium Acetate (Phoslo Cap) 667 mg TIDM PO 03/19/17 11:30 04/18/17 11:29 03/20/17 20:40 667 MG Vitamin B Complex/ Vit C/Folic Acid (Nephrocaps) 1 cap QAM PO 03/20/17 09:00 04/19/17 08:59 03/20/17 08:16 1 CAP Objective Vital Signs Date Time Temp Pulse Resp B/P (MAP) Pulse Ox O2 Delivery O2 Flow Rate FiO2 03/20/17 19:15 36.1 63 161/75 (103) 03/20/17 19:15 62 159/61 03/20/17 19:00 63 156/64 03/20/17 18:45 63 162/83 03/20/17 18:30 59 155/71 03/20/17 18:15 73 146/71 03/20/17 18:00 63 135/78 03/20/17 17:45 63 152/75 03/20/17 17:30 64 150/76 03/20/17 17:15 60 154/75 03/20/17 17:00 61 159/75 03/20/17 16:45 60 153/74 03/20/17 16:30 60 153/73 03/20/17 16:15 59 139/76 03/20/17 16:00 Room Air 03/20/17 16:00 55 143/66 03/20/17 15:45 62 144/72 03/20/17 15:45 36.1 59 157/79 (105) 03/20/17 12:09 36.7 75 16 129/65 (86) 98 03/20/17 12:00 Room Air 03/20/17 08:00 Room Air 03/20/17 07:58 36.9 86 16 138/69 (92) 99 03/20/17 04:00 Room Air 03/20/17 03:40 36.4 55 20 129/67 (87) 96 Room Air 03/20/17 00:01 Room Air 03/19/17 23:40 36.6 60 22 137/74 (95) 94 Room Air Physical Exam General Appearance: WD/WN, no apparent distress Eyes: normal inspection, PERRL, EOMI, sclerae normal ENT: hearing grossly normal, pharynx normal Neck: supple, no adenopathy, thyroid normal, no JVD Respiratory/Chest: chest non-tender, no respiratory distress, no accessory muscle use, + crackles (LLBL) Cardiovascular: regular rate, rhythm, no edema, no gallop, no JVD, + systolic murmur Abdomen: normal bowel sounds, non tender, soft, no organomegaly Extremities: normal range of motion, no pedal edema, no calf tenderness 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 Gresham is a 71 y/o female with PMHx of T2DM with Peripheral Neuropathy, HTN , Previous VISHAL (Required Temporary Hemodialysis) who presents to the ED c/o generalized weakness and LE weakness after sudden fall, sudden onset of emesis 6 (black in color). Acute Kidney Injury 2/2 Acute Tubular Necrosis - Improving urine output but Cr worsened from 7.61 to 8.09 - Nephrology following - HD today for 4 hours - renal U/S - No calculi, mass or hydronephrosis, no evidence of renal artery stenosis on Doppler US - continue to hold gabapentin, lisinopril and metformin - SPEP/immunofixation not indicative of monoclonal gammopathy - TDC placed 03/16/16 - Baseline Cr 1.3; per nephro this may be her progression further into CKD: Stigmata of CKD include hyperphosphatemia as well as renal cortical atrophy on imaging. - VISHAL attributed to ATN at this time in the setting of UTI, hypotension and ACEi use. - Patient had persistent hypoglycemia related to sulfonylurea toxicity. Random cortisol was 18. Acute Metabolic Encephalopathy likely secondary to uremia - resolved - CT head no acute IC pathology - neurology consulted - AMS and myoclonus likely secondary to VISHAL - now resolved - future concerns for AMS - could consider B12, thiamine levels, tox screen , EEG, and MRI of the brain. Hyperphosphatemia - phosphate level 8.3 yesterday, recheck tomorrow - on phoslo - will continue to monitor Hypoxia requiring O2 3 L NC - resolved - Developed pulm edema s/p transfusion - Repeat CXR improved pulm vasc congestion, no consolidation - 98% on room air Acute Anemia: Black Emesis - Hgb stable at 9.3, continue to monitor, fluctuates around 9-10 - transfused 1 unit pRBC on 03/13/17 UTI - culture - citrobacter koseri - Finished course of rocephin T2DM with Peripheral Neuropathy - hypoglycemic episodes - HgbA1c - 7.5 - previously was having hypoglycemic episodes - appetite has returned and her sugar levels have increased to 85-146 today - Hold home metformin and cover with SSI DVT Prophylaxis: Heparin Code Status: Full Disposition: remains on telemetry, discharge when outpatient dialysis set up Resident Tracking Resident Involvement: Resident Care Provided Care Provided: Adult Hospital Medicine Reviewed: Pt Seen/Exam by Me History no concerns. sitting comfortably in chair Constitutional: denies: fever Respiratory: negative: short of breath Cardiovascular: denies chest pain General Appearance: no apparent distress Respiratory: lungs clear, no respiratory distress Cardiovascular: regular rate, rhythm Gastrointestinal: soft Neurologic/Psychiatric: alert, oriented x 3 Skin Characteristics: warm/dry Assessment/Plan Resident Physician Supervision Note: I independently interviewed and examined the patient and verified the hanley history and physical, reviewed labs and image studies, discussed the case with the resident Dr. Robles and agree with the findings and care plan.
[2017-03-21] VITALS (8 sets, daily range): BP systolic 114–150; BP diastolic 65–77; PULSE 57–82; TEMP 36.6–36.9; O2SAT 93–96
[2017-03-21] MEDS: ACETAMINOPHEN 325 MG TAB PO PRN (00:06)
[2017-03-21 06:00] LABS: HEMATOCRIT 27.8 % (37-47); HEMOGLOBIN 9.4 g/dL (12.0-16.0); MEAN CELL VOLUME 89.7 fL (80-100); MEAN CORPUSCULAR HEMOGLOBIN 30.3 pg (25-34); MEAN CORPUSCULAR HGB CONC 33.8 g/dl (32-36); MEAN PLATELET VOLUME 8.7 fL (7.4-10.4); PLATELET COUNT 234 K/uL (130-400); RED CELL DISTRIBUTION WIDTH CV 12.9 % (11.5-14.5); RED CELL DISTRIBUTION WIDTH SD 41.5 fL (36.4-46.3); WHITE BLOOD COUNT 8.88 K/uL (4.8-10.8)
[2017-03-21] MEDS: HEPARIN SOD 5000 UNIT/0.5 ML CARP SC SCH ×3 (06:09→20:34)
[2017-03-21 06:35] LABS: CALCIUM 8.5 mg/dl (8.5-10.1); CREATININE 5.46 mg/dl (0.60-1.20); POTASSIUM 4.6 mmol/L (3.5-5.1)
[2017-03-21] MEDS: GABAPENTIN 100 MG CAP PO SCH ×2 (09:00→14:17)
[2017-03-21] MEDS: CALCIUM ACETATE 667MG GELCAP PO SCH ×4 (09:04→17:10)
[2017-03-21] MEDS: NEPHROCAPS PO SCH (09:04)
[2017-03-21] MEDS: INSULIN ASPART 100 UNITS/ML 3 ML PEN SC SCH ×4 (09:05→20:33)
--- NOTE | 2017-03-21 14:46 | Nephrology Progress Note ---
Nephrology Progress Note Date of Service Mar 21, 2017. Chief Complaint F/U for Dialysis requiring VISHAL Subjective Steffany was seen and examined this morning. She is overall feeling well, denies any symptoms. Had dialysis yesterday. Urine output improve significantly and made more than 1 L overnight. Electrolyte remain acceptable at this time. Blood pressure stable. Review of Systems A complete review of systems was performed. Pertinent positives are noted above. All other systems are negative. Vital Signs Last 8 Hrs Date Time Temp Pulse Resp B/P (MAP) Pulse Ox O2 Delivery O2 Flow Rate FiO2 03/21/17 07:49 36.8 82 18 114/75 (88) 96 03/21/17 04:00 95 Room Air 03/21/17 03:24 36.7 59 16 130/71 (90) 95 Room Air Last Recorded Weight Weight (Kilograms): 109.300 Physical Exam GENERAL: Elderly female, AAA x 3, pleasant, healthy-appearing, not in any distress. NECK: Supple, no JVD. RESPIRATORY: Normal breathing efforts, no accessory muscle use, clear to auscultation bilaterally, no wheezes or rales. CARDIOVASCULAR: S1, S2 normal, rate rhythm regular. EXTREMITY: No lower extremity edema NEURO: speech fluent. PSYCHIATRY: Normal mood and judgment Family History Lung Cancer Negative for CKD / ESRD Social History Smoking Status: Unknown if ever smoked Smokeless Tobacco Use: No Alcohol Use: none Drug Use: none Occupation: retired , retired, never a smoker. Laboratory Results Past 24 Hours 03/21/17 05:44 03/21/17 05:44 Test 03/20/17 11:13 03/20/17 20:23 03/21/17 05:44 03/21/17 06:27 Bedside Glucose 216 mg/dl (70-90) 128 mg/dl (70-90) 101 mg/dl (70-90) Red Blood Count 3.10 M/uL (4.2-5.4) Mean Corpuscular Volume 89.7 fL (80-100) Mean Corpuscular Hemoglobin 30.3 pg (25-34) Mean Corpuscular Hemoglobin Concent 33.8 g/dl (32-36) RDW Standard Deviation 41.5 fL (36.4-46.3) RDW Coefficient of Variation 12.9 % (11.5-14.5) Mean Platelet Volume 8.7 fL (7.4-10.4) Anion Gap 5.0 mmol/L (3-11) Est Creatinine Clear Calc Drug Dose 12.0 ml/min Estimated GFR () 8.4 Estimated GFR (Non- 7.3 BUN/Creatinine Ratio 6.1 (10-20) Calcium Level 8.5 mg/dl (8.5-10.1) Phosphorus Level 6.0 mg/dl (2.5-4.9) Allergies Coded Allergies: No Known Allergies (Unverified , 03/13/17) Medications Current Inpatient Medications Medications (Trade) Dose Ordered Sig/Shayan Route Start Time Stop Time Status Last Admin Dose Admin Acetaminophen (Tylenol Tab) 650 mg Q4H PRN PO 03/13/17 15:45 04/12/17 15:44 03/21/17 00:06 650 MG Al Hydrox/Mg Hydrox/Simethicone (Maalox Max Susp) 15 ml Q4H PRN PO 03/13/17 15:45 04/12/17 15:44 Magnesium Hydroxide (Milk Of Magnesia Susp) 30 ml Q12H PRN PO 03/13/17 15:45 04/12/17 15:44 Ondansetron HCl (Zofran Inj) 4 mg Q6H PRN IV 03/13/17 15:45 04/12/17 15:44 03/17/17 16:04 4 MG Polyethylene (Miralax Powder Packet) 17 gm DAILY PRN PO 03/13/17 15:45 04/12/17 15:44 Glucose (Glucose 40% Gel) 15-30 GRAMS 15 GRAMS... UD PRN PO 03/13/17 15:45 04/12/17 15:44 Glucose (Glucose Chew Tab) 4-8 Tablets 4 Tabl... UD PRN PO 03/13/17 15:45 04/12/17 15:44 Dextrose (Dextrose 50% 50ML Syringe) 25-50ML OF 50% DW IV FOR... UD PRN IV 03/13/17 15:45 04/12/17 15:44 03/17/17 06:12 50 ML Glucagon (Glucagon Inj) 1 mg UD PRN SQ 03/13/17 15:45 04/12/17 15:44 Heparin Sodium (Porcine) (Heparin Sq 5000 Unit/0.5ml) 5,000 unit Q8 SC 1/3/18 14:00 04/13/17 13:59 03/21/17 06:09 5,000 UNIT Gabapentin (Neurontin Cap) 200 mg QAM PO 03/15/17 09:00 04/14/17 08:59 03/20/17 08:16 200 MG Insulin Aspart (novoLOG ASPART) SLIDING SCALE If C... ACHS SC 03/15/17 11:00 04/13/17 11:59 03/21/17 09:05 1 UNITS Gabapentin (Neurontin Cap) Give extra 200mg after complet... DAILY@1400 PO 03/16/17 14:00 04/14/17 13:59 03/20/17 20:20 200 MG Lorazepam (Ativan Inj) 1 mg Q4H PRN IV 03/16/17 17:15 04/15/17 17:14 Calcium Acetate (Phoslo Cap) 667 mg TIDM PO 03/19/17 11:30 04/18/17 11:29 03/21/17 09:04 667 MG Vitamin B Complex/ Vit C/Folic Acid (Nephrocaps) 1 cap QAM PO 03/20/17 09:00 04/19/17 08:59 03/21/17 09:04 1 CAP Impression (1) Acute renal insufficiency (2) Dehydration (3) Diabetes mellitus type 2 (4) Peripheral neuropathy Mrs. Walter Gresham is an obese 71-year-old female with DMII, hypertension, peripheral neuropathy and CKD. Steffany suffered and episode of VISHAL in 2011 following BEBE. VISHAL was attributed to ATN. Patient required one dialysis treatment and subsequently recovered. She has not maintained outpatient Nephrology follow up (last visit 2012). Creatinine improved to a baseline of approximately 1.3 mg/dL. 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 Her first hemodialysis treatment was completed on 03/14/16. The treatment was complicated by intradialytic hypotension and poor Qb via RIJ catheter. Second treatment was completed 03/15/16 with improved Qb and no complications. HD permcath was placed by Dr. Murphy on 03/16/16. A third hemodialysis treatment was completed yesterday. VISHAL attributed to ATN at this time in the setting of UTI, hypotension and ACEi use. Steffany had persistent hypoglycemia related to sulfonylurea toxicity. Random cortisol was 18. She was hyperkalemic due to VISHAL. Stigmata of CKD include hyperphosphatemia as well as renal cortical atrophy on imaging. TTE demonstrated normal LV size and systolic function with grade 1 diastolic dysfunction and normal IVC. There was no significant valvular heart disease. Renal US did not reveal any post renal etiology to VISHAL such as calculi, mass or hydronephrosis. Renal arterial duplex was suboptimal but documented acceptable flow bilaterally. Urinalysis w/ 1+ protein, 1+ glucose. Urine microscopy w/ hyaline casts and pyuria. SPEP/immunofixation pending. Recommendations --referral made for outpatient dialysis at [facility] continue to monitor for renal recovery. --continue on IHD for now -- Document I/O's and monitor metabolic profile daily -- Avoid ANJELICA/ARB and continue to hold metformin as well as glipizide -- Medications appropriately dosed for renal function --on PhosLo 1 tablet 3 times with each meal --Nephrocaps daily -- Epogen 21938 units x1 dose Given on 03/19/2017, has adequate iron store --can be discharged once patient has outpatient dialysis spot setup
--- NOTE | 2017-03-21 21:25 | Family Medicine Progress Note ---
Progress Note Date of Service Mar 21, 2017. Subjective Pt evaluation today including: conversation w/ patient, conversation w/ family , physical exam, chart review, lab review, review of studies, review of inpatient medication list Pain: Denies pain PO Intake: tolerating well Voiding: no voiding problems urine output continuing to improve. No complaints reported, eager to leave hospital Constitutional: No fever, No chills, No sweats, No weight loss, No weakness , No fatigue, No problem reported Musculoskeletal: + joint pain All Other Systems: Reviewed and Negative Medications Current Inpatient Medications Medications (Trade) Dose Ordered Sig/Shayan Route Start Time Stop Time Status Last Admin Dose Admin Acetaminophen (Tylenol Tab) 650 mg Q4H PRN PO 03/13/17 15:45 04/12/17 15:44 03/21/17 00:06 650 MG Al Hydrox/Mg Hydrox/Simethicone (Maalox Max Susp) 15 ml Q4H PRN PO 03/13/17 15:45 04/12/17 15:44 Magnesium Hydroxide (Milk Of Magnesia Susp) 30 ml Q12H PRN PO 03/13/17 15:45 04/12/17 15:44 Ondansetron HCl (Zofran Inj) 4 mg Q6H PRN IV 03/13/17 15:45 04/12/17 15:44 03/17/17 16:04 4 MG Polyethylene (Miralax Powder Packet) 17 gm DAILY PRN PO 03/13/17 15:45 04/12/17 15:44 Glucose (Glucose 40% Gel) 15-30 GRAMS 15 GRAMS... UD PRN PO 03/13/17 15:45 04/12/17 15:44 Glucose (Glucose Chew Tab) 4-8 Tablets 4 Tabl... UD PRN PO 03/13/17 15:45 04/12/17 15:44 Dextrose (Dextrose 50% 50ML Syringe) 25-50ML OF 50% DW IV FOR... UD PRN IV 03/13/17 15:45 04/12/17 15:44 03/17/17 06:12 50 ML Glucagon (Glucagon Inj) 1 mg UD PRN SQ 03/13/17 15:45 04/12/17 15:44 Heparin Sodium (Porcine) (Heparin Sq 5000 Unit/0.5ml) 5,000 unit Q8 SC 03/14/17 14:00 2/2/18 13:59 03/21/17 20:34 5,000 UNIT Gabapentin (Neurontin Cap) 200 mg QAM PO 03/15/17 09:00 04/14/17 08:59 03/20/17 08:16 200 MG Insulin Aspart (novoLOG ASPART) SLIDING SCALE If C... ACHS SC 03/15/17 11:00 04/13/17 11:59 03/21/17 20:33 1 UNITS Gabapentin (Neurontin Cap) Give extra 200mg after complet... DAILY@1400 PO 03/16/17 14:00 04/14/17 13:59 03/21/17 14:17 200 MG Lorazepam (Ativan Inj) 1 mg Q4H PRN IV 03/16/17 17:15 04/15/17 17:14 Calcium Acetate (Phoslo Cap) 667 mg TIDM PO 03/19/17 11:30 04/18/17 11:29 03/21/17 17:10 667 MG Vitamin B Complex/ Vit C/Folic Acid (Nephrocaps) 1 cap QAM PO 03/20/17 09:00 04/19/17 08:59 03/21/17 09:04 1 CAP Objective Vital Signs Date Time Temp Pulse Resp B/P (MAP) Pulse Ox O2 Delivery O2 Flow Rate FiO2 03/21/17 20:14 36.9 68 18 150/69 (96) 95 Room Air 03/21/17 20:00 Room Air 03/21/17 16:00 Room Air 03/21/17 15:53 36.7 57 18 130/72 (91) 95 Room Air 03/21/17 11:40 36.6 78 18 150/77 (101) 94 Room Air 03/21/17 11:40 36.6 82 18 96 03/21/17 11:40 94 Room Air 03/21/17 09:00 Room Air 03/21/17 07:49 36.8 82 18 114/75 (88) 96 03/21/17 04:00 95 Room Air 03/21/17 03:24 36.7 59 16 130/71 (90) 95 Room Air 03/21/17 00:09 36.8 60 18 132/65 (87) 93 Room Air 1/10/18 00:00 93 Room Air Physical Exam General Appearance: WD/WN, no apparent distress Eyes: normal inspection, PERRL, EOMI, sclerae normal ENT: hearing grossly normal, pharynx normal Neck: supple, no JVD, no carotid bruits, trachea midline Respiratory/Chest: chest non-tender, lungs clear, normal breath sounds, no respiratory distress, no accessory muscle use Cardiovascular: regular rate, rhythm, no edema, no gallop, no JVD, + systolic murmur Abdomen: normal bowel sounds, non tender, soft, no organomegaly, no pulsatile mass Extremities: normal range of motion, non-tender, normal inspection, no pedal edema, no calf tenderness Neurologic/Psychiatric: insulation mechanic II-XII nml as tested, no motor/sensory deficits, alert, normal mood/affect, oriented x 3 Skin: normal color, warm/dry, no rash Laboratory Results Last Resulted 03/21/17 05:44 Last Resulted 03/21/17 05:44 Assessment and Plan Ms. Gresham is a 71 y/o female with PMHx of T2DM with Peripheral Neuropathy, HTN , Previous VISHAL (Required Temporary Hemodialysis) who presents to the ED c/o generalized weakness and LE weakness after sudden fall, sudden onset of emesis 6 (black in color). Acute Kidney Injury 2/2 Acute Tubular Necrosis - s/p HD yesterday. Cr down to 5.46 from 8.09 - Nephrology following - renal U/S - No calculi, mass or hydronephrosis, no evidence of renal artery stenosis on Doppler US - continue to hold gabapentin, lisinopril and metformin - SPEP/immunofixation not indicative of monoclonal gammopathy - TDC placed 03/16/16 - Baseline Cr 1.3; per nephro this may be her progression further into CKD: Stigmata of CKD include hyperphosphatemia as well as renal cortical atrophy on imaging. - VISHAL attributed to ATN at this time in the setting of UTI, hypotension and ACEi use. - Patient had persistent hypoglycemia related to sulfonylurea toxicity. Random cortisol was 18. Acute Metabolic Encephalopathy likely secondary to uremia - resolved - CT head no acute IC pathology - neurology consulted - AMS and myoclonus likely secondary to VISHAL - now resolved - future concerns for AMS - could consider B12, thiamine levels, tox screen , EEG, and MRI of the brain. Hyperphosphatemia - phosphate level 8.3 yesterday, improved to 6.0 today - on phoslo - will continue to monitor Hypoxia requiring O2 3 L NC - resolved - Developed pulm edema s/p transfusion - Repeat CXR improved pulm vasc congestion, no consolidation - 98% on room air Acute Anemia: Black Emesis - Hgb stable at 9.3, continue to monitor, fluctuates around 9-10 - transfused 1 unit pRBC on 03/13/17 UTI - culture - citrobacter koseri - Finished course of rocephin T2DM with Peripheral Neuropathy - hypoglycemic episodes - HgbA1c - 7.5 - previously was having hypoglycemic episodes - appetite has returned and her sugar levels have increased to 101-185 today - Hold home metformin and cover with SSI DVT Prophylaxis: Heparin Code Status: Full Disposition: med/surg, discharge when outpatient dialysis set up Resident Tracking Resident Involvement: Resident Care Provided Care Provided: Adult Hospital Medicine Reviewed: Pt Seen/Exam by Me History sitting in chair. family visiting. denies any concerns Constitutional: denies: fever Respiratory: negative: short of breath Cardiovascular: denies chest pain General Appearance: no apparent distress Respiratory: lungs clear, no respiratory distress Cardiovascular: regular rate, rhythm Neurologic/Psychiatric: alert, oriented x 3 Assessment/Plan Resident Physician Supervision Note: I independently interviewed and examined the patient and verified the hanley history and physical, reviewed labs and image studies, discussed the case with the resident Dr. Robles and agree with the findings and care plan.
[2017-03-22] VITALS (23 sets, daily range): BP systolic 102–154; BP diastolic 42–79; PULSE 54–66; TEMP 36.1–36.8; O2SAT 94–95
[2017-03-22] MEDS: ACETAMINOPHEN 325 MG TAB PO PRN (02:32)
[2017-03-22] MEDS: HEPARIN SOD 5000 UNIT/0.5 ML CARP SC SCH ×2 (06:02→14:31)
[2017-03-22] MEDS: CALCIUM ACETATE 667MG GELCAP PO SCH ×2 (07:17→14:13)
[2017-03-22] MEDS: NEPHROCAPS PO SCH (07:17)
[2017-03-22] MEDS: GABAPENTIN 100 MG CAP PO SCH ×2 (07:17→14:40)
[2017-03-22] MEDS: INSULIN ASPART 100 UNITS/ML 3 ML PEN SC SCH ×2 (08:53→14:30)
[2017-03-22 09:31] LABS: CALCIUM 9.2 mg/dl (8.5-10.1); CREATININE 6.48 mg/dl (0.60-1.20); POTASSIUM 4.8 mmol/L (3.5-5.1)
--- NOTE | 2017-03-22 10:44 | Nephrology Progress Note ---
Nephrology Progress Note Date of Service Mar 22, 2017. Chief Complaint F/U for Dialysis requiring VISHAL Subjective Steffany was seen and examined in her room this am. Doing well, decent UO. Cr up off of dialysis. Review of Systems A complete review of systems was performed. Pertinent positives are noted above. All other systems are negative. Vital Signs Last 8 Hrs Date Time Temp Pulse Resp B/P (MAP) Pulse Ox O2 Delivery O2 Flow Rate FiO2 03/22/17 07:42 36.8 56 20 130/70 (90) 94 Room Air 03/22/17 04:00 Room Air 03/22/17 04:00 36.7 54 16 102/61 (75) 94 Room Air Last Recorded Weight Weight (Kilograms): 109.000 Physical Exam GENERAL: Elderly female, AAA x 3, pleasant, healthy-appearing, not in any distress. NECK: Supple, no JVD. RESPIRATORY: Normal breathing efforts, no accessory muscle use, clear to auscultation bilaterally, no wheezes or rales. CARDIOVASCULAR: S1, S2 normal, rate rhythm regular. EXTREMITY: No lower extremity edema NEURO: speech fluent. PSYCHIATRY: Normal mood and judgment Family History Lung Cancer Negative for CKD / ESRD Social History Smoking Status: Unknown if ever smoked Smokeless Tobacco Use: No Alcohol Use: none Drug Use: none Occupation: retired , retired, never a smoker. Laboratory Results Past 24 Hours Test 03/21/17 11:53 03/21/17 16:08 03/21/17 20:28 03/22/17 07:20 Bedside Glucose 118 mg/dl (70-90) 136 mg/dl (70-90) 185 mg/dl (70-90) 125 mg/dl (70-90) Test 03/22/17 08:10 Allergies Coded Allergies: No Known Allergies (Unverified , 03/13/17) Medications Current Inpatient Medications Medications (Trade) Dose Ordered Sig/Shayan Route Start Time Stop Time Status Last Admin Dose Admin Acetaminophen (Tylenol Tab) 650 mg Q4H PRN PO 03/13/17 15:45 04/12/17 15:44 03/22/17 02:32 650 MG Al Hydrox/Mg Hydrox/Simethicone (Maalox Max Susp) 15 ml Q4H PRN PO 03/13/17 15:45 04/12/17 15:44 Magnesium Hydroxide (Milk Of Magnesia Susp) 30 ml Q12H PRN PO 03/13/17 15:45 04/12/17 15:44 Ondansetron HCl (Zofran Inj) 4 mg Q6H PRN IV 03/13/17 15:45 04/12/17 15:44 03/17/17 16:04 4 MG Polyethylene (Miralax Powder Packet) 17 gm DAILY PRN PO 03/13/17 15:45 04/12/17 15:44 Glucose (Glucose 40% Gel) 15-30 GRAMS 15 GRAMS... UD PRN PO 03/13/17 15:45 04/12/17 15:44 Glucose (Glucose Chew Tab) 4-8 Tablets 4 Tabl... UD PRN PO 03/13/17 15:45 04/12/17 15:44 Dextrose (Dextrose 50% 50ML Syringe) 25-50ML OF 50% DW IV FOR... UD PRN IV 03/13/17 15:45 04/12/17 15:44 03/17/17 06:12 50 ML Glucagon (Glucagon Inj) 1 mg UD PRN SQ 03/13/17 15:45 04/12/17 15:44 Heparin Sodium (Porcine) (Heparin Sq 5000 Unit/0.5ml) 5,000 unit Q8 SC 03/14/17 14:00 04/13/17 13:59 03/22/17 06:02 5,000 UNIT Gabapentin (Neurontin Cap) 200 mg QAM PO 03/15/17 09:00 04/14/17 08:59 03/22/17 07:17 200 MG Insulin Aspart (novoLOG ASPART) SLIDING SCALE If C... ACHS SC 03/15/17 11:00 04/13/17 11:59 03/21/17 20:33 1 UNITS Gabapentin (Neurontin Cap) Give extra 200mg after complet... DAILY@1400 PO 03/16/17 14:00 04/14/17 13:59 03/21/17 14:17 200 MG Lorazepam (Ativan Inj) 1 mg Q4H PRN IV 03/16/17 17:15 04/15/17 17:14 Calcium Acetate (Phoslo Cap) 667 mg TIDM PO 03/19/17 11:30 04/18/17 11:29 03/22/17 07:17 667 MG Vitamin B Complex/ Vit C/Folic Acid (Nephrocaps) 1 cap QAM PO 03/20/17 09:00 04/19/17 08:59 03/22/17 07:17 1 CAP Impression (1) Acute renal insufficiency (2) Dehydration (3) Diabetes mellitus type 2 (4) Peripheral neuropathy Mrs. Walter Gresham is an obese 71-year-old female with DMII, hypertension, peripheral neuropathy and CKD. Steffany suffered and episode of VISHAL in 2011 following BEBE. VISHAL was attributed to ATN. Patient required one dialysis treatment and subsequently recovered. She has not maintained outpatient Nephrology follow up (last visit 2012). Creatinine improved to a baseline of approximately 1.3 mg/dL. 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 Her first hemodialysis treatment was completed on 03/14/16. The treatment was complicated by intradialytic hypotension and poor Qb via RIJ catheter. Second treatment was completed 03/15/16 with improved Qb and no complications. HD permcath was placed by Dr. Murphy on 03/16/16. A third hemodialysis treatment was completed yesterday. VISHAL attributed to ATN at this time in the setting of UTI, hypotension and ACEi use. Steffany had persistent hypoglycemia related to sulfonylurea toxicity. Random cortisol was 18. She was hyperkalemic due to VISHAL. Stigmata of CKD include hyperphosphatemia as well as renal cortical atrophy on imaging. TTE demonstrated normal LV size and systolic function with grade 1 diastolic dysfunction and normal IVC. There was no significant valvular heart disease. Renal US did not reveal any post renal etiology to VISHAL such as calculi, mass or hydronephrosis. Renal arterial duplex was suboptimal but documented acceptable flow bilaterally. Urinalysis w/ 1+ protein, 1+ glucose. Urine microscopy w/ hyaline casts and pyuria. SPEP/immunofixation pending. Recommendations --no meaningful renal recovery yet. -- continue on IHD for now -- Document I/O's and monitor metabolic profile daily -- Avoid ANJELICA/ARB and continue to hold metformin as well as glipizide -- Medications appropriately dosed for renal function --on PhosLo 1 tablet 3 times with each meal --Nephrocaps daily -- Epogen 99919 units x1 dose Given on 03/19/2017, has adequate iron store --can be discharged once patient has outpatient dialysis spot setup
--- NOTE | 2017-03-22 15:18 | Discharge Instructions ---
Discharge Instructions Date of Service Mar 22, 2017. Admission Reason for Admission: ARF Discharge Discharge Diagnosis / Problem: VISHAL Discharge Goals Goal(s): Improve function, Improve disease control, Learn about illness Activity Recommendations Activity Limitations: per Instructions/Follow-up section . Instructions / Follow-Up Instructions / Follow-Up During this admission, you were treated for an acute kidney injury that required hemodialysis, which may have been affected by having a UTI, low blood pressure, and certain medications you were taking. You will continue to need outpatient dialysis per nephrology's recommendation and guidance. Your next appointment is On Mar 24 at 0930. Continue to hold off on your metformin, glipizide, and lisinopril Follow up with nephrology as an outpatient. Current Hospital Diet Patient's current hospital diet: Diabetes Type 2 Diet, Renal Diet Discharge Diet Recommended Diet: Diabetes Type 2 Diet, Renal Diet Procedures Procedures Performed: Insertion of Perm Catheter, Right Internal Jugular Approach, Ultrasound Localization of Right Internal Jugular Vein, Fluoroscopy for positioning. Pending Studies Studies pending at discharge: no Laboratory Results Hemoglobin A1c Test 03/14/17 14:00 Range/Units Estimated Average Glucose 169 mg/dl Hemoglobin A1c 7.5 H 4.5-5.6 % Medical Emergencies . Who to Call and When: Medical Emergencies: If at any time you feel your situation is an emergency, please call 911 immediately. . Non-Emergent Contact Non-Emergency issues call your: Primary Care Provider . . "Provider Documentation" section prepared by Ailyn Robles. . VTE Core Measure Inpt VTE Proph given/why not?: SCD's
--- NOTE | 2017-03-22 22:57 | Discharge Summary ---
Discharge Summary Date of Service Mar 22, 2017. Discharge Summary Admission Date: Mar 13, 2017 at 15:52 Discharge Date: Mar 22, 2017 Discharge Disposition: Home Principal Diagnosis: VISHAL Problems/Secondary Diagnoses: T2DM with peripheral neuropathy, HTN, Immunizations: Have You Had Influenza Vaccine: Unknown History of Tetanus Vaccine?: Unknown History of Pneumococcal: Unknown History of Hepatitis B Vaccine: Unknown Procedures: Permacath placement Consultations: Nephrology Medication Reconciliation Continued Medications: Atorvastatin (Lipitor) 40 Mg Tab 40 MG PO QPM, TAB Gabapentin (Neurontin) 300 Mg Cap 300 MG PO BID, CAP Morphine Sulfate Ir (Morphine Sulfate Ir) 15 Mg Tab 30 MG PO QAM, TAB Trazodone Hcl (Trazodone) 100 Mg Tab 100 MG PO HS, TAB Discontinued Medications: Glipizide (Glucotrol) 5 Mg Tab 5 MG PO BID, TAB Lisinopril (Lisinopril) 10 Mg Tab 10 MG PO DAILY Metformin Hcl (Glucophage) 500 Mg Tab 1000 MG PO BID, TAB Discharge Exam ROS Constitutional: No fever, No chills, No sweats, No weight loss, No weakness , No fatigue, No problem reported Musculoskeletal: + joint pain All Other Systems: Reviewed and Negative PE General Appearance: WD/WN, no apparent distress Eyes: normal inspection, PERRL, EOMI, sclerae normal ENT: hearing grossly normal, pharynx normal Neck: supple, no JVD, no carotid bruits, trachea midline Respiratory/Chest: chest non-tender, lungs clear, normal breath sounds, no respiratory distress, no accessory muscle use Cardiovascular: regular rate, rhythm, no edema, no gallop, no JVD, + systolic murmur Abdomen: normal bowel sounds, non tender, soft, no organomegaly, no pulsatile mass Extremities: normal range of motion, non-tender, normal inspection, no pedal edema, no calf tenderness Neurologic/Psychiatric: dynamics ax consultant II-XII nml as tested, no motor/sensory deficits, alert, normal mood/affect, oriented x 3 Skin: normal color, warm/dry, no rash Hospital Course Ms. Gresham is a 71 y/o female with PMHx of T2DM with Peripheral Neuropathy, HTN , Previous VISHAL (Required Temporary Hemodialysis) who presents to the ED c/o generalized weakness and LE weakness after sudden fall and sudden onset of emesis 6 (black in color). Acute Kidney Injury 2/2 Acute Tubular Necrosis - s/p HD on 03/22/17. Cr today 6.48 - Nephrology following - renal U/S - No calculi, mass or hydronephrosis, no evidence of renal artery stenosis on Doppler US - Held glipizide, lisinopril and metformin during hospital and d/soni on discharge - SPEP/immunofixation not indicative of monoclonal gammopathy - TDC placed 03/16/16 - Baseline Cr 1.3; per nephro this may be her progression further into CKD: Stigmata of CKD include hyperphosphatemia as well as renal cortical atrophy on imaging. - VISHAL attributed to ATN at this time in the setting of UTI, hypotension and ACEi use. - Outpatient dialysis set up starting 03/24/17 at 930 Acute Metabolic Encephalopathy likely secondary to uremia - resolved - CT head no acute IC pathology - neurology consulted - AMS and myoclonus likely secondary to VISHAL - now resolved - future concerns for AMS - could consider B12, thiamine levels, tox screen , EEG, and MRI of the brain. Hyperphosphatemia - phosphate level improved to 6.0 - on phoslo Hypoxia requiring O2 3 L NC - resolved - Developed pulm edema s/p transfusion - Repeat CXR improved pulm vasc congestion, no consolidation - 98% on room air Acute Anemia: Black Emesis - Hgb stable at 9.3, continue to monitor, fluctuates around 9-10 - transfused 1 unit pRBC on 03/13/17 UTI - culture - citrobacter koseri - Finished course of rocephin T2DM with Peripheral Neuropathy - hypoglycemic episodes - HgbA1c - 7.5 - previously was having hypoglycemic episodes - related to sulfonylurea toxicity. Random cortisol was 18. - appetite has returned and her sugar levels have increased to 101-185 today - Hold home metformin and cover with SSI Total Time Spent: Greater than 30 minutes This includes examination of the patient, discharge planning, medication reconciliation, and communication with other providers. Discharge Instructions Please refer to the electronic Patient Visit Report (Discharge Instructions) for additional information. Additional Copies To Ac Lopez M.D. Resident Tracking Resident Involvement: Resident Care Provided Care Provided: Adult Hospital Medicine Reviewed: Pt Seen/Exam by Me History feeling well and denies any complaints. looking forward to going home outpatient dialysis has been set up by case management Constitutional: denies: fever Respiratory: negative: short of breath Cardiovascular: denies chest pain Gastrointestinal/Abdominal: negative: abdominal pain General Appearance: no apparent distress Respiratory: lungs clear, no respiratory distress Cardiovascular: regular rate, rhythm Gastrointestinal: soft Neurologic/Psychiatric: alert, oriented x 3 Skin Characteristics: warm/dry Assessment/Plan Resident Physician Supervision Note: I independently interviewed and examined the patient and verified the hanley history and physical, reviewed labs and image studies, discussed the case with the resident Dr. Robles and agree with the findings and care plan. Time spent in discharge 35 min
== END 2017-03-22 16:02 | disposition home or self-care (01) | DRG 673 ==
LOC: EDBD 10:55 → C.EDC 10:56 → C.2T 15:52 → ENRESERV 16:12 → C.MSICU 21:57 → EDBEDREQ 03-18 13:30 → CANBEDREQ 03-18 13:40 → C.2T 03-18 14:51 → EDBEDREQ 03-21 08:42 → ENRESERV 03-21 08:51 → C.MED 03-21 11:41
PROVIDERS: ADMIT Internal Medicine; ATTEND Family Medicine
PROC: 05HM33Z Insertion of Infusion Device into Right Internal Jugular Vein, Percutaneous Approach (ICD-10-PCS; 2017-03-13)
PROC: 0JH60XZ Insertion of Tunneled Vascular Access Device into Chest Subcutaneous Tissue and Fascia, Open Approach (ICD-10-PCS; principal; 2017-03-16 10:00)
PROC: 02HV33Z Insertion of Infusion Device into Superior Vena Cava, Percutaneous Approach (ICD-10-PCS; principal; 2017-03-16 10:00)
DX: N17.0 Acute kidney failure with tubular necrosis (principal); G93.41 Metabolic encephalopathy; N39.0 Urinary tract infection, site not specified; J81.1 Chronic pulmonary edema; B96.89 Other specified bacterial agents as the cause of diseases classified elsewhere; E11.42 Type 2 diabetes mellitus with diabetic polyneuropathy; E11.649 Type 2 diabetes mellitus with hypoglycemia without coma; R09.02 Hypoxemia; E83.39 Other disorders of phosphorus metabolism; E86.0 Dehydration; D64.9 Anemia, unspecified; M25.551 Pain in right hip; R25.3 Fasciculation; I10 Essential (primary) hypertension; E78.5 Hyperlipidemia, unspecified; Z79.899 Other long term (current) drug therapy; Z79.84 Long term (current) use of oral hypoglycemic drugs; Z91.81 History of falling; Z87.448 Personal history of other diseases of urinary system; Z96.641 Presence of right artificial hip joint; Z80.1 Family history of malignant neoplasm of trachea, bronchus and lung

== ENCOUNTER → 2017-04-27 | Outpatient (CLI) | payer OTHER ==
[~2017-04-27] MED LIST changes: -ALLO300T2 PO; +ATOR-24 PO; -B-COCAP2 PO; -EFFSR75 PO; -FERR-24 PO; +GABA-113 PO; -LORA-741 PO; +MORP15TA PO; -OXYC-57 PO; -SENN-65 PO; -SIMV20TA2 PO; +TRAZ100T29 PO; -ZOLP10TA PO
[2017-04-27 12:18] LABS: HEMATOCRIT 30.3 % (37-47); HEMOGLOBIN 10.2 g/dL (12.0-16.0); MEAN CELL VOLUME 91.5 fL (80-100); MEAN CORPUSCULAR HEMOGLOBIN 30.8 pg (25-34); MEAN CORPUSCULAR HGB CONC 33.7 g/dl (32-36); MEAN PLATELET VOLUME 9.5 fL (7.4-10.4); PLATELET COUNT 227 K/uL (130-400); RED CELL DISTRIBUTION WIDTH CV 13.2 % (11.5-14.5); RED CELL DISTRIBUTION WIDTH SD 44.3 fL (36.4-46.3); WHITE BLOOD COUNT 6.42 K/uL (4.8-10.8)
[2017-04-27 12:39] LABS: ALBUMIN 3.5 gm/dl (3.4-5.0); BLOOD UREA NITROGEN 23 mg/dl (7-18); CALCIUM 9.2 mg/dl (8.5-10.1); CARBON DIOXIDE 27 mmol/L (21-32); CREATININE 2.08 mg/dl (0.60-1.20); GLUCOSE 144 mg/dl (70-99); PHOSPHORUS 3.4 mg/dl (2.5-4.9); POTASSIUM 4.3 mmol/L (3.5-5.1); SODIUM 138 mmol/L (136-145)
== END | disposition home or self-care (01) ==
LOC: C.LAB1850 10:27
PROVIDERS: ATTEND Internal Medicine Nephrology
DX: N17.9 Acute kidney failure, unspecified (principal); I10 Essential (primary) hypertension; E11.9 Type 2 diabetes mellitus without complications; D64.9 Anemia, unspecified

== ENCOUNTER → 2017-05-31 | Outpatient (CLI) | payer OTHER ==
[2017-05-31 15:30] LABS: HEMATOCRIT 32.1 % (37-47); HEMOGLOBIN 11.1 g/dL (12.0-16.0); MEAN CELL VOLUME 89.7 fL (80-100); MEAN CORPUSCULAR HGB CONC 34.6 g/dl (32-36); MEAN PLATELET VOLUME 9.3 fL (7.4-10.4); PLATELET COUNT 250 K/uL (130-400); RED CELL DISTRIBUTION WIDTH CV 12.2 % (11.5-14.5); RED CELL DISTRIBUTION WIDTH SD 39.9 fL (36.4-46.3); WHITE BLOOD COUNT 7.57 K/uL (4.8-10.8)
[2017-05-31 15:56] LABS: ALBUMIN 3.6 gm/dl (3.4-5.0); BLOOD UREA NITROGEN 33 mg/dl (7-18); CALCIUM 9.4 mg/dl (8.5-10.1); CARBON DIOXIDE 26 mmol/L (21-32); CREATININE 1.65 mg/dl (0.60-1.20); GLUCOSE 137 mg/dl (70-99); PHOSPHORUS 3.1 mg/dl (2.5-4.9); POTASSIUM 4.6 mmol/L (3.5-5.1); SODIUM 136 mmol/L (136-145)
== END | disposition home or self-care (01) ==
LOC: C.LAB1850 14:22
PROVIDERS: ATTEND Internal Medicine Nephrology
DX: N17.9 Acute kidney failure, unspecified (principal); I10 Essential (primary) hypertension; E11.9 Type 2 diabetes mellitus without complications; G62.9 Polyneuropathy, unspecified

== ENCOUNTER → 2017-07-12 | Outpatient (CLI) | payer OTHER ==
[2017-07-12 14:49] LABS: HEMATOCRIT 35.2 % (37-47); HEMOGLOBIN 12.2 g/dL (12.0-16.0); MEAN CELL VOLUME 88.7 fL (80-100); MEAN CORPUSCULAR HEMOGLOBIN 30.7 pg (25-34); MEAN CORPUSCULAR HGB CONC 34.7 g/dl (32-36); MEAN PLATELET VOLUME 9.7 fL (7.4-10.4); PLATELET COUNT 264 K/uL (130-400); RED CELL DISTRIBUTION WIDTH CV 11.8 % (11.5-14.5); RED CELL DISTRIBUTION WIDTH SD 38.3 fL (36.4-46.3); WHITE BLOOD COUNT 7.43 K/uL (4.8-10.8)
[2017-07-12 15:13] LABS: ALBUMIN 3.8 gm/dl (3.4-5.0); BLOOD UREA NITROGEN 37 mg/dl (7-18); CALCIUM 9.2 mg/dl (8.5-10.1); CARBON DIOXIDE 27 mmol/L (21-32); CREATININE 1.84 mg/dl (0.60-1.20); GLUCOSE 241 mg/dl (70-99); POTASSIUM 4.8 mmol/L (3.5-5.1); SODIUM 132 mmol/L (136-145)
== END | disposition home or self-care (01) ==
LOC: C.LAB1850 13:16
PROVIDERS: ATTEND Internal Medicine Nephrology
DX: N17.9 Acute kidney failure, unspecified (principal); N10 Acute pyelonephritis; E11.9 Type 2 diabetes mellitus without complications; D64.9 Anemia, unspecified

== ENCOUNTER → 2017-10-23 | Outpatient (CLI) | payer OTHER ==
[~2017-10-23] MED LIST changes: +AMOX500C3 PO; +GLIP5TAB3 PO; +PREG1CAP28 PO
--- NOTE | 2017-10-23 11:56 | DIAGNOSTIC IMAGING REPORT ---
L TOE(S) MIN 2 VIEWS CLINICAL HISTORY: 72 years-old Female presenting with NON HEALING WOUND. TECHNIQUE: Frontal, oblique, and lateral views of the left first toe were obtained. COMPARISON: None. FINDINGS: The site of the reported nonhealing wound is not radiographically apparent. No evidence of osseous erosion or periosteal reaction. No acute fracture or malalignment. No advanced degenerative change. No radiographic soft tissue abnormality. IMPRESSION: No acute osseous injury. No radiographic evidence of osteomyelitis. Notably, the site of reported open wound is not apparent. Electronically signed by: Levi Diaz M.D. 10/23/2017 11:54 AM Dictated Date/Time: 10/23/2017 11:52 AM
--- NOTE | 2017-10-26 19:06 | Wound Clinic H&P ---
History & Physical Wound Clinic Date of Service: Oct 23, 2017. Complaint: no healing wound L great toe Primary Care Physician: Ac Lopez M.D. History of Present Illness patient with diabetic neuropathy noted to have a left great toe wound for several weeks. nonhealing. minimal discomfort Surgical History Hx Abdominal Surgery: No Hx Cardiac Surgery: No Hx Urinary Tract Surgery: No Hx Orthopedic: Yes (right hip replacement 2011) Social History Occupation: retired Smoking Status: Never Smoker Current Medications Scheduled Glipizide (Glucotrol), 1 TAB PO DAILY Morphine Sulfate Ir (Morphine Sulfate Ir), 30 MG PO QAM Pregabalin (Lyrica), 75 MG PO QD Trazodone Hcl (Trazodone), 100 MG PO HS Scheduled PRN Gabapentin (Neurontin), 300 MG PO BID PRN for Pain Allergies Coded Allergies: Metformin (Verified Allergy, Unknown, renal complications, 10/23/17) Review of Systems 10 systems were reviewed in their entirety and positive findings were noted in HPI. Physical Exam General: The patient is sitting in the exam room in no distress. Alert, cooperative and appropriate to all questions. HEENT: Pupils equal and reactive to light. Sclera clear, EOM intact. Neck: Supple, No JVD noted Chest: CTA in all pablo. No deformity Heart: RRR without murmurs, S3, S4, thrills, rubs or heaves Abdomen: Soft, No masses, Bowel Sound present Extremities: No edema, No calf tenderness, Full ROM Neurological: Alert and oriented x3. No focal deficits. Skin: No rashes, papules. unstageable ulcer on plantar surface of left great toe. +surrounding edema/erythema. large surround callous as well as slough/ debris in central portion of wound. Assessment 1.: diabetic foot ulcer 2.: DM 3.: DM neuropathy Plan after consent and topical xylocaine applied the wound was sharply debrided with a 15 blade scalpel and curette. cultures were taken and an xray to r/o osteomyelitis will be obtained. Iodosorb to wound bed daily and off load when possible. f/u 1 week Culture was obtained Slough was removed, Subcutaneous tissue was removed, Wound edges were paired back, Callus was paired
== END | disposition home or self-care (01) ==
LOC: C.LAB 11:09
PROVIDERS: ATTEND Surgery
DX: S91.102A Unspecified open wound of left great toe without damage to nail, initial encounter (principal); X58.XXXA Exposure to other specified factors, initial encounter

== ENCOUNTER 2022-09-19 10:49 | Inpatient (IN) ==
--- NOTE | 2022-09-19 11:51 | Emergency Department Note ---
Impression & Plan Hypercapnia, Acute on chronic renal insufficiency, Myoclonic jerking, Hypoxia, Type 2 diabetes mellitus with diabetic polyneuropathy, Opiate dependence, Chronic pain ED Provider Note NAME: MARCELLUS MAXWELL AGE: 77 SEX: F ARRIVES VIA: Walk-In INFORMANT: Patient ED PROVIDER(S): Akhil Rico MD CHIEF COMPLAINT: Spasms. PLAN: Disposition: Admit MEDICAL DECISION MAKING: The patient is a pleasant 77-year-old woman with a past medical history of CKD, neuropathy, type 2 diabetes, chronic neuropathic pain and hip pain in the setting of remote hip replacement on chronic morphine presents to the emergency department via walk-in accompanied by her for evaluation of intermittent spasms of her extremities since yesterday. They report her hip pain and neuro pathic pain in her lower extremities and feet are unchanged. That any recent fevers, chills, cough, congestion, GI or symptoms. On arrival the patient is no acute distress, afebrile stable vital signs. However, O2 saturation was noted to be 86% on room air with normal waveform though the patient denied any shortness of breath. She was placed on 2 L nasal cannula improving to the mid 90s. She is a poor historian. She does exhibit intermittent myoclonic jerks and maintains alertness during these episodes. Otherwise, she has no focal neurologic deficits. EKG without overt acute ischemia. Chest x-ray negative for acute cardiopulmonary process. WBC and platelets within normal limits. H/H approximate 2 prior values. VBG demonstrates acidemia with pH of 7.25 with PCO2 of 61. Chemistry without metabolic acidosis. However creatinine 2.9 consistent with acute on chronic renal insufficiency. Potassium 5.2 and phosphorus 5.9 electrolytes otherwise unremarkable. LFTs unremarkable. Ammonia is not elevated. CPK 461, mildly elevated nonspecific. High-sensitivity troponin 6.0, within normal limits. Lipase not elevated. Procalcitonin is not elevated. UA without convincing evidence of infection as epithelial cells are present though with WBCs. Urine drug screen positive for opiates in setting of being on chronic morphine. Medical alcohol was undetectable. COVID-19 RNA, ANNIE test was negative. Given the patient's hypercapnia suspicion for possible myoclonus secondary to this in the setting of her chronic morphine use. Additionally, BUN is elevated which may further contribute to symptoms. Case was discussed with Brisa Damico PAC with Dr. Major, [facility] hospitalist, who will evaluate the patient for admission. Further management per admitting team. Triage Nursing notes reviewed and agree them. Prior/outside medical records reviewed Vital Signs: reviewed Differential diagnosis: Infection, dehydration, metabolic abnormality, hypo/hyperglycemia, electrolyte disturbance, anemia, hypoxia, cardiac sources, intracerebral event, toxicologic, neurologic, as well as other pathologies. ER treatment provided: See below. Diagnostics interpreted by me: ECG: Normal sinus rhythm, 74 bpm, no ectopy, no overt ST elevation or depression, QTc 428, QRS 70 Cardiac Monitoring: An order for continuous cardiac monitoring was placed and demonstrated normal sinus rhythm, 74 bpm, no ectopy. Laboratory studies: See below Imaging studies: See below Consultation(s): Case was discussed with Brisa Damico PAC [facility]. HPI: The patient is a pleasant 77-year-old woman with a past medical history of CKD, neuropathy, type 2 diabetes, chronic neuropathic pain and hip pain in the setting of remote hip replacement on chronic morphine presents to the emergency department via walk-in accompanied by her for evaluation of intermittent spasms of her extremities since yesterday. They report her hip pain and neuro pathic pain in her lower extremities and feet are unchanged. That any recent fevers, chills, cough, congestion, GI or symptoms. ROS: See above HPI for pertinent positives & negatives. A total of 10 systems reviewed and were otherwise negative. VITALS:See Below PHYSICAL EXAMINATION: GENERAL: Awake, alert, well-appearing, in no distress BMI 36.1 HENT: Normocephalic, atraumatic. Oropharynx with dry mucous membranes and otherwise unremarkable. EYES: Normal conjunctiva. Sclera non-icteric. NECK: Supple. No nuchal rigidity. FROM. No JVD. RESPIRATORY: Clear to auscultation. CARDIAC: Regular rate, normal rhythm. Extremities warm and well perfused. Pulses equal. ABDOMEN: Soft, non-distended. No tenderness to palpation. No rebound or guarding. No masses. RECTAL: Deferred. MUSCULOSKELETAL: Chest examination reveals no tenderness. The back is symmetrical on inspection without obvious abnormality. There is no CVA tenderness to palpation. No joint edema. LOWER EXTREMITIES: Calves are equal size bilaterally and non-tender. No edema. No discoloration. NEURO: Exhibits intermittent myoclonic jerks and maintains alertness during these episodes. Otherwise, she has no focal neurologic deficits. SKIN: No rash or jaundice noted. Akhil Rico MD Past Med/Surg History Medical History (Updated 09/19/22 @ 19:10 by Akhil Rico MD) Acquired hammer toe of left foot Acquired hammer toe of right foot Acute kidney injury superimposed on CKD Acute renal insufficiency Callus Chronic back pain Chronic kidney disease, stage 4 (severe) Degeneration of lumbar intervertebral disc Dehydration Fall Hallux rigidus, left foot Hallux valgus (acquired), left foot Hyperkalemia, diminished renal excretion Hyperphosphatemia Hypertension Hypoglycemia Lumbar spondylosis 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 Peripheral neuropathy Pulmonary hypertension associated with systemic disorder Sepsis due to urinary tract infection Skin ulcer of left great toe Toxic metabolic encephalopathy Type 2 diabetes mellitus with diabetic neuropathy Type 2 diabetes mellitus with diabetic polyneuropathy Vitamin D deficiency Surgical History (Updated 09/19/22 @ 15:18 by Rosario Major MD) S/P total right hip arthroplasty Family History (Updated 09/19/22 @ 15:22 by Rosario Major MD) Mother , lung cancer Lung cancer Asthma Hypertension Diabetes Son Diabetes Social History (Updated 09/19/22 @ 15:19 by Rosario Major MD) Smoking Status: Never smoker Second Hand Exposure: No; Hx Alcohol Use: No Hx Substance Use: No Communication Ability: Effective Scrap Iron Loader Required: No Beliefs That Will Affect Care: None Current Living Situation: Spouse Other Information That Helps Us Care for You: No Feels Safe at Home: Yes Assistive Devices: Denture - Upper and Walker Allergies Allergies Allergy/AdvReac Type Severity Reaction Status Date / Time metformin Allergy Unknown renal Verified 09/28/21 13:44 complications Home Meds Home Medications Medication Instructions Recorded Confirmed gabapentin 300 mg capsule 300 mg PO BID PRN Other 11/09/17 09/19/22 (Neurontin) glipizide 5 mg tablet (Glucotrol) 5 mg PO DAILY 11/09/17 09/19/22 morphine 15 mg immediate release 30 mg PO DAILY 12/23/18 09/19/22 tablet trazodone 100 mg tablet 100 mg PO HS 12/23/18 09/19/22 allopurinol 0 mg PO DAILY 09/19/22 09/19/22 Previous Rx's Medication Instructions Recorded lisinopril 5 mg tablet 5 mg PO DAILY #90 tabs 09/28/21 calcitriol 0.25 mcg capsule 0.25 mcg PO DAILY #90 caps 01/31/22 (Rocaltrol) Results & Data (ED) Vital Signs Vital Signs - 24 hr 09/19/22 10:56 09/19/22 11:37 09/19/22 11:46 Temperature 36.7 C Temperature Source Temporal Artery Scan Pulse Rate 87 86 Pulse Rate from SpO2 Sensor Respiratory Rate 18 Respiratory Effort / Characteristics Non-Labored Respiratory Depth Normal Respiratory Pattern Regular Blood Pressure 120/70 Blood Pressure Mean 86 Blood Pressure Position Sitting Pulse Oximetry 93 86 L Oxygen Delivery Method Room Air Room Air Oxygen Flow Rate 0 Sepsis Recent Fever Within 48 Hours No Sepsis New/Unexplained Change in Mental Status No Sepsis Action Taken by Nursing No Action Required 09/19/22 11:52 09/19/22 11:25 09/19/22 11:30 Temperature Temperature Source Pulse Rate 87 79 Pulse Rate from SpO2 Sensor 87 77 Respiratory Rate 28 H 17 Respiratory Effort / Characteristics Respiratory Depth Respiratory Pattern Blood Pressure Blood Pressure Mean Blood Pressure Position Pulse Oximetry 95 84 L 88 L Oxygen Delivery Method Nasal Cannula Room Air Oxygen Flow Rate 3 Sepsis Recent Fever Within 48 Hours Sepsis New/Unexplained Change in Mental Status Sepsis Action Taken by Nursing 09/19/22 11:31 09/19/22 11:31 09/19/22 12:00 Temperature Temperature Source Pulse Rate 86 Pulse Rate from SpO2 Sensor 77 Respiratory Rate 16 Respiratory Effort / Characteristics Respiratory Depth Respiratory Pattern Blood Pressure 125/63 126/60 Blood Pressure Mean 74 82 Blood Pressure Position Pulse Oximetry 87 L Oxygen Delivery Method Oxygen Flow Rate Sepsis Recent Fever Within 48 Hours Sepsis New/Unexplained Change in Mental Status Sepsis Action Taken by Nursing 09/19/22 12:00 09/19/22 12:30 09/19/22 12:30 Temperature Temperature Source Pulse Rate 81 73 Pulse Rate from SpO2 Sensor 80 74 Respiratory Rate 15 20 Respiratory Effort / Characteristics Respiratory Depth Respiratory Pattern Blood Pressure 107/46 L Blood Pressure Mean 54 Blood Pressure Position Pulse Oximetry 93 94 Oxygen Delivery Method Nasal Cannula Oxygen Flow Rate 3 Sepsis Recent Fever Within 48 Hours Sepsis New/Unexplained Change in Mental Status Sepsis Action Taken by Nursing 09/19/22 13:00 09/19/22 13:00 09/19/22 13:02 Temperature Temperature Source Pulse Rate 76 Pulse Rate from SpO2 Sensor 77 Respiratory Rate 21 Respiratory Effort / Characteristics Respiratory Depth Respiratory Pattern Blood Pressure 99/65 L 108/84 Blood Pressure Mean 79 95 Blood Pressure Position Pulse Oximetry 94 Oxygen Delivery Method Oxygen Flow Rate Sepsis Recent Fever Within 48 Hours Sepsis New/Unexplained Change in Mental Status Sepsis Action Taken by Nursing 09/19/22 13:02 09/19/22 13:30 09/19/22 13:30 Temperature Temperature Source Pulse Rate 77 76 Pulse Rate from SpO2 Sensor 73 76 Respiratory Rate 14 19 Respiratory Effort / Characteristics Respiratory Depth Respiratory Pattern Blood Pressure 101/52 L Blood Pressure Mean 67 Blood Pressure Position Pulse Oximetry 94 93 Oxygen Delivery Method Oxygen Flow Rate Sepsis Recent Fever Within 48 Hours Sepsis New/Unexplained Change in Mental Status Sepsis Action Taken by Nursing 09/19/22 14:00 09/19/22 14:00 09/19/22 14:30 Temperature Temperature Source Pulse Rate 75 78 Pulse Rate from SpO2 Sensor 73 77 Respiratory Rate 16 17 Respiratory Effort / Characteristics Respiratory Depth Respiratory Pattern Blood Pressure 111/57 L Blood Pressure Mean 70 Blood Pressure Position Pulse Oximetry 95 96 Oxygen Delivery Method Room Air Oxygen Flow Rate Sepsis Recent Fever Within 48 Hours Sepsis New/Unexplained Change in Mental Status Sepsis Action Taken by Nursing 09/19/22 14:32 09/19/22 14:32 Temperature Temperature Source Pulse Rate 73 Pulse Rate from SpO2 Sensor 76 Respiratory Rate 11 L Respiratory Effort / Characteristics Respiratory Depth Respiratory Pattern Blood Pressure 116/66 Blood Pressure Mean 75 Blood Pressure Position Pulse Oximetry 95 Oxygen Delivery Method Nasal Cannula Oxygen Flow Rate 3 Sepsis Recent Fever Within 48 Hours Sepsis New/Unexplained Change in Mental Status Sepsis Action Taken by Nursing Laboratory Data Attestation: I reviewed the patient's lab results. 09/19/22 11:49 09/19/22 11:49 Lab Results 09/19/22 09/19/22 09/19/22 Range/Units 11:28 11:49 11:49 WBC 9.10 (4.8-10.8) K/ul RBC 3.49 L (4.20-5.40) M/uL Hgb 10.7 L (12.0-16.0) g/dl Hct 32.5 L (37.0-47.0) % MCV 93.1 (80.0-100.0) fL MCH 30.7 (25.0-34.0) pg MCHC 32.9 (32.0-36.0) g/dL RDW Std Deviation 43.8 (36.4-46.3) fL RDW Coeff of Nerissa 12.8 (11.5-14.5) % Plt Count 236 (130-400) K/uL MPV 10.1 (9.4-12.4) fL Immature Gran % (Auto) 0.3 % Neut % (Auto) 60.4 % Lymph % (Auto) 29.2 % Hutchinson % (Auto) 7.0 % Eos % (Auto) 2.7 % Baso % (Auto) 0.4 % Neut # (Auto) 5.48 (1.40-6.50) K/uL Lymph # (Auto) 2.66 (1.2-3.4) K/uL Hutchinson # (Auto) 0.64 H (0.11-0.59) K/uL Eos # (Auto) 0.25 (0-0.50) K/uL Baso # (Auto) 0.04 (0-0.2) K/uL Immature Gran # (Auto) 0.03 (0.01-0.20) K/uL PT 10.2 (9.0-12.0) Seconds INR 0.9 (0.9-1.1) ABG pH (7.35-7.45) ABG pCO2 (35-46) mmHg ABG pO2 (80-95) mmHg ABG HCO3 (19-24) mmol/L ABG O2 Saturation (90-95) % ABG Base Excess (-9-1.8) mEq/L Sukhdev Test (Pos) VBG pH (7.36-7.41) VBG pCO2 (38-50) mmHg VBG pO2 mmHg VBG HCO3 mmol/L VBG O2 Saturation % VBG Base Excess mEq/L Oxygen Given Sodium (136-145) mmol/L Potassium (3.5-5.1) mmol/L Chloride (98-107) mmol/L Carbon Dioxide (21-32) mmol/L Anion Gap (3-11) BUN (6-23) mg/dl Creatinine (0.6-1.2) mg/dl Est Cr Clr Drug Dosing Est GFR ( Amer) ml/min Est GFR (Non-Af Amer) ml/min BUN/Creatinine Ratio (10-20) Glucose (70-99(Fasting)) mg/dl POC Glucose 180 H (70-99) mg/dl Calcium (8.6-10.3) mg/dl Ionized Calcium (1.12-1.32) mmol/L Phosphorus (2.5-4.9) mg/dl Magnesium (1.7-2.4) mg/dl Total Bilirubin (0.2-1.0) mg/dl AST (13-39) U/L ALT (7-52) U/L Alkaline Phosphatase (34-104) U/L Ammonia (18-72) umol/L Total Creatine Kinase (26-192) U/L Troponin I High Sens (0-14) pg/ml Total Protein (6.0-8.3) gm/dl Albumin (3.4-5.0) gm/dl Globulin (2.5-4.0) gm/dl Albumin/Globulin Ratio (0.9-2) Lipase (11-82) U/L Procalcitonin (0-0.5) ng/ml Urine Color Urine Appearance (Clear) Urine pH (4.5-7.5) Ur Specific [place] (1.000-1.030) Urine Protein (Negative) Urine Glucose (UA) (Negative) Urine Ketones (Negative) Urine Blood (Negative) Urine Nitrite (Negative) Urine Bilirubin (Negative) Urine Urobilinogen (Negative) Ur Leukocyte Esterase (Negative) Urine WBC (Auto) (0-5) /hpf Urine RBC (Auto) (0-4) /hpf U Hyaline Cast (Auto) (0-5) /lpf U Epithel Cells (Auto) (0-5) /lpf Urine Bacteria (Auto) (Negative) Urine Opiates Screen (Neg) Ur Methadone, Qual (Neg) Urine Barbiturates (Neg) Ur Phencyclidine (PCP) (Neg) U Amphetamin/Meth Scrn (Neg) MDMA (Ecstasy) Screen (Neg) U Benzodiazepines Scrn (Neg) Ur Cocaine Metabolite (Neg) U Marijuana (THC) Screen (Neg) Ethyl Alcohol mg/dL (<10.0) mg/dl SARS-CoV-2, RNA, NAAT (NEGATIVE) 09/19/22 09/19/22 09/19/22 Range/Units 11:49 11:49 11:49 WBC (4.8-10.8) K/ul RBC (4.20-5.40) M/uL Hgb (12.0-16.0) g/dl Hct (37.0-47.0) % MCV (80.0-100.0) fL MCH (25.0-34.0) pg MCHC (32.0-36.0) g/dL RDW Std Deviation (36.4-46.3) fL RDW Coeff of Nerissa (11.5-14.5) % Plt Count (130-400) K/uL MPV (9.4-12.4) fL Immature Gran % (Auto) % Neut % (Auto) % Lymph % (Auto) % Hutchinson % (Auto) % Eos % (Auto) % Baso % (Auto) % Neut # (Auto) (1.40-6.50) K/uL Lymph # (Auto) (1.2-3.4) K/uL [place] # (Auto) (0.11-0.59) K/uL Eos # (Auto) (0-0.50) K/uL Baso # (Auto) (0-0.2) K/uL Immature Gran # (Auto) (0.01-0.20) K/uL PT (9.0-12.0) Seconds INR (0.9-1.1) ABG pH (7.35-7.45) ABG pCO2 (35-46) mmHg ABG pO2 (80-95) mmHg ABG HCO3 (19-24) mmol/L ABG O2 Saturation (90-95) % ABG Base Excess (-9-1.8) mEq/L Sukhdev Test (Pos) VBG pH (7.36-7.41) VBG pCO2 (38-50) mmHg VBG pO2 mmHg VBG HCO3 mmol/L VBG O2 Saturation % VBG Base Excess mEq/L Oxygen Given Sodium 133 L (136-145) mmol/L Potassium 5.2 H (3.5-5.1) mmol/L Chloride 99 (98-107) mmol/L Carbon Dioxide 25 (21-32) mmol/L Anion Gap 9 (3-11) BUN 62 H (6-23) mg/dl Creatinine 2.91 H (0.6-1.2) mg/dl Est Cr Clr Drug Dosing Not Reportable Est GFR ( Amer) 17.3 ml/min Est GFR (Non-Af Amer) 14.9 ml/min BUN/Creatinine Ratio 21.3 H (10-20) Glucose 177 H (70-99(Fasting)) mg/dl POC Glucose (70-99) mg/dl Calcium 9.2 (8.6-10.3) mg/dl Ionized Calcium (1.12-1.32) mmol/L Phosphorus 5.9 H (2.5-4.9) mg/dl Magnesium 2.0 (1.7-2.4) mg/dl Total Bilirubin 0.3 (0.2-1.0) mg/dl AST 20 (13-39) U/L ALT 11 (7-52) U/L Alkaline Phosphatase 110 H (34-104) U/L Ammonia (18-72) umol/L Total Creatine Kinase 461 H (26-192) U/L Troponin I High Sens 6.0 (0-14) pg/ml Total Protein 7.0 (6.0-8.3) gm/dl Albumin 4.1 (3.4-5.0) gm/dl Globulin 2.9 (2.5-4.0) gm/dl Albumin/Globulin Ratio 1.4 (0.9-2) Lipase < 3 L (11-82) U/L Procalcitonin 0.08 (0-0.5) ng/ml Urine Color Urine Appearance (Clear) Urine pH (4.5-7.5) Ur Specific [place] (1.000-1.030) Urine Protein (Negative) Urine Glucose (UA) (Negative) Urine Ketones (Negative) Urine Blood (Negative) Urine Nitrite (Negative) Urine Bilirubin (Negative) Urine Urobilinogen (Negative) Ur Leukocyte Esterase (Negative) Urine WBC (Auto) (0-5) /hpf Urine RBC (Auto) (0-4) /hpf U Hyaline Cast (Auto) (0-5) /lpf U Epithel Cells (Auto) (0-5) /lpf Urine Bacteria (Auto) (Negative) Urine Opiates Screen (Neg) Ur Methadone, Qual (Neg) Urine Barbiturates (Neg) Ur Phencyclidine (PCP) (Neg) U Amphetamin/Meth Scrn (Neg) MDMA (Ecstasy) Screen (Neg) U Benzodiazepines Scrn (Neg) Ur Cocaine Metabolite (Neg) U Marijuana (THC) Screen (Neg) Ethyl Alcohol mg/dL (<10.0) mg/dl SARS-CoV-2, RNA, NAAT NEGATIVE (NEGATIVE) 09/19/22 09/19/22 09/19/22 Range/Units 12:00 12:00 12:00 WBC (4.8-10.8) K/ul RBC (4.20-5.40) M/uL Hgb (12.0-16.0) g/dl Hct (37.0-47.0) % MCV (80.0-100.0) fL MCH (25.0-34.0) pg MCHC (32.0-36.0) g/dL RDW Std Deviation (36.4-46.3) fL RDW Coeff of Nerissa (11.5-14.5) % Plt Count (130-400) K/uL MPV (9.4-12.4) fL Immature Gran % (Auto) % Neut % (Auto) % Lymph % (Auto) % Hutchinson % (Auto) % Eos % (Auto) % Baso % (Auto) % Neut # (Auto) (1.40-6.50) K/uL Lymph # (Auto) (1.2-3.4) K/uL [place] # (Auto) (0.11-0.59) K/uL Eos # (Auto) (0-0.50) K/uL Baso # (Auto) (0-0.2) K/uL Immature Gran # (Auto) (0.01-0.20) K/uL PT (9.0-12.0) Seconds INR (0.9-1.1) ABG pH (7.35-7.45) ABG pCO2 (35-46) mmHg ABG pO2 (80-95) mmHg ABG HCO3 (19-24) mmol/L ABG O2 Saturation (90-95) % ABG Base Excess (-9-1.8) mEq/L Sukhdev Test (Pos) VBG pH 7.25 L (7.36-7.41) VBG pCO2 61 H (38-50) mmHg VBG pO2 40 mmHg VBG HCO3 27 mmol/L VBG O2 Saturation 66.5 % VBG Base Excess -1.7 mEq/L Oxygen Given Sodium (136-145) mmol/L Potassium (3.5-5.1) mmol/L Chloride (98-107) mmol/L Carbon Dioxide (21-32) mmol/L Anion Gap (3-11) BUN (6-23) mg/dl Creatinine (0.6-1.2) mg/dl Est Cr Clr Drug Dosing Est GFR ( Amer) ml/min Est GFR (Non-Af Amer) ml/min BUN/Creatinine Ratio (10-20) Glucose (70-99(Fasting)) mg/dl POC Glucose (70-99) mg/dl Calcium (8.6-10.3) mg/dl Ionized Calcium (1.12-1.32) mmol/L Phosphorus (2.5-4.9) mg/dl Magnesium (1.7-2.4) mg/dl Total Bilirubin (0.2-1.0) mg/dl AST (13-39) U/L ALT (7-52) U/L Alkaline Phosphatase (34-104) U/L Ammonia 22.0 (18-72) umol/L Total Creatine Kinase (26-192) U/L Troponin I High Sens (0-14) pg/ml Total Protein (6.0-8.3) gm/dl Albumin (3.4-5.0) gm/dl Globulin (2.5-4.0) gm/dl Albumin/Globulin Ratio (0.9-2) Lipase (11-82) U/L Procalcitonin (0-0.5) ng/ml Urine Color Urine Appearance (Clear) Urine pH (4.5-7.5) Ur Specific [place] (1.000-1.030) Urine Protein (Negative) Urine Glucose (UA) (Negative) Urine Ketones (Negative) Urine Blood (Negative) Urine Nitrite (Negative) Urine Bilirubin (Negative) Urine Urobilinogen (Negative) Ur Leukocyte Esterase (Negative) Urine WBC (Auto) (0-5) /hpf Urine RBC (Auto) (0-4) /hpf U Hyaline Cast (Auto) (0-5) /lpf U Epithel Cells (Auto) (0-5) /lpf Urine Bacteria (Auto) (Negative) Urine Opiates Screen (Neg) Ur Methadone, Qual (Neg) Urine Barbiturates (Neg) Ur Phencyclidine (PCP) (Neg) U Amphetamin/Meth Scrn (Neg) MDMA (Ecstasy) Screen (Neg) U Benzodiazepines Scrn (Neg) Ur Cocaine Metabolite (Neg) U Marijuana (THC) Screen (Neg) Ethyl Alcohol mg/dL < 10.0 (<10.0) mg/dl SARS-CoV-2, RNA, NAAT (NEGATIVE) 09/19/22 09/19/22 09/19/22 Range/Units 12:00 14:09 15:15 WBC (4.8-10.8) K/ul RBC (4.20-5.40) M/uL Hgb (12.0-16.0) g/dl Hct (37.0-47.0) % MCV (80.0-100.0) fL MCH (25.0-34.0) pg MCHC (32.0-36.0) g/dL RDW Std Deviation (36.4-46.3) fL RDW Coeff of Nerissa (11.5-14.5) % Plt Count (130-400) K/uL MPV (9.4-12.4) fL Immature Gran % (Auto) % Neut % (Auto) % Lymph % (Auto) % Hutch[place] % (Auto) % Eos % (Auto) % Baso % (Auto) % Neut # (Auto) (1.40-6.50) K/uL Lymph # (Auto) (1.2-3.4) K/uL [place] # (Auto) (0.11-0.59) K/uL Eos # (Auto) (0-0.50) K/uL Baso # (Auto) (0-0.2) K/uL Immature Gran # (Auto) (0.01-0.20) K/uL PT (9.0-12.0) Seconds INR (0.9-1.1) ABG pH 7.24 L (7.35-7.45) ABG pCO2 60 H (35-46) mmHg ABG pO2 94 (80-95) mmHg ABG HCO3 26 H (19-24) mmol/L ABG O2 Saturation 98.6 H (90-95) % ABG Base Excess -2.8 (-9-1.8) mEq/L Sukhdev Test POS (Pos) VBG pH (7.36-7.41) VBG pCO2 (38-50) mmHg VBG pO2 mmHg VBG HCO3 mmol/L VBG O2 Saturation % VBG Base Excess mEq/L Oxygen Given 3L Sodium (136-145) mmol/L Potassium (3.5-5.1) mmol/L Chloride (98-107) mmol/L Carbon Dioxide (21-32) mmol/L Anion Gap (3-11) BUN (6-23) mg/dl Creatinine (0.6-1.2) mg/dl Est Cr Clr Drug Dosing Est GFR ( Amer) ml/min Est GFR (Non-Af Amer) ml/min BUN/Creatinine Ratio (10-20) Glucose (70-99(Fasting)) mg/dl POC Glucose (70-99) mg/dl Calcium (8.6-10.3) mg/dl Ionized Calcium 1.27 (1.12-1.32) mmol/L Phosphorus (2.5-4.9) mg/dl Magnesium (1.7-2.4) mg/dl Total Bilirubin (0.2-1.0) mg/dl AST (13-39) U/L ALT (7-52) U/L Alkaline Phosphatase (34-104) U/L Ammonia (18-72) umol/L Total Creatine Kinase (26-192) U/L Troponin I High Sens (0-14) pg/ml Total Protein (6.0-8.3) gm/dl Albumin (3.4-5.0) gm/dl Globulin (2.5-4.0) gm/dl Albumin/Globulin Ratio (0.9-2) Lipase (11-82) U/L Procalcitonin (0-0.5) ng/ml Urine Color Yellow Urine Appearance Clear (Clear) Urine pH 5.0 (4.5-7.5) Ur Specific [place] 1.013 (1.000-1.030) Urine Protein Negative (Negative) Urine Glucose (UA) Negative (Negative) Urine Ketones Negative (Negative) Urine Blood Negative (Negative) Urine Nitrite Negative (Negative) Urine Bilirubin Negative (Negative) Urine Urobilinogen Negative (Negative) Ur Leukocyte Esterase 2+ H (Negative) Urine WBC (Auto) >30 H (0-5) /hpf Urine RBC (Auto) 0-4 (0-4) /hpf U Hyaline Cast (Auto) 1-5 (0-5) /lpf U Epithel Cells (Auto) 20-30 H (0-5) /lpf Urine Bacteria (Auto) Negative (Negative) Urine Opiates Screen (Neg) Ur Methadone, Qual (Neg) Urine Barbiturates (Neg) Ur Phencyclidine (PCP) (Neg) U Amphetamin/Meth Scrn (Neg) MDMA (Ecstasy) Screen (Neg) U Benzodiazepines Scrn (Neg) Ur Cocaine Metabolite (Neg) U Marijuana (THC) Screen (Neg) Ethyl Alcohol mg/dL (<10.0) mg/dl SARS-CoV-2, RNA, NAAT (NEGATIVE) 09/19/22 Range/Units 15:15 WBC (4.8-10.8) K/ul RBC (4.20-5.40) M/uL Hgb (12.0-16.0) g/dl Hct (37.0-47.0) % MCV (80.0-100.0) fL MCH (25.0-34.0) pg MCHC (32.0-36.0) g/dL RDW Std Deviation (36.4-46.3) fL RDW Coeff of Nerissa (11.5-14.5) % Plt Count (130-400) K/uL MPV (9.4-12.4) fL Immature Gran % (Auto) % Neut % (Auto) % Lymph % (Auto) % [place] % (Auto) % Eos % (Auto) % Baso % (Auto) % Neut # (Auto) (1.40-6.50) K/uL Lymph # (Auto) (1.2-3.4) K/uL [place] # (Auto) (0.11-0.59) K/uL Eos # (Auto) (0-0.50) K/uL Baso # (Auto) (0-0.2) K/uL Immature Gran # (Auto) (0.01-0.20) K/uL PT (9.0-12.0) Seconds INR (0.9-1.1) ABG pH (7.35-7.45) ABG pCO2 (35-46) mmHg ABG pO2 (80-95) mmHg ABG HCO3 (19-24) mmol/L ABG O2 Saturation (90-95) % ABG Base Excess (-9-1.8) mEq/L Sukhdev Test (Pos) VBG pH (7.36-7.41) VBG pCO2 (38-50) mmHg VBG pO2 mmHg VBG HCO3 mmol/L VBG O2 Saturation % VBG Base Excess mEq/L Oxygen Given Sodium (136-145) mmol/L Potassium (3.5-5.1) mmol/L Chloride (98-107) mmol/L Carbon Dioxide (21-32) mmol/L Anion Gap (3-11) BUN (6-23) mg/dl Creatinine (0.6-1.2) mg/dl Est Cr Clr Drug Dosing Est GFR ( Amer) ml/min Est GFR (Non-Af Amer) ml/min BUN/Creatinine Ratio (10-20) Glucose (70-99(Fasting)) mg/dl POC Glucose (70-99) mg/dl Calcium (8.6-10.3) mg/dl Ionized Calcium (1.12-1.32) mmol/L Phosphorus (2.5-4.9) mg/dl Magnesium (1.7-2.4) mg/dl Total Bilirubin (0.2-1.0) mg/dl AST (13-39) U/L ALT (7-52) U/L Alkaline Phosphatase (34-104) U/L Ammonia (18-72) umol/L Total Creatine Kinase (26-192) U/L Troponin I High Sens (0-14) pg/ml Total Protein (6.0-8.3) gm/dl Albumin (3.4-5.0) gm/dl Globulin (2.5-4.0) gm/dl Albumin/Globulin Ratio (0.9-2) Lipase (11-82) U/L Procalcitonin (0-0.5) ng/ml Urine Color Urine Appearance (Clear) Urine pH (4.5-7.5) Ur Specific [place] (1.000-1.030) Urine Protein (Negative) Urine Glucose (UA) (Negative) Urine Ketones (Negative) Urine Blood (Negative) Urine Nitrite (Negative) Urine Bilirubin (Negative) Urine Urobilinogen (Negative) Ur Leukocyte Esterase (Negative) Urine WBC (Auto) (0-5) /hpf Urine RBC (Auto) (0-4) /hpf U Hyaline Cast (Auto) (0-5) /lpf U Epithel Cells (Auto) (0-5) /lpf Urine Bacteria (Auto) (Negative) Urine Opiates Screen Pos H (Neg) Ur Methadone, Qual Neg (Neg) Urine Barbiturates Neg (Neg) Ur Phencyclidine (PCP) Neg (Neg) U Amphetamin/Meth Scrn Neg (Neg) MDMA (Ecstasy) Screen Pos H (Neg) U Benzodiazepines Scrn Neg (Neg) Ur Cocaine Metabolite Neg (Neg) U Marijuana (THC) Screen Neg (Neg) Ethyl Alcohol mg/dL (<10.0) mg/dl SARS-CoV-2, RNA, NAAT (NEGATIVE) Administered Medications Insulin Aspart (Insulin Aspart Per Unit Charge) 0 units SC ACHS MAYANK Stop: 10/19/22 16:29 Last Admin: 09/19/22 17:45 Dose: 1 units Documented By: SANTO Co-signed By: SM Discontinued Medications Sodium Chloride (Nss) 500 mls @ 999 mls/hr IV .Q31M ONE Stop: 09/19/22 12:22 Last Infusion: 09/19/22 12:30 Dose: 0 mls/hr Documented By: Admin: 09/19/22 11:58 Dose: 999 mls/hr Documented By: NICHELLE Imaging Data Radiologist's Impression: Chest X-Ray 09/19/22 11:46 XR chest 1V portable CLINICAL HISTORY: Chest pain, nonspecific TECHNIQUE: Single frontal radiograph of the chest was obtained. Comparison: Comparison is made to chest radiograph 03/14/2017 FINDINGS: No lines and tubes are seen. The cardiomediastinal silhouette is normal. The gunner gs are clear. No evidence of pleural effusion or pneumothorax. IMPRESSION: No acute chest disease. ACT 112: Negative or not required by law. Electronically signed by: Eros Herndon M.D. 09/19/2022 12:11 PM Discharge Plan Visit Data Chief Complaint: Hip Pain Stated Complaint: HIP PAIN;JERKING ED Provider: Akhil Rico Discharge Problem: Hypercapnia, Acute on chronic renal insufficiency, Myoclonic jerking, Hypoxia, Type 2 diabetes mellitus with diabetic polyneuropathy, Opiate dependence, Chronic pain Patient Disposition: Admitted As Inpatient Discharge Instructions Interventions: ED Discharge Assessment Last Done: 09/19/22 16:35
[2022-09-19] MEDS ORDERED: SODIUM CHLORIDE 0.9% 500 ML IV ONE (11:52)
--- NOTE | 2022-09-19 12:13 | XRay Report ---
XR chest 1V portable CLINICAL HISTORY: Chest pain, nonspecific TECHNIQUE: Single frontal radiograph of the chest was obtained. Comparison: Comparison is made to chest radiograph 03/14/2017 FINDINGS: No lines and tubes are seen. The cardiomediastinal silhouette is normal. The lungs are clear. No evid ence of pleural effusion or pneumothorax. IMPRESSION: No acute chest disease. ACT 112: Negative or not required by law. Electronically signed by: Eros Herndon M.D. 09/19/2022 12:11 PM
[2022-09-19 12:14] LABS: Base Excess VBG -1.7 mEq/L; HCO3 VBG 27 mmol/L; Oxygen Saturation VBG 66.5 %; PCO2 VBG 61 mmHg (38-50); PO2 VBG 40 mmHg; pH VBG 7.25 (7.36-7.41)
[2022-09-19 12:20] LABS: Basophils # (auto) 0.04 K/uL (0-0.2); Basophils % (auto) 0.4 %; Eosinophils # (auto) 0.25 K/uL (0-0.50); Eosinophils % (auto) 2.7 %; Hematocrit (blood only) 32.5 % (37.0-47.0); Hemoglobin 10.7 g/dl (12.0-16.0); Immature Granulocytes # (auto) 0.03 K/uL (0.01-0.20); Immature Granulocytes % (auto) 0.3 %; Lymphocytes # (auto) 2.66 K/uL (1.2-3.4); Lymphocytes % (auto) 29.2 %; Mean Corpuscular Hemoglobin 30.7 pg (25.0-34.0); Mean Corpuscular Hgb Conc 32.9 g/dL (32.0-36.0); Mean Corpuscular Volume 93.1 fL (80.0-100.0); Mean Platelet Volume 10.1 fL (9.4-12.4); Monocytes # (auto) 0.64 K/uL (0.11-0.59); Neutrophils # (auto) 5.48 K/uL (1.40-6.50); Neutrophils % (auto) 60.4 %; Platelet Count 236 K/uL (130-400); RDW Coefficient of Variation 12.8 % (11.5-14.5); RDW Standard Deviation 43.8 fL (36.4-46.3); Red Blood Count 3.49 M/uL (4.20-5.40)
[2022-09-19 12:26] LABS: Anion Gap 9 (3-11); BUN Creatinine Ratio 21.3 (10-20); Blood Urea Nitrogen 62 mg/dl (6-23); Calcium 9.2 mg/dl (8.6-10.3); Carbon Dioxide 25 mmol/L (21-32); Chloride 99 mmol/L (98-107); Est GFR (African American) 17.3 ml/min; Est GFR (Non-African American) 14.9 ml/min; Glucose 177 mg/dl (70-99(Fasting)); Potassium 5.2 mmol/L (3.5-5.1); Sodium 133 mmol/L (136-145)
[2022-09-19 12:30] LABS: INR 0.9 (0.9-1.1); Prothrombin Time 10.2 Seconds (9.0-12.0)
[2022-09-19 12:33] LABS: Alanine Aminotransferase 11 U/L (7-52); Albumin Globulin Ratio 1.4 (0.9-2); Albumin Level 4.1 gm/dl (3.4-5.0); Alkaline Phosphatase 110 U/L (34-104); Aspartate Aminotransferase 20 U/L (13-39); Bilirubin,Total 0.3 mg/dl (0.2-1.0); Creatine Kinase 461 U/L (26-192); Globulin 2.9 gm/dl (2.5-4.0); Lipase < 3 U/L (11-82); Phosphorus 5.9 mg/dl (2.5-4.9)
[2022-09-19 14:25] LABS: Base Excess ABG -2.8 mEq/L (-9-1.8); HCO3 ABG 26 mmol/L (19-24); Oxygen Saturation ABG 98.6 % (90-95); PCO2 ABG 60 mmHg (35-46); PO2 ABG 94 mmHg (80-95); pH ABG 7.24 (7.35-7.45)
[2022-09-19 14:26] LABS: Allen Test POS (Pos)
--- NOTE | 2022-09-19 14:56 | History & Physical Report ---
Date of Service September 19, 2022 Assessment & Plan (1) Acute respiratory failure with hypoxia: Plan: Denies respiratory symptoms, CXR negative, trop wnl suspect d/t poor renal clearance of morphine leading to respiratory suppression continue supplemental O2 monitor on tele f/u CT chest WO contrast to rule out etiology not picked up on CXR (2) Toxic metabolic encephalopathy: Plan: multifactorial d/t hypoxia, uremia, and build up of drugs d/t poor renal clearance (morphine) treat underlying etiologies Present on Admission?: Yes (3) Acute kidney injury superimposed on CKD: Plan: baseline Cr is around 1.3 - 1.4 with eGFR in the 30s over the last few years at presentation Cr is 2.91 with eGFR of 15 given gentle IVF in the ED, continue avoid nephrotoxins and hypotension minimize opiates and other sedating meds as renal clearance is worse than baseline nephrology consulted, appreciate input, will follow recs Present on Admission?: Yes (4) Hyperkalemia, diminished renal excretion: Plan: mild, K 5.2, no EKG changes anticipate improvement with renal recovery if this worsens will consider albuterol, Na Bicarb, Insulin gtt/Dextrose, Ca gluconate to stabilize cardiac cells as well as Lokelma vs Kayexalate will defer furosemide to nephrology Present on Admission?: Yes (5) Hyperphosphatemia: Plan: expect to improve with renal recovery consider phoslo Present on Admission?: Yes (6) Type 2 diabetes mellitus with diabetic polyneuropathy: Plan: home regimen is Glipizide 10 mg BID, Semaglutide 0.25 mg sc weekly though not taking recently d/t financial constraints hold off on ordering basal insulin until weight is recorded meal time insulin ordered per protocol, may need to be decreased d/t renal injury hypoglycemic protocol ordered glucose checks achs diabetic diet recent A1c 7.9 Present on Admission?: Yes (7) Hypertension: Plan: currently well controlled hold lisinopril hold mind altering drugs including morphine, gabapentin, trazodone until mental status improves Present on Admission?: Yes History of Present Illness Chief Complaint: altered mental status Primary Care Provider: Ac Lopez MD Ms. Gresham is a 77 year old female with pmhx of NIDDM-II (associated with HTN and HLP, c/b nephropathy and neuropathy), CKD IIIb - IV, peripheral polyneuropathy, b/l hammer toe deformity, lumbar DDD, chronic back pain, and Pelge-Huet anomaly (abnormal wbc nuclei). She presents in her words b/c her legs were jerking and her right hip hurt. Per her family she has confusion and other symptoms consistent with prior episodes of renal failure. Pt reports her legs have been jerking spontaneously for about 28 hours now. This has made chronic right hip pain worse than usual. There are no clear inciting, exacerbating, or alleviating factors regarding the jerking. The pain is improved with resting and with morphine. Hip pain is described as "solid" at worst /10, and currently 6/10. She denies EDGAR, dizziness, lightheadedness, confusion, difficulty with word finding, expressive or receptive aphasia, focal weakness, new numbness and tingling (has chronic b/l symptoms in her feet d/t neuropathy), dfficulty with balance or coordination, CP, sob, cough, congestion, sore throat, abdominal pain, dysuria, and diarrhea. She repeatedly states she does not feel as though she is confused. Collateral information per multiple family members at bedside (, sister, and granddaughter). Her notices she has been sleeping more than usual the last few days, and she seems confused here, but does not notice any other changes. He states at home she is sharp as a tack. Per granddaughter she appears more "pale and puffy" in the face. She notes mild slurred speech and confusion. Her sister adds that her fingers are swollen, she had to take her ring off. Per granddaughter the patient has had two episodes of renal failure in the past with similar presentation in terms of diffuse jerking, swelling, and confusion. The last time she required temporary HD that was continued for a few weeks or so post discharge. ED Course: VS notable for b/w notable for Na 133, K 5.2, BUN 62, Cr 2.91, eGFR 14.9, glucose 180, alk phos 110. Remaining cbc, cmp unimpressive. Phos 5.9, CK 461. Mg, troponin, procalcitonin and TSH are wnl. Lipase < 3. UA is pending. CXR is negative for acute pathology. Pt was given NS and admitted to hospitalist service. Allergies Allergy/AdvReac Type Severity Reaction Status Date / Time metformin Allergy Unknown renal Verified 09/28/21 13:44 complications Home Medications Medication Instructions Recorded Confirmed Type gabapentin 300 mg capsule 300 mg PO BID PRN Other 11/09/17 09/19/22 History (Neurontin) glipizide 5 mg tablet (Glucotrol) 5 mg PO DAILY 11/09/17 09/19/22 History morphine 15 mg immediate release 30 mg PO DAILY 12/23/18 09/19/22 History tablet trazodone 100 mg tablet 100 mg PO HS 12/23/18 09/19/22 History lisinopril 5 mg tablet 5 mg PO DAILY #90 tabs 09/28/21 09/19/22 Rx calcitriol 0.25 mcg capsule 0.25 mcg PO DAILY #90 caps 01/31/22 09/19/22 Rx (Rocaltrol) allopurinol 0 mg PO DAILY 09/19/22 09/19/22 History Past Med/Surg History Medical History (Updated 09/19/22 @ 15:42 by Rosario Major MD) Acquired hammer toe of left foot Acquired hammer toe of right foot Acute kidney injury superimposed on CKD Acute renal insufficiency Callus Chronic back pain Chronic kidney disease, stage 4 (severe) Degeneration of lumbar intervertebral disc Dehydration Fall Hallux rigidus, left foot Hallux valgus (acquired), left foot Hyperkalemia, diminished renal excretion Hyperphosphatemia Hypertension Hypoglycemia Lumbar spondylosis 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 Peripheral neuropathy Pulmonary hypertension associated with systemic disorder Sepsis due to urinary tract infection Skin ulcer of left great toe Toxic metabolic encephalopathy Type 2 diabetes mellitus with diabetic neuropathy Type 2 diabetes mellitus with diabetic polyneuropathy Vitamin D deficiency Surgical History (Updated 09/19/22 @ 15:18 by Rosario Major MD) S/P total right hip arthroplasty Family History (Updated 09/19/22 @ 15:22 by Rosario Major MD) Mother , lung cancer Lung cancer Asthma Hypertension Diabetes Son Diabetes Social History (Updated 09/19/22 @ 15:19 by Rosario Major MD) Smoking Status: Never smoker Second Hand Exposure: No; Hx Alcohol Use: No Hx Substance Use: No Feels Safe at Home: Yes Review of Systems Review of Systems: All systems reviewed & are unremarkable except as noted in HPI & below Physical Exam Physical Exam: General: NAD, well nourished, well developed, non-toxic appearing Head: NC AT Eyes: PERRL, EOMI, anicteric sclera, no conjunctival injection Nose: normal, nares patent Mouth: dry Neck: supple, trachea midline CV: RRR S1 S2 Pulm: CTA b/l Abd/GI: + BS, soft, NT, ND, no guarding : no resendiz Ext: no pretibial edema MSK: normal bulk and tone Neuro: moving all 4 extremities symmetrically, no focal weakness, CN II - XII intact, oriented to self, location, year, and month. Occasional jerking movements of all 4 limbs and neck. Psych: pleasant mood and affect Skin: visible skin is warm, dry, and without rash. Pt not fully undressed for exam. Results & Data Results & Data Vital Signs (Past 12 Hours) Vital Signs Temp Pulse Resp BP Pulse Ox O2 Del Method O2 Flow Rate 09/19/22 14:00 75 16 95 Room Air 09/19/22 14:00 111/57 L 09/19/22 13:30 76 19 93 09/19/22 13:30 101/52 L 09/19/22 13:02 77 14 94 09/19/22 13:02 108/84 09/19/22 13:00 76 21 94 09/19/22 13:00 99/65 L 09/19/22 12:30 73 20 94 09/19/22 12:30 107/46 L 09/19/22 12:00 81 15 93 Nasal Cannula 3 09/19/22 12:00 126/60 09/19/22 11:31 125/63 09/19/22 11:31 86 16 87 L 09/19/22 11:30 79 17 88 L Room Air 09/19/22 11:25 87 28 H 84 L 09/19/22 11:52 95 Nasal Cannula 3 09/19/22 11:46 86 L Room Air 0 09/19/22 11:37 86 09/19/22 10:56 36.7 C 87 18 120/70 93 Room Air Laboratory Results Short CBC 09/19/22 Range/Units 11:49 WBC 9.10 (4.8-10.8) K/ul Hgb 10.7 L (12.0-16.0) g/dl Hct 32.5 L (37.0-47.0) % Plt Count 236 (130-400) K/uL BMP 09/19/22 11:49 Sodium 133 L Potassium 5.2 H Chloride 99 Carbon Dioxide 25 BUN 62 H Creatinine 2.91 H Glucose 177 H Calcium 9.2 Cardiac Enzymes 09/19/22 Range/Units 11:49 Total Creatine Kinase 461 H (26-192) U/L Liver Function 09/19/22 Range/Units 11:49 Total Bilirubin 0.3 (0.2-1.0) mg/dl AST 20 (13-39) U/L ALT 11 (7-52) U/L Alkaline Phosphatase 110 H (34-104) U/L Albumin 4.1 (3.4-5.0) gm/dl Diagnostic Findings Chest X-Ray 09/19/22 11:46 XR chest 1V portable CLINICAL HISTORY: Chest pain, nonspecific Comparison: Comparison is made to chest radiograph 03/14/2017 FINDINGS: No lines and tubes are seen. The cardiomediastinal silhouette is normal. The lungs are clear. No evidence of pleural effusion or pneumothorax. IMPRESSION: No acute chest disease. Electronically signed by: Eros Herndon M.D. 09/19/2022 12:11 PM
[2022-09-19] MEDS ORDERED: ONDANSETRON INJ 2 MG/ML 2 ML VIAL IV PRN (15:23)
[2022-09-19] MEDS ORDERED: POLYETHYLENE (MIRALAX) 17 GM PACK PO PRN (15:23)
[2022-09-19] MEDS ORDERED: CARBOHYDRATES FOR HYPOGLYCEMIA PO PRN (15:31)
[2022-09-19] MEDS ORDERED: GLUCAGON FOR INJ 1 MG VIAL SQ PRN (15:31)
[2022-09-19] MEDS ORDERED: DEXTROSE 50% 50 ML SYRINGE IV PRN (15:31)
[2022-09-19] MEDS ORDERED: GLUCOSE 40% GEL 15 GM TUBE PO PRN (15:31)
[2022-09-19] MEDS ORDERED: GLUCOSE 10 TAB/TUBE PO PRN (15:31)
[2022-09-19 15:49] LABS: Appearance Urine Clear (Clear); Bacteria Urine Automated Negative (Negative); Bilirubin Urine Negative (Negative); Blood Urine Negative (Negative); Color Urine Yellow; Epithelial Cell Urine Auto 20-30 /lpf (0-5); Glucose Urine UA Negative (Negative); Ketones Urine Negative (Negative); Leukocyte Esterase Urine 2+ (Negative); Nitrite Urine Negative (Negative); Protein Urine Negative (Negative); RBC Urine Automated 0-4 /hpf (0-4); Specific Gravity Urine 1.013 (1.000-1.030); Urobilinogen Urine Negative (Negative); WBC Urine Automated >30 /hpf (0-5)
[2022-09-19 16:17] LABS: Amphetamines+Metham, Urine Neg (Neg); Barbiturates, Urine Neg (Neg); Benzodiazepine, Urine Neg (Neg); Cocaine, Urine Neg (Neg); MDMA (Ecstacy), Urine Pos (Neg); Methadone, Urine Neg (Neg); Opiate, Urine Pos (Neg); Phencyclidine, Urine Neg (Neg)
--- NOTE | 2022-09-19 16:46 | CT Scan Report ---
HEAD CT NONCONTRAST CT DOSE: 1868.16 mGy.cm HISTORY: Altered mental status. TECHNIQUE: Multiaxial CT images of the head were performed without the use of intravenous contrast. A utomated exposure control was utilized for this study. A dose lowering technique was utilized adheri ng to the principles of ALARA. Comparison: Head CT 03/14/2017. Findings: The paranasal sinuses and mastoid air cells are clear. The calvarium and skull base are int act. The ventricles and sulci are within normal limits. There is no mass, hematoma, midline shift, or acute infarct. Impression: No acute intracranial abnormality. ACT 112: Negative or not required by law. Electronically signed by: Jhonny Baugh M.D. 09/19/2022 4:44 PM
--- NOTE | 2022-09-19 17:33 | CT Scan Report ---
CT chest diagnostic wo con CT DOSE: HISTORY: hypoxia, neg CXR TECHNIQUE: Multiaxial CT images of the chest were performed without contrast. A dose lowering techni que was utilized adhering to the principles of ALARA. COMPARISON: None. FINDINGS: Trace mucoid material within the proximal trachea. There are a few partially opacified bila teral lower lobe bronchi. No pneumothorax. No pleural effusions. Small patchy groundglass and linear densities within the lungs posteriorly favor dependent change/atelectasis. A low-grade pneumonitis is considered less likely but could also be considered in the differential diagnosis. A moderately enla rged multinodular thyroid gland/goiter. This results in slight mass effect along the proximal trachea . However, no significant airway narrowing. Normal esophagus. No pericardial effusion. No mediastinal or hilar lymphadenopathy. The heart is mildly enlarged. There are moderate to severe coronary artery calcifications noted. Mild calcified plaque within the normal caliber thoracic aorta. The main pulmo nary artery measures up to 3.4 cm in diameter consistent with pulmonary arterial hypertension. Limite d views of the upper abdomen demonstrate a normal liver, spleen, and adrenal glands. No acute fractur es identified. IMPRESSION: 1. Cardiomegaly with mild pulmonary arterial hypertension. 2. A few partially opacified bilateral lower lobe bronchi. This could be due to prior aspiration. 3. Small patchy groundglass and linear densities within the lungs posteriorly favor dependent change/ atelectasis. A low-grade pneumonitis is considered less likely but could also be considered in the di fferential diagnosis. 4. Additional findings as described above. ACT 112: Negative or not required by law. Electronically signed by: Jhonny Baugh M.D. 09/19/2022 5:31 PM
[2022-09-19] MEDS: INSULIN ASPART PER UNIT CHARGE SC SCH ×2 (17:45→20:07)
--- NOTE | 2022-09-19 18:02 | Electrocardiogram Report ---
Test Reason : Blood Pressure : / mmHG Vent. Rate : 074 BPM Atrial Rate : 074 BPM P-R Int : 186 ms QRS Dur : 078 ms QT Int : 386 ms P-R-T Axes : 053 -08 033 degrees QTc Int : 428 ms Normal sinus rhythm Normal ECG When compared with ECG of 15-MAR-2017 14:13, No significant change was found Confirmed by Juan Mensah ([id number]) on 09/19/2022 6:02:25 PM Referred By: Confirmed By:Agustin Mensah
[2022-09-19] MEDS: SODIUM CHLORIDE 0.9% 1000ML 1,000 ML IV SCH (20:11)
[2022-09-19] MEDS: ACETAMINOPHEN 325 MG TAB PO PRN (22:28)
[2022-09-20 06:21] LABS: Albumin Globulin Ratio 1.4 (0.9-2); Albumin Level 3.9 gm/dl (3.4-5.0); BUN Creatinine Ratio 23.3 (10-20); Bilirubin,Total 0.3 mg/dl (0.2-1.0); Calcium 8.8 mg/dl (8.6-10.3); Creatinine Clr Calc Pharmacy 24.3 ml/min; Est GFR (African American) 20.9 ml/min; Globulin 2.7 gm/dl (2.5-4.0); Potassium 5.8 mmol/L (3.5-5.1); Total Protein 6.6 gm/dl (6.0-8.3)
[2022-09-20 07:10] LABS: Hematocrit (blood only) 32.1 % (37.0-47.0); Hemoglobin 10.6 g/dl (12.0-16.0); Mean Corpuscular Hemoglobin 31.5 pg (25.0-34.0); Mean Corpuscular Volume 95.5 fL (80.0-100.0); Mean Platelet Volume 9.7 fL (9.4-12.4); Platelet Count 218 K/uL (130-400); RDW Coefficient of Variation 12.8 % (11.5-14.5); RDW Standard Deviation 45.1 fL (36.4-46.3); Red Blood Count 3.36 M/uL (4.20-5.40); White Blood Count 7.43 K/ul (4.8-10.8)
[2022-09-20] MEDS: INSULIN ASPART PER UNIT CHARGE SC SCH ×4 (08:17→21:19)
[2022-09-20] MEDS ORDERED: PATIROMER CALCIUM SORBITEX 8.4 GM PACK PO STA (08:42)
[2022-09-20] MEDS: allopurinoL 100 MG TAB PO SCH (08:50)
[2022-09-20] MEDS: CALCITRIOL 0.25 MCG CAPSULE PO SCH (08:50)
[2022-09-20 09:25] LABS: Estimated Average Glucose 197 mg/dl; Hemoglobin A1C 8.5 % (4.5-5.6)
--- NOTE | 2022-09-20 11:37 | Nephrology Consultation ---
Date of Consultation September 20, 2022 Assessment & Plan (1) Acute kidney injury superimposed on CKD: (2) Hyperkalemia, diminished renal excretion: (3) Myoclonic jerking: (4) Opiate dependence: (5) Hypertension: Plan 77-year-old female with history of stage IIIB/4 CKD, b/l cr 1.3-1.5, hypertension, diabetes, peripheral neuropathy, chronic opioid dependence and high dose of gabapentin for peripheral neuropathy presented with change in mental status and myoclonic jerks and noted to have VISHAL and hyperkalemia. Creatinine was 2.9 with baseline creatinine 1.1.5, an was 62. started on IV fluid with improvement in creatinine to 2.5 BUN 58 but potassium was elevated at 5.8. urinalysis was negative for proteinuria hematuria but noted to have pyuria. No renal imaging available however, she has been voiding normally. Unclear etiology for VISHAL could be some component of hemodynamic effect with poor p.o. intake. Change in mental status and myoclonic jerk possibly related to high dose of gabapentin and morphine with accumulation of metabolites in the setting of VISHAL -- [place] 8.4 g x 1 dose now, continue on renal diet, continue to hold lisinopril for now. -- continue on IV fluid, encourage p.o. intake, monitor intake, output, renal function and electrolytes. -- she may need pain management consult for further management high of her chronic dependence on opioids as well as high dose of gabapentin. Agree with holding both for now and once her renal function improved and mental status as neurological symptoms improve she may be able to go back to gabapentin maximum up to 300 mg per day -- dose all medications for GFR less than 30 -- since there is no renal imaging over last few years, will get a non urgent renal ultrasound considering VISHAL. Will follow. Thank you for allowing me to participate in your patient's care. It was a pleasure to see Steffany History of Present Illness Reason for Consultation: VISHAL Attending Physician: Ruben Tristan MD History of Present Illness Ms. Steffany Gresham is a 77 year old female with past medical history significant for stage IIIB/ 4 CKD with h/o HD requiring VISHAL before, hypertension, diabetes, peripheral neuropathy, DJD requiring chronic pain medication, admitted to the hospital with change in mental status, jerking movement of extremities and VISHAL. Nephrology consult requested for management of VISHAL. EMR records are reviewed in detail patient's visit. Patient's and sister was at bedside during visit. During visit Steffany seem to be somewhat confused with her illness, but otherwise comfortable, awake and alert. According to the report Steffany presented on 09/19/22 with 3 days history of constant and spontaneous jerking movement which was worsening. She did not have any headache, dizziness, confusion or lightheadedness but family felt like she is not really herself and also she had jerking movement before when she had dialysis requiring VISHAL in 2018 and they were concerned about her renal function. During visit she mainly complain of constant pain in her back as well as neuropathy pain in her feet. She reports taking Neurontin several times a day as well as ibuprofen although up on repeated question she kept changing the name of the medication and seem quite confused about exactly what medications she was taking. her medication record shows she has been taking Neurontin 300 mg twice a day. She also has been taking morphine 30 mg daily for more than 30 years. In ER lab was notable for creatinine of 2.9, BUN 62 sodium was 133 and potassium 5.2. CBC and CMP was otherwise unremarkable. She was started on IV normal saline, currently running at 80 mL/hour. Neurontin has been on hold. Urinalysis was negative for proteinuria or hematuria but noted to have bacteria and pyuria although she was not complaining of any dysuria, hematuria, fever or chills. No renal imaging available. Has stage IIIB/4 CKD, baseline creatinine lately has been around 1.3-1.5, has been following with Dr. Tan Ramirez, last appointment was in September 2021 and since then she missed 2 appointments. Previous history of dialysis requiring VISHAL in March 2017 due to nausea, vomiting, dehydration with concomitant use of lisinopril and metformin. Creatinine peaked to 6.1 and she was on dialysis for about a month and then renal function improved and she was taken off of dialysis in April 2017 and renal function has been relatively stable since. Past medical has history also significant for hypertension, well controlled on lisinopril 5 mg daily. history of type 2 diabetes complicated by peripheral neuropathy, has been on gabapentin 300 mg twice a day, glipizide 5 mg daily. Allergies Allergy/AdvReac Type Severity Reaction Status Date / Time metformin Allergy Unknown renal Verified 09/28/21 13:44 complications Home Medications Medication Instructions Recorded Confirmed Type gabapentin 300 mg capsule 300 mg PO BID PRN Other 11/09/17 09/19/22 History (Neurontin) glipizide 5 mg tablet (Glucotrol) 5 mg PO DAILY 11/09/17 09/19/22 History morphine 15 mg immediate release 30 mg PO DAILY 12/23/18 09/19/22 History tablet trazodone 100 mg tablet 100 mg PO HS 12/23/18 09/19/22 History lisinopril 5 mg tablet 5 mg PO DAILY #90 tabs 09/28/21 09/19/22 Rx calcitriol 0.25 mcg capsule 0.25 mcg PO DAILY #90 caps 01/31/22 09/19/22 Rx (Rocaltrol) allopurinol 0 mg PO DAILY 09/19/22 09/19/22 History Patient History Medical History (Updated 09/19/22 @ 19:10 by Akhil Rico MD) Acquired hammer toe of left foot Acquired hammer toe of right foot Acute kidney injury superimposed on CKD Acute renal insufficiency Callus Chronic back pain Chronic kidney disease, stage 4 (severe) Degeneration of lumbar intervertebral disc Dehydration Fall Hallux rigidus, left foot Hallux valgus (acquired), left foot Hyperkalemia, diminished renal excretion Hyperphosphatemia Hypertension Hypoglycemia Lumbar spondylosis 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 Peripheral neuropathy Pulmonary hypertension associated with systemic disorder Sepsis due to urinary tract infection Skin ulcer of left great toe Toxic metabolic encephalopathy Type 2 diabetes mellitus with diabetic neuropathy Type 2 diabetes mellitus with diabetic polyneuropathy Vitamin D deficiency Surgical History (Updated 09/19/22 @ 15:18 by Rosario Major MD) S/P total right hip arthroplasty Family History (Updated 09/19/22 @ 15:22 by Rosario Major MD) Mother , lung cancer Lung cancer Asthma Hypertension Diabetes Son Diabetes Social History (Updated 09/19/22 @ 15:19 by Rosario Major MD) Smoking Status: Never smoker Second Hand Exposure: No; Hx Alcohol Use: No Hx Substance Use: No Communication Ability: Effective Shrimper Required: No Beliefs That Will Affect Care: None Current Living Situation: Spouse Other Information That Helps Us Care for You: No Feels Safe at Home: Yes Assistive Devices: None Review of Systems Review of Systems: Detail detailed review of system was done and pertinent positives and negatives are mentioned above. Physical Exam Constitutional: WD/WN, vitals as above no acute distress Eyes: + anicteric sclerae Neck: normal visual inspection Thyroid: no thyromegaly Respiratory: no respiratory distress Auscultation: lungs clear to auscultation bilaterally Cardiovascular: RRR, no murmur, no edema Gastrointestinal (Abdomen): Inspection/Auscultation: abdomen normal to inspection Percussion/Palpation: abdomen soft; abdomen nontender Musculoskeletal: Extremities: extremities normal to inspection Skin: no rashes, warm and dry Neurologic: + confused (somewhat confused); no focal motor deficits myoclonic jerks Psychiatric: Orientation: alert, oriented to person, oriented to place and cooperative Affect: euthymic affect Results & Data Vital Signs (Past 12 Hours) Vital Signs Temp Pulse Pulse Resp BP Pulse Ox O2 Del Method 09/20/22 10:50 36.7 C 71 18 146/74 H 93 Nasal Cannula 09/20/22 08:30 Nasal Cannula 09/20/22 07:38 37.2 C 95 H 18 138/70 94 Nasal Cannula 09/20/22 03:20 36.6 C 79 20 137/64 92 Nasal Cannula 09/20/22 00:04 79 O2 Flow Rate 09/20/22 10:50 2 09/20/22 08:30 2 09/20/22 07:38 2 09/20/22 03:20 3 09/20/22 00:04 PG Care Time/CCT Total # of Minutes Spent Total Time Spent with Patient: Total time spent is greater than 50% in coordination of care (as documented) at patient's floor/unit and/or counseling patient: Coding Level of Care Code 46279 IN/OBS CONSULT LVL 5,80M Diagnoses Acute kidney injury superimposed on CKD N17.9; N18.9 Hyperkalemia, diminished renal excretion E87.5 Myoclonic jerking G25.3 Opiate dependence F11.20 Hypertension I10
[2022-09-20] MEDS: SODIUM CHLORIDE 0.9% 1000ML 1,000 ML IV SCH ×2 (15:30→21:00)
--- NOTE | 2022-09-20 16:13 | Hospitalist Progress Note ---
Date of Service September 20, 2022 Assessment & Plan (1) Acute respiratory failure with hypoxia: Plan: per admitting service notes with addendum: Denies respiratory symptoms, CXR negative, trop wnl suspect d/t poor renal clearance of morphine leading to respiratory suppression CT chest: 1. Cardiomegaly with mild pulmonary arterial hypertension. 2. A few partially opacified bilateral lower lobe bronchi. This could be due to prior aspiration. 3. Small patchy groundglass and linear densities within the lungs posteriorly favor dependent change/atelectasis. A low-grade pneumonitis is considered less likely but could also be considered in the differential diagnosis. 4. Additional findings as described above. Still on 2 L of nasal cannula Wean off accordingly Anticipate patient will continue improve as morphine and other medications con tinue to wear off (2) Toxic metabolic encephalopathy: Plan: multifactorial d/t hypoxia, uremia, and build up of drugs d/t poor renal clearance (morphine) 09/20 Improving morphine, gabapentin, trazodone until mental status improves (3) Acute kidney injury superimposed on CKD: Plan: baseline Cr is around 1.3 - 1.4 with eGFR in the 30s over the last few years at presentation Cr is 2.91 with eGFR of 15 09/20 Patient admits to taking additional ibuprofen lately for back and hip pain Creatinine improving from 2.9, now 2.4 Nephrology service consulted: Continue IV fluids Hold lisinopril Renal ultrasound ordered Renally dose all medications (4) Hyperkalemia, diminished renal excretion: Plan: Potassium 5.8 Veltassa 8.4 g 1 dose given Continue renal diet, hold lisinopril (5) Hyperphosphatemia: Plan: expect to improve with renal recovery (6) Low back pain: Plan: Low back pain and right hip pain History of right hip surgery Patient admits to taking morphine daily times several years now for the back and hip pain Hold morphine, gabapentin, trazodone for now in light of acute kidney injury, metabolic encephalopathy CT lower back and right hip ordered We will consult pain management service (7) Type 2 diabetes mellitus with diabetic polyneuropathy: Plan: home regimen is Glipizide 10 mg BID, Semaglutide 0.25 mg sc weekly though not taking recently d/t financial constraints Hold above BSG 103-158 A1c 8.5 Continue with insulin sliding scale at this time (8) Hypertension: Plan: currently 141/62 hold lisinopril hold mind altering drugs including Plan Discharge Will need PT and OT evaluation Lives with family at home including her plan of care discussed with patient and her Tan in detail and at length all questions answered they are understanding, agreeable, comfortable with the plan of care Admission and Anticipated Discharge Date Admission Date: September 19, 2022 Subjective Follow-up for acute kidney injury, acute metabolic encephalopathy, etc. Seen with patient's at the bedside, Tan Patient is somewhat drowsy but answering questions Mostly oriented Occasionally gets forgetful, confused States she feels okay overall Still having low back, right hip pain Insisting to have her morphine for pain control Explained acute kidney injury, need to avoid morphine and narcotics at this point States she is voiding without problems Denies fevers or chills No other new symptoms Review of Systems Review of Systems: all noted and negative except for above Physical Exam Physical Exam: General- oriented x 2, not in distress, speaks in sentences with no effort or accessory muscle use Somewhat drowsy Head- atraumatic Eyes- PERRL, EOMI, anicteric ENT- oropharynx clear Neck- supple, no JVD, no adenopathy, no thyromegaly; carotids +2/2, no bruits appreciated Lungs- clear to auscultation bilaterally, no rales/wheezes Heart- normal rate, regular rhythm; no murmur, no gallop, no rub appreciated Abdomen- normal bowel sounds, nondistended, soft, nontender, no masses or hepatosplenomegaly Extremities- no pretibial edema, no calf tenderness; peripheral pulses intact Right hip: No edema, erythema, hematoma, tenderness, warmth Neuro-awake, somewhat drowsy, oriented x2; CN 2-12 grossly intact; motor 5/5 bilaterally;sensation 100% on all extremities; no other gross focal neurologic deficits Skin- warm & dry Results & Data Results & Data Vital Signs (Past 12 Hours) Vital Signs Temp Pulse Resp BP Pulse Ox O2 Del Method O2 Flow Rate 09/20/22 15:08 36.8 C 70 18 141/62 H 97 Nasal Cannula 2 09/20/22 10:50 36.7 C 71 18 146/74 H 93 Nasal Cannula 2 09/20/22 08:30 Nasal Cannula 2 09/20/22 07:38 37.2 C 95 H 18 138/70 94 Nasal Cannula 2 all noted and reviewed including below
--- NOTE | 2022-09-20 16:45 | CT Scan Report ---
RIGHT HIP CT CT DOSE: HISTORY: Right hip severe pain TECHNIQUE: Multiaxial CT images of the right hip were performed and reformatted in the sagittal and c oronal plane without the use of contrast. A dose lowering technique was utilized adhering to the stephania nciples waqas DASILVA. COMPARISON: Pelvis MRI 03/07/2022. FINDINGS: There is a right total hip arthroplasty. The metallic artifact results in suboptimal evalua tion of the right hip. However, there is no definite fracture or dislocation within the right hip. No significant periprosthetic lucency. No soft tissue hematoma or soft tissue swelling within the right hip. Mild vascular calcifications are noted. No significant hip effusion. The tip of the acetabular screw extends into the adjacent iliopsoas muscle. The visualized sacrum appears intact. IMPRESSION: Suboptimal evaluation of the right hip due to the metallic artifact from the right total hip arthropl asty. However, no definite fracture or dislocation. ACT 112: Negative or not required by law. Electronically signed by: Jhonny Baugh M.D. 09/20/2022 4:42 PM
--- NOTE | 2022-09-20 17:08 | CT Scan Report ---
CT SCAN OF THE LUMBAR SPINE WITHOUT IV CONTRAST CLINICAL HISTORY: Low back pain. Right hip pain. COMPARISON STUDY: MRI of the lumbar spine dated 09/08/2010. TECHNIQUE: CT scan of the lumbar spine is performed from the lower thoracic spine to the sacrum. Imag es are reviewed in the axial, sagittal, and coronal planes. IV contrast was not administered for this examination. A dose lowering technique was utilized adhering to the principles of ALARA. CT DOSE: 2399.09 mGy.cm FINDINGS: The skeletal structures are osteopenic. There is no evidence of fracture or malalignment in volving the lumbar spine. Vertebral body height and alignment are maintained throughout the lumbar sp ine. Anterior and lateral marginal osteophytes are seen throughout. Mild lumbar levocurvature centere d at L2-L3. The transverse and spinous processes are intact. There is no spondylolysis. No lytic or b lastic lesion is seen. There is moderate to severe disc space narrowing at all lumbar levels between L2-L3 and L5-S1. There is significant endplate sclerosis at L2-L3. Posterior disc osteophyte complexe s are seen at all lumbar levels. There is mild to moderate central canal stenosis at L1-L2. There are large left lateral disc bulges at L1-L2 and L2-L3. These may abut the exiting left L1 and L2 nerve r oots. Facet arthropathy is noted in the lower lumbar region. The visualized sacrum and bony pelvis ap pear intact. There is fatty atrophy of the paraspinous musculature. There is moderate to advanced ath erosclerotic calcification of the abdominal aorta which is normal in caliber. No retroperitoneal lymp hadenopathy is seen. IMPRESSION: 1. No acute bony abnormality is seen involving the lumbar spine. 2. Osteopenia with degenerative disc disease/spondylosis as above. ACT 112: Negative or not required by law. Dictated: 09/20/2022 4:03 PM Transcribed: 09/20/2022 4:19 PM Michelle [id number] [email or web address]_Ted [id number] Electronically signed by: Govind Gonzales M.D. 09/20/2022 5:06 PM
--- NOTE | 2022-09-20 19:28 | Ultrasound Report ---
ULTRASOUND KIDNEYS AND BLADDER CLINICAL HISTORY: Acute renal insufficiency.. COMPARISON STUDY: Renal ultrasound dated 03/13/2017 TECHNIQUE: Real-time, grayscale, and color flow sonography of the kidneys and bladder is performed. I mages are reviewed in the transverse and longitudinal planes. FINDINGS: Kidneys: The kidneys demonstrate cortical atrophy. Echotexture is normal. The right kidney measures 9 .5 cm in length and the left kidney measures 10.0 cm in length. There is no hydronephrosis. No shado wing renal calculi are identified. There is no sonographic evidence of contour deforming renal mass l esion. No perinephric fluid is identified. Bladder: The bladder is decompressed around a George catheter and could not be assessed. IMPRESSION: 1. The kidneys demonstrate mild cortical atrophy and are without hydronephrosis. 2. The bladder was decompressed around a George catheter and could not be assessed. ACT 112: Negative or not required by law. Electronically signed by: Govind Gonazles M.D. 09/20/2022 7:26 PM
[2022-09-20] MEDS: ACETAMINOPHEN 325 MG TAB PO PRN (20:25)
[2022-09-20] MEDS ORDERED: MELATONIN 3 MG TAB PO PRN (20:30)
--- NOTE | 2022-09-21 08:28 | Pain Management Consultation ---
Date of Consultation September 21, 2022 Assessment & Plan (1) Opiate dependence: (2) Peripheral neuropathy: (3) Toxic metabolic encephalopathy: (4) Myoclonic jerking: (5) Acute on chronic renal insufficiency: (6) Chronic hip pain 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: Plan 1. Due to patient's acute kidney injury on top of chronic renal insufficiency would continue to hold morphine ER, duloxetine and gabapentin due to her metabolic encephalopathy and myoclonic jerking. Consideration for resuming these medications will be made pending further improvement in her renal functi on. 2. Will recommend hydrocodone/acetaminophen 5/325 mg 1 tablet p.o. every 8 hours for as needed breakthrough pain in the short-term pending improvement in renal function 3. Will ask Dr. Zuñiga to evaluate the patient's right hip pain complaint as CT indicated tip of the acetabular screw extending into the adjacent iliopsoas muscle to determine whether this finding is pertinent from an orthopedic standpoint. 4. Patient could consider compounding cream in the outpatient setting to treat her peripheral neuropathic pain complaints in an attempt to avoid side effects from oral therapies History of Present Illness Reason for Consultation: Peripheral neuropathic pain Requesting Physician: Ruben Tristan MD Attending Physician: Ruben Tristan MD History of Present Illness Mrs. Maxwell is a 77-year-old white female who was admitted secondary to myoclonic jerking of the lower extremities with acute kidney injury superimposed on CKD, acute respiratory failure with hypoxia and hyperkalemia secondary to diminished renal excretion. The patient has history of chronic peripheral neuropathic pain affecting the feet bilaterally and reports chronic utilization of MS Contin 30 mg every 12 hours for greater than 10 years duration. She was then added gabapentin and duloxetine over the past few years. She is indicating adequate control of her pain in the outpatient setting. She is uncertain as to the cause of her peripheral neuropathy although does report diagnosis of diabetes greater than 10 years ago as well. She remains under the care of Dr. Lopez who prescribes her MS Contin. Patient's MS Contin has been held upon this admission due to her acute kidney injury and encephalopathy likely secondary to metabolites of MS Contin due to her poor renal clearance. She is reporting increased difficulties with pain predominately affecting the bilateral feet which she describes a burning characteristic pain as well as right-sided low back/gluteal/hip region pain. She does have history of BEBE which she reports was completed [address] Zuñiga. She did report recent x-rays completed by Dr. Zuñiga without abnormal findings. She denies any true radicular pattern to her pain complaint. Patient rates her pain a 4/10 at its best and 8/10 at its worst. Her pain is constant aggravated with movement. She reports diminished sensation of the feet bilaterally. She is describing some abdominal discomfort which started today, but denies diarrhea. She believes she is constipated. She denies chronic constipation associated with her use of MS Contin. Patient has no further constitution complaints at this time. Plan of care discussed with Dr. Rosario Lawrence. Pain Assessment Full Body Front + Back: 1. Right gluteal/posterior lateral hip region pain Pain scale - at its best (0-10): 4 Pain scale - at its worst (0-10): 8 Allergies Allergy/AdvReac Type Severity Reaction Status Date / Time metformin Allergy Unknown renal Verified 09/28/21 13:44 complications Home Medications Medication Instructions Recorded Confirmed Type gabapentin 300 mg capsule 300 mg PO BID PRN Other 11/09/17 09/19/22 History (Neurontin) glipizide 5 mg tablet (Glucotrol) 5 mg PO DAILY 11/09/17 09/19/22 History morphine 15 mg immediate release 30 mg PO DAILY 12/23/18 09/19/22 History tablet trazodone 100 mg tablet 100 mg PO HS 12/23/18 09/19/22 History lisinopril 5 mg tablet 5 mg PO DAILY #90 tabs 09/28/21 09/19/22 Rx calcitriol 0.25 mcg capsule 0.25 mcg PO DAILY #90 caps 01/31/22 09/19/22 Rx (Rocaltrol) allopurinol 0 mg PO DAILY 09/19/22 09/19/22 History Pain History Pain Intensity Pain scale - at its best (0-10): 4 Pain scale - at its worst (0-10): 8 Patient History Medical History (Updated 09/21/22 @ 08:39 by Brendan Nelson PA-C) Acquired hammer toe of left foot Acquired hammer toe of right foot Acute kidney injury superimposed on CKD Acute renal insufficiency Callus Chronic back pain Chronic hip pain 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 Chronic kidney disease, stage 4 (severe) Degeneration of lumbar intervertebral disc Dehydration Fall Hallux rigidus, left foot Hallux valgus (acquired), left foot Hyperkalemia, diminished renal excretion Hyperphosphatemia Hypertension Hypoglycemia Lumbar spondylosis 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 Peripheral neuropathy Pulmonary hypertension associated with systemic disorder Sepsis due to urinary tract infection Skin ulcer of left great toe Toxic metabolic encephalopathy Type 2 diabetes mellitus with diabetic neuropathy Type 2 diabetes mellitus with diabetic polyneuropathy Vitamin D deficiency Surgical History (Updated 09/19/22 @ 15:18 by Rosario Major MD) S/P total right hip arthroplasty Family History (Updated 09/19/22 @ 15:22 by Rosario Major MD) Mother , lung cancer Lung cancer Asthma Hypertension Diabetes Son Diabetes Social History (Updated 09/19/22 @ 15:19 by Rosario Major MD) Smoking Status: Never smoker Second Hand Exposure: No; Hx Alcohol Use: No Hx Substance Use: No Communication Ability: Effective Jordan Worker Required: No Beliefs That Will Affect Care: None Current Living Situation: Spouse Other Information That Helps Us Care for You: No Feels Safe at Home: Yes Assistive Devices: None Physical Exam Physical Exam: General: Patient lying quietly in exam room in no acute distress. Patient appears to have some trouble with memory recall and reporting updates regarding her medical history frequently changing her story. Mood and affect appropriate. Cognition intact. Patient accompanied by her sister. Head: Normocephalic and atraumatic. ENT: No evidence of nasal or oral mucosal lesions. Mucous membranes are moist. Eyes: Pupils equal round reactive to light. Neck: Supple without adenopathy and full range of motion. Abdomen: Soft and nondistended. No organomegaly. Bowel sounds active. Protuberant. No rebound or guarding. Back/spine: Patient able to logroll towards her left side for visual inspection and exam. Complete loss of lumbar lordosis. Nontender over the midline. No focal facet or SI joint tenderness. Patient minimally tender throughout the mid and lateral gluteal region to direct palpation. No appreciable spasm or minor trigger point. Lower extremities: Nontender over the lateral hip/greater trochanteric region to direct palpation. Right hip is moderately tender with internal/external rotati on. Left hip is nontender. SLR negative. Patient has loss of sensation affecting the toes of bilateral feet to sharp and dull. She has no skin breakdown. Patient has ice pack on the feet. Patient does have intact sensation to the dorsal foot and ankle region/pretibial region to sharp/dull. Neurologic: Cranial nerves grossly intact. Ambulatory function not witnessed. Results (Pain Clinic) Diagnostic Review CT Findings: [place], [place] [phone] CT Scan Report Patient:MARCELLUS MAXWELL Admit Date:09/19/22 MR#:[id number] Address1:[address] [place] [address] Acct ID:[id number] Address2:[place] [address] Date:1945 [facility] Zip:[place] [address] Age:77 Location:2N Sex:F Room/Bed:[facility] Att Phy:Ruben Tristan MD Diagnosis:CONFUSION Mounika Phy:Ac Lopez MD Service Date:09/20/22 Fam Phy: Interpreting Phy:Govnid Gonzales MDAdmit Phy:Rosario Major MD Ordering Phy:Ruben Tristan MD cc: ~ CT SCAN OF THE LUMBAR SPINE WITHOUT IV CONTRAST CLINICAL HISTORY: Low back pain. Right hip pain. COMPARISON STUDY: MRI of the lumbar spine dated 09/08/2010. TECHNIQUE: CT scan of the lumbar spine is performed from the lower thoracic spine to the sacrum. Images are reviewed in the axial, sagittal, and coronal planes. IV contrast was not administered for this examination. A dose lowering technique was utilized adhering to the principles of ALARA. CT DOSE: 2399.09 mGy.cm FINDINGS: The skeletal structures are osteopenic. There is no evidence of fracture or malalignment involving the lumbar spine. Vertebral body height and alignment are maintained throughout the lumbar spine. Anterior and lateral marginal osteophytes are seen throughout. Mild lumbar levocurvature centered at L2-L3. The transverse and spinous processes are intact. There is no spondylolysis. No lytic or blastic lesion is seen. There is moderate to severe disc space narrowing at all lumbar levels between L2-L3 and L5-S1. There is significant endplate sclerosis at L2-L3. Posterior disc osteophyte complexes are seen at all lumbar levels. There is mild to moderate central canal stenosis at L1-L2. There are large left lateral disc bulges at L1-L2 and L2-L3. These may abut the exiting left L1 and L2 nerve roots. Facet arthropathy is noted in the lower lumbar region. The visualized sacrum and bony pelvis appear intact. There is fatty atrophy of the paraspinous musculature. There is moderate to advanced atherosclerotic calcification of the abdominal aorta which is normal in caliber. No retroperitoneal lymphadenopathy is seen. IMPRESSION: 1. No acute bony abnormality is seen involving the lumbar spine. 2. Osteopenia with degenerative disc disease/spondylosis as above. ACT 112: Negative or not required by law. Dictated: 09/20/2022 4:03 PM Transcribed: 09/20/2022 4:19 PM Michelle [id number] MADAI_Ted [id number] Electronically signed by: Govind Gonzales M.D. 09/20/2022 5:06 PM Dictated:09/20/22 1603 Transcribed: 09/20/22 1619 [place], [place] [phone] CT Scan Report Patient:MARCELLUS MAXWELL Admit Date:09/19/22 MR#:[id number] Address1:[address] [place] [address] Acct ID:[id number] Address2:[place] [address] Date:1945 [facility] Zip:[place] [address] Age:77 Location:2N Sex:F Room/Bed:[facility] Att Phy:Ruben Tristan MD Diagnosis:CONFUSION Mounika Phy:Ac Lopez MD Service Date:09/20/22 Fam Phy: Interpreting Phy:Jhonny Baugh MDAdmit Phy:Rosario Major MD Ordering Phy:Ruben Tristan MD cc: ~ RIGHT HIP CT CT DOSE: HISTORY: Right hip severe pain TECHNIQUE: Multiaxial CT images of the right hip were performed and reformatted in the sagittal and coronal plane without the use of contrast. A dose lowering technique was utilized adhering to the principles of ALARA. COMPARISON: Pelvis MRI 03/07/2022. FINDINGS: There is a right total hip arthroplasty. The metallic artifact results in suboptimal evaluation of the right hip. However, there is no definite fracture or dislocation within the right hip. No significant periprosthetic lucency. No soft tissue hematoma or soft tissue swelling within the right hip. Mild vascular calcifications are noted. No significant hip effusion. The tip of the acetabular screw extends into the adjacent iliopsoas muscle. The visualized sacrum appears intact. IMPRESSION: Suboptimal evaluation of the right hip due to the metallic artifact from the right total hip arthroplasty. However, no definite fracture or dislocation. ACT 112: Negative or not required by law. Electronically signed by: Jhonny Baugh M.D. 09/20/2022 4:42 PM Dictated:09/20/22 1616 Transcribed: 09/20/22 1617 Previous Records Review Previous Records: personally reviewed by me
[2022-09-21 08:38] LABS: Albumin Level 3.8 gm/dl (3.4-5.0); BUN Creatinine Ratio 24.1 (10-20); Calcium 9.7 mg/dl (8.6-10.3); Creatinine Clr Calc Pharmacy 35.4 ml/min; Est GFR (African American) 33.1 ml/min; Est GFR (Non-African American) 28.6 ml/min; Phosphorus 2.9 mg/dl (2.5-4.9); Potassium 5.1 mmol/L (3.5-5.1)
[2022-09-21] MEDS: ACETAMINOPHEN 325 MG TAB PO PRN ×3 (09:20→21:26)
[2022-09-21] MEDS: INSULIN ASPART PER UNIT CHARGE SC SCH ×4 (09:20→21:36)
[2022-09-21] MEDS: allopurinoL 100 MG TAB PO SCH (09:21)
[2022-09-21] MEDS: CALCITRIOL 0.25 MCG CAPSULE PO SCH (09:21)
[2022-09-21] MEDS: HYDROCODONE/ACETAMOPHEN 5/325MG TAB PO PRN ×2 (09:39→17:46)
[2022-09-21] MEDS: SODIUM CHLORIDE 0.9% 1000ML 1,000 ML IV SCH ×2 (09:44→19:57)
--- NOTE | 2022-09-21 10:50 | Nephrology Progress Note ---
Date of Service September 21, 2022 Assessment & Plan (1) Acute kidney injury superimposed on CKD: (2) Hyperkalemia, diminished renal excretion: (3) Myoclonic jerking: (4) Opiate dependence: (5) Hypertension: Plan 77-year-old female with history of stage IIIB/4 CKD, b/l cr 1.3-1.4, hypertension, diabetes, peripheral neuropathy, chronic opioid dependence and high dose of gabapentin for peripheral neuropathy presented with change in mental status and myoclonic jerks and noted to have VISHAL and hyperkalemia. Creatinine was 2.9 with baseline creatinine 1.1.5, an was 62. started on IV fluid with improvement in creatinine to 2.5 BUN 58 but potassium was elevated at 5.8. urinalysis was negative for proteinuria hematuria but noted to have pyuria. No renal imaging available however, she has been voiding normally. Renal function started to improve, potassium normalized, other electrolyte acceptable. Overall clinically doing much better. --encourage p.o. intake, monitor intake, output, renal function and electrolytes. -- dose all medications for GFR less than 30 Will follow. Admission and Anticipated Discharge Date Admission Date: September 19, 2022 Elisa Jeter was seen and evaluated in her room this morning with her at bedside. Overall she looks much better and reports feeling better. Myoclonic jerks almost resolved. She continues to be bothered by neuropathy. Renal function improved, creatinine down to 1.7, electrolyte acceptable. Review of Systems Review of Systems: Detail detailed review of system was done and pertinent positives and negatives are mentioned above. Physical Exam Constitutional: WD/WN, vitals as above no acute distress Eyes: + anicteric sclerae Neck: normal visual inspection Respiratory: Auscultation: lungs clear to auscultation bilaterally Cardiovascular: RRR, no murmur, no edema Musculoskeletal: Extremities: extremities normal to inspection Skin: no rashes, warm and dry Neurologic: no focal motor deficits Results & Data Vital Signs (Past 12 Hours) Vital Signs Temp Pulse Pulse Resp BP BP Pulse Ox 09/21/22 07:44 36.7 C 89 20 157/75 H 95 09/21/22 07:14 67 09/21/22 03:38 36.7 C 65 18 136/63 92 09/21/22 00:25 36.8 C 64 18 123/65 93 09/21/22 00:22 36.8 C 64 18 123/65 93 09/20/22 23:10 78 O2 Del Method 09/21/22 07:44 Room Air 09/21/22 07:14 09/21/22 03:38 Room Air 09/21/22 00:25 Room Air 09/21/22 00:22 Room Air 09/20/22 23:10 PG Care Time/CCT Total # of Minutes Spent Total Time Spent with Patient: Total time spent is greater than 50% in coordination of care (as documented) at patient's floor/unit and/or counseling patient: Coding Level of Care Code 56761 SUB INP/OBS CARE 2/35MIN Diagnoses Acute kidney injury superimposed on CKD N17.9; N18.9 Hyperkalemia, diminished renal excretion E87.5 Myoclonic jerking G25.3 Opiate dependence F11.20 Hypertension I10
[2022-09-21] MEDS: MoRPHine SULFATE CR 15 MG TABCR PO SCH (11:27)
[2022-09-21] MEDS: GABAPENTIN 300 MG CAP PO SCH ×2 (11:27→21:18)
--- NOTE | 2022-09-21 12:58 | XRay Report ---
XR hip RT 2V w pelvis CLINICAL HISTORY: pain TECHNIQUE: 2 views of the right hip and single frontal view of the pelvis were obtained. Comparison: Comparison is made to hip radiographs 03/13/2017 FINDINGS: There is no evidence of an acute fracture. Arthroplasty is seen. Degenerative changes are seen in the spine. No soft tissue abnormality is seen. IMPRESSION: No acute abnormalities are seen. No evidence of fracture or hardware failure. ACT 112: Negative or not required by law. Electronically signed by: Eros Herndon M.D. 09/21/2022 12:57 PM
--- NOTE | 2022-09-21 14:55 | Orthopedic Consultation ---
Date of Service September 21, 2022 Assessment & Plan (1) Lumbar spondylosis: Most of patients' pain is located more in the right SI joint. She has radiographic evidence of severe lumbar and SI joint degeneration. Would like for pain management to consider possible SI joint injections. Evaluate for lumbar injections in the future. (2) Chronic hip pain 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: Patient has good ROM of the right hip joint including flex/ex, forced internal/external rotation. No pain was appreciated in the right hip joint or the groin with ROM. Xrays and CT was reviewed of the right hip. There is no evidence of fractures or loosening of the hip prosthesis. There is evidence of the acetabular screw extending slightly into the illiopsoas muscle. However, this finding is most likely unchanged from the original hip replacement. This would not coorelate with the area that she is having pain. Dr. Delaney evaluated the patient at bedside and is in agreement with this assessment. History of Present Illness Reason for Consultation: . Requesting Physician: . Attending Physician: Ruben Tristan MD Steffany was admitted to [facility] for CKD. She has also been having chronic hip pain in which she was recently seen by Dr. Zuñiga in orthopedics. She states that most of her hip pain is actually located in the right buttock area. Pain is exascerbated with mostly right hip flexion, not internal or external rotation. Denies any recent injuries, falls, or trauma to that hip. The hip replacement done by Dr. Zuñiga was done approximately 14 years ago. Allergies Allergy/AdvReac Type Severity Reaction Status Date / Time metformin Allergy Unknown renal Verified 09/28/21 13:44 complications Home Medications Medication Instructions Recorded Confirmed Type gabapentin 300 mg capsule 300 mg PO BID PRN Other 11/09/17 09/19/22 History (Neurontin) glipizide 5 mg tablet (Glucotrol) 5 mg PO DAILY 11/09/17 09/19/22 History morphine 15 mg immediate release 30 mg PO DAILY 12/23/18 09/19/22 History tablet trazodone 100 mg tablet 100 mg PO HS 12/23/18 09/19/22 History lisinopril 5 mg tablet 5 mg PO DAILY #90 tabs 09/28/21 09/19/22 Rx calcitriol 0.25 mcg capsule 0.25 mcg PO DAILY #90 caps 01/31/22 09/19/22 Rx (Rocaltrol) allopurinol 0 mg PO DAILY 09/19/22 09/19/22 History Past Med/Surg History Medical History Acquired hammer toe of left foot Acquired hammer toe of right foot Acute kidney injury superimposed on CKD Acute renal insufficiency Callus Chronic back pain Chronic hip pain 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 Chronic kidney disease, stage 4 (severe) Degeneration of lumbar intervertebral disc Dehydration Fall Hallux rigidus, left foot Hallux valgus (acquired), left foot Hyperkalemia, diminished renal excretion Hyperphosphatemia Hypertension Hypoglycemia Lumbar spondylosis 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 Peripheral neuropathy Pulmonary hypertension associated with systemic disorder Sepsis due to urinary tract infection Skin ulcer of left great toe Toxic metabolic encephalopathy Type 2 diabetes mellitus with diabetic neuropathy Type 2 diabetes mellitus with diabetic polyneuropathy Vitamin D deficiency Surgical History (Updated 09/19/22 @ 15:18 by Rosario Major MD) S/P total right hip arthroplasty Family History (Updated 09/19/22 @ 15:22 by Rosario Major MD) Mother , lung cancer Lung cancer Asthma Hypertension Diabetes Son Diabetes Social History (Updated 09/19/22 @ 15:19 by Rosario Major MD) Smoking Status: Never smoker Second Hand Exposure: No; Hx Alcohol Use: No Hx Substance Use: No Communication Ability: Effective Lcsw Required: No Beliefs That Will Affect Care: None Current Living Situation: Spouse Other Information That Helps Us Care for You: No Feels Safe at Home: Yes Assistive Devices: None Review of Systems All systems reviewed & are unremarkable except as noted in HPI & below. Physical Exam Patient is resting comfortably at bedside. She has pain in the right glutueal area with deep hip flexion. Pain can be pinpointed with palpation over the right SI joint. Good ROM of the right hip with flexion an extension. No pain with forced internal or external rotation. No evidence of a leg length discrepency. Results & Data Results & Data Laboratory Results . Diagnostic Findings . 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
--- NOTE | 2022-09-21 18:36 | Hospitalist Progress Note ---
Date of Service September 21, 2022 Assessment & Plan (1) Acute respiratory failure with hypoxia: Plan: per admitting service notes with addendum: Denies respiratory symptoms, CXR negative, trop wnl suspect d/t poor renal clearance of morphine leading to respiratory suppression CT chest: 1. Cardiomegaly with mild pulmonary arterial hypertension. 2. A few partially opacified bilateral lower lobe bronchi. This could be due to prior aspiration. 3. Small patchy groundglass and linear densities within the lungs posteriorly favor dependent change/atelectasis. A low-grade pneumonitis is considered less likely but could also be considered in the differential diagnosis. 4. Additional findings as described above. Currently on room air (2) Toxic metabolic encephalopathy: Plan: multifactorial d/t hypoxia, uremia, and build up of drugs d/t poor renal clearance (morphine) 09/21 Resolved (3) Acute kidney injury superimposed on CKD: Plan: baseline Cr is around 1.3 - 1.4 with eGFR in the 30s over the last few years at presentation Cr is 2.91 with eGFR of 15 09/20 Patient admits to taking additional ibuprofen lately for back and hip pain Creatinine improving from 2.9, now 2.4 Nephrology service consulted: Continue IV fluids Hold lisinopril Renal ultrasound ordered Renally dose all medications 09/21 INR now 1.7 Continue gentle IV fluids Hold lisinopril Renal US: 1. The kidneys demonstrate mild cortical atrophy and are without hydronephrosis. 2. The bladder was decompressed around a George catheter and could not be assessed. (4) Hyperkalemia, diminished renal excretion: Plan: Potassium 5.8 Veltassa 8.4 g 1 dose given Continue renal diet, hold lisinopril 09/21 Potassium resolved (5) Hyperphosphatemia: Plan: expect to improve with renal recovery (6) Low back pain: Plan: Low back pain and right hip pain History of right hip surgery Patient admits to taking morphine daily times several years now for the back and hip pain Hold morphine, gabapentin, trazodone for now in light of acute kidney injury, metabolic encephalopathy CT lower back and right hip ordered 09/21 Renal function almost back to baseline We will slowly resume morphine, gabapentin, trazodone-renal dosing General Ortho service consulted We will consult orthopedic spine (7) Type 2 diabetes mellitus with diabetic polyneuropathy: Plan: home regimen is Glipizide 10 mg BID, Semaglutide 0.25 mg sc weekly though not taking recently d/t financial constraints Hold above BSG 103-158 A1c 8.5 Continue with insulin sliding scale at this time (8) Hypertension: Plan: hold lisinopril Plan Discharge Will need PT and OT evaluation Lives with family at home including her plan of care discussed with patient and her granddaughter in detail and at length all questions answered they are understanding, agreeable, comfortable with the plan of care Admission and Anticipated Discharge Date Admission Date: September 19, 2022 Subjective Follow-up for acute renal failure, etc. Seen resting in bed, comfortable, not in distress Oriented x3, answers all questions appropriately Still having significant hip and lower back pain Requesting for her morphine, gabapentin, trazodone to be resumed No other new symptom Review of Systems Review of Systems: all noted and negative except for above Physical Exam Physical Exam: General- oriented x 3, not in distress, speaks in sentences with no effort or accessory muscle use Eyes- anicteric Neck- no JVD Lungs- clear breath sounds bilaterally, no rales/wheezes Heart- normal rate, regular rhythm; no murmurs Abdomen- normal bowel sounds, nondistended, soft, nontender Extremities- no pretibial edema, no calf tenderness Neuro- alert, oriented x 3; no gross focal neurologic deficits Skin- warm & dry Results & Data Results & Data Vital Signs (Past 12 Hours) Vital Signs Temp Pulse Pulse Resp BP BP Pulse Ox 09/21/22 16:19 63 09/21/22 15:38 37.1 C 63 18 129/72 94 09/21/22 11:41 36.6 C 68 18 145/73 H 93 09/21/22 07:44 36.7 C 89 20 157/75 H 95 09/21/22 07:14 67 O2 Del Method 09/21/22 16:19 09/21/22 15:38 Room Air 09/21/22 11:41 Room Air 09/21/22 07:44 Room Air 09/21/22 07:14 all noted and reviewed including below
[2022-09-21] MEDS ORDERED: traZODone HCL 50 MG TAB PO SCH (21:00)
[2022-09-22] MEDS: HYDROCODONE/ACETAMOPHEN 5/325MG TAB PO PRN (01:45)
[2022-09-22] MEDS: ACETAMINOPHEN 325 MG TAB PO PRN (04:25)
[2022-09-22 06:41] LABS: Albumin Level 3.5 gm/dl (3.4-5.0); BUN Creatinine Ratio 22.3 (10-20); Calcium 9.2 mg/dl (8.6-10.3); Creatinine Clr Calc Pharmacy 42.8 ml/min; Est GFR (African American) 42.3 ml/min; Est GFR (Non-African American) 36.5 ml/min; Phosphorus 2.4 mg/dl (2.5-4.9)
[2022-09-22] MEDS: allopurinoL 100 MG TAB PO SCH (08:57)
[2022-09-22] MEDS: GABAPENTIN 300 MG CAP PO SCH (08:57)
[2022-09-22] MEDS: CALCITRIOL 0.25 MCG CAPSULE PO SCH (08:57)
[2022-09-22] MEDS: INSULIN ASPART PER UNIT CHARGE SC SCH ×2 (09:01→12:39)
[2022-09-22] MEDS: MoRPHine SULFATE CR 15 MG TABCR PO SCH (09:01)
[2022-09-22] MEDS: SODIUM CHLORIDE 0.9% 1000ML 1,000 ML IV SCH (09:05)
[2022-09-22] MEDS ORDERED: MoRPHine SULFATE CR 15 MG TABCR PO ONE (11:29)
--- NOTE | 2022-09-22 12:26 | Nephrology Progress Note ---
Date of Service September 22, 2022 Assessment & Plan (1) Acute kidney injury superimposed on CKD: (2) Hyperkalemia, diminished renal excretion: (3) Myoclonic jerking: (4) Opiate dependence: (5) Hypertension: Plan 77-year-old female with history of stage IIIB/4 CKD, b/l cr 1.3-1.4, hypertension, diabetes, peripheral neuropathy, chronic opioid dependence and high dose of gabapentin for peripheral neuropathy presented with change in mental status and myoclonic jerks and noted to have VISHAL and hyperkalemia. Creatinine was 2.9 with baseline creatinine 1.1.5, an was 62. started on IV fluid with improvement in creatinine to 2.5 BUN 58 but potassium was elevated at 5.8. urinalysis was negative for proteinuria hematuria but noted to have pyuria. No renal imaging available however, she has been voiding normally. Renal function improved, ca back to b/l, potassium normalized, other electrolyte acceptable. Overall clinically doing much better. --encourage p.o. intake, monitor intake, output, renal function and electrolytes. --please schedule f/u with Dr. Gutierrez 3/4 weeks after DC, lab in a week , copy to DR. Gutierrez Will sign off. Admission and Anticipated Discharge Date Admission Date: September 19, 2022 Elisa Jeter was seen and evaluated in her room this morning. Overall she is feeling better, Myoclonic jerks resolved. She continues to be bothered by significant neuropathy. Renal function improved, creatinine down to 1.5, electrolyte acceptable. Review of Systems Review of Systems: Detail detailed review of system was done and pertinent positives and negatives are mentioned above. Physical Exam Constitutional: WD/WN, vitals as above no acute distress Eyes: + anicteric sclerae Neck: normal visual inspection Respiratory: Auscultation: lungs clear to auscultation bilaterally Cardiovascular: RRR, no murmur, no edema Musculoskeletal: Extremities: extremities normal to inspection Skin: no rashes, warm and dry Neurologic: no focal motor deficits Results & Data Vital Signs (Past 12 Hours) Vital Signs Temp Pulse Pulse Resp BP BP Pulse Ox 09/22/22 11:29 36.8 C 63 16 150/84 H 95 09/22/22 07:52 36.5 C 57 L 20 154/83 H 94 09/22/22 07:13 62 09/22/22 04:44 36.8 C 69 20 162/81 H 96 O2 Del Method 09/22/22 11:29 Room Air 09/22/22 07:52 Room Air 09/22/22 07:13 09/22/22 04:44 Room Air PG Care Time/CCT Total # of Minutes Spent Total Time Spent with Patient: Total time spent is greater than 50% in coordination of care (as documented) at patient's floor/unit and/or counseling patient: Coding Level of Care Code 65928 SUB INP/OBS CARE 2/35MIN Diagnoses Acute kidney injury superimposed on CKD N17.9; N18.9 Hyperkalemia, diminished renal excretion E87.5 Myoclonic jerking G25.3 Opiate dependence F11.20 Hypertension I10
--- NOTE | 2022-09-22 14:05 | Orthopedic Consultation ---
Date of Consultation September 22, 2022 Assessment & Plan (1) Sacroiliitis: Assessment right sacroiliitis. Plan at this time CAT scan lumbar spine does demonstrate evidence of multilevel spondylosis and areas of suspected significant spinal stenosis. She however does not exhibit gross neural compression. Her symptoms seem to be focused around the right SI joint. She may be a candidate for diagnostic therapeutic right SI joint injections. This point there is no indication for any spinal surgery. History of Present Illness Reason for Consultation: Back and leg pain Attending Physician: Ruben Tristan MD History of Present Illness This very pleasant 77-year-old female that states she had roughly 5 years of lumbosacral back pain. She describes what she states is hip pain but points to the lumbosacral junction on the right. She denies any radicular complaints or neurogenic claudication. She does describe peripheral neuropathy. Allergies Allergy/AdvReac Type Severity Reaction Status Date / Time metformin Allergy Unknown renal Verified 09/28/21 13:44 complications Home Medications Medication Instructions Recorded Confirmed Type gabapentin 300 mg capsule 300 mg PO BID PRN Other 11/09/17 09/19/22 History (Neurontin) glipizide 5 mg tablet (Glucotrol) 5 mg PO DAILY 11/09/17 09/19/22 History morphine 15 mg immediate release 30 mg PO DAILY 12/23/18 09/19/22 History tablet trazodone 100 mg tablet 100 mg PO HS 12/23/18 09/19/22 History lisinopril 5 mg tablet 5 mg PO DAILY #90 tabs 09/28/21 09/19/22 Rx calcitriol 0.25 mcg capsule 0.25 mcg PO DAILY #90 caps 01/31/22 09/19/22 Rx (Rocaltrol) allopurinol 0 mg PO DAILY 09/19/22 09/19/22 History Patient History Medical History Acquired hammer toe of left foot Acquired hammer toe of right foot Acute kidney injury superimposed on CKD Acute renal insufficiency Callus Chronic back pain Chronic hip pain 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 Chronic kidney disease, stage 4 (severe) Degeneration of lumbar intervertebral disc Dehydration Fall Hallux rigidus, left foot Hallux valgus (acquired), left foot Hyperkalemia, diminished renal excretion Hyperphosphatemia Hypertension Hypoglycemia Lumbar spondylosis 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 Peripheral neuropathy Pulmonary hypertension associated with systemic disorder Sepsis due to urinary tract infection Skin ulcer of left great toe Toxic metabolic encephalopathy Type 2 diabetes mellitus with diabetic neuropathy Type 2 diabetes mellitus with diabetic polyneuropathy Vitamin D deficiency Surgical History (Updated 09/19/22 @ 15:18 by Rosario Major MD) S/P total right hip arthroplasty Family History (Updated 09/19/22 @ 15:22 by Rosario Major MD) Mother , lung cancer Lung cancer Asthma Hypertension Diabetes Son Diabetes Social History (Updated 09/19/22 @ 15:19 by Rosario Major MD) Smoking Status: Never smoker Second Hand Exposure: No; Hx Alcohol Use: No Hx Substance Use: No Communication Ability: Effective 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 She is alert and oriented. She exhibits reasonable strength testing lower extremities. She able to stand without difficulty. Unable to elicit significant discomfort palpation of the right SI joint compared to the left. Is a positive Angelina sign. Is no gross tension signs. Results & Data Vital Signs (Past 12 Hours) Vital Signs Temp Pulse Pulse Resp BP BP Pulse Ox 09/22/22 11:29 36.8 C 63 16 150/84 H 95 09/22/22 07:52 36.5 C 57 L 20 154/83 H 94 09/22/22 07:13 62 09/22/22 04:44 36.8 C 69 20 162/81 H 96 O2 Del Method 09/22/22 11:29 Room Air 09/22/22 07:52 Room Air 09/22/22 07:13 09/22/22 04:44 Room Air
[2022-09-22] MEDS ORDERED: lisinopril 5 MG TAB PO SCH (14:30)
--- NOTE | 2022-09-22 17:14 | Hospitalist Progress Note ---
Date of Service September 22, 2022 Assessment & Plan (1) Acute respiratory failure with hypoxia: Plan: Secondary to encephalopathy, secondary to poor renal excretion of morphine, acute on CKD CT chest: 1. Cardiomegaly with mild pulmonary arterial hypertension. 2. A few partially opacified bilateral lower lobe bronchi. This could be due to prior aspiration. 3. Small patchy groundglass and linear densities within the lungs posteriorly favor dependent change/atelectasis. A low-grade pneumonitis is considered less likely but could also be considered in the differential diagnosis. 4. Additional findings as described above. Denies cough, sputum, fevers or chills Hypoxia resolved Weaned off oxygen supplement (2) Toxic metabolic encephalopathy: Plan: multifactorial d/t hypoxia, uremia, and build up of drugs d/t poor renal clearance (morphine) 09/22 Resolved (3) Acute kidney injury superimposed on CKD: Plan: baseline Cr is around 1.3 - 1.4 with eGFR in the 30s over the last few years at presentation Cr is 2.91 with eGFR of 15 09/22 Patient admits to taking additional ibuprofen lately for back and hip pain Renal US: 1. The kidneys demonstrate mild cortical atrophy and are without hydronephrosis. 2. The bladder was decompressed around a George catheter and could not be assessed. Nephrology service consulted: Given IV fluids Renally dosed all medications Creatinine improved gradually from 2.9 --> 1.3 Advised to stop taking NSAIDs Repeat basic metabolic profile in 1 week (4) Hyperkalemia, diminished renal excretion: Plan: Potassium 5.8 Veltassa 8.4 g 1 dose given Continue renal diet, hold lisinopril 09/22 Hyperkalemia resolved Repeat basic metabolic profile in 1 week during follow-up with PCP (5) Low back pain: Plan: Right sacroiliitis History of right hip surgery Patient admits to taking morphine daily times several years now for the back and hip pain Hold morphine, gabapentin, trazodone for now in light of acute kidney injury, metabolic encephalopathy CT lower back and right hip ordered The skeletal structures are osteopenic. There is no evidence of fracture or malalignment involving the lumbar spine. Vertebral body height and alignment are maintained throughout the lumbar spine. Anterior and lateral marginal osteophytes are seen throughout. Mild lumbar levocurvature centered at L2-L3. The transverse and spinous processes are intact. There is no spondylolysis. No lytic or blastic lesion is seen. There is moderate to severe disc space narrowing at all lumbar levels between L2-L3 and L5-S1. There is significant endplate sclerosis at L2-L3. Posterior disc osteophyte complexes are seen at all lumbar levels. There is mild to moderate central canal stenosis at L1-L2. There are large left lateral disc bulges at L1-L2 and L2-L3. These may abut the exiting left L1 and L2 nerve roots. Facet arthropathy is noted in the lower lumbar region. The visualized sacrum and bony pelvis appear intact. There is fatty atrophy of the paraspinous musculature. There is moderate to advanced atherosclerotic calcification of the abdominal aorta which is normal in caliber. No retroperitoneal lymphadenopathy is seen. FINDINGS: There is a right total hip arthroplasty. The metallic artifact results in suboptimal evaluation of the right hip. However, there is no definite fracture or dislocation within the right hip. No significant periprosthetic lucency. No soft tissue hematoma or soft tissue swelling within the right hip. Mild vascular calcifications are noted. No significant hip effusion. The tip of the acetabular screw extends into the adjacent iliopsoas muscle. The visualized sacrum appears intact. Renal function improved, gradually resumed patient's morphine ER, gabapentin and trazodone General Ortho service consulted: Acetabular screw extending to the psoas muscle chronic, not accounting for patient's pain Spine Ortho consulted-Dr. Gaxiola: Pain likely secondary to sacroiliitis, may benefit from right SI joint injection Pain management service consulted-evaluated by STANISLAV Nelson: Recommend outpatient follow-up for right SI joint injection Patient advised to limit morphine ER to 30 mg daily, gabapentin 300 mg twice daily (6) Type 2 diabetes mellitus with diabetic polyneuropathy: Plan: Continue present regimen Follow-up with PCP in 1 week (7) Hypertension: Plan: Renal function returned to baseline Resume lisinopril 5 mg p.o. daily Plan Discharge Discharge to home Follow-up with PCP in 1 week Follow-up with nephrology as scheduled Follow-up with pain management clinic in 1 to 2 weeks plan of care discussed with patient in detail and at length all questions answered she is understanding, agreeable, comfortable with the plan of care Admission and Anticipated Discharge Date Admission Date: September 19, 2022 Subjective Follow-up for acute renal failure, etc. Seen resting in bedside chair, comfortable, not in distress Having some bilateral feet pain-usual neuropathy pain Back pain manageable this morning Ambulating with no problems Oriented x3, answers questions appropriately, very pleasant States she feels much better overall Would like to be discharged today Review of Systems Review of Systems: all noted and negative except for above Physical Exam Physical Exam: General- oriented x 3, not in distress, speaks in sentences with no effort or accessory muscle use Eyes- anicteric Neck- no JVD Lungs- clear BS BL Heart- normal rate, regular rhythm; no murmurs Abdomen- normal bowel sounds, nondistended, soft, nontender Extremities- no pretibial edema, no calf tenderness Neuro- alert, oriented x 3; no gross focal neurologic deficits Skin- warm & dry Results & Data Results & Data Vital Signs (Past 12 Hours) Vital Signs Temp Pulse Pulse Resp BP BP Pulse Ox 09/22/22 15:42 37.0 C 64 20 148/75 H 150/84 H 94 09/22/22 15:13 37.0 C 64 20 148/75 H 94 09/22/22 11:29 36.8 C 63 16 150/84 H 95 09/22/22 07:52 36.5 C 57 L 20 154/83 H 94 09/22/22 07:13 62 O2 Del Method 09/22/22 15:42 09/22/22 15:13 Room Air 09/22/22 11:29 Room Air 09/22/22 07:52 Room Air 09/22/22 07:13 all noted and reviewed including below
--- NOTE | 2022-09-22 18:39 | Discharge Summary ---
Discharge Summary Date of Service September 22, 2022 Notes For Next Care Provider Medication Changes From Visit Morphine ER decreased to 30 mg daily Admission HPI Per Admitting Provider Ms. Gresham is a 77 year old female with pmhx of NIDDM-II (associated with HTN and HLP, c/b nephropathy and neuropathy), CKD IIIb - IV, peripheral polyneuropathy, b/l hammer toe deformity, lumbar DDD, chronic back pain, and Pelge-Huet anomaly (abnormal wbc nuclei). She presents in her words b/c her legs were jerking and her right hip hurt. Per her family she has confusion and other symptoms consistent with prior episodes of renal failure. Pt reports her legs have been jerking spontaneously for about 28 hours now. This has made chronic right hip pain worse than usual. There are no clear inciting, exacerbating, or alleviating factors regarding the jerking. The pain is improved with resting and with morphine. Hip pain is described as "solid" at worst 9/10, and currently 6/10. She denies EDGAR, dizziness, lightheadedness, confusion, difficulty with word finding, expressive or receptive aphasia, focal weakness, new numbness and tingling (has chronic b/l symptoms in her feet d/t neuropathy), dfficulty with balance or coordination, CP, sob, cough, congestion, sore throat, abdominal pain, dysuria, and diarrhea. She repeatedly states she does not feel as though she is confused. Collateral information per multiple family members at bedside (, sister, and granddaughter). Her notices she has been sleeping more than usual the last few days, and she seems confused here, but does not notice any other changes. He states at home she is sharp as a tack. Per granddaughter she appears more "pale and puffy" in the face. She notes mild slurred speech and confusion. Her sister adds that her fingers are swollen, she had to take her ring off. Per granddaughter the patient has had two episodes of renal failure in the past with similar presentation in terms of diffuse jerking, swelling, and confusion. The last time she required temporary HD that was continued for a few weeks or so post discharge. ED Course: VS notable for b/w notable for Na 133, K 5.2, BUN 62, Cr 2.91, eGFR 14.9, glucose 180, alk phos 110. Remaining cbc, cmp unimpressive. Phos 5.9, CK 461. Mg, troponin, procalcitonin and TSH are wnl. Lipase < 3. UA is pending. CXR is negative for acute pathology. Pt was given NS and admitted to hospitalist service. Admission Exam Per Admitting Provider General:NAD, well nourished, well developed, non-toxic appearing Head:NC AT Eyes: PERRL, EOMI, anicteric sclera, no conjunctival injection Nose:normal,nares patent Mouth:dry Neck:supple, trachea midline CV:RRR S1 S2 Pulm:CTA b/l Abd/GI:+ BS, soft, NT, ND, no guarding :no resendiz Ext:no pretibial edema MSK:normal bulk and tone Neuro:moving all 4 extremities symmetrically, no focal weakness, CN II - XII intact, oriented to self, location, year, and month. Occasional jerking movements of all 4 limbs and neck. Psych:pleasant mood and affect Skin:visible skin is warm, dry, and without rash. Pt not fully undressed for exam. Principal Dx & Hospital Course #1 = Principal Diagnosis (1) Acute respiratory failure with hypoxia: Secondary to encephalopathy, secondary to poor renal excretion of morphine, acute on CKD CT chest: 1. Cardiomegaly with mild pulmonary arterial hypertension. 2. A few partially opacified bilateral lower lobe bronchi. This could be due to prior aspiration. 3. Small patchy groundglass and linear densities within the lungs posteriorly favor dependent change/atelectasis. A low-grade pneumonitis is considered less likely but could also be considered in the differential diagnosis. 4. Additional findings as described above. Denies cough, sputum, fevers or chills Hypoxia resolved Weaned off oxygen supplement (2) Toxic metabolic encephalopathy: multifactorial d/t hypoxia, uremia, and build up of drugs d/t poor renal clearance (morphine) 09/22 Resolved (3) Acute kidney injury superimposed on CKD: baseline Cr is around 1.3 - 1.4 with eGFR in the 30s over the last few years at presentation Cr is 2.91 with eGFR of 15 09/22 Patient admits to taking additional ibuprofen lately for back and hip pain Renal US: 1. The kidneys demonstrate mild cortical atrophy and are without hydronephrosis. 2. The bladder was decompressed around a Resendiz catheter and could not be assessed. Nephrology service consulted: Given IV fluids Renally dosed all medications Creatinine improved gradually from 2.9 --> 1.3 Advised to stop taking NSAIDs Repeat basic metabolic profile in 1 week (4) Hyperkalemia, diminished renal excretion: Potassium 5.8 [place] 8.4 g 1 dose given Continue renal diet, hold lisinopril 09/22 Hyperkalemia resolved Repeat basic metabolic profile in 1 week during follow-up with PCP (5) Low back pain: Right sacroiliitis History of right hip surgery Patient admits to taking morphine daily times several years now for the back and hip pain Hold morphine, gabapentin, trazodone for now in light of acute kidney injury, metabolic encephalopathy CT lower back and right hip ordered The skeletal structures are osteopenic. There is no evidence of fracture or malalignment involving the lumbar spine. Vertebral body height and alignment are maintained throughout the lumbar spine. Anterior and lateral marginal osteophytes are seen throughout. Mild lumbar levocurvature centered at L2-L3. The transverse and spinous processes are intact. There is no spondylolysis. No lytic or blastic lesion is seen. There is moderate to severe disc space narrowing at all lumbar levels between L2-L3 and L5-S1. There is significant e ndplate sclerosis at L2-L3. Posterior disc osteophyte complexes are seen at all lumbar levels. There is mild to moderate central canal stenosis at L1-L2. There are large left lateral disc bulges at L1-L2 and L2-L3. These may abut the exiting left L1 and L2 nerve roots. Facet arthropathy is noted in the lower lumbar region. The visualized sacrum and bony pelvis appear intact. There is fatty atrophy of the paraspinous musculature. There is moderate to advanced atherosclerotic calcification of the abdominal aorta which is normal in caliber. No retroperitoneal lymphadenopathy is seen. FINDINGS: There is a right total hip arthroplasty. The metallic artifact results in suboptimal evaluation of the right hip. However, there is no definite fracture or dislocation within the right hip. No significant periprosthetic lucency. No soft tissue hematoma or soft tissue swelling within the right hip. Mild vascular calcifications are noted. No significant hip effusion. The tip of the acetabular screw extends into the adjacent iliopsoas muscle. The visualized sacrum appears intact. Renal function improved, gradually resumed patient's morphine ER, gabapentin and trazodone General Ortho service consulted: Acetabular screw extending to the psoas muscle chronic, not accounting for patient's pain Spine Ortho consulted-Dr. Gaxiola: Pain likely secondary to sacroiliitis, may benefit from right SI joint injection Pain management service consulted-evaluated by STANISLAV Nelson: Recommend outpatient follow-up for right SI joint injection Patient advised to limit morphine ER to 30 mg daily, gabapentin 300 mg twice daily (6) Type 2 diabetes mellitus with diabetic polyneuropathy: Continue present regimen Follow-up with PCP in 1 week (7) Hypertension: Renal function returned to baseline Resume lisinopril 5 mg p.o. daily (8) Abnormal finding on CT scan: Plan Discharge Discharge to home Follow-up with PCP in 1 week Follow-up with nephrology as scheduled Follow-up with pain management clinic in 1 to 2 weeks plan of care discussed with patient in detail and at length all questions answered she is understanding, agreeable, comfortable with the plan of care Discharge Exam General- oriented x 3, not in distress, speaks in sentences with no effort or accessory muscle use Eyes- anicteric Neck- no JVD Lungs- clear BS BL Heart- normal rate, regular rhythm; no murmurs Abdomen- normal bowel sounds, nondistended, soft, nontender Extremities- no pretibial edema, no calf tenderness Neuro- alert, oriented x 3; no gross focal neurologic deficits Skin- warm & dry Updated Medication List Medication Instructions Recorded Confirmed Type gabapentin 300 mg capsule 300 mg PO BID PRN Other 11/09/17 09/19/22 History (Neurontin) glipizide 5 mg tablet (Glucotrol) 5 mg PO DAILY 11/09/17 09/19/22 History morphine 15 mg immediate release 30 mg PO DAILY 12/23/18 09/19/22 History tablet trazodone 100 mg tablet 100 mg PO HS 12/23/18 09/19/22 History lisinopril 5 mg tablet 5 mg PO DAILY #90 tabs 09/28/21 09/19/22 Rx calcitriol 0.25 mcg capsule 0.25 mcg PO DAILY #90 caps 01/31/22 09/19/22 Rx (Rocaltrol) allopurinol 0 mg PO DAILY 09/19/22 09/19/22 History Hospital Stay Data Consultations 09/19/22 13:48 ED Decision to Admit Stat 09/19/22 15:29 Consult Nephrology Stat 09/20/22 12:27 Consult Pain Management Routine 09/21/22 08:36 Consult Orthopedic Surgery Routine 09/21/22 10:27 Consult Orthopedic Surgery Routine Diagnostic Imagining Performed 09/19/22 15:28 CT chest diagnostic wo con Routine Head CT [CT head/brain wo con] Routine 09/20/22 12:27 CT hip RT wo con Routine CT lumbar spine wo con Routine 09/20/22 13:02 US renal/blad retro comp Routine Pending Results Patient Have Any Pending Studies at Discharge: No Discharge Instructions Given to Patient (Per Discharging Provider) Limit morphine extended release to 30 mg/day Do not take including ibuprofen, naproxen, meloxicam, etc. Stay well-hydrated at all times. PLEASE CALL YOUR PRIMARY CARE PHYSICIAN OR RETURN TO THE ER IF WITH WORSENING OF SYMPTOMS, INCLUDING Confusion, changes with urination, fevers or chills, etc. FOLLOW UP WITH PRIMARY CARE PHYSICIAN AND KIDNEY SPECIALIST OUTLINED ABOVE.
[2022-09-23] MEDS ORDERED: MoRPHine SULFATE CR 15 MG TABCR PO SCH (09:00)
== END 2022-09-22 16:01 | disposition home or self-care (01) | DRG 682 ==
LOC: ED 10:49 → 2N 15:24 → SUATTDRO 15:24 → 2N 16:35